=== PATIENT | male | born 1980 | race African-American/Black ===

== ENCOUNTER 2020-04-03 17:18 | Emergency (ER) | payer SELFPAY ==
[2020-04-03] MEDS ORDERED: NA CHLORIDE 0.9% 1,000 ML ONE (19:51)
[2020-04-03 19:58] LABS: Urine Blood NEGATIVE (NEG); Urine Glucose NEGATIVE (NEG); Urine Protein NEGATIVE (NEG); Urine pH 5.5 (5.0-7.0)
[2020-04-03 19:59] LABS: Barbiturates NEGATIVE (NEGATIVE); Benzodiazepines NEGATIVE (NEGATIVE); Cocaine NEGATIVE (NEGATIVE); METHAMPHETAM NEGATIVE (NEGATIVE); Methadone NEGATIVE (NEGATIVE); Opiates NEGATIVE (NEGATIVE); Phencyclidine NEGATIVE (NEGATIVE); THC Cannibis NEGATIVE (NEGATIVE)
[2020-04-03 20:01] LABS: Absolute Lymphocytes (CBC) 1.8 K/uL (0.7-4.9); Basophils % 0.6 % (0-1.3); Hematocrit 43.2 % (39.6-49.0); Lymphocytes % 14.7 % (15.3-44.8); RBC Red Blood Cell Count 4.79 M/uL (4.33-5.43)
[2020-04-03 20:07] LABS: Protime INR 1.06
--- NOTE | 2020-04-03 20:26 | RAD REPORT ---
EXAM DESCRIPTION: Katelyn Single View04/03/2020 8:11 pm CLINICAL HISTORY: Palpitations COMPARISON: none FINDINGS: The lungs appear clear of acute infiltrate. The heart is normal size IMPRESSION: No acute abnormalities displayed
[2020-04-03 20:28] LABS: ALT/SGPT 30 U/L (12-78); AST/SGOT 19 U/L (15-37); Albumin 4.5 g/dL (3.4-5.0); Alkaline Phosphatase 80 U/L (45-117); BUN Blood Urea Nitrogen 17 mg/dL (7-18); Bicarbonate 25 mmol/L (21-32); Bilirubin Direct 0.1 mg/dL (0-0.2); Bilirubin Total 0.4 mg/dL (0.2-1.0); Glucose Level 93 mg/dL (74-106); Magnesium 2.1 mg/dL (1.8-2.4); NT PRO-BNP 11 pg/mL (<125); Potassium 3.6 mmol/L (3.5-5.1); Protein, Total 9.1 g/dL (6.4-8.2); Sodium Level 139 mmol/L (136-145); Troponin (Emerg Dept Use Only) < 0.02 ng/mL (0.0-0.045)
--- NOTE | 2020-04-03 21:35 | ER ---
Nurse's Notes [facility] Name: Akhil Hidalgo Age: 39 yrs Sex: Male : 1980 Arrival Date: 04/03/2020 Time: 17:20 Bed 4 Private MD: Diagnosis: Palpitations Presentation: 04/03 17:26 Chief complaint: Patient states: "On Saturday he had a heart rate went up to 150s and he jd3 was feeling dizzy. today his heart rate shot up to 150 and his blood pressure also goes up. he is having chest pain and shortness of breath with the heart rate changes.". Coronavirus screen: At this time, the client does not indicate any symptoms associated with coronavirus-19. Ebola Screen: Patient negative for fever greater than or equal to 101.5 degrees Fahrenheit, and additional compatible Ebola Virus Disease symptoms. Initial Sepsis Screen: Does the patient meet any 2 criteria? No. Patient's initial sepsis screen is negative. Does the patient have a suspected source of infection? No. Patient's initial sepsis screen is negative. Risk Assessment: Do you want to hurt yourself or someone else? Patient reports no desire to harm self or others. Onset of symptoms was April 03, 2020. 17:26 Method Of Arrival: Wheelchair jd3 17:26 Acuity: MARIANGEL 3 jd3 Historical: - Allergies: 17:29 No Known Allergies; jd3 - Home Meds: 17:29 amlodipine oral [Active]; jd3 - PMHx: 17:29 None; jd3 - PSHx: 17:29 None; jd3 - Immunization history:: Adult Immunizations up to date. - Social history:: Smoking status: Patient reports the use of cigarette tobacco products, smokes one-half pack cigarettes per day. Screenin:45 Abuse screen: Denies threats or abuse. Denies injuries from another. Nutritional rr5 screening: No deficits noted. Tuberculosis screening: No symptoms or risk factors identified. Fall Risk IV access (20 points). Total Huynh Fall Scale indicates No Risk (0-24 pts). Assessment: 19:46 General: Appears in no apparent distress. comfortable, Behavior is calm, cooperative, rr5 appropriate for age. Pain: Complains of pain in chest Pain currently is 0 out of 10 on a pain scale. Quality of pain is described as aching, Pain began gradually, Is intermittent. Neuro: Level of Consciousness is awake, alert, obeys commands, Oriented to person, place, time, situation, Reports dizziness. Cardiovascular: Reports chest pain, shortness of breath, Capillary refill < 3 seconds Patient's skin is warm and dry. Respiratory: Airway is patent Respiratory effort is even, unlabored, Respiratory pattern is regular, symmetrical. GI: No signs and/or symptoms were reported involving the gastrointestinal system. : No signs and/or symptoms were reported regarding the genitourinary system. EENT: No signs and/or symptoms were reported regarding the EENT system. Derm: Skin is intact, is healthy with good turgor, Skin temperature is warm. Musculoskeletal: Circulation, motion, and sensation intact. Capillary refill < 3 seconds. 20:30 Reassessment: Patient appears in no apparent distress at this time. Patient is alert, rr5 oriented x 3, equal unlabored respirations, skin warm/dry/pink. Patient states feeling better. Patient states symptoms have improved. 21:55 Reassessment: Patient appears in no apparent distress at this time. Patient is alert, rr5 oriented x 3, equal unlabored respirations, skin warm/dry/pink. discharge instruction given and explained without complaints made Patient states symptoms have improved. Vital Signs: 17:29 BP 140 / 100; Pulse 109; Resp 19 S; Temp 98.7(TE); Pulse Ox 100% on R/A; Weight 88.45 jd3 kg (R); Height 6 ft. 0 in. (182.88 cm) (R); Pain 0/10; 20:23 BP 134 / 94; Pulse 65; Resp 16; Pulse Ox 99% ; rr5 21:50 BP 136 / 95; Pulse 62; Resp 16; Pulse Ox 99% ; rr5 17:29 Body Mass Index 26.45 (88.45 kg, 182.88 cm) jd3 ED Course: 17:20 Patient arrived in ED. ag5 17:28 Triage completed. jd3 17:31 Arm band placed on. jd3 17:47 EKG completed in triage. Results shown to MD. jd3 19:25 Arron Kamara NP is PHCP. pm1 19:25 Vinh Bermudez MD is Attending Physician. pm1 19:30 Stephens, Adal, RN is Primary Nurse. rr5 19:45 Patient has correct armband on for positive identification. Placed in gown. Bed in low rr5 position. Call light in reach. property assessment monitor on. Pulse ox on. NIBP on. 19:45 No provider procedures requiring assistance completed. Urine collected: clean catch rr5 specimen, clear. Patient maintains SpO2 saturation greater than 95% on room air. 19:54 Inserted saline lock: 20 gauge in right antecubital area, using aseptic technique. oe Blood collected. 20:14 XRAY Chest (1 view) In Process Unspecified. EDMS 21:56 IV discontinued, intact, bleeding controlled, No redness/swelling at site. Pressure rr5 dressing applied. Administered Medications: 19:52 Drug: NS 0.9% 1000 ml Route: IV; Rate: 1000 ml; Site: right forearm; rr5 21:50 Follow up: Response: No adverse reaction; IV Status: Completed infusion; IV Intake: rr5 1000ml Intake: 21:50 IV: 1000ml; Total: 1000ml. rr5 Outcome: 21:35 Discharge ordered by MD. pm1 21:50 Discharged to home ambulatory, with family. rr5 21:50 Condition: stable 21:50 Discharge instructions given to patient, Instructed on discharge instructions, follow up and referral plans. medication usage, Demonstrated understanding of instructions, follow-up care, medications, Prescriptions given X 1. 21:54 Patient left the ED. sg Signatures: Dispatcher [employer] EDMS Miguel Ángel John RN RN sg Arron Kamara, INJECTION MOLDING MACHINE TENDER INJECTION MOLDING MACHINE TENDER pm1 Jan Lara oe Og Pryor RN RN jd3 Roque, Raymond, CLIFFORD RN rr5 Mari Pimentel 5
--- NOTE | 2020-04-03 21:35 | EDPHYS ---
Physician Documentation [facility] Name: Akhil Hidalgo Age: 39 yrs Sex: Male : 1980 Arrival Date: 04/03/2020 Time: 17:20 Bed 4 Private MD: ED Physician Vinh Bermudez HPI: 04/03 19:35 This 39 yrs old Black Male presents to ER via Wheelchair with complaints of Chest Pain, pm1 Shortness Of Breath, Dizziness. 19:35 Context: The symptoms occur at rest, while driving his rental car. Onset: The pm1 symptoms/episode began/occurred yesterday. Duration: The patient or guardian reports multiple episodes, that have now resolved, 2 episodes total. Modifying factors: The symptoms are aggravated by nothing. The symptoms are alleviated by nothing. Associated signs and symptoms: Pertinent positives: chest pain, SOB. Severity of symptoms: in the emergency department the symptoms have resolved Pain is currently a 0 / 10. The patient has not experienced similar symptoms in the past. 19:35 The patient presents with a history of heart racing. pm1 Historical: - Allergies: 17:29 No Known Allergies; jd3 - Home Meds: 17:29 amlodipine oral [Active]; jd3 - PMHx: 17:29 None; jd3 - PSHx: 17:29 None; jd3 - Immunization history:: Adult Immunizations up to date. - Social history:: Smoking status: Patient reports the use of cigarette tobacco products, smokes one-half pack cigarettes per day. ROS: 19:35 Constitutional: Negative for fever, chills, and weight loss, Eyes: Negative for injury, pm1 pain, redness, and discharge, ENT: Negative for injury, pain, and discharge, Neck: Negative for injury, pain, and swelling. 19:35 Abdomen/GI: Negative for abdominal pain, nausea, vomiting, diarrhea, and constipation, Back: Negative for injury and pain, MS/Extremity: Negative for injury and deformity, Skin: Negative for injury, rash, and discoloration. 19:35 Cardiovascular: Positive for chest pain, palpitations. 19:35 Respiratory: Positive for shortness of breath, Negative for cough. 19:35 Neuro: Positive for dizziness, Negative for numbness, tingling. Exam: 19:35 Constitutional: This is a well developed, well nourished patient who is awake, alert, pm1 and in no acute distress. Head/Face: Normocephalic, atraumatic. Chest/axilla: Normal chest wall appearance and motion. Nontender with no deformity. No lesions are appreciated. Cardiovascular: Regular rate and rhythm with a normal S1 and S2. No gallops, murmurs, or rubs. Normal PMI, no JVD. No pulse deficits. Respiratory: Lungs have equal breath sounds bilaterally, clear to auscultation and percussion. No rales, rhonchi or wheezes noted. No increased work of breathing, no retractions or nasal flaring. Abdomen/GI: Soft, non-tender, with normal bowel sounds. No distension or tympany. No guarding or rebound. No evidence of tenderness throughout. Back: No spinal tenderness. No costovertebral tenderness. Full range of motion. Skin: Warm, dry with normal turgor. Normal color with no rashes, no lesions, and no evidence of cellulitis. MS/ Extremity: Pulses equal, no cyanosis. Neurovascular intact. Full, normal range of motion. 19:35 Neuro: Exam negative for acute changes, Orientation: is normal, Mentation: is normal, Motor: is normal, moves all fours. Vital Signs: 17:29 BP 140 / 100; Pulse 109; Resp 19 S; Temp 98.7(TE); Pulse Ox 100% on R/A; Weight 88.45 jd3 kg (R); Height 6 ft. 0 in. (182.88 cm) (R); Pain 0/10; 20:23 BP 134 / 94; Pulse 65; Resp 16; Pulse Ox 99% ; rr5 21:50 BP 136 / 95; Pulse 62; Resp 16; Pulse Ox 99% ; rr5 17:29 Body Mass Index 26.45 (88.45 kg, 182.88 cm) jd3 MDM: 19:33 Patient medically screened. pm1 21:34 Data reviewed: vital signs. Data interpreted: Pulse oximetry: on room air is 99 %. pm1 Interpretation: normal. Counseling: I had a detailed discussion with the patient and/or guardian regarding: the historical points, exam findings, and any diagnostic results supporting the discharge/admit diagnosis, lab results, radiology results, the need for outpatient follow up, to return to the emergency department if symptoms worsen or persist or if there are any questions or concerns that arise at home. 04/03 19:35 Order name: Basic Metabolic Panel; Complete Time: 20:33 pm1 04/03 19:35 Order name: CBC with Diff; Complete Time: 20:12 pm1 04/03 19:35 Order name: LFT's; Complete Time: 20:33 pm1 04/03 19:35 Order name: Magnesium; Complete Time: 20:33 pm1 04/03 19:35 Order name: NT PRO-BNP; Complete Time: 20:33 pm1 04/03 19:35 Order name: PT-INR; Complete Time: 21:34 pm1 04/03 19:35 Order name: Troponin (emerg Dept Use Only); Complete Time: 20:33 pm1 04/03 19:35 Order name: XRAY Chest (1 view); Complete Time: 20:33 pm1 04/03 19:35 Order name: EKG; Complete Time: 19:36 pm1 04/03 19:35 Order name: Cardiac monitoring; Complete Time: 19:35 pm1 04/03 19:35 Order name: TSH; Complete Time: 20:33 pm1 04/03 19:35 Order name: UDS; Complete Time: 20:12 pm1 04/03 19:46 Order name: Urine Dipstick--Ancillary (enter results); Complete Time: 19:59 tt3 04/03 19:35 Order name: EKG - Nurse/Tech; Complete Time: 19:35 pm1 04/03 19:35 Order name: IV Saline Lock; Complete Time: 19:36 pm1 04/03 19:35 Order name: Labs collected and sent; Complete Time: 19:36 pm1 04/03 19:35 Order name: O2 Per Protocol; Complete Time: 19:36 pm1 04/03 19:35 Order name: O2 Sat Monitoring; Complete Time: 19:36 pm1 04/03 19:35 Order name: Urine Dipstick-Ancillary (obtain specimen); Complete Time: 19:45 pm1 Administered Medications: 19:52 Drug: NS 0.9% 1000 ml Route: IV; Rate: 1000 ml; Site: right forearm; rr5 21:50 Follow up: Response: No adverse reaction; IV Status: Completed infusion; IV Intake: rr5 1000ml Disposition: 10/05 05:34 Co-signature as Attending Physician, Vinh Bermudez MD. [email or web address] Disposition: 04/03/20 21:35 Discharged to Home. Impression: Palpitations. - Condition is Stable. - Discharge Instructions: Holter Monitoring, Palpitations. - Prescriptions for Norvasc 10 mg Oral Tablet - take 1 tablet by ORAL route once daily; 20 tablet. - Medication Reconciliation Form, Thank You Letter, Antibiotic Education, Prescription Opioid Use, Work release form form. - Follow up: Emergency Department; When: As needed; Reason: Worsening of condition. Follow up: Private Physician; When: 2 - 3 days; Reason: Recheck today's complaints, Continuance of care, Re-evaluation by your physician. - Problem is new. - Symptoms have improved. Signatures: Dispatcher [employer] EDMS Miguel Ángel John, RN RN sg Yrn Vernon, WIRE WINDING MACHINE OPERATOR-C WIRE WINDING MACHINE OPERATOR-Cla1 Arron Kamara, COIL WINDER HAND COIL WINDER HAND pm1 Og Pryor RN RN Adal Santiago RN RN rr5 Vinh Bermudez MD MD 7 Corrections: (The following items were deleted from the chart) 04/03 21:54 21:35 04/03/2020 21:35 Discharged to Home. Impression: Palpitations. Condition is sg Stable. Forms are Medication Reconciliation Form, Thank You Letter, Antibiotic Education, Prescription Opioid Use. Follow up: Emergency Department; When: As needed; Reason: Worsening of condition. Follow up: Private Physician; When: 2 - 3 days; Reason: Recheck today's complaints, Continuance of care, Re-evaluation by your physician. Problem is new. Symptoms have improved. pm1 04/04 02:05 02:03 The patient presents with a history of heart racing, pm1 pm1
[2020-04-03 22:12] VITALS: TEMP 98.7
[2020-04-03 22:14] VITALS: BP 134/94; O2SAT 99
== END 2020-04-03 21:54 | disposition home or self-care (01) ==
LOC: ER 17:18
DX: R00.2 Palpitations (principal); F17.210 Nicotine dependence, cigarettes, uncomplicated
CPT/HCPCS: 36415; 71045; 80048; 80076; 80307; 81003; 83735; 83880; 84443; 84484; 85025; 85610; 93005; 96360; 96361; 99285; J7030

== ENCOUNTER 2020-05-25 08:42 | Emergency (ER) | payer SELFPAY ==
[2020-05-25 09:24] LABS: Absolute Lymphocytes (CBC) 2.3 K/uL (0.7-4.9); Basophils % 1.5 % (0-1.3); Lymphocytes % 30.8 % (15.3-44.8); Protime INR 1.05; RBC Red Blood Cell Count 4.49 M/uL (4.33-5.43)
[2020-05-25 09:41] LABS: ALT/SGPT 60 U/L (12-78); AST/SGOT 28 U/L (15-37); Albumin 3.8 g/dL (3.4-5.0); Alkaline Phosphatase 68 U/L (45-117); BUN Blood Urea Nitrogen 11 mg/dL (7-18); Bicarbonate 25 mmol/L (21-32); Bilirubin Direct < 0.1 mg/dL (0-0.2); Bilirubin Total 0.4 mg/dL (0.2-1.0); Glucose Level 111 mg/dL (74-106); Magnesium 2.1 mg/dL (1.8-2.4); Potassium 3.9 mmol/L (3.5-5.1); Sodium Level 139 mmol/L (136-145); Troponin (Emerg Dept Use Only) < 0.02 ng/mL (0.0-0.045)
[2020-05-25 09:46] LABS: NT PRO-BNP < 5 pg/mL (<125)
--- NOTE | 2020-05-25 10:47 | RAD REPORT ---
EXAM DESCRIPTION: Katelyn Single View05/25/2020 9:59 am CLINICAL HISTORY: Chest pain COMPARISON: March 2020 FINDINGS: The lungs appear clear of acute infiltrate. The heart is normal size IMPRESSION: No acute abnormalities displayed
--- NOTE | 2020-05-25 12:35 | ER ---
Nurse's Notes [facility] Name: Akhil Hidalgo Age: 40 yrs Sex: Male : 1980 Arrival Date: 05/25/2020 Time: 08:45 Bed 5 Private MD: Diagnosis: Chest pain on breathing Presentation: 05/25 08:45 Chief complaint: Patient states: "I accidently took two of my Amlodipine tablets two ss days ago and I started getting bad chest pain. My blood pressure was reading as low as 70/40 on my machine and since then when I take a deep breath, my chest hurts.". Coronavirus screen: Client denies travel out of the [place] in the last 14 days. Ebola Screen: Patient denies exposure to infectious person. Patient denies travel to an Ebola-affected area in the 21 days before illness onset. Initial Sepsis Screen: Does the patient meet any 2 criteria? No. Patient's initial sepsis screen is negative. Does the patient have a suspected source of infection? No. Patient's initial sepsis screen is negative. Risk Assessment: Do you want to hurt yourself or someone else? Patient reports no desire to harm self or others. Onset of symptoms was May 23, 2020. 08:45 Method Of Arrival: Ambulatory ss 08:45 Acuity: MARIANGEL 3 ss Triage Assessment: 08:45 General: Appears in no apparent distress. comfortable, Behavior is cooperative, bp appropriate for age, anxious. Pain: Complains of pain in chest. EENT: No deficits noted. Neuro: No deficits noted. Cardiovascular: Rhythm is sinus rhythm. Respiratory: No deficits noted. GI: No signs and/or symptoms were reported involving the gastrointestinal system. : No signs and/or symptoms were reported regarding the genitourinary system. Derm: No deficits noted. Musculoskeletal: No deficits noted. Historical: - Allergies: 09:12 No Known Allergies; ss - Home Meds: 09:12 amlodipine 10 mg oral tab 1 tab once daily [Active]; ss - PMHx: 09:12 Hypertension; ss - PSHx: 09:12 None; ss - Immunization history:: Adult Immunizations up to date. - Social history:: Patient/guardian denies using alcohol, street drugs, The patient lives alone, with family, Smoking status: Patient/guardian denies using tobacco, Stopped _ months ago 1. - Family history:: not pertinent. Screenin:45 Abuse screen: Denies threats or abuse. Denies injuries from another. Nutritional bp screening: No deficits noted. Tuberculosis screening: No symptoms or risk factors identified. Fall Risk None identified. Assessment: 08:45 General: SEE TRIAGE NOTE. bp 10:30 Reassessment: Patient appears in no apparent distress at this time. Patient and/or bp family updated on plan of care and expected duration. Pain level reassessed. Patient is alert, oriented x 3, equal unlabored respirations, skin warm/dry/pink. ALL CURRENT ORDERS COMPLETED, RESULTS UNREMARKABLE. 11:30 Reassessment: Patient appears in no apparent distress at this time. Patient and/or bp family updated on plan of care and expected duration. Pain level reassessed. REPEAT CARDIAC ENZYMES IN PROCESS. Patient states symptoms have improved. Vital Signs: 08:45 BP 126 / 82; Pulse 85; Resp 16; Temp 98.2(TE); Pulse Ox 100% on R/A; Weight 88 kg; ss Height 6 ft. 0 in. (182.88 cm); Pain 0/10; 09:30 BP 122 / 87; Pulse 72; Resp 15; Pulse Ox 100% ; bp 10:30 BP 108 / 76; Pulse 74; Resp 14; Pulse Ox 100% ; bp 11:30 BP 123 / 91; Pulse 63; Resp 19; Pulse Ox 100% ; bp 08:45 Body Mass Index 26.31 (88.00 kg, 182.88 cm) ED Course: 08:45 Patient arrived in ED. as 08:45 Patient has correct armband on for positive identification. Bed in low position. Call bp light in reach. Side rails up X2. monitor worker on. Pulse ox on. NIBP on. 08:50 Domo Houston MD is Attending Physician. ma2 08:58 EKG done, by ED staff, reviewed by Domo Houston MD. 3 09:02 Tee Mckeon, CLIFFORD is Primary Nurse. bp 09:09 Triage completed. ss 09:10 Inserted saline lock: 20 gauge in right antecubital area, using aseptic technique. bp Patient maintains SpO2 saturation greater than 95% on room air. 09:12 Arm band placed on right wrist. ss 09:59 XRAY Chest (1 view) In Process Unspecified. EDMS 12:47 No provider procedures requiring assistance completed. IV discontinued, intact, ss bleeding controlled, No redness/swelling at site. Pressure dressing applied. Administered Medications: No medications were administered Outcome: 12:35 Discharge ordered by . an 12:47 Discharged to home ambulatory, with family. ss 12:47 Condition: good 12:47 Discharge instructions given to patient, family, Instructed on discharge instructions, follow up and referral plans. medication usage, Demonstrated understanding of instructions, follow-up care, medications, Prescriptions given X 1. 12:48 Patient left the ED. ss Signatures: Dispatcher [employer] EDDE Negar Vasquez Shelby, CLIFFORD HORTON Shweta Garces [facility] Tee Mckeon RN RN Domo Winter MD MD ma2
--- NOTE | 2020-05-25 12:35 | EDPHYS ---
Physician Documentation [facility] Name: Akhil Hidalgo Age: 40 yrs Sex: Male : 1980 Arrival Date: 05/25/2020 Time: 08:45 Bed 5 Private MD: ED Physician Domo Houston HPI: 05/25 09:08 This 40 yrs old Black Male presents to ER via Unassigned with complaints of Chest Pain, ma2 Back Pain, Blood Pressure Problem. 09:08 The patient or guardian reports chest pain that is located primarily in the substernal ma2 area. The pain does not radiate. Duration: The patient or guardian reports a single episode, that is now resolved. Severity of pain: At its worst the pain was very mild in the emergency department the pain has resolved. The patient has not experienced similar symptoms in the past. hx of htn, he took 2 tablet of his metoprolol by mistake 2 days ago, and checked his bp was 74/40 and he had "painful heart beats" that lasted for 10 min, then resolved, since then he has no symptoms or concerns, he is here to have his heart checked.. no symptoms for the last 2 day s . Historical: - Allergies: 09:12 No Known Allergies; ss - Home Meds: 09:12 amlodipine 10 mg oral tab 1 tab once daily [Active]; ss - PMHx: 09:12 Hypertension; ss - PSHx: 09:12 None; ss - Immunization history:: Adult Immunizations up to date. - Social history:: Patient/guardian denies using alcohol, street drugs, The patient lives alone, with family, Smoking status: Patient/guardian denies using tobacco, Stopped _ months ago 1. - Family history:: not pertinent. ROS: 09:08 Constitutional: Negative for fever, chills, and weight loss. ma2 09:08 All other systems are negative. Exam: 09:08 Constitutional: This is a well developed, well nourished patient who is awake, alert, ma2 and in no acute distress. Head/Face: Normocephalic, atraumatic. Eyes: Pupils equal round and reactive to light, extra-ocular motions intact. Lids and lashes normal. Conjunctiva and sclera are non-icteric and not injected. Cornea within normal limits. Periorbital areas with no swelling, redness, or edema. ENT: Nares patent. No nasal discharge, no septal abnormalities noted. Tympanic membranes are normal and external auditory canals are clear. Oropharynx with no redness, swelling, or masses, exudates, or evidence of obstruction, uvula midline. Mucous membranes moist. Neck: Trachea midline, no thyromegaly or masses palpated, and no cervical lymphadenopathy. Supple, full range of motion without nuchal rigidity, or vertebral point tenderness. No Meningismus. Chest/axilla: Normal chest wall appearance and motion. Nontender with no deformity. No lesions are appreciated. Cardiovascular: Regular rate and rhythm with a normal S1 and S2. No gallops, murmurs, or rubs. Normal PMI, no JVD. No pulse deficits. Respiratory: Lungs have equal breath sounds bilaterally, clear to auscultation and percussion. No rales, rhonchi or wheezes noted. No increased work of breathing, no retractions or nasal flaring. Abdomen/GI: Soft, non-tender, with normal bowel sounds. No distension or tympany. No guarding or rebound. No evidence of tenderness throughout. MS/ Extremity: Pulses equal, no cyanosis. Neurovascular intact. Full, normal range of motion. Neuro: Awake and alert, GCS 15, oriented to person, place, time, and situation. Cranial nerves II-XII grossly intact. Motor strength 5/5 in all extremities. Sensory grossly intact. Cerebellar exam normal. Normal gait. Vital Signs: 08:45 BP 126 / 82; Pulse 85; Resp 16; Temp 98.2(TE); Pulse Ox 100% on R/A; Weight 88 kg; ss Height 6 ft. 0 in. (182.88 cm); Pain 0/10; 09:30 BP 122 / 87; Pulse 72; Resp 15; Pulse Ox 100% ; bp 10:30 BP 108 / 76; Pulse 74; Resp 14; Pulse Ox 100% ; bp 11:30 BP 123 / 91; Pulse 63; Resp 19; Pulse Ox 100% ; bp 08:45 Body Mass Index 26.31 (88.00 kg, 182.88 cm) MDM: 08:50 Patient medically screened. ma2 09:08 Differential diagnosis: anxiety, chest wall pain, esophagitis, gastritis, ma2 gastroesophageal reflux disease (GERD), hiatal hernia. HEART Score: History: Slightly Suspicious (0), ECG: Normal (0), Age: < or = 45 years (0), Risk Factors: 1 or 2 risk factors (1), Troponin: < or = 1 x Normal Limit (0), Total Score = 1. Data reviewed: vital signs, nurses notes, EMS record. Counseling: I had a detailed discussion with the patient and/or guardian regarding: the historical points, exam findings, and any diagnostic results supporting the discharge/admit diagnosis, the presence of at least one elevated blood pressure reading (>120/80) during this emergency department visit. 12:34 ED course: he will see a maintenance of way clerk and pcp in 2 days . 05/25 08:50 Order name: Basic Metabolic Panel; Complete Time: 09:49 05/25 08:50 Order name: CBC with Diff; Complete Time: 09:49 05/25 08:50 Order name: LFT's; Complete Time: 09:49 05/25 08:50 Order name: Magnesium; Complete Time: 09:49 05/25 08:50 Order name: NT PRO-BNP; Complete Time: 09:49 05/25 08:50 Order name: PT-INR; Complete Time: 09:49 05/25 08:50 Order name: Troponin (emerg Dept Use Only); Complete Time: 09:49 05/25 08:50 Order name: XRAY Chest (1 view); Complete Time: 11:59 05/25 08:50 Order name: EKG; Complete Time: 08:51 05/25 08:50 Order name: Cardiac monitoring; Complete Time: 09:04 05/25 08:50 Order name: EKG - Nurse/Tech; Complete Time: 09:04 05/25 08:50 Order name: IV Saline Lock; Complete Time: 09:24 05/25 08:50 Order name: Labs collected and sent; Complete Time: 09:24 05/25 11:21 Order name: Troponin (emerg Dept Use Only): 2nd repeat; Complete Time: 12:28 05/25 08:50 Order name: O2 Per Protocol; Complete Time: 09:05 05/25 08:50 Order name: O2 Sat Monitoring; Complete Time: 09:05 ma2 Administered Medications: No medications were administered Disposition: 05/25/20 12:35 Discharged to Home. Impression: Chest pain on breathing. - Condition is Stable. - Discharge Instructions: Nonspecific Chest Pain, [id number]. - Prescriptions for Diclofenac Sodium 75 mg Oral Tablet Sustained Release - take 1 tablet by ORAL route 2 times per day; 30 tablet. - Medication Reconciliation Form, Thank You Letter, Antibiotic Education, Prescription Opioid Use form. - Follow up: Private Physician; When: Tomorrow; Reason: Continuance of care. Signatures: Dispatcher [employer] EDGeorgie Fernández RN RN ss Alzahri, Mohammad, MD MD ma2 Corrections: (The following items were deleted from the chart) 12:48 12:35 05/25/2020 12:35 Discharged to Home. Impression: Chest pain on breathing. ss Condition is Stable. Prescriptions for Diclofenac Sodium 75 mg Oral Tablet Sustained Release - take 1 tablet by ORAL route 2 times per day; 30 tablet. and Forms are Medication Reconciliation Form, Thank You Letter, Antibiotic Education, Prescription Opioid Use. Follow up: Private Physician; When: Tomorrow; Reason: Continuance of care. ma2
[2020-05-25 13:08] VITALS: TEMP 98.2; O2SAT 100
[2020-05-25 13:14] VITALS: BP 123/91
== END 2020-05-25 12:48 | disposition home or self-care (01) ==
LOC: ER 08:42
DX: R07.1 Chest pain on breathing (principal); I10 Essential (primary) hypertension
CPT/HCPCS: 36415; 71045; 80048; 80076; 83735; 83880; 84484; 85025; 85610; 93005; 99285

== ENCOUNTER 2021-04-06 17:01 | Emergency (ER) | payer SELFPAY ==
[2021-04-06 17:26] LABS: Urine Blood Negative (Negative); Urine Glucose Negative (Negative); Urine Protein Negative (Negative)
[2021-04-06] MEDS ORDERED: MORPHINE 4 MG/ML SYR ONE (18:03)
[2021-04-06] MEDS ORDERED: NA CHLORIDE 0.9% 1,000 ML ONE (18:03)
[2021-04-06] MEDS ORDERED: ONDANSETRON 4 MG/2 ML VIAL ONE (18:03)
[2021-04-06 18:10] LABS: Absolute Lymphocytes (CBC) 2.3 K/uL (0.7-4.9); Hematocrit 39.2 % (39.6-49.0); Lymphocytes % 26.2 % (15.3-44.8); MPV 7.9 fL (7.6-11.3); RBC Red Blood Cell Count 4.56 M/uL (4.33-5.43)
[2021-04-06 18:18] LABS: ALT/SGPT 36 U/L (12-78); AST/SGOT 22 U/L (15-37); Albumin 4.2 g/dL (3.4-5.0); Alkaline Phosphatase 74 U/L (45-117); BUN Blood Urea Nitrogen 17 mg/dL (7-18); Bicarbonate 26 mmol/L (21-32); Bilirubin Direct < 0.1 mg/dL (0-0.2); Bilirubin Total 0.2 mg/dL (0.2-1.0); Glucose Level 102 mg/dL (74-106); Lipase 156 U/L (73-393); Potassium 3.9 mmol/L (3.5-5.1); Protein, Total 8.3 g/dL (6.4-8.2); Sodium Level 139 mmol/L (136-145)
--- NOTE | 2021-04-06 18:58 | RAD REPORT ---
EXAM DESCRIPTION: CT - Abdomen Pelvis W Contrast - 04/06/2021 6:43 pm CLINICAL HISTORY: Abd pain;Flank pain COMPARISON: No comparisons TECHNIQUE: Biphasic, helical CT imaging of the abdomen and pelvis was performed following 100 ml non -ionic IV contrast. No oral contrast administered. All CT scans are performed using dose optimization technique as appropriate and may include automated exposure control or mA/KV adjustment according to patient size. FINDINGS: No suspicious findings in the lung bases. The liver, spleen, and pancreas show no suspicious findings. Gallbladder is contracted. No acute gall bladder finding. No biliary tree abnormality. Symmetric renal function is seen with no hydronephrosis or suspicious renal mass. No pyelonephritis o r acute parenchymal process. No bladder abnormalities. No adrenal abnormalities. Prostate gland and s eminal vesicles show suspicious findings. No dilated bowel loops or bowel wall thickening. Appendix normal. No acute GI process identifiable. No free air, free fluid or inflammatory stranding. Very small fat only umbilical hernia is seen. No mass or bulky lymphadenopathy. No suspicious bony findings. IMPRESSION: Contrast enhanced CT abdomen and pelvis showing no acute or emergent finding.
--- NOTE | 2021-04-06 19:06 | EDPHYS ---
Physician Documentation [facility] Name: Akhil Hidalgo Age: 40 yrs Sex: Male : 1980 Arrival Date: 04/06/2021 Time: 17:02 Bed 17 Private MD: ED Physician Yovany Manning HPI: 04/06 18:36 This 40 yrs old Black Male presents to ER via Ambulatory with complaints of Flank Pain boom - both sides. 18:36 This 40 yrs old Black Male presents to ER via Ambulatory with complaints of Flank Pain boom - both sides. 18:36 The patient complains of pain in the left low back, left mid back, right mid back and boom right low back. The pain radiates to the left low back, left mid back, right mid back and right low back. Onset: The symptoms/episode began/occurred 10 day(s) ago. Modifying factors: The symptoms are alleviated by nothing. the symptoms are aggravated by nothing. Associated signs and symptoms: The patient has no apparent associated signs or symptoms. Severity of pain: At its worst the pain was mild moderate in the emergency department the pain is unchanged. The patient has experienced a previous episode. Historical: - Allergies: 17:12 No Known Allergies; jl7 - Home Meds: 17:12 amlodipine 10 mg tab 1 tab once daily [Active]; Zoloft Oral [Active]; trazodone Oral jl7 [Active]; - PMHx: 17:12 Hypertension; Anxiety; jl7 - PSHx: 17:12 None; jl7 - Immunization history:: Client reports receiving the 2nd dose of the Covid vaccine, Pf[employer]. - Social history:: Smoking status: Reported history of juuling and/or vaping. - Family history:: not pertinent. ROS: 18:36 Constitutional: Negative for fever, chills, and weight loss, Eyes: Negative for injury, obom pain, redness, and discharge, ENT: Negative for injury, pain, and discharge, Neck: Negative for injury, pain, and swelling, Cardiovascular: Negative for chest pain, palpitations, and edema, Respiratory: Negative for shortness of breath, cough, wheezing, and pleuritic chest pain, Back: Negative for injury and pain, : Negative for injury, bleeding, discharge, and swelling, MS/Extremity: Negative for injury and deformity, Skin: Negative for injury, rash, and discoloration, Neuro: Negative for headache, weakness, numbness, tingling, and seizure, Psych: Negative for depression, anxiety, suicide ideation, homicidal ideation, and hallucinations, Allergy/Immunology: Negative for hives, rash, and allergies, Endocrine: Negative for neck swelling, polydipsia, polyuria, polyphagia, and marked weight changes, Hematologic/Lymphatic: Negative for swollen nodes, abnormal bleeding, and unusual bruising. 18:36 Abdomen/GI: Positive for abdominal pain, of the epigastric area, posterior aspect of left lateral abdomen, posterior aspect of right lateral abdomen, right upper quadrant, left upper quadrant, right lower quadrant and left lower quadrant. Exam: 18:36 Constitutional: This is a well developed, well nourished patient who is awake, alert, boom and in no acute distress. Head/Face: Normocephalic, atraumatic. Eyes: Pupils equal round and reactive to light, extra-ocular motions intact. Lids and lashes normal. Conjunctiva and sclera are non-icteric and not injected. Cornea within normal limits. Periorbital areas with no swelling, redness, or edema. ENT: Nares patent. No nasal discharge, no septal abnormalities noted. Tympanic membranes are normal and external auditory canals are clear. Oropharynx with no redness, swelling, or masses, exudates, or evidence of obstruction, uvula midline. Mucous membranes moist. Neck: Trachea midline, no thyromegaly or masses palpated, and no cervical lymphadenopathy. Supple, full range of motion without nuchal rigidity, or vertebral point tenderness. No Meningismus. Chest/axilla: Normal chest wall appearance and motion. Nontender with no deformity. No lesions are appreciated. Cardiovascular: Regular rate and rhythm with a normal S1 and S2. No gallops, murmurs, or rubs. Normal PMI, no JVD. No pulse deficits. Respiratory: Lungs have equal breath sounds bilaterally, clear to auscultation and percussion. No rales, rhonchi or wheezes noted. No increased work of breathing, no retractions or nasal flaring. Abdomen/GI: Soft, non-tender, with normal bowel sounds. No distension or tympany. No guarding or rebound. No evidence of tenderness throughout. Back: No spinal tenderness. No costovertebral tenderness. Full range of motion. Male : Normal genitalia with no discharge or lesions. Skin: Warm, dry with normal turgor. Normal color with no rashes, no lesions, and no evidence of cellulitis. MS/ Extremity: Pulses equal, no cyanosis. Neurovascular intact. Full, normal range of motion. Neuro: Awake and alert, GCS 15, oriented to person, place, time, and situation. Cranial nerves II-XII grossly intact. Motor strength 5/5 in all extremities. Sensory grossly intact. Cerebellar exam normal. Normal gait. Psych: Awake, alert, with orientation to person, place and time. Behavior, mood, and affect are within normal limits. 18:36 Musculoskeletal/extremity: DVT Exam: No signs of deep vein thrombosis. no pain, no swelling, no tenderness, negative Homans' sign noted on exam, no appreciated bluish discoloration, no erythema, no increased warmth. 19:04 ECG was reviewed by the Attending Physician. [facility] Vital Signs: 17:10 BP 144 / 100; Pulse 81; Resp 17; Temp 98.3; Pulse Ox 100% on R/A; Weight 96.16 kg; jl7 Height 6 ft. 0 in. (182.88 cm); Pain 6/10; 19:00 BP 135 / 89; Pulse 66; Resp 18; Temp 98.6; Pulse Ox 98% ; Pain 2/10; bs2 17:10 Body Mass Index 28.75 (96.16 kg, 182.88 cm) jl7 MDM: 17:30 Patient medically screened. [facility] 19:06 Differential diagnosis: nephrolithiasis, UTI, diverticulitis. Data reviewed: vital [facility] signs, nurses notes, lab test result(s), EKG, radiologic studies, CT scan. Data interpreted: library monitor: rate is 81 beats/min, rhythm is regular, Pulse oximetry: on room air is 100 %. Test interpretation: by ED physician or midlevel provider: ECG. Counseling: I had a detailed discussion with the patient and/or guardian regarding: the historical points, exam findings, and any diagnostic results supporting the discharge/admit diagnosis, lab results, radiology results, the need for outpatient follow up, for definitive care, a family practitioner, a gaming investigator. 04/06 17:26 Order name: Urine Dipstick-Ancillary; Complete Time: 17:30 EDMS 04/06 17:31 Order name: Basic Metabolic Panel [facility] 04/06 17:31 Order name: CBC with Diff [facility] 04/06 17:31 Order name: Hepatic Function [facility] 04/06 17:31 Order name: Lipase [facility] 04/06 17:33 Order name: Basic Metabolic Panel; Complete Time: 18:32 EDMS 04/06 17:31 Order name: CT Abd/Pelvis - IV Contrast Only; Complete Time: 19:04 [facility] 04/06 17:33 Order name: CBC with Automated Diff; Complete Time: 18:32 EDMS 04/06 17:33 Order name: Liver (Hepatic) Function; Complete Time: 18:32 EDMS 04/06 17:33 Order name: Lipase; Complete Time: 18:32 EDMS 04/06 18:33 Order name: Troponin (Emerg Dept Use Only); Complete Time: 19:04 EDME 04/06 17:31 Order name: IV Saline Lock; Complete Time: 17:53 [facility] 04/06 17:31 Order name: Labs collected and sent; Complete Time: 17:54 [facility] 04/06 18:33 Order name: EKG; Complete Time: 18:33 [facility] 04/06 18:33 Order name: EKG - Nurse/Tech; Complete Time: 19:08 [facility] EC:04 Rate is 80 beats/min. Rhythm is regular. QRS Jenera is Normal. IA interval is normal. QRS boom interval is normal. QT interval is normal. No Q waves. T waves are Normal. No ST changes noted. Clinical impression: Normal ECG and No evidence of ischemia. Interpreted by me. Reviewed by me. Administered Medications: 17:55 Drug: NS 0.9% 1000 ml Route: IV; Rate: 1 bolus; Site: right antecubital; tr6 19:20 Follow up: IV Status: Completed infusion bs2 17:55 Drug: morphine 2 mg Route: IVP; Site: right antecubital; tr6 19:20 Follow up: Response: No adverse reaction bs2 17:55 Drug: Zofran (Ondansetron) 4 mg Route: IVP; Site: right antecubital; tr6 19:20 Follow up: Response: No adverse reaction bs2 19:10 Drug: Pepcid (famotidine) 20 mg Route: IVP; Site: right antecubital; bs2 19:20 Follow up: Response: No adverse reaction bs2 Disposition Summary: 04/06/21 19:05 Discharge Ordered Location: Home boom Problem: new boom Symptoms: have improved boom Condition: Stable boom Diagnosis - Abdominal pain, Generalized boom - Essential (primary) hypertension boom Followup: boom - With: Private Physician - When: 2 - 3 days - Reason: Recheck today's complaints, Continuance of care, Re-evaluation by your physician Followup: boom - With: - When: 2 - 3 days - Reason: Recheck today's complaints, Re-evaluation by your physician Discharge Instructions: - Discharge Summary Sheet boom - Abdominal Pain, Adult boom - Flank Pain, Adult boom - Hypertension, Adult boom - Abdominal Pain, Adult, [id number] boom - Hypertension, Adult, [id number] boom - How to Take Your Blood Pressure, [id number] boom - Managing Your Hypertension boom Forms: - Medication Reconciliation Form boom - Thank You Letter boom - Antibiotic Education boom - Prescription Opioid Use boom Prescriptions: - Pepcid 20 mg Oral Tablet - take 1 tablet by ORAL route every 12 hours for 15 days; 30 tablet; Refills: 0, boom Product Selection Permitted - Zofran 4 mg Oral Tablet - take 1 tablet by ORAL route every 12 hours As needed; 20 tablet; Refills: 0, boom Product Selection Permitted - dicyclomine 20 mg Oral Tablet - take 1 tablet by ORAL route 4 times per day; 28 tablet; Refills: 0, Product boom Selection Permitted Signatures: Dispatcher [employer] Yovany Britt MD MD cha Leal, Jahala RN RN jl7 Janell Pagan RN RN tr6 Tierney Montana RN RN bs2 Corrections: (The following items were deleted from the chart) 17:15 17:12 Home Meds: Tramadol Oral; jl7 jl7
--- NOTE | 2021-04-06 19:06 | ER ---
Nurse's Notes [facility] Name: Akhil Hidalgo Age: 40 yrs Sex: Male : 1980 Arrival Date: 04/06/2021 Time: 17:02 Bed 17 Private MD: Diagnosis: Abdominal pain, Generalized;Essential (primary) hypertension Presentation: 04/06 17:10 Chief complaint: Patient states: Bilateral flank pain x 2 months, relentless for the jl7 past 3 weeks, denies trauma, denies N/V/D, denies urinary symptoms, states "It feels sore but I haven't been working out or anything.". Coronavirus screen: At this time, the client does not indicate any symptoms associated with coronavirus-19. Ebola Screen: No symptoms or risks identified at this time. Initial Sepsis Screen: Does the patient meet any 2 criteria? No. Patient's initial sepsis screen is negative. Does the patient have a suspected source of infection? No. Patient's initial sepsis screen is negative. Risk Assessment: Do you want to hurt yourself or someone else? Patient reports no desire to harm self or others. Onset of symptoms was January 2021. 17:10 Method Of Arrival: Ambulatory jl7 17:10 Acuity: MARIANGEL 3 jl7 Triage Assessment: 17:12 General: Appears in no apparent distress. uncomfortable, Behavior is calm, cooperative, jl7 appropriate for age. Pain: Complains of pain in anterior aspect of left lateral abdomen, posterior aspect of left lateral abdomen, anterior aspect of right lateral abdomen and posterior aspect of right lateral abdomen Pain currently is 6 out of 10 on a pain scale. Historical: - Allergies: 17:12 No Known Allergies; jl7 - Home Meds: 17:12 amlodipine 10 mg tab 1 tab once daily [Active]; Zoloft Oral [Active]; trazodone Oral jl7 [Active]; - PMHx: 17:12 Hypertension; Anxiety; jl7 - PSHx: 17:12 None; jl7 - Immunization history:: Client reports receiving the 2nd dose of the Covid vaccine, [employer]. - Social history:: Smoking status: Reported history of juuling and/or vaping. - Family history:: not pertinent. Screenin:21 Abuse screen: Denies threats or abuse. Denies injuries from another. Nutritional bs2 screening: No deficits noted. Tuberculosis screening: No symptoms or risk factors identified. Fall Risk None identified. Assessment: 19:22 Reassessment: Patient is alert, oriented x 3, equal unlabored respirations, skin bs2 warm/dry/pink. Patient states feeling better. Patient states symptoms have improved. General: Appears in no apparent distress. comfortable, well groomed, well developed, well nourished, Behavior is calm, cooperative, appropriate for age. Vital Signs: 17:10 BP 144 / 100; Pulse 81; Resp 17; Temp 98.3; Pulse Ox 100% on R/A; Weight 96.16 kg; jl7 Height 6 ft. 0 in. (182.88 cm); Pain 6/10; 19:00 BP 135 / 89; Pulse 66; Resp 18; Temp 98.6; Pulse Ox 98% ; Pain 2/10; bs2 17:10 Body Mass Index 28.75 (96.16 kg, 182.88 cm) jl7 ED Course: 17:02 Patient arrived in ED. am2 17:12 Triage completed. jl7 17:12 Arm band placed on right wrist. jl7 17:16 Janell Pagan, CLIFFORD is Primary Nurse. tr6 17:29 Yovany Manning MD is Attending Physician. boom 17:50 Lab(s) recollected, by me, sent to lab. Urine collected: clean catch specimen, clear. kj1 Inserted saline lock: 20 gauge in right antecubital area, using aseptic technique. Blood collected. 17:54 Basic Metabolic Panel Sent. kj1 17:54 CBC with Diff Sent. kj1 17:54 Hepatic Function Sent. kj1 17:54 Lipase Sent. kj1 18:43 CT Abd/Pelvis - IV Contrast Only In Process Unspecified. EDMS 19:05 Jayant Hu MD is Referral Physician. boom 19:21 Patient has correct armband on for positive identification. bs2 19:21 No provider procedures requiring assistance completed. IV discontinued, intact, bs2 bleeding controlled, No redness/swelling at site. Administered Medications: 17:55 Drug: NS 0.9% 1000 ml Route: IV; Rate: 1 bolus; Site: right antecubital; tr6 19:20 Follow up: IV Status: Completed infusion bs2 17:55 Drug: morphine 2 mg Route: IVP; Site: right antecubital; tr6 19:20 Follow up: Response: No adverse reaction bs2 17:55 Drug: Zofran (Ondansetron) 4 mg Route: IVP; Site: right antecubital; tr6 19:20 Follow up: Response: No adverse reaction bs2 19:10 Drug: Pepcid (famotidine) 20 mg Route: IVP; Site: right antecubital; bs2 19:20 Follow up: Response: No adverse reaction bs2 Outcome: 19:05 Discharge ordered by MD. nur 19:21 Discharged to home ambulatory. bs2 19:21 Condition: improved 19:21 Discharge instructions given to patient, Instructed on discharge instructions, follow up and referral plans. medication usage, Demonstrated understanding of instructions, follow-up care, medications, Prescriptions given X 3. 19:23 Patient left the ED. bs2 Signatures: Dispatcher [employer] EDMS Yovany aMnning MD MD cha Leal, Jahala, RN RN [id number] Genevieve Gasca Gretel Brooks [facility] Janell Pagan RN RN tr6 Tierney Montana RN RN bs2 Corrections: (The following items were deleted from the chart) 17:15 17:12 Home Meds: Tramadol Oral; jlCara jl7
[2021-04-06 19:29] VITALS: BP 135/89; TEMP 98.6; O2SAT 98
[2021-04-06] MEDS ORDERED: FAMOTIDINE 20 MG/2 ML VIAL IV ONE (19:38)
== END 2021-04-06 19:23 | disposition home or self-care (01) ==
LOC: ER 17:01
DX: R10.84 Generalized abdominal pain (principal); I10 Essential (primary) hypertension; F41.9 Anxiety disorder, unspecified
CPT/HCPCS: 36415; 74177; 80048; 80076; 81003; 83690; 84484; 85025; 93005; 96361; 96374; 96375; 99284; J2405; J7030; Q9967

== ENCOUNTER 2022-08-21 14:05 | Emergency (ER) | payer BC, SELFPAY ==
--- OUTSIDE RECORDS SUMMARY | 2022-08-21 14:11 | XMS REPORT | Continuity of Care Document ---
:1980 Author Organization [facility] t Address [address] [place] [place] [address] Care Team Providers Name Role Phone Kendrick Carpio Primary Care Physician [phone] Doctor Unassigned, [place] Attending Clinician Unavailable Andrea HENNING, Sendmiri K.H. Attending Clinician JESSENIA MUSE.H. Attending Clinician Unavailable Problems This patient has no known problems. Allergies, Adverse Reactions, Alerts Allergy Allergy Status Severity Reaction(s) Onset Inactive Treating Comm ents Source Name Type Date Date Clinician NO KNOWN Drug Active Univers ALLERGIE Class ity of S [facility] Social History Social Habit Start Date Stop Date Quantity Comments Source Sex Assigned At Universit y of [facility] Exposure to Not sure [facility] SARS-CoV-2 [facility] (event) Branch History of Cigarette Smoker Universi ty of tobacco use [facility] Tobacco use and 2020-05-30 2020-05-30 Never used Universit y of exposure 00:00:00 00:00:00 [facility] Smoking Status Start Date Stop Date Source Unknown if ever smoked [facility] Current every day smoker 2020-05-30 00:00:00 Uni versity [facility] Medications Ordered Filled Start Stop Current Ordering Indication Dosage Frequency Signature Comments Components Source Medication Medication Date Date Medication? Clinician (SIG) Name Name TAKE 1 2021-07 No TABLET 2-16 EVERY 00:00: MORNING. 00 ONDANSETRON 2021-07 No HCL 4 MG 2-16 TABLET 00:00: 00 Dose 2021-07 No Unknown 2-16 00:00: 00 TRAZODONE 2021-07 No 50 MG 2-16 TABLET 00:00: 00 Dose 2022-1 No Unknown 2-16 00:00: 00 Dose 2021-1 No Unknown 2-16 00:00: 00 SHAKE 2021-1 No LIQUID AND 2-16 USE 1 SPRAY 00:00: IN EACH 00 NOSTRIL TWICE DAILY FAMOTIDINE 2021- No 20 MG 2-16 TABLET 00:00: 00 DISSOLVE 1 2021- No TABLET 2-16 UNDER THE 00:00: TONGUE 00 EVERY 6 HOURS NEEDED FOR PAIN Dose 2021- No Unknown 2-16 00:00: 00 TAKE 1 2021- No TABLET BY 2-16 MOUTH EVERY 00:00: 6 HOURS 00 NEEDED TAKE 1 2021-1 No TABLET BY 2-16 MOUTH EVERY 00:00: 6 HOURS 00 NEEDED FOR PAIN DICYCLOMINE 2021- No 20 MG 2-16 TABLET 00:00: 00 TAKE 1 2021-07 No TABLET BY 2-16 MOUTH DAILY 00:00: 00 Dose 2021-1 No Unknown 2-16 00:00: 00 Dose 2021-1 No Unknown 2-16 00:00: 00 Dose 2021- No Unknown 2-16 00:00: 00 FLUTICASONE 2021-1 No PROP 50 MCG 2-16 SPRAY 00:00: 00 ACETAMINOPH 2021-0 No EN-COD #3 9-08 TABLET 00:00: 00 ACETAMINOPH 2021-0 No EN-COD #3 9-08 TABLET 00:00: 00 TAKE 1 2021-0 No 875 TABLET BY 7-11 MOUTH TWICE 00:00: DAILY FOR 00 10 DAYS TAKE 1 2021-0 No TABLET BY 7-11 MOUTH TWICE 00:00: DAILY FOR 10 DAYS TAKE 1 2021-0 No TABLET BY 6-21 MOUTH FOUR 00:00: TIMES DAILY 00 TAKE 1 2021-0 No TABLET BY 6-21 MOUTH TWICE 00:00: DAILY 00 &lt 2-0 No 6-21 00:00: 00 &lt 2-0 No 6-21 00:00: 00 TAKE 1 2021-0 No TABLET BY 6-21 MOUTH DAILY 00:00: 00 TAKE 1 2021-0 No TABLET BY 6-21 MOUTH FOUR 00:00: TIMES DAILY 00 TAKE 1 2021-0 No TABLET BY 6-21 MOUTH TWICE 00:00: DAILY 00 Dose 2021-0 No Unknown 6-21 00:00: 00 AMLODIPINE 2022-0 No BESYLATE 10 6-21 MG TAB 00:00: 00 TAKE 1 2-0 No TABLET BY 6-21 MOUTH DAILY 00:00: 00 &lt 2022-0 No 6-20 00:00: 00 Dose 2022-0 No Unknown 6-20 00:00: 00 &lt 2022-0 No 6-18 00:00: 00 &lt 2022-0 No 6-18 00:00: 00 &lt 2022-0 No 6-18 00:00: 00 SHAKE 2022-0 No LIQUID AND 6-18 USE 1 SPRAY 00:00: IN NOSTRIL TWICE DAILY TAKE 1 2021-0 No TABLET BY 6-18 MOUTH EVERY 00:00: NIGHT 00 &lt 2022-0 No 6-18 00:00: 00 &lt 2022-0 No 6-18 00:00: 00 &lt 2022-0 No 6-18 00:00: 00 SHAKE 2022-0 No LIQUID AND 6-18 USE 1 SPRAY 00:00: IN NOSTRIL TWICE DAILY TAKE 1 2-0 No TABLET BY 6-18 MOUTH EVERY 00:00: NIGHT 00 &lt 2022-0 No 6-14 00:00: 00 &lt 2022-0 No 6-14 00:00: 00 metformin 2022-0 No 1mg 500 mg 3-17 tablet 00:00: 00 metformin 2022-0 No 1mg 500 mg 3-17 tablet 00:00: 00 metformin 2022-0 No 1mg 500 mg 3-17 tablet 00:00: 00 metformin 2022-0 No 1mg 500 mg 3-17 tablet 00:00: 00 Dose 2022-0 No Unknown 3-16 00:00: 00 Dose 2022-0 No Unknown 3-16 00:00: 00 Dose 2022-0 No Unknown 3-16 00:00: 00 Dose 2022-0 No Unknown 3-16 00:00: 00 amlodipine 2022-0 No 1mg 10 mg 3-16 tablet 00:00: 00 Dose 2022-0 No Unknown 3-16 00:00: 00 Dose 2022-0 No Unknown 3-16 00:00: 00 Dose 2022-0 No Unknown 3-16 00:00: 00 Dose 2022-0 No Unknown 3-16 00:00: 00 Dose 2022-0 No Unknown 3-16 00:00: 00 Dose 2022-0 No Unknown 3-16 00:00: 00 Dose 2022-0 No Unknown 3-16 00:00: 00 Dose 2022-0 No Unknown 3-16 00:00: 00 Dose 2022-0 No Unknown 3-16 00:00: 00 Dose 2022-0 No Unknown 3-16 00:00: 00 Dose 2022-0 No Unknown 3-16 00:00: 00 Dose 2022-0 No Unknown 3-16 00:00: 00 Dose 2022-0 No Unknown 3-16 00:00: 00 Dose 2022-0 No Unknown 3-16 00:00: 00 Dose 2022-0 No Unknown 3-16 00:00: 00 Dose 2022-0 No Unknown 3-16 00:00: 00 Dose 2022-0 No Unknown 3-16 00:00: 00 Dose 2022-0 No Unknown 3-16 00:00: 00 Dose 2022-0 No Unknown 3-16 00:00: 00 Dose 2022-0 No Unknown 3-16 00:00: 00 Dose 2022-0 No Unknown 3-16 00:00: 00 Dose 2022-0 No Unknown 3-16 00:00: 00 Dose 2022-0 No Unknown 3-16 00:00: 00 Dose 2022-0 No Unknown 3-16 00:00: 00 Dose 2022-0 No Unknown 3-16 00:00: 00 Dose 2022-0 No Unknown 3-16 00:00: 00 Dose 2022-0 No Unknown 3-16 00:00: 00 Dose 2022-0 No Unknown 3-16 00:00: 00 Dose 2022-0 No Unknown 3-16 00:00: 00 Dose 2022-0 No Unknown 3-16 00:00: 00 Dose 2022-0 No Unknown 3-16 00:00: 00 Dose 2022-0 No Unknown 3-16 00:00: 00 Dose 2022-0 No Unknown 3-16 00:00: 00 Dose 2022-0 No Unknown 3-16 00:00: 00 Dose 2022-0 No Unknown 3-16 00:00: 00 Dose 2022-0 No Unknown 3-16 00:00: 00 Dose 2022-0 No Unknown 3-16 00:00: 00 Dose 2022-0 No Unknown 3-16 00:00: 00 Dose 2022-0 No Unknown 3-16 00:00: 00 Dose 2022-0 No Unknown 3-16 00:00: 00 Dose 2022-0 No Unknown 3-16 00:00: 00 Dose 2022-0 No Unknown 3-16 00:00: 00 Dose 2022-0 No Unknown 3-16 00:00: 00 Dose 2022-0 No Unknown 3-16 00:00: 00 Zoloft 100 2-0 No 1mg mg tablet 3-16 00:00: 00 amlodipine 2022-0 No 1mg 10 mg 3-16 tablet 00:00: 00 trazodone 2022-0 No 1mg 50 mg 3-16 tablet 00:00: 00 Dose 2022-0 No Unknown 3-16 00:00: 00 Dose 2022-0 No Unknown 3-16 00:00: 00 Dose 2022-0 No Unknown 3-16 00:00: 00 Dose 2022-0 No Unknown 3-16 00:00: 00 Dose 2022-0 No Unknown 3-16 00:00: 00 Dose 2022-0 No Unknown 3-16 00:00: 00 Dose 2022-0 No Unknown 3-16 00:00: 00 Dose 2022-0 No Unknown 3-16 00:00: 00 Dose 2022-0 No Unknown 3-16 00:00: 00 Dose 2022-0 No Unknown 3-16 00:00: 00 Dose 2022-0 No Unknown 3-16 00:00: 00 Dose 2022-0 No Unknown 3-16 00:00: 00 Dose 2022-0 No Unknown 3-16 00:00: 00 Dose 2022-0 No Unknown 3-16 00:00: 00 Dose 2022-0 No Unknown 3-16 00:00: 00 Dose 2022-0 No Unknown 3-16 00:00: 00 Dose 2022-0 No Unknown 3-16 00:00: 00 Dose 2022-0 No Unknown 3-16 00:00: 00 Dose 2022-0 No Unknown 3-16 00:00: 00 Dose 2022-0 No Unknown 3-16 00:00: 00 Dose 2022-0 No Unknown 3-16 00:00: 00 Dose 2022-0 No Unknown 3-16 00:00: 00 Dose 2022-0 No Unknown 3-16 00:00: 00 Dose 2022-0 No Unknown 3-16 00:00: 00 Dose 2022-0 No Unknown 3-16 00:00: 00 Dose 2022-0 No Unknown 3-16 00:00: 00 Dose 2022-0 No Unknown 3-16 00:00: 00 Dose 2022-0 No Unknown 3-16 00:00: 00 Dose 2022-0 No Unknown 3-16 00:00: 00 Dose 2022-0 No Unknown 3-16 00:00: 00 Dose 2022-0 No Unknown 3-16 00:00: 00 Dose 2022-0 No Unknown 3-16 00:00: 00 Dose 2-0 No Unknown 3-16 00:00: 00 Dose 2-0 No Unknown 3-16 00:00: 00 Dose 2-0 No Unknown 3-16 00:00: 00 Dose 2-0 No Unknown 3-16 00:00: 00 Dose 2022-0 No Unknown 3-16 00:00: 00 Dose 2-0 No Unknown 3-16 00:00: 00 Dose 2-0 No Unknown 3-09 00:00: 00 Dose 2022-0 No Unknown 3-09 00:00: 00 Dose 2022-0 No Unknown 3-09 00:00: 00 Dose 2-0 No Unknown 3-09 00:00: 00 Dose 2-0 No Unknown 3-09 00:00: 00 Dose 2022-0 No Unknown 3-09 00:00: 00 Dose 2022-0 No Unknown 3-01 00:00: 00 Dose 2-0 No Unknown 3-01 00:00: 00 Zoloft 100 2-0 No 1mg mg tablet 3-01 00:00: 00 trazodone 2-0 No 1mg 50 mg 3-01 tablet 00:00: 00 ibuprofen 2022-0 No 1mg 600 mg 2-28 tablet 00:00: 00 Dose 2022-0 No Unknown 2-28 00:00: 00 Dose 2022-0 No Unknown 2-28 00:00: 00 Flonase 2-0 No 1mcg/ac Allergy 2-28 tuation Relief 50 00:00: mcg/actuati 00 on nasal spray,suspe nsion Dose 2021-0 No Unknown 2-28 00:00: 00 acetaminoph 2-0 No 2mg en 500 mg 2-28 tablet 00:00: 00 ibuprofen 2-0 No 1mg 600 mg 2-28 tablet 00:00: 00 Flonase 2-0 No 1mcg/ac Allergy 2-28 tuation Relief 50 00:00: mcg/actuati 00 on nasal spray,suspe nsion amlodipine 1-1 No 1mg 10 mg 2-10 tablet 00:00: 00 Dose 1-1 No Unknown 2-10 00:00: 00 Dose 1-1 No Unknown 2-10 00:00: 00 amlodipine 1-1 No 1mg 10 mg 2-10 tablet 00:00: 00 Dose 1-1 No Unknown 2-10 00:00: 00 Dose 1-1 No Unknown 2-10 00:00: 00 ondansetron 2020-1 No 1mg 4 mg 0-14 disintegrat 00:00: ing tablet 00 famotidine 1-1 No 1mg 20 mg 0-14 tablet 00:00: 00 famotidine 1-1 No 1mg 20 mg 0-14 tablet 00:00: 00 ondansetron 2020-1 No 1mg 4 mg 0-14 disintegrat 00:00: ing tablet 00 dicyclomine 1-1 No 1mg 20 mg 0-14 tablet 00:00: 00 dicyclomine 1-1 No 1mg 20 mg 0-14 tablet 00:00: 00 ondansetron 1-1 No 1mg 4 mg 0-14 disintegrat 00:00: ing tablet 00 famotidine 1-1 No 1mg 20 mg 0-14 tablet 00:00: 00 famotidine 1-1 No 1mg 20 mg 0-14 tablet 00:00: 00 ondansetron 1-1 No 1mg 4 mg 0-14 disintegrat 00:00: ing tablet 00 dicyclomine 1-1 No 1mg 20 mg 0-14 tablet 00:00: 00 dicyclomine 1-1 No 1mg 20 mg 0-14 tablet 00:00: 00 amlodipine 1-0 No 1mg 10 mg 9-11 tablet 00:00: 00 amlodipine 1-0 No 1mg 10 mg 9-11 tablet 00:00: 00 amlodipine 1-0 No 1mg 10 mg 8-01 tablet 00:00: 00 amlodipine 2021-0 No 1mg 10 mg 8-01 tablet 00:00: 00 Zoloft 100 1-0 No 1mg mg tablet 7-20 00:00: 00 buspirone 2021-0 No 1mg 7.5 mg 7-20 tablet 00:00: 00 trazodone 2021-0 No 1mg 50 mg 7-20 tablet 00:00: 00 Zoloft 100 2021-0 No 1mg mg tablet 7-20 00:00: 00 buspirone 2021-0 No 1mg 7.5 mg 7-20 tablet 00:00: 00 trazodone 2021-0 No 1mg 50 mg 7-20 tablet 00:00: 00 Zoloft 100 1-0 No 1mg mg tablet 5-25 00:00: 00 trazodone 2021-0 No 1mg 50 mg 5-25 tablet 00:00: 00 Zoloft 100 1-0 No 1mg mg tablet 5-25 00:00: 00 trazodone 2021-0 No 1mg 50 mg 5-25 tablet 00:00: 00 Zoloft 100 1-0 No 1mg mg tablet 4-29 00:00: 00 Zoloft 100 1-0 No 1mg mg tablet 4-29 00:00: 00 amlodipine 2021-0 No 1mg 10 mg 4-27 tablet 00:00: 00 amlodipine 2021-0 No 1mg 10 mg 4-27 tablet 00:00: 00 trazodone 2021-0 No 1mg 50 mg 4-16 tablet 00:00: 00 trazodone 2021-0 No 1mg 50 mg 4-16 tablet 00:00: 00 Zoloft 100 1-0 No 1mg mg tablet 4-15 00:00: 00 Zoloft 100 2021-0 No 1mg mg tablet 4-15 00:00: 00 trazodone 2021-0 No 1mg 50 mg 3-26 tablet 00:00: 00 trazodone 2021-0 No 1mg 50 mg 3-26 tablet 00:00: 00 Zoloft 50 2021-0 No 1mg mg tablet 3-25 00:00: 00 hydroxyzine 2021-0 No 12mg HCl 25 mg 3-25 tablet 00:00: 00 Zoloft 50 1-0 No 1mg mg tablet 3-25 00:00: 00 hydroxyzine 1-0 No 12mg HCl 25 mg 3-25 tablet 00:00: 00 escitalopra 2021-0 No 1mg m 20 mg 3-04 tablet 00:00: 00 hydroxyzine 2021-0 No 12mg HCl 25 mg 3-04 tablet 00:00: 00 escitalopra 2021-0 No 1mg m 20 mg 3-04 tablet 00:00: 00 hydroxyzine 2021-0 No 12mg HCl 25 mg 3-04 tablet 00:00: 00 hydroxyzine 1-0 No 12mg HCl 25 mg 2-19 tablet 00:00: 00 escitalopra 2021-0 No 1mg m 10 mg 2-19 tablet 00:00: 00 hydroxyzine 1-0 No 12mg HCl 25 mg 2-19 tablet 00:00: 00 escitalopra 1-0 No 1mg m 10 mg 2-19 tablet 00:00: 00 Paxil 10 mg 1-0 No 1mg tablet 2-03 00:00: 00 Paxil 10 mg 1-0 No 1mg tablet 2-03 00:00: 00 hydroxyzine 1-0 No 12mg HCl 25 mg 1-25 tablet 00:00: 00 hydroxyzine 1-0 No 12mg HCl 25 mg 1-25 tablet 00:00: 00 amlodipine 1-0 No 1mg 10 mg 1-20 tablet 00:00: 00 amlodipine 1-0 No 1mg 10 mg 1-20 tablet 00:00: 00 amLODIPine 2019-1 Yes 10mg Take 10 mg U nivers 10 mg 1-30 by mouth ity of tablet 15:30: daily. [address] diclofenac 2020-1 Yes 75mg Take 75 mg U nivers 75 mg EC 1-30 by mouth 2 ity o f tablet 15:30: (two) [address] Medical daily with Branch meals. amLODIPine 2020-1 Yes 10mg Take 10 mg U nivers 10 mg 1-30 by mouth ity of tablet 15:30: daily. [address] diclofenac 2020- Yes 75mg Take 75 mg U nivers 75 mg EC 1-30 by mouth 2 ity o f tablet 15:30: (two) [place] 03 times Medical daily with Branch meals. amLODIPine 2020-1 Yes 10mg Take 10 mg U nivers 10 mg 1-30 by mouth ity of tablet 15:30: daily. [place] 03 [facility] diclofenac 2020-1 Yes 75mg Take 75 mg U nivers 75 mg EC 1-30 by mouth 2 ity o f tablet 15:30: (two) [place] times Medical daily with Branch meals. amlodipine 2020-1 No 1mg 10 mg 0-27 tablet 00:00: 00 amlodipine 2020-1 No 1mg 10 mg 0-27 tablet 00:00: 00 mupirocin 2 2019-1 No 1% % topical 0-05 ointment 00:00: 00 Norvasc 10 2019-1 No 1mg mg tablet 0-05 00:00: 00 cephalexin 2020-1 No 1mg 500 mg 0-05 capsule 00:00: 00 mupirocin 2 2019-1 No 1% % topical 0-05 ointment 00:00: 00 Norvasc 10 2019-1 No 1mg mg tablet 0-05 00:00: 00 cephalexin 2020-1 No 1mg 500 mg 0-05 capsule 00:00: 00 amlodipine 2020-0 No 1mg 10 mg 8-05 tablet 00:00: 00 amlodipine 2020-0 No 1mg 10 mg 8-05 tablet 00:00: 00 Lomotil 2.5 2020-0 No 2mg mg-0.025 mg 6-03 tablet 00:00: 00 Lomotil 2.5 2020-0 No 2mg mg-0.025 mg 6-03 tablet 00:00: 00 amlodipine 2020-0 No 1mg 10 mg 5-12 tablet 00:00: 00 amlodipine 2020-0 No 1mg 10 mg 5-12 tablet 00:00: 00 prednisone 2020-0 No mg 10 mg 5-05 tablet 00:00: 00 hydroxyzine 2020-0 No 12mg HCl 25 mg 5-05 tablet 00:00: 00 hydroxyzine 2020-0 No 12mg HCl 25 mg 5-05 tablet 00:00: 00 triamcinolo 2020-0 No 1% ne 5-05 acetonide 00:00: 0.5 % 00 topical ointment prednisone 2020-0 No mg 10 mg 5-05 tablet 00:00: 00 hydroxyzine 2020-0 No 12mg HCl 25 mg 5-05 tablet 00:00: 00 hydroxyzine 2020-0 No 12mg HCl 25 mg 5-05 tablet 00:00: 00 triamcinolo 2020-0 No 1% ne 5-05 acetonide 00:00: 0.5 % 00 topical ointment Nicoderm CQ 2020-0 No 1mg/24 14 mg/24 hr 3-19 hr daily 00:00: transdermal 00 patch Nicoderm CQ 2020-0 No 1mg/24 14 mg/24 hr 3-19 hr daily 00:00: transdermal 00 patch amlodipine 2020-0 No 1mg 10 mg 3-16 tablet 00:00: 00 amlodipine 2020-0 No 1mg 10 mg 3-16 tablet 00:00: 00 Nicoderm CQ 2020-0 No 1mg/24 21 mg/24 hr 3-09 hr daily 00:00: transdermal 00 patch Nicoderm CQ 2020-0 No 1mg/24 14 mg/24 hr 3-09 hr daily 00:00: transdermal 00 patch amlodipine 2020-0 No 1mg 10 mg 3-09 tablet 00:00: 00 Flonase 2020-0 No 2mcg/ac Allergy 3-09 tuation Relief 50 00:00: mcg/actuati 00 on nasal spray,suspe nsion Nicoderm CQ 2020-0 No 1mg/24 21 mg/24 hr 3-09 hr daily 00:00: transdermal 00 patch Nicoderm CQ 2020-0 No 1mg/24 14 mg/24 hr 3-09 hr daily 00:00: transdermal 00 patch amlodipine 2020-0 No 1mg 10 mg 3-09 tablet 00:00: 00 Flonase 2020-0 No 2mcg/ac Allergy 3-09 tuation Relief 50 00:00: mcg/actuati 00 on nasal spray,suspe nsion Immunizations Ordered Immunization Filled Immunization Date Status Commen ts Source Name Name Pfizer COVID-19 Vaccine 2020-12-03 Completed 00:00:00 Pfizer COVID-19 Vaccine 2020-12-03 Completed 00:00:00 Vital Signs Vital Name Observation Time Observation Value Comments Source Systolic blood 2020-05-30 15:31:00 131 mm[Hg] Univer sity of pressure [facility] Diastolic blood 2020-05-30 15:31:00 92 mm[Hg] Unive rsity of pressure [facility] Heart rate 2020-05-30 15:31:00 79 /min [facility] Respiratory rate 2020-05-30 15:29:00 19 /min [facility] Body height 2020-05-30 15:29:00 182.9 cm [facility] Body weight 2020-05-30 15:29:00 89.495 kg [facility] BMI 2020-05-30 15:29:00 26.76 kg/m2 [facility] Oxygen saturation in 2020-05-30 15:29:00 97 /min [facility] blood by [facility] Pulse oximetry Branch BP Systolic 2022-07-18 08:15:00 116 mm[Hg] BP Diastolic 2022-07-18 08:15:00 73 mm[Hg] Weight Measured 2022-07-18 08:15:00 211.60 pounds Height Measured 2022-07-18 08:15:00 71.65 inches Body Temperature 2022-07-18 08:15:00 98.00 degrees Heart Rate 2022-07-18 08:15:00 76.00 /min Respiratory Rate 2022-07-18 08:15:00 18.00 /min BP Systolic 2022-03-24 09:55:00 128 mm[Hg] BP Diastolic 2022-03-24 09:55:00 89 mm[Hg] Weight Measured 2022-03-24 09:55:00 204.40 pounds Height Measured 2022-03-24 09:55:00 71.65 inches Body Temperature 2022-03-24 09:55:00 98.70 degrees Heart Rate 2022-03-24 09:55:00 73.00 /min Respiratory Rate 2022-03-24 09:55:00 BP Systolic 2021-12-16 07:55:00 117 mm[Hg] BP Diastolic 2021-12-16 07:55:00 79 mm[Hg] Weight Measured 2021-12-16 07:55:00 201.00 pounds Height Measured 2021-12-16 07:55:00 71.65 inches Body Temperature 2021-12-16 07:55:00 98.10 degrees Heart Rate 2021-12-16 07:55:00 74.00 /min Respiratory Rate 2021-12-16 07:55:00 18.00 /min BP Systolic 2021-09-13 09:55:00 143 mm[Hg] BP Diastolic 2021-09-13 09:55:00 93 mm[Hg] Weight Measured 2021-09-13 09:55:00 211.00 pounds Height Measured 2021-09-13 09:55:00 71.65 inches Body Temperature 2021-09-13 09:55:00 98.60 degrees Heart Rate 2021-09-13 09:55:00 98.00 /min Respiratory Rate 2021-09-13 09:55:00 21.00 /min BP Systolic 2021-06-09 17:40:00 149 mm[Hg] BP Diastolic 2021-06-09 17:40:00 91 mm[Hg] Weight Measured 2021-06-09 17:40:00 209.20 pounds Height Measured 2021-06-09 17:40:00 71.65 inches Body Temperature 2021-06-09 17:40:00 98.30 degrees Heart Rate 2021-06-09 17:40:00 58.00 /min Respiratory Rate 2021-06-09 17:40:00 BP Systolic 2021-04-13 14:25:00 162 mm[Hg] BP Diastolic 2021-04-13 14:25:00 90 mm[Hg] Weight Measured 2021-04-13 14:25:00 208.00 pounds Height Measured 2021-04-13 14:25:00 71.65 inches Body Temperature 2021-04-13 14:25:00 97.70 degrees Heart Rate 2021-04-13 14:25:00 108.00 /min Respiratory Rate 2021-04-13 14:25:00 21.00 /min BP Systolic 2020-10-25 17:17:00 146 mm[Hg] BP Diastolic 2020-10-25 17:17:00 81 mm[Hg] Weight Measured 2020-10-25 17:17:00 197.00 pounds Height Measured 2020-10-25 17:17:00 71.65 inches Body Temperature 2020-10-25 17:17:00 98.70 degrees Heart Rate 2020-10-25 17:17:00 83.00 /min Respiratory Rate 2020-10-25 17:17:00 16.00 /min BP Systolic 2020-08-01 15:15:00 BP Diastolic 2020-08-01 15:15:00 Weight Measured 2020-08-01 15:15:00 197.00 pounds Height Measured 2020-08-01 15:15:00 71.65 inches Body Temperature 2020-08-01 15:15:00 Heart Rate 2020-08-01 15:15:00 Respiratory Rate 2020-08-01 15:15:00 BP Systolic 2020-07-25 14:25:00 158 mm[Hg] BP Diastolic 2020-07-25 14:25:00 95 mm[Hg] Weight Measured 2020-07-25 14:25:00 197.00 pounds Height Measured 2020-07-25 14:25:00 71.65 inches Body Temperature 2020-07-25 14:25:00 Heart Rate 2020-07-25 14:25:00 91.00 /min Respiratory Rate 2020-07-25 14:25:00 BP Systolic 2020-07-25 14:06:00 BP Diastolic 2020-07-25 14:06:00 Weight Measured 2020-07-25 14:06:00 Height Measured 2020-07-25 14:06:00 Body Temperature 2020-07-25 14:06:00 Heart Rate 2020-07-25 14:06:00 Respiratory Rate 2020-07-25 14:06:00 BP Systolic 2020-04-04 14:40:00 130 mm[Hg] BP Diastolic 2020-04-04 14:40:00 81 mm[Hg] Weight Measured 2020-04-04 14:40:00 193.40 pounds Height Measured 2020-04-04 14:40:00 71.65 inches Body Temperature 2020-04-04 14:40:00 98.50 degrees Heart Rate 2020-04-04 14:40:00 73.00 /min Respiratory Rate 2020-04-04 14:40:00 16.00 /min Procedures Procedure Date / Time Performed Performing Clinician [facility] e EXTERNAL PROVIDER - 2020-06-14 06:01:00 Doctor Unassigned, No [facility] [place] [facility] CARDIOLOGY Name Medical Branch CONSENT/REFUSAL FOR 2020-05-30 15:04:59 Doctor Unassigned, No [facility] [place] DIAGNOSIS AND Name Medical Branch TREATMENT Plan of Care Planned Activity Planned Date Details Comments Source Goal Plan of Care Note [code = 80236-9] Goal Plan of Care Note [code = 21980-0] Goal Plan of Care Note [code = 96658-7] Goal Plan of Care Note [code = 72105-3] Goal Plan of Care Note [code = 69270-1] Goal Plan of Care Note [code = 52204-1] Goal Plan of Care Note [code = 91521-3] Goal Plan of Care Note [code = 96467-9] Goal Plan of Care Note [code = 01543-7] Goal Plan of Care Note [code = 45346-4] Goal Plan of Care Note [code = 04388-9] Goal Plan of Care Note [code = 85957-4] Goal Plan of Care Note [code = 52859-1] Goal Plan of Care Note [code = 19776-2] Goal Plan of Care Note [code = 44314-2] Goal Plan of Care Note [code = 78074-9] Goal Plan of Care Note [code = 19707-8] Goal Plan of Care Note [code = 10250-4] Goal Plan of Care Note [code = 10581-8] Goal Plan of Care Note [code = 42349-9] Goal Plan of Care Note [code = 25244-0] Goal Plan of Care Note [code = 30880-4] Goal Plan of Care Note [code = 53704-7] Goal Plan of Care Note [code = 30876-3] Goal Plan of Care Note [code = 80540-1] Goal Plan of Care Note [code = 05408-4] Goal Plan of Care Note [code = 05611-4] Goal Plan of Care Note [code = 65719-9] Goal Plan of Care Note [code = 78824-7] Goal Plan of Care Note [code = 71118-6] Goal Plan of Care Note [code = 64983-8] Goal Plan of Care Note [code = 03695-1] Goal Plan of Care Note [code = 10772-3] Goal Plan of Care Note [code = 53594-1] Goal Plan of Care Note [code = 40136-3] Goal Plan of Care Note [code = 13942-0] Goal Plan of Care Note [code = 95179-2] Goal Plan of Care Note [code = 31502-7] Goal Plan of Care Note [code = 29493-0] Goal Plan of Care Note [code = 22081-7] Goal Plan of Care Note [code = 79235-3] Goal Plan of Care Note [code = 10509-5] Goal Plan of Care Note [code = 53519-3] Goal Plan of Care Note [code = 97492-2] Goal Plan of Care Note [code = 99670-5] Goal Plan of Care Note [code = 55385-6] Goal Plan of Care Note [code = 33447-4] Encounters Start End Encounter Admission Attending Care Care Encounter Source Date/Time Date/Time Type Type Clinicians Facility Department ID 2022-08-08 2022-08-08 Outpatient [facility] [id number] [place] 13:39:31 13:39:31 0208 F Jonathan 2022-07-24 2022-07-24 Outpatient [facility] [id number] [place] 09:59:08 09:59:08 0124 F [place] 2022-07-18 2022-07-18 Outpatient [facility] [id number] [place] 08:11:22 08:11:22 0118 [facility] 2022-07-18 2022-07-18 Outpatient [id number] 00:00:00 00:00:00 Visit 5x1l-368h x2e-119j-2 -860e-adf 60e-adff6e i9f7djbm1 9bfcf3 2022-03-24 2022-03-24 Outpatient [id number] 00:00:00 00:00:00 Visit m8kz-5dty 3ff-4afc-8 -77h3-4r3 0n0-3t1s9p x2u0kvi57 6aed47 2020-07-04 2020-07-04 Outpatient R [facility] [id number] [facility] 09:00:00 09:00:00 ity of [facility] 2020-06-14 2020-06-14 Orders Doctor VALLADARES [id number] [id number] [facility] 00:00:00 00:00:00 Only Unassigned, ADOLFO [id number] ity of [facility] 4.2.7.2.686 Erik as [phone] [address] 2020-05-30 2020-05-30 Office Andrea RUST 1.2.840.114 [id number] [facility] 09:05:42 10:23:35 Visit Sendil Petey Johnson 350.1.13.10 [place] [phone] Sc dical nal 059 [facility] 2020-05-30 2020-05-30 Outpatient R MUSE [facility] [id number] [facility] 09:00:00 09:00:00 SENDIL ity of [facility] 2020-05-30 2020-05-30 Orders Doctor BLAINE 1.2.840.114 [id number] [facility] 00:00:00 00:00:00 Only Unassigned, ADOLFO 350.1.13.10 ity of [place] [facility] 4.2.7.2.686 Erik as [phone] [address] Results Test Description Test Time Test Comments Results Result Comments Source HEPATIC FUNCTION PANEL 2022-03-25 23:55:36 Test Item Value Reference Range Interpretation Comme nts PROTEIN, TOTAL (test code = 7.9 G/DL 6.1-8.3 2228) ALBUMIN (test code = 2201) 4.9 G/DL 3.5-5.2 BILIRUBIN, TOTAL (test code = <0.2 MG/DL See_Comment [Automated message] The system 2206) which generated this result transmitted ref erence range: <=1.2. The refe rence range was not used to int erpret this result as aishwarya l/abnormal. BILIRUBIN, DIRECT (test code <0.2 MG/DL 0.0-0.3 = 2021) ALKALINE PHOSPHATASE (test 86 U/L 40-117 code = 2204) AST (test code = 2218) 27 U/L 9-50 ALT (test code = 2219) 28 U/L 5-50 UNLE SS OTHERWISE INDICATED, ALL TESTING PER FORMED [facility], [place] [address] [place] [address], [place] [address] [employer]: Singh DAY [id number] CAP ACCREDITATION N O. [id number] LIVER (HEPATIC) FUNCTION [id number] 00:00:00 Test Item Value Reference Range Interpretation Comments PROTEIN, TOTAL (test code = 2229) 7.9 G/DL ALBUMIN (test code = 2201) 4.9 G/DL BILIRUBIN, TOTAL (test code = <0.2 MG/DL 2206) BILIRUBIN, DIRECT (test code = <0.2 MG/DL 2021) ALKALINE PHOSPHATASE (test code = 86 U/L 2203) AST (test code = 2218) 27 U/L ALT (test code = 2219) 28 U/L LIVER (HEPATIC) FUNCTION [id number] 00:00:00 Test Item Value Reference Range Interpretation Comments PROTEIN, TOTAL (test code = 2229) 7.9 G/DL ALBUMIN (test code = 2201) 4.9 G/DL BILIRUBIN, TOTAL (test code = <0.2 MG/DL 2206) BILIRUBIN, DIRECT (test code = <0.2 MG/DL 2021) ALKALINE PHOSPHATASE (test code = 86 U/L 2203) AST (test code = 2218) 27 U/L ALT (test code = 2219) 28 U/L COMPREHENSIVE METABOLIC [id number] 23:58:14 Test Item Value Reference Range Interpretation Comments GLUCOSE (test code = 99 MG/DL 70-99 2216) BUN (test code = 13 MG/DL 6-20 2207) CREATININE (test 1.18 MG/DL 0.80-1.40 code = 221) eGFR (2020 CKD-EPI) 80 ML/MIN/1.73 >60 (test code = 56072) CALC BUN/CREAT (test 11 RATIO 6-28 code = 2235) SODIUM (test code = 141 MEQ/L 205-260 3227) POTASSIUM (test code 4.9 MEQ/L 3.5-5.4 = 2227) CHLORIDE (test code 104 MEQ/L 95-107 = 221) CARBON DIOXIDE (test 25 MEQ/L 19-31 code = 2206) CALCIUM (test code = 9.6 MG/DL 8.5-10.5 2208) PROTEIN, TOTAL (test 7.4 G/DL 6.1-8.3 code = 2229) ALBUMIN (test code = 4.4 G/DL 3.5-5.2 2200) CALC GLOBULIN (test 3.0 G/DL 1.9-3.7 code = 2240) CALC A/G RATIO (test 1.5 RATIO 1.0-2.6 code = 2234) BILIRUBIN, TOTAL <0.2 MG/DL See_Comment [Automated message] (test code = 2207) The syste m which generated this result transmit daina reference range : <=1.2. The refe rence range was not u sed to interpret th is result as normal/abnormal . ALKALINE PHOSPHATASE 69 U/L 40-117 (test code = 2204) AST (test code = 215 U/L 9-50 H 2217) ALT (test code = 98 U/L 5-50 H 2218) LIPID [id number] 23:58:14 Test Item Value Reference Range Interpretation Comments CHOLESTEROL (test 208 MG/DL <200 H code = 2210) TRIGLYCERIDES (test 88 MG/DL <150 code = 2232) HDL CHOLESTEROL (test 42 MG/DL >39 code = 2220) CALC LDL CHOL (test 147 MG/DL <100 H NOTE: C ALCULATED LDL code = 2237) IS BASED ON KELLY-NUÑEZ METHOD WHICHINCLUDES ADJUSTABLE TRIGLYCERIDE:VL DL CHOLESTEROL RAT IO.THIS FACTOR VARIES B Y MEASURED TRIGLY CERIDE AND NON-HDLCHOL ESTEROL CONCENTRATIONS WITH INCREASED CALCU LATED LDL SEENIN HIGH ER TRIGLYCERIDE OR LOWER NON-HDL SPECIME NS. FOR MOREINFORMATION , SEE CLIENT ANNOUNCE MENT AT [email or web address] RISK RATIO LDL/HDL 3.50 RATIO <3.55 UNLESS O THERWISE (test code = 2238) INDICATED , ALL TESTING PERFORMED [facility] [place]. [address] [place] [id number] [facility] DIRECTOR: FELISHA HONG M.D. CLIA NUMBER [id number] CAP ACCREDITATION N O. [id number] HEMOGLOBIN [id number] 04:14:02 Test Item Value Reference Range Interpretation Comments HEMOGLOBIN A1c (test code = 47757) 5.9 % 4.2-5.6 H COMPREHENSIVE METABOLIC [id number] 00:00:00 Test Item Value Reference Range Interpretation Comments GLUCOSE (test code = 2217) 99 MG/DL BUN (test code = 2208) 13 MG/DL CREATININE (test code = 2214) 1.18 MG/DL eGFR (2020 CKD-EPI) (test code 80 ML/MIN/1.73 = 27879) CALC BUN/CREAT (test code = 11 RATIO 2235) SODIUM (test code = 2231) 141 MEQ/L POTASSIUM (test code = 2228) 4.9 MEQ/L CHLORIDE (test code = 2215) 104 MEQ/L CARBON DIOXIDE (test code = 25 MEQ/L 2205) CALCIUM (test code = 2209) 9.6 MG/DL PROTEIN, TOTAL (test code = 7.4 G/DL 2228) ALBUMIN (test code = 2201) 4.4 G/DL CALC GLOBULIN (test code = 3.0 G/DL 2239) CALC A/G RATIO (test code = 1.5 RATIO 2234) BILIRUBIN, TOTAL (test code = <0.2 MG/DL 2206) ALKALINE PHOSPHATASE (test 69 U/L code = 2203) AST (test code = 2218) 215 U/L ALT (test code = 2219) 98 U/L COMPREHENSIVE METABOLIC [id number] 00:00:00 Test Item Value Reference Range Interpretation Comments GLUCOSE (test code = 2217) 99 MG/DL BUN (test code = 2208) 13 MG/DL CREATININE (test code = 2214) 1.18 MG/DL eGFR (2020 CKD-EPI) (test code 80 ML/MIN/1.73 = 27788) CALC BUN/CREAT (test code = 11 RATIO 2235) SODIUM (test code = 2231) 141 MEQ/L POTASSIUM (test code = 2228) 4.9 MEQ/L CHLORIDE (test code = 2215) 104 MEQ/L CARBON DIOXIDE (test code = 25 MEQ/L 2205) CALCIUM (test code = 2209) 9.6 MG/DL PROTEIN, TOTAL (test code = 7.4 G/DL 2228) ALBUMIN (test code = 2201) 4.4 G/DL CALC GLOBULIN (test code = 3.0 G/DL 2239) CALC A/G RATIO (test code = 1.5 RATIO 2234) BILIRUBIN, TOTAL (test code = <0.2 MG/DL 2206) ALKALINE PHOSPHATASE (test 69 U/L code = 2204) AST (test code = 2218) 215 U/L ALT (test code = 2219) 98 U/L HEMOGLOBIN [id number] 00:00:00 Test Item Value Reference Range Interpretation Comments HEMOGLOBIN A1c (test code = 51814) 5.9 % HEMOGLOBIN [id number] 00:00:00 Test Item Value Reference Range Interpretation Comments HEMOGLOBIN A1c (test code = 68443) 5.9 % HEMOGLOBIN [id number] 00:00:00 Test Item Value Reference Range Interpretation Comments HEMOGLOBIN A1c (test code = 18624) 5.9 % LIPID [id number] 00:00:00 Test Item Value Reference Range Interpretation Comments CHOLESTEROL (test code = 2210) 208 MG/DL TRIGLYCERIDES (test code = 2232) 88 MG/DL HDL CHOLESTEROL (test code = 2220) 42 MG/DL CALC LDL CHOL (test code = 2237) 147 MG/DL RISK RATIO LDL/HDL (test code = 3.50 RATIO 2238) LIPID [id number] 00:00:00 Test Item Value Reference Range Interpretation Comments CHOLESTEROL (test code = 2210) 208 MG/DL TRIGLYCERIDES (test code = 2232) 88 MG/DL HDL CHOLESTEROL (test code = 2220) 42 MG/DL CALC LDL CHOL (test code = 2237) 147 MG/DL RISK RATIO LDL/HDL (test code = 3.50 RATIO 2238) COMPREHENSIVE METABOLIC [id number] 00:00:00 Test Item Value Reference Range Interpretation Comments GLUCOSE (test code = 2217) 99 MG/DL BUN (test code = 2208) 13 MG/DL CREATININE (test code = 2214) 1.18 MG/DL eGFR (2020 CKD-EPI) (test code 80 ML/MIN/1.73 = 11171) CALC BUN/CREAT (test code = 11 RATIO 2235) SODIUM (test code = 2231) 141 MEQ/L POTASSIUM (test code = 2228) 4.9 MEQ/L CHLORIDE (test code = 2215) 104 MEQ/L CARBON DIOXIDE (test code = 25 MEQ/L 2205) CALCIUM (test code = 2209) 9.6 MG/DL PROTEIN, TOTAL (test code = 7.4 G/DL 2228) ALBUMIN (test code = 220) 4.4 G/DL CALC GLOBULIN (test code = 3.0 G/DL 2239) CALC A/G RATIO (test code = 1.5 RATIO 2234) BILIRUBIN, TOTAL (test code = <0.2 MG/DL 2206) ALKALINE PHOSPHATASE (test 69 U/L code = 2204) AST (test code = 2218) 215 U/L ALT (test code = 2219) 98 U/L COMPREHENSIVE METABOLIC [id number] 00:00:00 Test Item Value Reference Range Interpretation Comments GLUCOSE (test code = 2217) 99 MG/DL BUN (test code = 2208) 13 MG/DL CREATININE (test code = 2214) 1.18 MG/DL eGFR (2020 CKD-EPI) (test code 80 ML/MIN/1.73 = 28047) CALC BUN/CREAT (test code = 11 RATIO 2235) SODIUM (test code = 2231) 141 MEQ/L POTASSIUM (test code = 2228) 4.9 MEQ/L CHLORIDE (test code = 2215) 104 MEQ/L CARBON DIOXIDE (test code = 25 MEQ/L 2205) CALCIUM (test code = 2209) 9.6 MG/DL PROTEIN, TOTAL (test code = 7.4 G/DL 2228) ALBUMIN (test code = 2201) 4.4 G/DL CALC GLOBULIN (test code = 3.0 G/DL 0) CALC A/G RATIO (test code = 1.5 RATIO 2234) BILIRUBIN, TOTAL (test code = <0.2 MG/DL 2206) ALKALINE PHOSPHATASE (test 69 U/L code = 2204) AST (test code = 2218) 215 U/L ALT (test code = 2219) 98 U/L HEMOGLOBIN [id number] 00:00:00 Test Item Value Reference Range Interpretation Comments HEMOGLOBIN A1c (test code = 77358) 5.9 % HEMOGLOBIN [id number] 00:00:00 Test Item Value Reference Range Interpretation Comments HEMOGLOBIN A1c (test code = 12202) 5.9 % HEMOGLOBIN [id number] 00:00:00 Test Item Value Reference Range Interpretation Comments HEMOGLOBIN A1c (test code = 39971) 5.9 % LIPID [id number] 00:00:00 Test Item Value Reference Range Interpretation Comments CHOLESTEROL (test code = 2210) 208 MG/DL TRIGLYCERIDES (test code = 2232) 88 MG/DL HDL CHOLESTEROL (test code = 2220) 42 MG/DL CALC LDL CHOL (test code = 2237) 147 MG/DL RISK RATIO LDL/HDL (test code = 3.50 RATIO 2238) LIPID [id number] 00:00:00 Test Item Value Reference Range Interpretation Comments CHOLESTEROL (test code = 2210) 208 MG/DL TRIGLYCERIDES (test code = 2232) 88 MG/DL HDL CHOLESTEROL (test code = 2220) 42 MG/DL CALC LDL CHOL (test code = 2237) 147 MG/DL RISK RATIO LDL/HDL (test code = 3.50 RATIO 2238) LIPID [id number] 03:53:55 Test Item Value Reference Range Interpretation Comments CHOLESTEROL (test 274 MG/DL <200 H code = 2210) TRIGLYCERIDES (test 57 MG/DL <150 code = 2232) HDL CHOLESTEROL (test 83 MG/DL >39 code = 2220) CALC LDL CHOL (test 176 MG/DL <100 H NOTE: C ALCULATED LDL code = 2237) IS BASED ON KELLY-NUÑEZ METHOD WHICHINCLUDES ADJUSTABLE TRIGLYCERIDE:VL DL CHOLESTEROL RAT IO.THIS FACTOR VARIES B Y MEASURED TRIGLY CERIDE AND NON-HDLCHOL ESTEROL CONCENTRATIONS WITH INCREASED CALCU LATED LDL SEENIN HIGH ER TRIGLYCERIDE OR LOWER NON-HDL SPECIME NS. FOR MOREINFORMATION , SEE CLIENT ANNOUNCE MENT AT [email or web address] RISK RATIO LDL/HDL 2.12 RATIO <3.55 (test code = 2238) COMPREHENSIVE METABOLIC [id number] 03:53:55 Test Item Value Reference Range Interpretation Comments GLUCOSE (test code = 107 MG/DL 70-99 H 2216) BUN (test code = 14 MG/DL 12-18) CREATININE (test 1.17 MG/DL 0.80-1.40 code = 2214) eGFR (2020 CKD-EPI) 81 >60 (test code = 97136) ML/MIN/1.73 CALC BUN/CREAT (test 12 RATIO 6-28 code = 2235) SODIUM (test code = 142 MEQ/L 116-024 1781) POTASSIUM (test code 5.2 MEQ/L 3.5-5.4 = 2227) CHLORIDE (test code 100 MEQ/L 95-107 = 2214) CARBON DIOXIDE (test 23 MEQ/L 19-31 code = 2206) CALCIUM (test code = 10.4 MG/DL 8.5-10.5 2208) PROTEIN, TOTAL (test 8.4 G/DL 6.1-8.3 H code = 2228) ALBUMIN (test code = 4.6 G/DL 3.5-5.2 2200) CALC GLOBULIN (test 3.8 G/DL 1.9-3.7 H code = 2240) CALC A/G RATIO (test 1.2 RATIO 1.0-2.6 code = 2234) BILIRUBIN, TOTAL 0.2 MG/DL See_Comment [Automated message] (test code = 220) The syste m which generated this result transmitted ref erence range: <=1.2. T he reference range was not used to int erpret this result as normal/abnormal . ALKALINE PHOSPHATASE 98 U/L 40-117 (test code = 2203) AST (test code = 27 U/L 9-50 2217) ALT (test code = 25 U/L 5-50 UNLESS OTH ERWISE 2218) INDICATED, ALL TESTING PERFORM ED [facility], [id number] [place] [address] DIRECTOR: FELISHA HONG M.D. CLIA NUMBER [id number] CAP ACCREDITATION N O. [id number] HEMOGLOBIN [id number] 03:14:26 Test Item Value Reference Range Interpretation Comments HEMOGLOBIN A1c (test code = 81901) 6.1 % 4.2-5.6 H HEMOGLOBIN [id number] 00:00:00 Test Item Value Reference Range Interpretation Comments HEMOGLOBIN A1c (test code = 03670) 6.1 % HEMOGLOBIN [id number] 00:00:00 Test Item Value Reference Range Interpretation Comments HEMOGLOBIN A1c (test code = 64020) 6.1 % HEMOGLOBIN [id number] 00:00:00 Test Item Value Reference Range Interpretation Comments HEMOGLOBIN A1c (test code = 00129) 6.1 % LIPID [id number] 00:00:00 Test Item Value Reference Range Interpretation Comments CHOLESTEROL (test code = 2210) 274 MG/DL TRIGLYCERIDES (test code = 2232) 57 MG/DL HDL CHOLESTEROL (test code = 2220) 83 MG/DL CALC LDL CHOL (test code = 2237) 176 MG/DL RISK RATIO LDL/HDL (test code = 2.12 RATIO 2238) LIPID [id number] 00:00:00 Test Item Value Reference Range Interpretation Comments CHOLESTEROL (test code = 2210) 274 MG/DL TRIGLYCERIDES (test code = 2232) 57 MG/DL HDL CHOLESTEROL (test code = 2220) 83 MG/DL CALC LDL CHOL (test code = 2237) 176 MG/DL RISK RATIO LDL/HDL (test code = 2.12 RATIO 2238) COMPREHENSIVE METABOLIC [id number] 00:00:00 Test Item Value Reference Range Interpretation Comments GLUCOSE (test code = 2217) 107 MG/DL BUN (test code = 2208) 14 MG/DL CREATININE (test code = 2214) 1.17 MG/DL eGFR (2020 CKD-EPI) (test code 81 ML/MIN/1.73 = 88085) CALC BUN/CREAT (test code = 12 RATIO 2235) SODIUM (test code = 2231) 142 MEQ/L POTASSIUM (test code = 2228) 5.2 MEQ/L CHLORIDE (test code = 2215) 100 MEQ/L CARBON DIOXIDE (test code = 23 MEQ/L 2205) CALCIUM (test code = 2209) 10.4 MG/DL PROTEIN, TOTAL (test code = 8.4 G/DL 2228) ALBUMIN (test code = 2201) 4.6 G/DL CALC GLOBULIN (test code = 3.8 G/DL 2240) CALC A/G RATIO (test code = 1.2 RATIO 2234) BILIRUBIN, TOTAL (test code = 0.2 MG/DL 2206) ALKALINE PHOSPHATASE (test 98 U/L code = 2204) AST (test code = 2218) 27 U/L ALT (test code = 2219) 25 U/L COMPREHENSIVE METABOLIC [id number] 00:00:00 Test Item Value Reference Range Interpretation Comments GLUCOSE (test code = 2217) 107 MG/DL BUN (test code = 2208) 14 MG/DL CREATININE (test code = 2214) 1.17 MG/DL eGFR (2020 CKD-EPI) (test code 81 ML/MIN/1.73 = 18766) CALC BUN/CREAT (test code = 12 RATIO 2235) SODIUM (test code = 2231) 142 MEQ/L POTASSIUM (test code = 2228) 5.2 MEQ/L CHLORIDE (test code = 2215) 100 MEQ/L CARBON DIOXIDE (test code = 23 MEQ/L 2205) CALCIUM (test code = 2209) 10.4 MG/DL PROTEIN, TOTAL (test code = 8.4 G/DL 2228) ALBUMIN (test code = 2201) 4.6 G/DL CALC GLOBULIN (test code = 3.8 G/DL 0) CALC A/G RATIO (test code = 1.2 RATIO 2233) BILIRUBIN, TOTAL (test code = 0.2 MG/DL 2206) ALKALINE PHOSPHATASE (test 98 U/L code = 2204) AST (test code = 2218) 27 U/L ALT (test code = 2219) 25 U/L HEMOGLOBIN [id number] 00:00:00 Test Item Value Reference Range Interpretation Comments HEMOGLOBIN A1c (test code = 24329) 6.1 % HEMOGLOBIN [id number] 00:00:00 Test Item Value Reference Range Interpretation Comments HEMOGLOBIN A1c (test code = 60216) 6.1 % HEMOGLOBIN [id number] 00:00:00 Test Item Value Reference Range Interpretation Comments HEMOGLOBIN A1c (test code = 33209) 6.1 % LIPID [id number] 00:00:00 Test Item Value Reference Range Interpretation Comments CHOLESTEROL (test code = 2210) 274 MG/DL TRIGLYCERIDES (test code = 2232) 57 MG/DL HDL CHOLESTEROL (test code = 2220) 83 MG/DL CALC LDL CHOL (test code = 2237) 176 MG/DL RISK RATIO LDL/HDL (test code = 2.12 RATIO 2238) LIPID [id number] 00:00:00 Test Item Value Reference Range Interpretation Comments CHOLESTEROL (test code = 2210) 274 MG/DL TRIGLYCERIDES (test code = 2232) 57 MG/DL HDL CHOLESTEROL (test code = 2220) 83 MG/DL CALC LDL CHOL (test code = 2237) 176 MG/DL RISK RATIO LDL/HDL (test code = 2.12 RATIO 2238) COMPREHENSIVE METABOLIC [id number] 00:00:00 Test Item Value Reference Range Interpretation Comments GLUCOSE (test code = 2217) 107 MG/DL BUN (test code = 2208) 14 MG/DL CREATININE (test code = 2214) 1.17 MG/DL eGFR (2020 CKD-EPI) (test code 81 ML/MIN/1.73 = 96457) CALC BUN/CREAT (test code = 12 RATIO 2235) SODIUM (test code = 2231) 142 MEQ/L POTASSIUM (test code = 2228) 5.2 MEQ/L CHLORIDE (test code = 2215) 100 MEQ/L CARBON DIOXIDE (test code = 23 MEQ/L 2206) CALCIUM (test code = 2209) 10.4 MG/DL PROTEIN, TOTAL (test code = 8.4 G/DL 2229) ALBUMIN (test code = 2201) 4.6 G/DL CALC GLOBULIN (test code = 3.8 G/DL 2240) CALC A/G RATIO (test code = 1.2 RATIO 2234) BILIRUBIN, TOTAL (test code = 0.2 MG/DL 2206) ALKALINE PHOSPHATASE (test 98 U/L code = 2204) AST (test code = 2218) 27 U/L ALT (test code = 2219) 25 U/L COMPREHENSIVE METABOLIC [id number] 00:00:00 Test Item Value Reference Range Interpretation Comments GLUCOSE (test code = 2216) 107 MG/DL BUN (test code = 2208) 14 MG/DL CREATININE (test code = 2214) 1.17 MG/DL eGFR (2020 CKD-EPI) (test code 81 ML/MIN/1.73 = 45700) CALC BUN/CREAT (test code = 12 RATIO 2235) SODIUM (test code = 2231) 142 MEQ/L POTASSIUM (test code = 2228) 5.2 MEQ/L CHLORIDE (test code = 2215) 100 MEQ/L CARBON DIOXIDE (test code = 23 MEQ/L 2206) CALCIUM (test code = 2209) 10.4 MG/DL PROTEIN, TOTAL (test code = 8.4 G/DL 2229) ALBUMIN (test code = 2201) 4.6 G/DL CALC GLOBULIN (test code = 3.8 G/DL 2240) CALC A/G RATIO (test code = 1.2 RATIO 2234) BILIRUBIN, TOTAL (test code = 0.2 MG/DL 7) ALKALINE PHOSPHATASE (test 98 U/L code = 2204) AST (test code = 2218) 27 U/L ALT (test code = 2219) 25 U/L COMPREHENSIVE METABOLIC [id number] 00:00:00 Test Item Value Reference Range Interpretation Comments GLUCOSE (test code = 2217) 102 MG/DL BUN (test code = 2208) 13 MG/DL CREATININE (test code = 2214) 1.12 MG/DL eGFR AMER. (test code 95 ML/MIN/1.73 = 76447) eGFR NON- AMER. (test 82 ML/MIN/1.73 code = 33807) CALC BUN/CREAT (test code = 12 RATIO 2235) SODIUM (test code = 2231) 139 MEQ/L POTASSIUM (test code = 2228) 4.6 MEQ/L CHLORIDE (test code = 2215) 101 MEQ/L CARBON DIOXIDE (test code = 24 MEQ/L 2205) CALCIUM (test code = 2209) 10.3 MG/DL PROTEIN, TOTAL (test code = 8.2 G/DL 2228) ALBUMIN (test code = 2201) 4.8 G/DL CALC GLOBULIN (test code = 3.4 G/DL 2240) CALC A/G RATIO (test code = 1.4 RATIO 2234) BILIRUBIN, TOTAL (test code = 0.3 MG/DL 2206) ALKALINE PHOSPHATASE (test 85 U/L code = 2204) AST (test code = 2218) 57 U/L ALT (test code = 2219) 105 U/L COMPREHENSIVE METABOLIC [id number] 00:00:00 Test Item Value Reference Range Interpretation Comments GLUCOSE (test code = 2217) 102 MG/DL BUN (test code = 2208) 13 MG/DL CREATININE (test code = 2214) 1.12 MG/DL eGFR AMER. (test code 95 ML/MIN/1.73 = 20187) eGFR NON- AMER. (test 82 ML/MIN/1.73 code = 40978) CALC BUN/CREAT (test code = 12 RATIO 2235) SODIUM (test code = 2231) 139 MEQ/L POTASSIUM (test code = 2228) 4.6 MEQ/L CHLORIDE (test code = 2215) 101 MEQ/L CARBON DIOXIDE (test code = 24 MEQ/L 2205) CALCIUM (test code = 2209) 10.3 MG/DL PROTEIN, TOTAL (test code = 8.2 G/DL 2228) ALBUMIN (test code = 2201) 4.8 G/DL CALC GLOBULIN (test code = 3.4 G/DL 2240) CALC A/G RATIO (test code = 1.4 RATIO 2234) BILIRUBIN, TOTAL (test code = 0.3 MG/DL 2206) ALKALINE PHOSPHATASE (test 85 U/L code = 2204) AST (test code = 2218) 57 U/L ALT (test code = 2219) 105 U/L LIPID [id number] 00:00:00 Test Item Value Reference Range Interpretation Comments CHOLESTEROL (test code = 2210) 218 MG/DL TRIGLYCERIDES (test code = 2232) 76 MG/DL HDL CHOLESTEROL (test code = 2220) 66 MG/DL CALC LDL CHOL (test code = 2237) 135 MG/DL RISK RATIO LDL/HDL (test code = 2.05 RATIO 2238) LIPID [id number] 00:00:00 Test Item Value Reference Range Interpretation Comments CHOLESTEROL (test code = 2210) 218 MG/DL TRIGLYCERIDES (test code = 2232) 76 MG/DL HDL CHOLESTEROL (test code = 2220) 66 MG/DL CALC LDL CHOL (test code = 2237) 135 MG/DL RISK RATIO LDL/HDL (test code = 2.05 RATIO 2238) COMPREHENSIVE METABOLIC [id number] 00:00:00 Test Item Value Reference Range Interpretation Comments GLUCOSE (test code = 2217) 102 MG/DL BUN (test code = 2208) 13 MG/DL CREATININE (test code = 2214) 1.12 MG/DL eGFR AMER. (test code 95 ML/MIN/1.73 = 17491) eGFR NON- AMER. (test 82 ML/MIN/1.73 code = 12287) CALC BUN/CREAT (test code = 12 RATIO 2235) SODIUM (test code = 2231) 139 MEQ/L POTASSIUM (test code = 2228) 4.6 MEQ/L CHLORIDE (test code = 2215) 101 MEQ/L CARBON DIOXIDE (test code = 24 MEQ/L 2205) CALCIUM (test code = 2209) 10.3 MG/DL PROTEIN, TOTAL (test code = 8.2 G/DL 2228) ALBUMIN (test code = 2201) 4.8 G/DL CALC GLOBULIN (test code = 3.4 G/DL 0) CALC A/G RATIO (test code = 1.4 RATIO 2234) BILIRUBIN, TOTAL (test code = 0.3 MG/DL 2206) ALKALINE PHOSPHATASE (test 85 U/L code = 2204) AST (test code = 2218) 57 U/L ALT (test code = 2219) 105 U/L COMPREHENSIVE METABOLIC [id number] 00:00:00 Test Item Value Reference Range Interpretation Comments GLUCOSE (test code = 2217) 102 MG/DL BUN (test code = 2208) 13 MG/DL CREATININE (test code = 2214) 1.12 MG/DL eGFR AMER. (test code 95 ML/MIN/1.73 = 82258) eGFR NON- AMER. (test 82 ML/MIN/1.73 code = 87798) CALC BUN/CREAT (test code = 12 RATIO 2235) SODIUM (test code = 2231) 139 MEQ/L POTASSIUM (test code = 2228) 4.6 MEQ/L CHLORIDE (test code = 2215) 101 MEQ/L CARBON DIOXIDE (test code = 24 MEQ/L 2205) CALCIUM (test code = 2209) 10.3 MG/DL PROTEIN, TOTAL (test code = 8.2 G/DL 2228) ALBUMIN (test code = 2201) 4.8 G/DL CALC GLOBULIN (test code = 3.4 G/DL 2239) CALC A/G RATIO (test code = 1.4 RATIO 2234) BILIRUBIN, TOTAL (test code = 0.3 MG/DL 2206) ALKALINE PHOSPHATASE (test 85 U/L code = 2204) AST (test code = 2218) 57 U/L ALT (test code = 2219) 105 U/L LIPID [id number] 00:00:00 Test Item Value Reference Range Interpretation Comments CHOLESTEROL (test code = 2210) 218 MG/DL TRIGLYCERIDES (test code = 2232) 76 MG/DL HDL CHOLESTEROL (test code = 2220) 66 MG/DL CALC LDL CHOL (test code = 2237) 135 MG/DL RISK RATIO LDL/HDL (test code = 2.05 RATIO 2238) LIPID [id number] 00:00:00 Test Item Value Reference Range Interpretation Comments CHOLESTEROL (test code = 2210) 218 MG/DL TRIGLYCERIDES (test code = 2232) 76 MG/DL HDL CHOLESTEROL (test code = 2220) 66 MG/DL CALC LDL CHOL (test code = 2237) 135 MG/DL RISK RATIO LDL/HDL (test code = 2.05 RATIO 2238) HEMOGLOBIN [id number] 00:00:00 Test Item Value Reference Range Interpretation Comments HEMOGLOBIN A1c (test code = 02745) 6.1 % HEMOGLOBIN [id number] 00:00:00 Test Item Value Reference Range Interpretation Comments HEMOGLOBIN A1c (test code = 38394) 6.1 % HEMOGLOBIN [id number] 00:00:00 Test Item Value Reference Range Interpretation Comments HEMOGLOBIN A1c (test code = 73790) 6.1 % HEMOGLOBIN [id number] 00:00:00 Test Item Value Reference Range Interpretation Comments HEMOGLOBIN A1c (test code = 00476) 6.1 % HEMOGLOBIN [id number] 00:00:00 Test Item Value Reference Range Interpretation Comments HEMOGLOBIN A1c (test code = 53142) 6.1 % HEMOGLOBIN [id number] 00:00:00 Test Item Value Reference Range Interpretation Comments HEMOGLOBIN A1c (test code = 07626) 6.1 % COMPREHENSIVE METABOLIC [id number] 00:00:00 Test Item Value Reference Range Interpretation Comments GLUCOSE (test code = 2217) 103 MG/DL BUN (test code = 2208) 13 MG/DL CREATININE (test code = 2214) 1.09 MG/DL eGFR AMER. (test code 99 ML/MIN/1.73 = 83000) eGFR NON- AMER. (test 85 ML/MIN/1.73 code = 96090) CALC BUN/CREAT (test code = 12 RATIO 2235) SODIUM (test code = 2231) 141 MEQ/L POTASSIUM (test code = 2228) 4.8 MEQ/L CHLORIDE (test code = 2215) 104 MEQ/L CARBON DIOXIDE (test code = 28 MEQ/L 2205) CALCIUM (test code = 2209) 10.2 MG/DL PROTEIN, TOTAL (test code = 7.6 G/DL 2228) ALBUMIN (test code = 2201) 4.5 G/DL CALC GLOBULIN (test code = 3.1 G/DL 0) CALC A/G RATIO (test code = 1.5 RATIO 2234) BILIRUBIN, TOTAL (test code = <0.2 MG/DL 2206) ALKALINE PHOSPHATASE (test 66 U/L code = 2204) AST (test code = 2218) 26 U/L ALT (test code = 2219) 44 U/L COMPREHENSIVE METABOLIC [id number] 00:00:00 Test Item Value Reference Range Interpretation Comments GLUCOSE (test code = 2217) 103 MG/DL BUN (test code = 2208) 13 MG/DL CREATININE (test code = 2214) 1.09 MG/DL eGFR AMER. (test code 99 ML/MIN/1.73 = 02981) eGFR NON- AMER. (test 85 ML/MIN/1.73 code = 76470) CALC BUN/CREAT (test code = 12 RATIO 2235) SODIUM (test code = 2231) 141 MEQ/L POTASSIUM (test code = 2228) 4.8 MEQ/L CHLORIDE (test code = 2215) 104 MEQ/L CARBON DIOXIDE (test code = 28 MEQ/L 2205) CALCIUM (test code = 2209) 10.2 MG/DL PROTEIN, TOTAL (test code = 7.6 G/DL 2228) ALBUMIN (test code = 2201) 4.5 G/DL CALC GLOBULIN (test code = 3.1 G/DL 2239) CALC A/G RATIO (test code = 1.5 RATIO 2233) BILIRUBIN, TOTAL (test code = <0.2 MG/DL 2206) ALKALINE PHOSPHATASE (test 66 U/L code = 2204) AST (test code = 2218) 26 U/L ALT (test code = 2219) 44 U/L LIPID [id number] 00:00:00 Test Item Value Reference Range Interpretation Comments CHOLESTEROL (test code = 2210) 223 MG/DL TRIGLYCERIDES (test code = 2232) 75 MG/DL HDL CHOLESTEROL (test code = 2220) 74 MG/DL CALC LDL CHOL (test code = 2237) 132 MG/DL RISK RATIO LDL/HDL (test code = 1.78 RATIO 2238) LIPID [id number] 00:00:00 Test Item Value Reference Range Interpretation Comments CHOLESTEROL (test code = 2210) 223 MG/DL TRIGLYCERIDES (test code = 2232) 75 MG/DL HDL CHOLESTEROL (test code = 2220) 74 MG/DL CALC LDL CHOL (test code = 2237) 132 MG/DL RISK RATIO LDL/HDL (test code = 1.78 RATIO 2238) COMPREHENSIVE METABOLIC [id number] 00:00:00 Test Item Value Reference Range Interpretation Comments GLUCOSE (test code = 2217) 103 MG/DL BUN (test code = 2208) 13 MG/DL CREATININE (test code = 2214) 1.09 MG/DL eGFR AMER. (test code 99 ML/MIN/1.73 = 20256) eGFR NON- AMER. (test 85 ML/MIN/1.73 code = 48260) CALC BUN/CREAT (test code = 12 RATIO 2235) SODIUM (test code = 2231) 141 MEQ/L POTASSIUM (test code = 2228) 4.8 MEQ/L CHLORIDE (test code = 2215) 104 MEQ/L CARBON DIOXIDE (test code = 28 MEQ/L 2206) CALCIUM (test code = 2209) 10.2 MG/DL PROTEIN, TOTAL (test code = 7.6 G/DL 2228) ALBUMIN (test code = 2201) 4.5 G/DL CALC GLOBULIN (test code = 3.1 G/DL 2240) CALC A/G RATIO (test code = 1.5 RATIO 2234) BILIRUBIN, TOTAL (test code = <0.2 MG/DL 2206) ALKALINE PHOSPHATASE (test 66 U/L code = 2204) AST (test code = 2218) 26 U/L ALT (test code = 2219) 44 U/L COMPREHENSIVE METABOLIC [id number] 00:00:00 Test Item Value Reference Range Interpretation Comments GLUCOSE (test code = 2217) 103 MG/DL BUN (test code = 2208) 13 MG/DL CREATININE (test code = 2214) 1.09 MG/DL eGFR AMER. (test code 99 ML/MIN/1.73 = 29798) eGFR NON- AMER. (test 85 ML/MIN/1.73 code = 09603) CALC BUN/CREAT (test code = 12 RATIO 2235) SODIUM (test code = 2231) 141 MEQ/L POTASSIUM (test code = 2228) 4.8 MEQ/L CHLORIDE (test code = 2215) 104 MEQ/L CARBON DIOXIDE (test code = 28 MEQ/L 2206) CALCIUM (test code = 2209) 10.2 MG/DL PROTEIN, TOTAL (test code = 7.6 G/DL 2228) ALBUMIN (test code = 2201) 4.5 G/DL CALC GLOBULIN (test code = 3.1 G/DL 2240) CALC A/G RATIO (test code = 1.5 RATIO 2234) BILIRUBIN, TOTAL (test code = <0.2 MG/DL 2206) ALKALINE PHOSPHATASE (test 66 U/L code = 2204) AST (test code = 2218) 26 U/L ALT (test code = 2219) 44 U/L LIPID [id number] 00:00:00 Test Item Value Reference Range Interpretation Comments CHOLESTEROL (test code = 2210) 223 MG/DL TRIGLYCERIDES (test code = 2232) 75 MG/DL HDL CHOLESTEROL (test code = 2220) 74 MG/DL CALC LDL CHOL (test code = 2237) 132 MG/DL RISK RATIO LDL/HDL (test code = 1.78 RATIO 2238) LIPID [id number] 00:00:00 Test Item Value Reference Range Interpretation Comments CHOLESTEROL (test code = 2210) 223 MG/DL TRIGLYCERIDES (test code = 2232) 75 MG/DL HDL CHOLESTEROL (test code = 2220) 74 MG/DL CALC LDL CHOL (test code = 2237) 132 MG/DL RISK RATIO LDL/HDL (test code = 1.78 RATIO 2238)
--- NOTE | 2022-08-21 15:03 | ER ---
Nurse's Notes [facility] Name: Akhil Hidalgo Age: 42 yrs Sex: Male : 1980 Arrival Date: 08/21/2022 Time: 14:10 Bed IW4 Private MD: Diagnosis: Low back pain;Strain of muscle, fascia and tendon of lower back Presentation: 08/21 14:34 Chief complaint: Patient states: he started having back pain this morning as he was ap3 getting ready for work. patient reports the pain to be in his lower back. patient denies any recent trauma to his back. Coronavirus screen: At this time, the client does not indicate any symptoms associated with coronavirus-19. Ebola Screen: No symptoms or risks identified at this time. Initial Sepsis Screen: Does the patient meet any 2 criteria? No. Patient's initial sepsis screen is negative. Does the patient have a suspected source of infection? No. Patient's initial sepsis screen is negative. Risk Assessment: Do you want to hurt yourself or someone else? Patient reports no desire to harm self or others. Onset of symptoms was August 21, 2022. 14:34 Method Of Arrival: Ambulatory ap3 14:34 Acuity: MARIANGEL 4 ap3 Triage Assessment: 14:37 General: Appears in no apparent distress. Behavior is calm, cooperative. Pain: ap3 Complains of pain in low back area. Neuro: Level of Consciousness is awake, alert, obeys commands, Oriented to person, place, time, situation, Gait is steady. Cardiovascular: Patient's skin is warm and dry. Respiratory: Airway is patent Respiratory effort is even, unlabored, Respiratory pattern is regular, symmetrical. Musculoskeletal: Range of motion: intact in all extremities. Historical: - Allergies: 14:36 No Known Allergies; ap3 - Home Meds: 14:36 amlodipine 10 mg tab 1 tab once daily [Active]; Zoloft Oral [Active]; ap3 - PMHx: 14:36 Anxiety; Hypertension; Hypercholesterolemia; ap3 - Immunization history:: Client reports receiving the 2nd dose of the Covid vaccine, Flu vaccine is not up to date. - Social history:: Smoking status: Reported history of juuling and/or vaping. - Family history:: not pertinent. - Hospitalizations: : No recent hospitalization is reported. Screenin:37 [facility] ED Fall Risk Assessment (Adult) History of falling in the last 3 months, ap3 including since admission No falls in past 3 months (0 pts). Abuse screen: Denies threats or abuse. Nutritional screening: No deficits noted. Tuberculosis screening: No symptoms or risk factors identified. Assessment: 15:21 Reassessment: See triage assessment. General: Appears in no apparent distress. ld1 comfortable, Behavior is calm, cooperative, appropriate for age. Neuro: Level of Consciousness is awake, alert, obeys commands, Oriented to person, place, time, situation. Cardiovascular: Capillary refill < 3 seconds Patient's skin is warm and dry. Respiratory: Airway is patent Respiratory effort is even, unlabored. Vital Signs: 14:34 BP 169 / 98; Pulse 83; Resp 18; Temp 98.6; Pulse Ox 100% ; Weight 92.99 kg; Height 6 ap3 ft. (182.88 cm); Pain 8/10; 15:21 BP 154 / 89; Pulse 81; Resp 18; Pulse Ox 100% on R/A; Pain 2/10; ld1 14:34 Body Mass Index 27.80 (92.99 kg, 182.88 cm) ap3 ED Course: 14:10 Patient arrived in ED. am2 14:35 Chester Hannah MD is Attending Physician. rn 14:36 Triage completed. ap3 14:38 Arm band placed on right wrist. ap3 14:38 Patient has correct armband on for positive identification. ap3 14:42 No provider procedures requiring assistance completed. Patient did not have IV access ap3 during this emergency room visit. Administered Medications: No medications were administered Medication: 14:42 VIS not applicable for this client. ap3 Outcome: 15:03 Discharge ordered by . rn 15:21 Discharged to home ambulatory. ld1 15:21 Condition: stable 15:21 Discharge instructions given to patient, Instructed on discharge instructions, follow up and referral plans. medication usage, Demonstrated understanding of instructions, follow-up care, medications, Prescriptions given X 2. 15:22 Patient left the ED. ld1 Signatures: Chester Hannah MD MD rn Moreno, Amanda am2 Genevieve Patterson RN RN ap3 Charis Rosario RN RN ld1
--- NOTE | 2022-08-21 15:04 | EDPHYS ---
Physician Documentation [facility] Name: Akhil Hidalgo Age: 42 yrs Sex: Male : 1980 Arrival Date: 08/21/2022 Time: 14:10 Bed IW4 Private MD: ED Physician Chester Hannah HPI: 08/21 15:00 This 42 yrs old Black Male presents to ER via Ambulatory with complaints of Back Pain - rn tightness. 15:00 The patient presents with pain that is acute. The symptoms are located in the low back. rn 15:00 Onset: The symptoms/episode began/occurred yesterday. The pain does not radiate. rn Associated signs and symptoms: Pertinent negatives: abdominal pain, chest pain, constipation, dysuria, fever, hematuria, incontinence, nausea, numbness, tingling, urinary retention, vomiting, weakness. Modifying factors: The patient symptoms are alleviated by remaining still, the patient symptoms are aggravated by bending, lifting. Severity of symptoms: At their worst the symptoms were moderate, in the emergency department the symptoms have improved. The patient has not experienced similar symptoms in the past. The patient has not recently seen a physician. Pt reports was moving a refrigerator up stairs and thinks hurt back, did not hear a pop or crack, no radiation, no weakness or bowel/bladder issues. No abd pain. . Historical: - Allergies: 14:36 No Known Allergies; ap3 - Home Meds: 14:36 amlodipine 10 mg tab 1 tab once daily [Active]; Zoloft Oral [Active]; ap3 - PMHx: 14:36 Anxiety; Hypertension; Hypercholesterolemia; ap3 - Immunization history:: Client reports receiving the 2nd dose of the Covid vaccine, Flu vaccine is not up to date. - Social history:: Smoking status: Reported history of juuling and/or vaping. - Family history:: not pertinent. - Hospitalizations: : No recent hospitalization is reported. ROS: 15:00 Constitutional: Negative for fever, chills, and weight loss, Cardiovascular: Negative rn for chest pain, palpitations, and edema, Respiratory: Negative for shortness of breath, cough, wheezing, and pleuritic chest pain, Abdomen/GI: Negative for abdominal pain, nausea, vomiting, diarrhea, and constipation, Back: + low back pain MS/Extremity: Negative for injury and deformity, Skin: Negative for injury, rash, and discoloration, Neuro: Negative for headache, weakness, numbness, tingling, and seizure. Exam: 15:00 Constitutional: This is a well developed, well nourished patient who is awake, alert, rn and in no acute distress. Back: No spinal tenderness. N Skin: Warm, dry MS/ Extremity: Pulses equal, no cyanosis. Neurovascular intact. Full, normal range of motion. Equal circumference. Neuro: Awake and alert, GCS 15, oriented to person, place, time, and situation. Cranial nerves II-XII grossly intact. Motor strength 5/5 in all extremities. Sensory grossly intact. Cerebellar exam normal. Normal gait. Vital Signs: 14:34 BP 169 / 98; Pulse 83; Resp 18; Temp 98.6; Pulse Ox 100% ; Weight 92.99 kg; Height 6 ap3 ft. (182.88 cm); Pain 8/10; 15:21 BP 154 / 89; Pulse 81; Resp 18; Pulse Ox 100% on R/A; Pain 2/10; ld1 14:34 Body Mass Index 27.80 (92.99 kg, 182.88 cm) ap3 MDM: 14:35 Patient medically screened. rn 15:00 Differential diagnosis: arthritis, Fatigue sprain, strain, muscle spasm, muscle strain. rn Differential diagnosis: disc herniation, pinched nerve. Data reviewed: vital signs, nurses notes. I considered the following discharge prescriptions or medication management in the emergency department I discussed and recommended Over The Counter medications, Pain Medications: At this time, prescription pain medications are not recommended. Test considered but Not performed: MRI: MRI, will f/u as outpt for MRI if symptoms persist or worsen. Counseling: I had a detailed discussion with the patient and/or guardian regarding: the historical points, exam findings, and any diagnostic results supporting the discharge/admit diagnosis, the need for outpatient follow up, to return to the emergency department if symptoms worsen or persist or if there are any questions or concerns that arise at home. Special discussion: I discussed with the patient/guardian in detail that at this point there is no indication for admission to the hospital. It is understood, however, that if the symptoms persist or worsen the patient needs to return immediately for re-evaluation. Based on the history and exam findings, there is no indication for further emergent testing or inpatient evaluation. I discussed with the patient/guardian the need to see the primary care provider for further evaluation of the symptoms. Administered Medications: No medications were administered Disposition Summary: 08/21/22 15:03 Discharge Ordered Location: Home rn Problem: new rn Symptoms: have improved rn Condition: Stable rn Diagnosis - Low back pain rn - Strain of muscle, fascia and tendon of lower back rn Followup: rn - With: Private Physician - When: As needed - Reason: Recheck today's complaints, Re-evaluation by your physician Discharge Instructions: - Discharge Summary Sheet rn - Acute Back Pain, Adult rn - Musculoskeletal Pain rn - Back Exercises rn Forms: - Medication Reconciliation Form rn - Thank You Letter rn - Antibiotic internal specialist - Prescription Opioid Use rn - Work release form em1 Prescriptions: - Cyclobenzaprine 10 mg Oral Tablet - take 1 tablet by ORAL route every 8 hours As needed; 15 tablet; Refills: 0, rn Product Selection Permitted - Medrol (Isaias) 4 mg Oral Tablets, Dose Pack - take 1 tablet by ORAL route as directed - follow package instructions; 1 rn packet; Refills: 0, Product Selection Permitted Signatures: Chester Hannah MD MD rn Prokisch, Amanda, RN RN ap3
[2022-08-21 15:57] VITALS: TEMP 98.6; O2SAT 100
[2022-08-21 15:58] VITALS: BP 154/89
== END 2022-08-21 15:22 | disposition home or self-care (01) ==
LOC: ER 14:05
DX: S39.012A Strain of muscle, fascia and tendon of lower back, initial encounter (principal); I10 Essential (primary) hypertension; F41.9 Anxiety disorder, unspecified
CPT/HCPCS: 99282

== ENCOUNTER 2023-06-09 12:17 | Emergency (ER) | payer SELFPAY ==
--- OUTSIDE RECORDS SUMMARY | 2023-06-09 12:22 | XMS REPORT | Continuity of Care Document ---
Author Name Unknown Address [address] [facility] 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 Attending Clinician HIRO MUSE K.[facility]. Attending Clinician Unavaila ble Allergies, Adverse Reactions, Alerts Allergy Name Allergy Type Status Severity Reaction(s) Onset Date Inactive Date Treating Clinician Comments Source NO KNOWN ALLERGIE S Drug Class Active [facility] Social History Social Habit Start Date Stop Date Quantity Comments Source Sex Assigned At [facility] Exposure to SARS-CoV-2 (event) Not sure [facility] History of tobacco use Cigarette Smoker [facility] Tobacco use and exposure 2020-05-30 00:00:00 2020-05-30 00:00:00 Never used [facility] Smoking Status Start Date Stop Date Source Unknown if ever smoked [facility] Current every day smoker 2020-05-30 00:00:00 [facility] Medications Ordered Medication Name Filled Medication Name Start Date Stop Date Current Medication? Ordering Clinician Indication Dosage Frequency Signature (SIG) Comments Components Source TAKE 1 TABLET EVERY MORNING. 2021-07- 00:00: 00 No ONDANSETRON HCL 4 MG TABLET 2021-07 00:00: 00 No Dose Unknown 2021-07- 00:00: 00 No TRAZODONE 50 MG TABLET 2021-07- 00:00: 00 No Dose Unknown 2022-1 2-16 00:00: 00 No Dose Unknown 2021-0716 00:00: 00 No SHAKE LIQUID AND USE 1 SPRAY IN EACH NOSTRIL TWICE DAILY 2021-07 216 00:00: 00 No FAMOTIDINE 20 MG TABLET 2021-07 216 00:00: 00 No DISSOLVE 1 TABLET UNDER THE TONGUE EVERY 6 HOURS NEEDED FOR PAIN 2021-07 00:00: 00 No Dose Unknown 2021-07 00:00: 00 No TAKE 1 TABLET BY MOUTH EVERY 6 HOURS NEEDED 2021-07 00:00: 00 No TAKE 1 TABLET BY MOUTH EVERY 6 HOURS NEEDED FOR PAIN 2021-07 00:00: 00 No DICYCLOMINE 20 MG TABLET 2021-07 00:00: 00 No TAKE 1 TABLET BY MOUTH DAILY 2021-07 00:00: 00 No Dose Unknown 2021-07 00:00: 00 No Dose Unknown 2021-07 00:00: 00 No Dose Unknown 2021-07 00:00: 00 No FLUTICASONE PROP 50 MCG SPRAY 2021-07 00:00: 00 No ACETAMINOPH EN-COD #3 TABLET 0 03-08 00:00: 00 No ACETAMINOPH EN-COD #3 TABLET 03-08 00:00: 00 No TAKE 1 TABLET BY MOUTH TWICE DAILY FOR 10 DAYS 0 - 00:00: 00 No 875 TAKE 1 TABLET BY MOUTH TWICE DAILY FOR 10 DAYS 0 - 00:00: 00 No TAKE 1 TABLET BY MOUTH FOUR TIMES DAILY 0 - 00:00: 00 No TAKE 1 TABLET BY MOUTH TWICE DAILY 0 - 00:00: 00 No &lt 2021-0 6- 00:00: 00 No &lt 0 - 00:00: 00 No TAKE 1 TABLET BY MOUTH DAILY 0 - 00:00: 00 No TAKE 1 TABLET BY MOUTH FOUR TIMES DAILY 0 - 00:00: 00 No TAKE 1 TABLET BY MOUTH TWICE DAILY 0 - 00:00: 00 No Dose Unknown 0 6-21 00:00: 00 No AMLODIPINE BESYLATE 10 MG TAB 2022-0 6-21 00:00: 00 No TAKE 1 TABLET BY MOUTH DAILY 2022-0 6-21 00:00: 00 No &lt 2022-0 6-20 00:00: 00 No Dose Unknown 2022-0 6-20 00:00: 00 No &lt 2022-0 6-18 00:00: 00 No &lt 2022-0 6-18 00:00: 00 No &lt 2022-0 6-18 00:00: 00 No SHAKE LIQUID AND USE 1 SPRAY IN EACH NOSTRIL TWICE DAILY 2022-0 6-18 00:00: 00 No TAKE 1 TABLET BY MOUTH EVERY NIGHT 2022-0 6-18 00:00: 00 No &lt 2022-0 6-18 00:00: 00 No &lt 2022-0 6-18 00:00: 00 No &lt 2022-0 6-18 00:00: 00 No SHAKE LIQUID AND USE 1 SPRAY IN EACH NOSTRIL TWICE DAILY 2-0 6-18 00:00: 00 No TAKE 1 TABLET BY MOUTH EVERY NIGHT 2-0 6-18 00:00: 00 No &lt 2022-0 6-14 00:00: 00 No &lt 2022-0 6-14 00:00: 00 No metformin 500 mg tablet 2-0 3-17 00:00: 00 No 1mg metformin 500 mg tablet 2021-0 3-17 00:00: 00 No 1mg metformin 500 mg tablet 2021-0 3-17 00:00: 00 No 1mg metformin 500 mg tablet 2021-0 3-17 00:00: 00 No 1mg Dose Unknown 2021-0 3-16 00:00: 00 No Dose Unknown 2021-0 3-16 00:00: 00 No Dose Unknown 2-0 3-16 00:00: 00 No Dose Unknown 2-0 3-16 00:00: 00 No amlodipine 10 mg tablet 2-0 3-16 00:00: 00 No 1mg Dose Unknown 2-0 3-16 00:00: 00 No Dose Unknown 2021-0 3-16 00:00: 00 No Dose Unknown 2021-0 3-16 00:00: 00 No Dose Unknown 2021-0 3-16 00:00: 00 No Dose Unknown 2022-0 3-16 00:00: 00 No Dose Unknown 2022-0 3-16 00:00: 00 No Dose Unknown 2022-0 3-16 00:00: 00 No Dose Unknown 2022-0 3-16 00:00: 00 No Dose Unknown 2022-0 3-16 00:00: 00 No Dose Unknown 2022-0 3-16 00:00: 00 No Dose Unknown 2022-0 3-16 00:00: 00 No Dose Unknown 2022-0 3-16 00:00: 00 No Dose Unknown 2022-0 3-16 00:00: 00 No Dose Unknown 2022-0 3-16 00:00: 00 No Dose Unknown 2022-0 3-16 00:00: 00 No Dose Unknown 2022-0 3-16 00:00: 00 No Dose Unknown 2022-0 3-16 00:00: 00 No Dose Unknown 2022-0 3-16 00:00: 00 No Dose Unknown 2022-0 3-16 00:00: 00 No Dose Unknown 2022-0 3-16 00:00: 00 No Dose Unknown 2022-0 3-16 00:00: 00 No Dose Unknown 2022-0 3-16 00:00: 00 No Dose Unknown 2022-0 3-16 00:00: 00 No Dose Unknown 2022-0 3-16 00:00: 00 No Dose Unknown 2022-0 3-16 00:00: 00 No Dose Unknown 2022-0 3-16 00:00: 00 No Dose Unknown 2022-0 3-16 00:00: 00 No Dose Unknown 2022-0 3-16 00:00: 00 No Dose Unknown 2022-0 3-16 00:00: 00 No Dose Unknown 2022-0 3-16 00:00: 00 No Dose Unknown 2022-0 3-16 00:00: 00 No Dose Unknown 2022-0 3-16 00:00: 00 No Dose Unknown 2022-0 3-16 00:00: 00 No Dose Unknown 2022-0 3-16 00:00: 00 No Dose Unknown 2022-0 3-16 00:00: 00 No Dose Unknown 2022-0 3-16 00:00: 00 No Dose Unknown 2022-0 3-16 00:00: 00 No Dose Unknown 2022-0 3-16 00:00: 00 No Dose Unknown 2022-0 3-16 00:00: 00 No Dose Unknown 2022-0 3-16 00:00: 00 No Dose Unknown 2022-0 3-16 00:00: 00 No Dose Unknown 2022-0 3-16 00:00: 00 No Dose Unknown 2022-0 3-16 00:00: 00 No Dose Unknown 2022-0 3-16 00:00: 00 No Zoloft 100 mg tablet 2022-0 3-16 00:00: 00 No 1mg amlodipine 10 mg tablet 2022-0 3-16 00:00: 00 No 1mg trazodone 50 mg tablet 2022-0 3-16 00:00: 00 No 1mg Dose Unknown 2022-0 3-16 00:00: 00 No Dose Unknown 2022-0 3-16 00:00: 00 No Dose Unknown 2022-0 3-16 00:00: 00 No Dose Unknown 2022-0 3-16 00:00: 00 No Dose Unknown 2022-0 3-16 00:00: 00 No Dose Unknown 2022-0 3-16 00:00: 00 No Dose Unknown 2022-0 3-16 00:00: 00 No Dose Unknown 2022-0 3-16 00:00: 00 No Dose Unknown 2022-0 3-16 00:00: 00 No Dose Unknown 2022-0 3-16 00:00: 00 No Dose Unknown 2022-0 3-16 00:00: 00 No Dose Unknown 2022-0 3-16 00:00: 00 No Dose Unknown 2022-0 3-16 00:00: 00 No Dose Unknown 2022-0 3-16 00:00: 00 No Dose Unknown 2022-0 3-16 00:00: 00 No Dose Unknown 2022-0 3-16 00:00: 00 No Dose Unknown 2022-0 3-16 00:00: 00 No Dose Unknown 2022-0 3-16 00:00: 00 No Dose Unknown 2022-0 3-16 00:00: 00 No Dose Unknown 2022-0 3-16 00:00: 00 No Dose Unknown 2022-0 3-16 00:00: 00 No Dose Unknown 2022-0 3-16 00:00: 00 No Dose Unknown 2022-0 3-16 00:00: 00 No Dose Unknown 2022-0 3-16 00:00: 00 No Dose Unknown 2022-0 3-16 00:00: 00 No Dose Unknown 2022-0 3-16 00:00: 00 No Dose Unknown 2022-0 3-16 00:00: 00 No Dose Unknown 2022-0 3-16 00:00: 00 No Dose Unknown 2022-0 3-16 00:00: 00 No Dose Unknown 2022-0 3-16 00:00: 00 No Dose Unknown 2022-0 3-16 00:00: 00 No Dose Unknown 2022-0 3-16 00:00: 00 No Dose Unknown 2022-0 3-16 00:00: 00 No Dose Unknown 2022-0 3-16 00:00: 00 No Dose Unknown 2022-0 3-16 00:00: 00 No Dose Unknown 2022-0 3-16 00:00: 00 No Dose Unknown 2022-0 3-16 00:00: 00 No Dose Unknown 2022-0 3-16 00:00: 00 No Dose Unknown 2022-0 3-09 00:00: 00 No Dose Unknown 2022-0 3-09 00:00: 00 No Dose Unknown 2022-0 3-09 00:00: 00 No Dose Unknown 2022-0 3-09 00:00: 00 No Dose Unknown 2022-0 3-09 00:00: 00 No Dose Unknown 2022-0 3-09 00:00: 00 No Dose Unknown 2022-0 3- 00:00: 00 No Dose Unknown 2022-0 3- 00:00: 00 No Zoloft 100 mg tablet 2-0 3- 00:00: 00 No 1mg trazodone 50 mg tablet 2-0 3- 00:00: 00 No 1mg ibuprofen 600 mg tablet 2-0 2-28 00:00: 00 No 1mg Dose Unknown 2022-0 2- 00:00: 00 No Dose Unknown 2022-0 2-28 00:00: 00 No Flonase Allergy Relief 50 mcg/actuati on nasal spray,suspe nsion 2021-0 2- 00:00: 00 No 1mcg/ac tuation Dose Unknown 2021-0 2- 00:00: 00 No acetaminoph en 500 mg tablet 2- 00:00: 00 No 2mg ibuprofen 600 mg tablet 2 00:00: 00 No 1mg Flonase Allergy Relief 50 mcg/actuati on nasal spray,suspe nsion 2 00:00: 00 No 1mcg/ac tuation amlodipine 10 mg tablet 2020-07 2- 00:00: 00 No 1mg Dose Unknown 2020-07 2 00:00: 00 No Dose Unknown 2020-07 2 00:00: 00 No amlodipine 10 mg tablet 2020-07 2 00:00: 00 No 1mg Dose Unknown 2020-07 2 00:00: 00 No Dose Unknown 2020-07 2 00:00: 00 No ondansetron 4 mg disintegrat ing tablet 2020-07 0-14 00:00: 00 No 1mg famotidine 20 mg tablet 2020-07 0-14 00:00: 00 No 1mg famotidine 20 mg tablet 2020-07 0-14 00:00: 00 No 1mg ondansetron 4 mg disintegrat ing tablet 2020-07 0-14 00:00: 00 No 1mg dicyclomine 20 mg tablet 2020-07 0-14 00:00: 00 No 1mg dicyclomine 20 mg tablet 2020-07 0-14 00:00: 00 No 1mg ondansetron 4 mg disintegrat ing tablet 2020-07 0-14 00:00: 00 No 1mg famotidine 20 mg tablet 2020-07 0-14 00:00: 00 No 1mg famotidine 20 mg tablet 2020-07 0-14 00:00: 00 No 1mg ondansetron 4 mg disintegrat ing tablet 2020-07 0-14 00:00: 00 No 1mg dicyclomine 20 mg tablet 2020-07 0-14 00:00: 00 No 1mg dicyclomine 20 mg tablet 2020-07 0-14 00:00: 00 No 1mg amlodipine 10 mg tablet 9- 00:00: 00 No 1mg amlodipine 10 mg tablet 9- 00:00: 00 No 1mg amlodipine 10 mg tablet 8- 00:00: 00 No 1mg amlodipine 10 mg tablet 0 8- 00:00: 00 No 1mg Zoloft 100 mg tablet 0 7-20 00:00: 00 No 1mg buspirone 7.5 mg tablet 0 7-20 00:00: 00 No 1mg trazodone 50 mg tablet 0 7-20 00:00: 00 No 1mg Zoloft 100 mg tablet 0 7- 00:00: 00 No 1mg buspirone 7.5 mg tablet 0 7-20 00:00: 00 No 1mg trazodone 50 mg tablet 0 7-20 00:00: 00 No 1mg Zoloft 100 mg tablet 0 5-25 00:00: 00 No 1mg trazodone 50 mg tablet 0 5-25 00:00: 00 No 1mg Zoloft 100 mg tablet 0 5-25 00:00: 00 No 1mg trazodone 50 mg tablet 0 5-25 00:00: 00 No 1mg Zoloft 100 mg tablet 0 4-29 00:00: 00 No 1mg Zoloft 100 mg tablet 0 4-29 00:00: 00 No 1mg amlodipine 10 mg tablet 0 4-27 00:00: 00 No 1mg amlodipine 10 mg tablet 0 4-27 00:00: 00 No 1mg trazodone 50 mg tablet 2020-0 4-16 00:00: 00 No 1mg trazodone 50 mg tablet 0 4-16 00:00: 00 No 1mg Zoloft 100 mg tablet 2020-0 4-15 00:00: 00 No 1mg Zoloft 100 mg tablet 2020-0 4-15 00:00: 00 No 1mg trazodone 50 mg tablet 0 3-26 00:00: 00 No 1mg trazodone 50 mg tablet 0 3-26 00:00: 00 No 1mg Zoloft 50 mg tablet 2020-0 3-25 00:00: 00 No 1mg hydroxyzine HCl 25 mg tablet 0 3-25 00:00: 00 No 12mg Zoloft 50 mg tablet 0 3-25 00:00: 00 No 1mg hydroxyzine HCl 25 mg tablet 0 3-25 00:00: 00 No 12mg escitalopra m 20 mg tablet 0 3-04 00:00: 00 No 1mg hydroxyzine HCl 25 mg tablet 0 3-04 00:00: 00 No 12mg escitalopra m 20 mg tablet 0 3-04 00:00: 00 No 1mg hydroxyzine HCl 25 mg tablet 0 3-04 00:00: 00 No 12mg hydroxyzine HCl 25 mg tablet 0 2-19 00:00: 00 No 12mg escitalopra m 10 mg tablet 0 2-19 00:00: 00 No 1mg hydroxyzine HCl 25 mg tablet 0 2-19 00:00: 00 No 12mg escitalopra m 10 mg tablet 0 2-19 00:00: 00 No 1mg Paxil 10 mg tablet 0 2-03 00:00: 00 No 1mg Paxil 10 mg tablet 0 2-03 00:00: 00 No 1mg hydroxyzine HCl 25 mg tablet 0 1-25 00:00: 00 No 12mg hydroxyzine HCl 25 mg tablet 0 1-25 00:00: 00 No 12mg amlodipine 10 mg tablet 0 1-20 00:00: 00 No 1mg amlodipine 10 mg tablet 0 1-20 00:00: 00 No 1mg amLODIPine 10 mg tablet 2019-07 15:30: 03 Yes 10mg Take 10 mg by mouth daily. [facility] diclofenac 75 mg EC tablet 2019-07 15:30: 03 Yes 75mg Take 75 mg by mouth 2 (two) times daily with meals. [facility] amLODIPine 10 mg tablet 2019-07 15:30: 03 Yes 10mg Take 10 mg by mouth daily. [facility] diclofenac 75 mg EC tablet 2019-07 15:30: 03 Yes 75mg Take 75 mg by mouth 2 (two) times daily with meals. [facility] amLODIPine 10 mg tablet 2019-07 15:30: 03 Yes 10mg Take 10 mg by mouth daily. [facility] diclofenac 75 mg EC tablet 2019-07 15:30: 03 Yes 75mg Take 75 mg by mouth 2 (two) times daily with meals. [facility] amlodipine 10 mg tablet 2019-07 00:00: 00 No 1mg amlodipine 10 mg tablet 2019-07 00:00: 00 No 1mg mupirocin 2 % topical ointment 2019-07 00:00: 00 No 1% Norvasc 10 mg tablet 2019-07 00:00: 00 No 1mg cephalexin 500 mg capsule 2019-07 00:00: 00 No 1mg mupirocin 2 % topical ointment 2019-07 00:00: 00 No 1% Norvasc 10 mg tablet 2019-07 00:00: 00 No 1mg cephalexin 500 mg capsule 2019-07 00:00: 00 No 1mg amlodipine 10 mg tablet 02-02 00:00: 00 No 1mg amlodipine 10 mg tablet 02-02 00:00: 00 No 1mg Lomotil 2.5 mg-0.025 mg tablet 12-01 00:00: 00 No 2mg Lomotil 2.5 mg-0.025 mg tablet 12-01 00:00: 00 No 2mg amlodipine 10 mg tablet 11-09 00:00: 00 No 1mg amlodipine 10 mg tablet 11-09 00:00: 00 No 1mg prednisone 10 mg tablet 11-02 00:00: 00 No mg hydroxyzine HCl 25 mg tablet 11-02 00:00: 00 No 12mg hydroxyzine HCl 25 mg tablet 11-02 00:00: 00 No 12mg triamcinolo ne acetonide 0.5 % topical ointment 11-02 00:00: 00 No 1% prednisone 10 mg tablet 11-02 00:00: 00 No mg hydroxyzine HCl 25 mg tablet 11-02 00:00: 00 No 12mg hydroxyzine HCl 25 mg tablet 11-02 00:00: 00 No 12mg triamcinolo ne acetonide 0.5 % topical ointment 11-02 00:00: 00 No 1% Nicoderm CQ 14 mg/24 hr daily transdermal patch 09-16 00:00: 00 No 1mg/24 hr Nicoderm CQ 14 mg/24 hr daily transdermal patch 09-16 00:00: 00 No 1mg/24 hr amlodipine 10 mg tablet 09-13 00:00: 00 No 1mg amlodipine 10 mg tablet 09-13 00:00: 00 No 1mg Nicoderm CQ 21 mg/24 hr daily transdermal patch 09-06 00:00: 00 No 1mg/24 hr Nicoderm CQ 14 mg/24 hr daily transdermal patch 09-06 00:00: 00 No 1mg/24 hr amlodipine 10 mg tablet 09-06 00:00: 00 No 1mg Flonase Allergy Relief 50 mcg/actuati on nasal spray,suspe nsion 09-06 00:00: 00 No 2mcg/ac tuation Nicoderm CQ 21 mg/24 hr daily transdermal patch 09-06 00:00: 00 No 1mg/24 hr Nicoderm CQ 14 mg/24 hr daily transdermal patch 09-06 00:00: 00 No 1mg/24 hr amlodipine 10 mg tablet 09-06 00:00: 00 No 1mg Flonase Allergy Relief 50 mcg/actuati on nasal spray,suspe nsion 09-06 00:00: 00 No 2mcg/ac tuation Vital Signs Vital Name Observation Time Observation Value Comments S ource Systolic blood pressure 2020-05-30 15:31:00 131 mm[Hg] [facility] Diastolic blood pressure 2020-05-30 15:31:00 92 mm[Hg] [facility] Heart rate 2020-05-30 15:31:00 79 /min [facility] Respiratory rate 2020-05-30 15:29:00 19 /min [facility] Body height 2020-05-30 15:29:00 182.9 cm [facility] Body weight 2020-05-30 15:29:00 89.495 kg [facility] BMI 2020-05-30 15:29:00 26.76 kg/m2 [facility] Oxygen saturation in Arterial blood by Pulse oximetry 2020-05-30 15:29:00 97 /min [place] [facility] BP Systolic 2022-07-18 08:15:00 116 mm[Hg] BP [...] Procedures Procedure Date / Time Performed Performing Clinicia n Source EXTERNAL PROVIDER - [facility] CARDIOLOGY 2020-06-14 06:01:00 Doctor Unassigned, Cope [facility] CONSENT/REFUSAL FOR DIAGNOSIS AND TREATMENT 2020-05-30 15:04:59 Doctor Unassigned, Cope [facility] Plan of Care Planned Activity Planned Date Details Comments Source Goal Plan of Care Note [code = 28888-3] Goal Plan of Care Note [code = 45181-2] Goal Plan of Care Note [code = 48988-0] Goal Plan of Care Note [code = 26081-6] Goal Plan of Care Note [code = 43259-4] Goal Plan of Care Note [code = 57571-1] Goal Plan of Care Note [code = 03922-1] Goal Plan of Care Note [code = 06657-7] Goal Plan of Care Note [code = 89041-2] Goal Plan of Care Note [code = 17251-2] Goal Plan of Care Note [code = 12631-5] Goal Plan of Care Note [code = 11026-1] Goal Plan of Care Note [code = 21580-3] Goal Plan of Care Note [code = 03987-3] Goal Plan of Care Note [code = 16597-5] Goal Plan of Care Note [code = 18210-0] Goal Plan of Care Note [code = 78302-2] Goal Plan of Care Note [code = 58717-8] Goal Plan of Care Note [code = 22132-2] Goal Plan of Care Note [code = 26075-7] Goal Plan of Care Note [code = 95884-2] Goal Plan of Care Note [code = 91596-8] Goal Plan of Care Note [code = 23281-4] Goal Plan of Care Note [code = 53827-8] Goal Plan of Care Note [code = 09690-3] Goal Plan of Care Note [code = 29377-5] Goal Plan of Care Note [code = 77585-0] Goal Plan of Care Note [code = 97416-6] Goal Plan of Care Note [code = 78462-3] Goal Plan of Care Note [code = 46705-5] Goal Plan of Care Note [code = 98060-6] Goal Plan of Care Note [code = 72232-2] Goal Plan of Care Note [code = 47057-5] Goal Plan of Care Note [code = 01373-4] Goal Plan of Care Note [code = 36613-1] Goal Plan of Care Note [code = 37870-1] Goal Plan of Care Note [code = 07690-6] Goal Plan of Care Note [code = 50476-8] Goal Plan of Care Note [code = 60976-9] Goal Plan of Care Note [code = 51076-7] Goal Plan of Care Note [code = 46587-0] Goal Plan of Care Note [code = 20595-9] Goal Plan of Care Note [code = 65466-8] Goal Plan of Care Note [code = 28717-0] Goal Plan of Care Note [code = 56537-4] Goal Plan of Care Note [code = 56080-6] Goal Plan of Care Note [code = 12413-2] Encounters Start Date/Time End Date/Time Encounter Type Admission Type Attending [facility] Care Department Encounter ID Source 2023-05-08 15:46:54 2023-05-08 15:46:54 Outpatient [facility] [id number] Quincy Castlilo 2022-08-08 13:39:31 2022-08-08 13:39:31 Outpatient [facility] [id number] Quincy Campbell Jonathan 2022-07-24 09:59:08 2022-07-24 09:59:08 Outpatient [facility] [id number] Quincy Castillo 2022-07-18 08:11:22 2022-07-18 08:11:22 Outpatient [facility] [id number] Quincy Castillo 2022-07-18 00:00:00 2022-07-18 00:00:00 Outpatient Visit [id number] 2022-03-24 00:00:00 2022-03-24 00:00:00 Outpatient Visit [id number] 2020-07-04 09:00:00 2020-07-04 09:00:00 Outpatient R [facility] [id number] [facility] 2020-06-14 00:00:00 2020-06-14 00:00:00 Orders Only Doctor Unassigned, Cope [facility] [id number] [facility] 2020-05-30 09:05:42 2020-05-30 10:23:35 Office Visit Hiro Muse [facility] [place] [facility] [id number] [facility] 2020-05-30 09:00:00 2020-05-30 09:00:00 Outpatient R HIRO MUSE [facility] [id number] [facility] 2020-05-30 00:00:00 2020-05-30 00:00:00 Orders Only Doctor Unassigned, Cope [facility] [id number] [facility] Results Test Description Test Time Test Comments Results Result Co mments Source LIVER (HEPATIC) FUNCTION [id number] 00:00:00* Test Item Value Reference Range Interpretation Comme nts PROTEIN, TOTAL (test code = 2229) 7.9 G/DL ALBUMIN (test code = 2201) 4.9 G/DL BILIRUBIN, TOTAL (test code = 2207) <0.2 MG/DL BILIRUBIN, DIRECT (test code = 2022) <0.2 MG/DL ALKALINE PHOSPHATASE (test c ode = 2204) 86 U/L AST (test code = 2218) 27 U/L ALT (test code = 2219) 28 U/L LIVER (HEPATIC) FUNCTION [id number] 00:00:00* Test Item Value Reference Range Interpretation Comme nts PROTEIN, TOTAL (test code = 2229) 7.9 G/DL ALBUMIN (test code = 2201) 4.9 G/DL BILIRUBIN, TOTAL (test code = 2207) <0.2 MG/DL BILIRUBIN, DIRECT (test code = 2022) <0.2 MG/DL ALKALINE PHOSPHATASE (test c ode = 2204) 86 U/L AST (test code = 2218) 27 U/L ALT (test code = 2219) 28 U/L COMPREHENSIVE METABOLIC [id number] 23:58:14* Test Item Value Reference Range Interpretation Comme nts GLUCOSE (test code = 2217) 99 MG/DL 70-99 BUN (test code = 2207) 13 MG/DL 6-20 CREATININE (test code = 2213) 1.18 MG/DL 0.80-1.40 eGFR (2020 CKD-EPI) (test code = ) 80 ML/MIN/1.73 >60 CALC BUN/CREAT (test code = 2234) 11 RATIO 6-28 SODIUM (test code = 2230) 141 MEQ/L 133-146 POTASSIUM (test code = 2227) 4.9 MEQ/L 3.5-5.4 CHLORIDE (test code = 2214) 104 MEQ/L 95-107 CARBON DIOXIDE (test code = 2205) 25 MEQ/L 19-31 CALCIUM (test code = 2208) 9.6 MG/DL 8.5-10.5 PROTEIN, TOTAL (test code = 2228) 7.4 G/DL 6.1-8.3 ALBUMIN (test code = 2200) 4.4 G/DL 3.5-5.2 CALC GLOBULIN (test code = 2239) 3.0 G/DL 1.9-3.7 CALC A/G RATIO (test code = 2233) 1.5 RATIO 1.0-2.6 BILIRUBIN, TOTAL (test code = 2206) <0.2 MG/DL See_Comment [Automated me ssage] The system which generated this result transmitted reference range: <=1.2. The reference range was not used to interpret this result as normal/abnormal. ALKALINE PHOSPHATASE (test code = 2203) 69 U/L 40-117 AST (test code = 2217) 215 U/L 9-50 H ALT (test code = 2218) 98 U/L 5-50 H LIPID [id number] 23:58:14* Test Item Value Reference Range Interpretation Comme nts CHOLESTEROL (test code = 2209) 208 MG/DL <200 H TRIGLYCERIDES (test code = 223) 88 MG/DL <150 HDL CHOLESTEROL (test code = 2219) 42 MG/DL >39 CALC LDL CHOL (test code = 2236) 147 MG/DL <100 H NOTE: CALCULATED LDL IS BASED ON KELLY-NUÑEZ METHOD WHICHINCLUDES ADJUSTABLE TRIGLYCERIDE:VLDL CHOLESTEROL RATIO.THIS FACTOR VARIES BY MEASURED TRIGLYCERIDE AND NON-HDLCHOLESTEROL CONCENTRATIONS WITH INCREASED CALCULATED LDL SEENIN HIGHER TRIGLYCERIDE OR LOWER NON-HDL SPECIMENS. FOR MOREINFORMATION, SEE CLIENT ANNOUNCEMENT AT [email or web address] [email or web address] RATIO LDL/HDL (test code = 2238) 3.50 RATIO <3.55 UNLESS OTHERW ISE INDICATED, ALL TESTING PERFORMED [facility] [employer] [address] [place] [id number] BLOW MOLD OPERATOR: FELISHA HONG M.D. IA NUMBER [id number] [facility] [place]. [id number] HEMOGLOBIN [id number] 04:14:02* Test Item Value Reference Range Interpretation Comme nts HEMOGLOBIN A1c (test code = 47278) 5.9 % 4.2-5.6 H COMPREHENSIVE METABOLIC [id number] 00:00:00* Test Item Value Reference Range Interpretation Comme nts GLUCOSE (test code = 2217) 99 MG/DL BUN (test code = 2208) 13 MG/DL CREATININE (test code = 2214) 1.18 MG/DL eGFR (2020 CKD-EPI) (test co de = 45470) 80 ML/MIN/1.73 CALC BUN/CREAT (test code = 2235) 11 RATIO SODIUM (test code = 2231) 141 MEQ/L POTASSIUM (test code = 2228) 4.9 MEQ/L CHLORIDE (test code = 2215) 104 MEQ/L CARBON DIOXIDE (test code = 2206) 25 MEQ/L CALCIUM (test code = 2209) 9.6 MG/DL PROTEIN, TOTAL (test code = 2229) 7.4 G/DL ALBUMIN (test code = 2201) 4.4 G/DL CALC GLOBULIN (test code = 2240) 3.0 G/DL CALC A/G RATIO (test code = 2234) 1.5 RATIO BILIRUBIN, TOTAL (test code = 2207) <0.2 MG/DL ALKALINE PHOSPHATASE (test code = 2204) 69 U/L AST (test code = 2218) 215 U/L ALT (test code = 2219) 98 U/L COMPREHENSIVE METABOLIC [id number] 00:00:00* Test Item Value Reference Range Interpretation Comme nts GLUCOSE (test code = 2217) 99 MG/DL BUN (test code = 2208) 13 MG/DL CREATININE (test code = 2214) 1.18 MG/DL eGFR (2021 CKD-EPI) (test co de = 06087) 80 ML/MIN/1.73 CALC BUN/CREAT (test code = 2235) 11 RATIO SODIUM (test code = 2231) 141 MEQ/L POTASSIUM (test code = 2228) 4.9 MEQ/L CHLORIDE (test code = 2215) 104 MEQ/L CARBON DIOXIDE (test code = 2206) 25 MEQ/L CALCIUM (test code = 2209) 9.6 MG/DL PROTEIN, TOTAL (test code = 2229) 7.4 G/DL ALBUMIN (test code = 2201) 4.4 G/DL CALC GLOBULIN (test code = 2240) 3.0 G/DL CALC A/G RATIO (test code = 2234) 1.5 RATIO BILIRUBIN, TOTAL (test code = 2207) <0.2 MG/DL ALKALINE PHOSPHATASE (test code = 2204) 69 U/L AST (test code = 2218) 215 U/L ALT (test code = 2219) 98 U/L HEMOGLOBIN [id number] 00:00:00* Test Item Value Reference Range Interpretation Comme nts HEMOGLOBIN A1c (test code = 56895) 5.9 % HEMOGLOBIN [id number] 00:00:00* Test Item Value Reference Range Interpretation Comme nts HEMOGLOBIN A1c (test code = 77096) 5.9 % HEMOGLOBIN [id number] 00:00:00* Test Item Value Reference Range Interpretation Comme nts HEMOGLOBIN A1c (test code = 41715) 5.9 % LIPID [id number] 00:00:00* Test Item Value Reference Range Interpretation Comme nts CHOLESTEROL (test code = 2210) 208 MG/DL TRIGLYCERIDES (test code = 2232) 88 MG/DL HDL CHOLESTEROL (test code = 2220) 42 MG/DL CALC LDL CHOL (test code = 2237) 147 MG/DL RISK RATIO LDL/HDL (test cod e = 2238) 3.50 RATIO LIPID [id number] 00:00:00* Test Item Value Reference Range Interpretation Comme nts CHOLESTEROL (test code = 2210) 208 MG/DL TRIGLYCERIDES (test code = 2232) 88 MG/DL HDL CHOLESTEROL (test code = 2220) 42 MG/DL CALC LDL CHOL (test code = 2237) 147 MG/DL RISK RATIO LDL/HDL (test cod e = 2238) 3.50 RATIO COMPREHENSIVE METABOLIC [id number] 00:00:00* Test Item Value Reference Range Interpretation Comme nts GLUCOSE (test code = 2217) 99 MG/DL BUN (test code = 2208) 13 MG/DL CREATININE (test code = 2214) 1.18 MG/DL eGFR (2020 CKD-EPI) (test co de = 21599) 80 ML/MIN/1.73 CALC BUN/CREAT (test code = 2235) 11 RATIO SODIUM (test code = 2231) 141 MEQ/L POTASSIUM (test code = 2228) 4.9 MEQ/L CHLORIDE (test code = 2215) 104 MEQ/L CARBON DIOXIDE (test code = 2206) 25 MEQ/L CALCIUM (test code = 2209) 9.6 MG/DL PROTEIN, TOTAL (test code = 2229) 7.4 G/DL ALBUMIN (test code = 2201) 4.4 G/DL CALC GLOBULIN (test code = 2240) 3.0 G/DL CALC A/G RATIO (test code = 2234) 1.5 RATIO BILIRUBIN, TOTAL (test code = 2207) <0.2 MG/DL ALKALINE PHOSPHATASE (test code = 2204) 69 U/L AST (test code = 2218) 215 U/L ALT (test code = 2219) 98 U/L COMPREHENSIVE METABOLIC [id number] 00:00:00* Test Item Value Reference Range Interpretation Comme nts GLUCOSE (test code = 2217) 99 MG/DL BUN (test code = 2208) 13 MG/DL CREATININE (test code = 2214) 1.18 MG/DL eGFR (2020 CKD-EPI) (test co de = 55055) 80 ML/MIN/1.73 CALC BUN/CREAT (test code = 2235) 11 RATIO SODIUM (test code = 2231) 141 MEQ/L POTASSIUM (test code = 2228) 4.9 MEQ/L CHLORIDE (test code = 2215) 104 MEQ/L CARBON DIOXIDE (test code = 2206) 25 MEQ/L CALCIUM (test code = 2209) 9.6 MG/DL PROTEIN, TOTAL (test code = 2229) 7.4 G/DL ALBUMIN (test code = 2201) 4.4 G/DL CALC GLOBULIN (test code = 2240) 3.0 G/DL CALC A/G RATIO (test code = 2234) 1.5 RATIO BILIRUBIN, TOTAL (test code = 2207) <0.2 MG/DL ALKALINE PHOSPHATASE (test code = 2204) 69 U/L AST (test code = 2218) 215 U/L ALT (test code = 2219) 98 U/L HEMOGLOBIN [id number] 00:00:00* Test Item Value Reference Range Interpretation Comme nts HEMOGLOBIN A1c (test code = 07998) 5.9 % HEMOGLOBIN [id number] 00:00:00* Test Item Value Reference Range Interpretation Comme nts HEMOGLOBIN A1c (test code = 22791) 5.9 % HEMOGLOBIN [id number] 00:00:00* Test Item Value Reference Range Interpretation Comme nts HEMOGLOBIN A1c (test code = 52582) 5.9 % LIPID [id number] 00:00:00* Test Item Value Reference Range Interpretation Comme nts CHOLESTEROL (test code = 2210) 208 MG/DL TRIGLYCERIDES (test code = 2232) 88 MG/DL HDL CHOLESTEROL (test code = 2220) 42 MG/DL CALC LDL CHOL (test code = 2237) 147 MG/DL RISK RATIO LDL/HDL (test cod e = 2238) 3.50 RATIO LIPID [id number] 00:00:00* Test Item Value Reference Range Interpretation Comme nts CHOLESTEROL (test code = 2210) 208 MG/DL TRIGLYCERIDES (test code = 2232) 88 MG/DL HDL CHOLESTEROL (test code = 2220) 42 MG/DL CALC LDL CHOL (test code = 2237) 147 MG/DL RISK RATIO LDL/HDL (test cod e = 2238) 3.50 RATIO LIPID [id number] 03:53:55* Test Item Value Reference Range Interpretation Comme nts CHOLESTEROL (test code = 2210) 274 MG/DL <200 H TRIGLYCERIDES (test code = 2232) 57 MG/DL <150 HDL CHOLESTEROL (test code = 2220) 83 MG/DL >39 CALC LDL CHOL (test code = 2237) 176 MG/DL <100 H NOTE: CALCULATED LDL IS BASED ON KELLY-NUÑEZ METHOD WHICHINCLUDES ADJUSTABLE TRIGLYCERIDE:VLDL CHOLESTEROL RATIO.THIS FACTOR VARIES BY MEASURED TRIGLYCERIDE AND NON-HDLCHOLESTEROL CONCENTRATIONS WITH INCREASED CALCULATED LDL SEENIN HIGHER TRIGLYCERIDE OR LOWER NON-HDL SPECIMENS. FOR MOREINFORMATION, SEE CLIENT ANNOUNCEMENT AT [email or web address] RISK RATIO LDL/HDL (test code = 223) 2.12 RATIO <3.55 COMPREHENSIVE METABOLIC [id number] 03:53:55* Test Item Value Reference Range Interpretation Comme nts GLUCOSE (test code = 2217) 107 MG/DL 70-99 H BUN (test code = 2207) 14 MG/DL 6-20 CREATININE (test code = 2213) 1.17 MG/DL 0.80-1.40 eGFR (2020 CKD-EPI) (test code = 66504) 81 ML/MIN/1.73 >60 CALC BUN/CREAT (test code = 2235) 12 RATIO 6-28 SODIUM (test code = 2230) 142 MEQ/L 133-146 POTASSIUM (test code = 222) 5.2 MEQ/L 3.5-5.4 CHLORIDE (test code = 5) 100 MEQ/L 95-107 CARBON DIOXIDE (test code = 6) 23 MEQ/L 19-31 CALCIUM (test code = 2208) 10.4 MG/DL 8.5-10.5 PROTEIN, TOTAL (test code = 222) 8.4 G/DL 6.1-8.3 H ALBUMIN (test code = 2201) 4.6 G/DL 3.5-5.2 CALC GLOBULIN (test code = 2240) 3.8 G/DL 1.9-3.7 H CALC A/G RATIO (test code = 2234) 1.2 RATIO 1.0-2.6 BILIRUBIN, TOTAL (test code = 2206) 0.2 MG/DL See_Comment [Automated me ssage] The system which generated this result transmitted reference range: <=1.2. The reference range was not used to interpret this result as normal/abnormal. ALKALINE PHOSPHATASE (test code = 2204) 98 U/L 40-117 AST (test code = 2218) 27 U/L 9-50 ALT (test code = 2219) 25 U/L 5-50 UNLESS OTHERWISE INDICATED, ALL TESTING PERFORMED [facility] [address] [place] [id number] BLOW MOLD OPERATOR: FELISHA HONG M.D. CLIA NUMBER [id number] [facility] [place]. [id number] HEMOGLOBIN [id number] 03:14:26* Test Item Value Reference Range Interpretation Comme nts HEMOGLOBIN A1c (test code = 77361) 6.1 % 4.2-5.6 H HEMOGLOBIN [id number] 00:00:00* Test Item Value Reference Range Interpretation Comme nts HEMOGLOBIN A1c (test code = 84132) 6.1 % HEMOGLOBIN [id number] 00:00:00* Test Item Value Reference Range Interpretation Comme nts HEMOGLOBIN A1c (test code = 99931) 6.1 % HEMOGLOBIN [id number] 00:00:00* Test Item Value Reference Range Interpretation Comme nts HEMOGLOBIN A1c (test code = 57888) 6.1 % LIPID [id number] 00:00:00* Test Item Value Reference Range Interpretation Comme nts CHOLESTEROL (test code = 2210) 274 MG/DL TRIGLYCERIDES (test code = 2232) 57 MG/DL HDL CHOLESTEROL (test code = 2220) 83 MG/DL CALC LDL CHOL (test code = 2237) 176 MG/DL RISK RATIO LDL/HDL (test cod e = 2238) 2.12 RATIO LIPID [id number] 00:00:00* Test Item Value Reference Range Interpretation Comme nts CHOLESTEROL (test code = 2210) 274 MG/DL TRIGLYCERIDES (test code = 2232) 57 MG/DL HDL CHOLESTEROL (test code = 2220) 83 MG/DL CALC LDL CHOL (test code = 2237) 176 MG/DL RISK RATIO LDL/HDL (test cod e = 2238) 2.12 RATIO COMPREHENSIVE METABOLIC [id number] 00:00:00* Test Item Value Reference Range Interpretation Comme nts GLUCOSE (test code = 2217) 107 MG/DL BUN (test code = 2208) 14 MG/DL CREATININE (test code = 2214) 1.17 MG/DL eGFR (2020 CKD-EPI) (test co de = 18423) 81 ML/MIN/1.73 CALC BUN/CREAT (test code = 2235) 12 RATIO SODIUM (test code = 2231) 142 MEQ/L POTASSIUM (test code = 2228) 5.2 MEQ/L CHLORIDE (test code = 2215) 100 MEQ/L CARBON DIOXIDE (test code = 2206) 23 MEQ/L CALCIUM (test code = 2209) 10.4 MG/DL PROTEIN, TOTAL (test code = 2229) 8.4 G/DL ALBUMIN (test code = 2201) 4.6 G/DL CALC GLOBULIN (test code = 2240) 3.8 G/DL CALC A/G RATIO (test code = 2234) 1.2 RATIO BILIRUBIN, TOTAL (test code = 2207) 0.2 MG/DL ALKALINE PHOSPHATASE (test code = 2204) 98 U/L AST (test code = 2218) 27 U/L ALT (test code = 2219) 25 U/L COMPREHENSIVE METABOLIC [id number] 00:00:00* Test Item Value Reference Range Interpretation Comme nts GLUCOSE (test code = 2217) 107 MG/DL BUN (test code = 2208) 14 MG/DL CREATININE (test code = 2214) 1.17 MG/DL eGFR (2020 CKD-EPI) (test co de = 44100) 81 ML/MIN/1.73 CALC BUN/CREAT (test code = 2235) 12 RATIO SODIUM (test code = 2231) 142 MEQ/L POTASSIUM (test code = 2228) 5.2 MEQ/L CHLORIDE (test code = 2215) 100 MEQ/L CARBON DIOXIDE (test code = 2206) 23 MEQ/L CALCIUM (test code = 2209) 10.4 MG/DL PROTEIN, TOTAL (test code = 2229) 8.4 G/DL ALBUMIN (test code = 2201) 4.6 G/DL CALC GLOBULIN (test code = 2240) 3.8 G/DL CALC A/G RATIO (test code = 2234) 1.2 RATIO BILIRUBIN, TOTAL (test code = 2207) 0.2 MG/DL ALKALINE PHOSPHATASE (test code = 2204) 98 U/L AST (test code = 2218) 27 U/L ALT (test code = 2219) 25 U/L HEMOGLOBIN [id number] 00:00:00* Test Item Value Reference Range Interpretation Comme nts HEMOGLOBIN A1c (test code = 63647) 6.1 % HEMOGLOBIN [id number] 00:00:00* Test Item Value Reference Range Interpretation Comme nts HEMOGLOBIN A1c (test code = 67305) 6.1 % HEMOGLOBIN [id number] 00:00:00* Test Item Value Reference Range Interpretation Comme nts HEMOGLOBIN A1c (test code = 46562) 6.1 % LIPID [id number] 00:00:00* Test Item Value Reference Range Interpretation Comme nts CHOLESTEROL (test code = 2210) 274 MG/DL TRIGLYCERIDES (test code = 2232) 57 MG/DL HDL CHOLESTEROL (test code = 2220) 83 MG/DL CALC LDL CHOL (test code = 2237) 176 MG/DL RISK RATIO LDL/HDL (test cod e = 2238) 2.12 RATIO LIPID [id number] 00:00:00* Test Item Value Reference Range Interpretation Comme nts CHOLESTEROL (test code = 2210) 274 MG/DL TRIGLYCERIDES (test code = 2232) 57 MG/DL HDL CHOLESTEROL (test code = 2220) 83 MG/DL CALC LDL CHOL (test code = 2237) 176 MG/DL RISK RATIO LDL/HDL (test cod e = 2238) 2.12 RATIO COMPREHENSIVE METABOLIC [id number] 00:00:00* Test Item Value Reference Range Interpretation Comme nts GLUCOSE (test code = 2217) 107 MG/DL BUN (test code = 2208) 14 MG/DL CREATININE (test code = 2214) 1.17 MG/DL eGFR (2020 CKD-EPI) (test co de = 54393) 81 ML/MIN/1.73 CALC BUN/CREAT (test code = 2235) 12 RATIO SODIUM (test code = 2231) 142 MEQ/L POTASSIUM (test code = 2228) 5.2 MEQ/L CHLORIDE (test code = 2215) 100 MEQ/L CARBON DIOXIDE (test code = 2206) 23 MEQ/L CALCIUM (test code = 2209) 10.4 MG/DL PROTEIN, TOTAL (test code = 2229) 8.4 G/DL ALBUMIN (test code = 2201) 4.6 G/DL CALC GLOBULIN (test code = 2240) 3.8 G/DL CALC A/G RATIO (test code = 2234) 1.2 RATIO BILIRUBIN, TOTAL (test code = 2207) 0.2 MG/DL ALKALINE PHOSPHATASE (test code = 2204) 98 U/L AST (test code = 2218) 27 U/L ALT (test code = 2219) 25 U/L COMPREHENSIVE METABOLIC [id number] 00:00:00* Test Item Value Reference Range Interpretation Comme nts GLUCOSE (test code = 2217) 107 MG/DL BUN (test code = 2208) 14 MG/DL CREATININE (test code = 2214) 1.17 MG/DL eGFR (2020 CKD-EPI) (test co de = 15301) 81 ML/MIN/1.73 CALC BUN/CREAT (test code = 2235) 12 RATIO SODIUM (test code = 2231) 142 MEQ/L POTASSIUM (test code = 2228) 5.2 MEQ/L CHLORIDE (test code = 2215) 100 MEQ/L CARBON DIOXIDE (test code = 2206) 23 MEQ/L CALCIUM (test code = 2209) 10.4 MG/DL PROTEIN, TOTAL (test code = 2229) 8.4 G/DL ALBUMIN (test code = 2201) 4.6 G/DL CALC GLOBULIN (test code = 2240) 3.8 G/DL CALC A/G RATIO (test code = 2234) 1.2 RATIO BILIRUBIN, TOTAL (test code = 2207) 0.2 MG/DL ALKALINE PHOSPHATASE (test code = 2204) 98 U/L AST (test code = 2218) 27 U/L ALT (test code = 2219) 25 U/L COMPREHENSIVE METABOLIC [id number] 00:00:00* Test Item Value Reference Range Interpretation Comme nts GLUCOSE (test code = 2217) 102 MG/DL BUN (test code = 2208) 13 MG/DL CREATININE (test code = 2214) 1.12 MG/DL eGFR AMER. (test cod e = 76995) 95 ML/MIN/1.73 eGFR NON- AMER. (test code = 59598) 82 ML/MIN/1.73 CALC BUN/CREAT (test code = 2235) 12 RATIO SODIUM (test code = 2231) 139 MEQ/L POTASSIUM (test code = 2228) 4.6 MEQ/L CHLORIDE (test code = 2215) 101 MEQ/L CARBON DIOXIDE (test code = 2206) 24 MEQ/L CALCIUM (test code = 2209) 10.3 MG/DL PROTEIN, TOTAL (test code = 2229) 8.2 G/DL ALBUMIN (test code = 2201) 4.8 G/DL CALC GLOBULIN (test code = 2240) 3.4 G/DL CALC A/G RATIO (test code = 2234) 1.4 RATIO BILIRUBIN, TOTAL (test code = 2207) 0.3 MG/DL ALKALINE PHOSPHATASE (test code = 2204) 85 U/L AST (test code = 2218) 57 U/L ALT (test code = 2219) 105 U/L COMPREHENSIVE METABOLIC [id number] 00:00:00* Test Item Value Reference Range Interpretation Comme nts GLUCOSE (test code = 2217) 102 MG/DL BUN (test code = 2208) 13 MG/DL CREATININE (test code = 2214) 1.12 MG/DL eGFR AMER. (test cod e = 09029) 95 ML/MIN/1.73 eGFR NON- AMER. (test code = 91519) 82 ML/MIN/1.73 CALC BUN/CREAT (test code = 2235) 12 RATIO SODIUM (test code = 2231) 139 MEQ/L POTASSIUM (test code = 2228) 4.6 MEQ/L CHLORIDE (test code = 2215) 101 MEQ/L CARBON DIOXIDE (test code = 2206) 24 MEQ/L CALCIUM (test code = 2209) 10.3 MG/DL PROTEIN, TOTAL (test code = 2229) 8.2 G/DL ALBUMIN (test code = 2201) 4.8 G/DL CALC GLOBULIN (test code = 2240) 3.4 G/DL CALC A/G RATIO (test code = 2234) 1.4 RATIO BILIRUBIN, TOTAL (test code = 2207) 0.3 MG/DL ALKALINE PHOSPHATASE (test code = 2204) 85 U/L AST (test code = 2218) 57 U/L ALT (test code = 2219) 105 U/L LIPID [id number] 00:00:00* Test Item Value Reference Range Interpretation Comme nts CHOLESTEROL (test code = 2210) 218 MG/DL TRIGLYCERIDES (test code = 2232) 76 MG/DL HDL CHOLESTEROL (test code = 2220) 66 MG/DL CALC LDL CHOL (test code = 2237) 135 MG/DL RISK RATIO LDL/HDL (test cod e = 2238) 2.05 RATIO LIPID [id number] 00:00:00* Test Item Value Reference Range Interpretation Comme nts CHOLESTEROL (test code = 2210) 218 MG/DL TRIGLYCERIDES (test code = 2232) 76 MG/DL HDL CHOLESTEROL (test code = 2220) 66 MG/DL CALC LDL CHOL (test code = 2237) 135 MG/DL RISK RATIO LDL/HDL (test cod e = 2238) 2.05 RATIO COMPREHENSIVE METABOLIC [id number] 00:00:00* Test Item Value Reference Range Interpretation Comme nts GLUCOSE (test code = 2217) 102 MG/DL BUN (test code = 2208) 13 MG/DL CREATININE (test code = 2214) 1.12 MG/DL eGFR AMER. (test cod e = 98265) 95 ML/MIN/1.73 eGFR NON- AMER. (test code = 44859) 82 ML/MIN/1.73 CALC BUN/CREAT (test code = 2235) 12 RATIO SODIUM (test code = 2231) 139 MEQ/L POTASSIUM (test code = 2228) 4.6 MEQ/L CHLORIDE (test code = 2215) 101 MEQ/L CARBON DIOXIDE (test code = 2206) 24 MEQ/L CALCIUM (test code = 2209) 10.3 MG/DL PROTEIN, TOTAL (test code = 2229) 8.2 G/DL ALBUMIN (test code = 2201) 4.8 G/DL CALC GLOBULIN (test code = 2240) 3.4 G/DL CALC A/G RATIO (test code = 2234) 1.4 RATIO BILIRUBIN, TOTAL (test code = 2207) 0.3 MG/DL ALKALINE PHOSPHATASE (test code = 2204) 85 U/L AST (test code = 2218) 57 U/L ALT (test code = 2219) 105 U/L COMPREHENSIVE METABOLIC [id number] 00:00:00* Test Item Value Reference Range Interpretation Comme nts GLUCOSE (test code = 2217) 102 MG/DL BUN (test code = 2208) 13 MG/DL CREATININE (test code = 2214) 1.12 MG/DL eGFR AMER. (test cod e = 75571) 95 ML/MIN/1.73 eGFR NON- AMER. (test code = 43839) 82 ML/MIN/1.73 CALC BUN/CREAT (test code = 2235) 12 RATIO SODIUM (test code = 2231) 139 MEQ/L POTASSIUM (test code = 2228) 4.6 MEQ/L CHLORIDE (test code = 2215) 101 MEQ/L CARBON DIOXIDE (test code = 2206) 24 MEQ/L CALCIUM (test code = 2209) 10.3 MG/DL PROTEIN, TOTAL (test code = 2229) 8.2 G/DL ALBUMIN (test code = 2201) 4.8 G/DL CALC GLOBULIN (test code = 2240) 3.4 G/DL CALC A/G RATIO (test code = 2234) 1.4 RATIO BILIRUBIN, TOTAL (test code = 2207) 0.3 MG/DL ALKALINE PHOSPHATASE (test code = 2204) 85 U/L AST (test code = 2218) 57 U/L ALT (test code = 2219) 105 U/L LIPID [id number] 00:00:00* Test Item Value Reference Range Interpretation Comme nts CHOLESTEROL (test code = 2210) 218 MG/DL TRIGLYCERIDES (test code = 2232) 76 MG/DL HDL CHOLESTEROL (test code = 2220) 66 MG/DL CALC LDL CHOL (test code = 2237) 135 MG/DL RISK RATIO LDL/HDL (test cod e = 2238) 2.05 RATIO LIPID [id number] 00:00:00* Test Item Value Reference Range Interpretation Comme nts CHOLESTEROL (test code = 2210) 218 MG/DL TRIGLYCERIDES (test code = 2232) 76 MG/DL HDL CHOLESTEROL (test code = 2220) 66 MG/DL CALC LDL CHOL (test code = 2237) 135 MG/DL RISK RATIO LDL/HDL (test cod e = 2238) 2.05 RATIO HEMOGLOBIN [id number] 00:00:00* Test Item Value Reference Range Interpretation Comme nts HEMOGLOBIN A1c (test code = 46447) 6.1 % HEMOGLOBIN [id number] 00:00:00* Test Item Value Reference Range Interpretation Comme nts HEMOGLOBIN A1c (test code = 74266) 6.1 % HEMOGLOBIN [id number] 00:00:00* Test Item Value Reference Range Interpretation Comme nts HEMOGLOBIN A1c (test code = 82123) 6.1 % HEMOGLOBIN [id number] 00:00:00* Test Item Value Reference Range Interpretation Comme nts HEMOGLOBIN A1c (test code = 34049) 6.1 % HEMOGLOBIN [id number] 00:00:00* Test Item Value Reference Range Interpretation Comme nts HEMOGLOBIN A1c (test code = 30929) 6.1 % HEMOGLOBIN [id number] 00:00:00* Test Item Value Reference Range Interpretation Comme nts HEMOGLOBIN A1c (test code = 26331) 6.1 % COMPREHENSIVE METABOLIC [id number] 00:00:00* Test Item Value Reference Range Interpretation Comme nts GLUCOSE (test code = 2217) 103 MG/DL BUN (test code = 2208) 13 MG/DL CREATININE (test code = 2214) 1.09 MG/DL eGFR AMER. (test cod e = 54478) 99 ML/MIN/1.73 eGFR NON- AMER. (test code = 64533) 85 ML/MIN/1.73 CALC BUN/CREAT (test code = 2235) 12 RATIO SODIUM (test code = 2231) 141 MEQ/L POTASSIUM (test code = 2228) 4.8 MEQ/L CHLORIDE (test code = 2215) 104 MEQ/L CARBON DIOXIDE (test code = 2206) 28 MEQ/L CALCIUM (test code = 2209) 10.2 MG/DL PROTEIN, TOTAL (test code = 2229) 7.6 G/DL ALBUMIN (test code = 2201) 4.5 G/DL CALC GLOBULIN (test code = 2240) 3.1 G/DL CALC A/G RATIO (test code = 2234) 1.5 RATIO BILIRUBIN, TOTAL (test code = 2207) <0.2 MG/DL ALKALINE PHOSPHATASE (test code = 2204) 66 U/L AST (test code = 2218) 26 U/L ALT (test code = 2219) 44 U/L COMPREHENSIVE METABOLIC [id number] 00:00:00* Test Item Value Reference Range Interpretation Comme nts GLUCOSE (test code = 2217) 103 MG/DL BUN (test code = 2208) 13 MG/DL CREATININE (test code = 2214) 1.09 MG/DL eGFR AMER. (test cod e = 90384) 99 ML/MIN/1.73 eGFR NON- AMER. (test code = 67986) 85 ML/MIN/1.73 CALC BUN/CREAT (test code = 2235) 12 RATIO SODIUM (test code = 2231) 141 MEQ/L POTASSIUM (test code = 2228) 4.8 MEQ/L CHLORIDE (test code = 2215) 104 MEQ/L CARBON DIOXIDE (test code = 2206) 28 MEQ/L CALCIUM (test code = 2209) 10.2 MG/DL PROTEIN, TOTAL (test code = 2229) 7.6 G/DL ALBUMIN (test code = 2201) 4.5 G/DL CALC GLOBULIN (test code = 2240) 3.1 G/DL CALC A/G RATIO (test code = 2234) 1.5 RATIO BILIRUBIN, TOTAL (test code = 2207) <0.2 MG/DL ALKALINE PHOSPHATASE (test code = 2204) 66 U/L AST (test code = 2218) 26 U/L ALT (test code = 2219) 44 U/L LIPID [id number] 00:00:00* Test Item Value Reference Range Interpretation Comme nts CHOLESTEROL (test code = 2210) 223 MG/DL TRIGLYCERIDES (test code = 2232) 75 MG/DL HDL CHOLESTEROL (test code = 2220) 74 MG/DL CALC LDL CHOL (test code = 2237) 132 MG/DL RISK RATIO LDL/HDL (test cod e = 2238) 1.78 RATIO LIPID [id number] 00:00:00* Test Item Value Reference Range Interpretation Comme nts CHOLESTEROL (test code = 2210) 223 MG/DL TRIGLYCERIDES (test code = 2232) 75 MG/DL HDL CHOLESTEROL (test code = 2220) 74 MG/DL CALC LDL CHOL (test code = 2237) 132 MG/DL RISK RATIO LDL/HDL (test cod e = 2238) 1.78 RATIO COMPREHENSIVE METABOLIC [id number] 00:00:00* Test Item Value Reference Range Interpretation Comme nts GLUCOSE (test code = 2217) 103 MG/DL BUN (test code = 2208) 13 MG/DL CREATININE (test code = 2214) 1.09 MG/DL eGFR AMER. (test cod e = 35700) 99 ML/MIN/1.73 eGFR NON- AMER. (test code = 05365) 85 ML/MIN/1.73 CALC BUN/CREAT (test code = 2235) 12 RATIO SODIUM (test code = 2231) 141 MEQ/L POTASSIUM (test code = 2228) 4.8 MEQ/L CHLORIDE (test code = 2215) 104 MEQ/L CARBON DIOXIDE (test code = 2206) 28 MEQ/L CALCIUM (test code = 2209) 10.2 MG/DL PROTEIN, TOTAL (test code = 2229) 7.6 G/DL ALBUMIN (test code = 2201) 4.5 G/DL CALC GLOBULIN (test code = 2240) 3.1 G/DL CALC A/G RATIO (test code = 2234) 1.5 RATIO BILIRUBIN, TOTAL (test code = 2207) <0.2 MG/DL ALKALINE PHOSPHATASE (test code = 2204) 66 U/L AST (test code = 2218) 26 U/L ALT (test code = 2219) 44 U/L COMPREHENSIVE METABOLIC [id number] 00:00:00* Test Item Value Reference Range Interpretation Comme nts GLUCOSE (test code = 2217) 103 MG/DL BUN (test code = 2208) 13 MG/DL CREATININE (test code = 2214) 1.09 MG/DL eGFR AMER. (test cod e = 79999) 99 ML/MIN/1.73 eGFR NON- AMER. (test code = 83141) 85 ML/MIN/1.73 CALC BUN/CREAT (test code = 2235) 12 RATIO SODIUM (test code = 2231) 141 MEQ/L POTASSIUM (test code = 2228) 4.8 MEQ/L CHLORIDE (test code = 2215) 104 MEQ/L CARBON DIOXIDE (test code = 2206) 28 MEQ/L CALCIUM (test code = 2209) 10.2 MG/DL PROTEIN, TOTAL (test code = 2229) 7.6 G/DL ALBUMIN (test code = 2201) 4.5 G/DL CALC GLOBULIN (test code = 2240) 3.1 G/DL CALC A/G RATIO (test code = 2234) 1.5 RATIO BILIRUBIN, TOTAL (test code = 2207) <0.2 MG/DL ALKALINE PHOSPHATASE (test code = 2204) 66 U/L AST (test code = 2218) 26 U/L ALT (test code = 2219) 44 U/L LIPID [id number] 00:00:00* Test Item Value Reference Range Interpretation Comme nts CHOLESTEROL (test code = 2210) 223 MG/DL TRIGLYCERIDES (test code = 2232) 75 MG/DL HDL CHOLESTEROL (test code = 2220) 74 MG/DL CALC LDL CHOL (test code = 2237) 132 MG/DL RISK RATIO LDL/HDL (test cod e = 2238) 1.78 RATIO LIPID [id number] 00:00:00* Test Item Value Reference Range Interpretation Comme nts CHOLESTEROL (test code = 2210) 223 MG/DL TRIGLYCERIDES (test code = 2232) 75 MG/DL HDL CHOLESTEROL (test code = 2220) 74 MG/DL CALC LDL CHOL (test code = 2237) 132 MG/DL RISK RATIO LDL/HDL (test cod e = 2238) 1.78 RATIO
[2023-06-09 12:42] LABS: Absolute Lymphocytes (CBC) 1.6 K/uL (0.7-4.9); Hematocrit 37.9 % (39.6-49.0); Lymphocytes % 28.4 % (15.3-44.8); MCV 91.2 fL (80-100); MPV 8.2 fL (7.6-11.3); Platelets 219 thou/uL (152-406); RBC Red Blood Cell Count 4.16 M/uL (4.33-5.43)
--- NOTE | 2023-06-09 12:44 | RAD REPORT ---
EXAM DESCRIPTION: RAD - Chest Single View - 06/09/2023 12:38 pm CLINICAL HISTORY: Dizziness Chest pain. COMPARISON: <Comparisons> FINDINGS: Portable technique limits examination quality. The lungs are grossly clear. The heart is normal in size. No displaced fractures. IMPRESSION: No acute intrathoracic process suspected.
[2023-06-09 12:58] LABS: Potassium 3.3 mEq/L (3.5-5.1); Troponin High Sensitivity 6.8 pg/mL (<58.9)
[2023-06-09] MEDS ORDERED: cloNIDine HCL 0.1 MG TAB ONE (13:01)
--- NOTE | 2023-06-09 13:39 | EDPHYS ---
Physician Documentation [facility] Name: Akhil Hidalgo Age: 43 yrs Sex: Male : 1980 Arrival Date: 06/09/2023 Time: 12:17 Bed 4 Private MD: ED Physician Rich Arnett HPI: 06/09 12:20 This 43 yrs old Black Male presents to ER via Unassigned with complaints of dizziness. pr3 12:20 43-year-old male with past medical history of hypertension diabetes presents to the [facility] emergency department for lightheadedness that began while moving furniture. Patient states he became short of breath, dizzy and feels like he had a panic attack. Patient states he took a 20 mg lisinopril of his 's. EMS notes patient's blood pressure was 200/100, rhythm was normal sinus on monitor, heart rate 80, oxygen saturation 100% on room air. Patient denies any pain at this time. Patient denies alleviating or inciting factors. Historical: - Allergies: 12:52 Lisinopril; ko1 - PMHx: 12:52 Anxiety; Hypercholesterolemia; Hypertension; Diabetes mellitus; ko1 - Immunization history:: Adult Immunizations unknown. - Social history:: Smoking status: Patient denies any tobacco usage or history of. ROS: 12:20 Constitutional: Negative for fever, and chills. Neck: Negative for injury, pain, and ms3 swelling, Respiratory: Negative for shortness of breath, cough, wheezing, and pleuritic chest pain, Abdomen/GI: Negative for abdominal pain, nausea, vomiting, diarrhea, and constipation, 12:20 Cardiovascular: Negative for chest pain, and palpitations. 12:20 Cardiovascular: 12:20 Neuro: Positive for Lightheaded, Exam: 12:20 Constitutional: This is a well developed, well nourished patient who is awake, alert, ms3 and in no acute distress. Head/Face: Normocephalic, atraumatic. Neck: Trachea midline, no cervical lymphadenopathy. Supple, full range of motion without nuchal rigidity, or vertebral point tenderness. No Meningismus. Chest/axilla: Normal chest wall appearance and motion. Nontender with no deformity. Cardiovascular: Regular rate and rhythm with a normal S1 and S2. No gallops, murmurs, or rubs. Normal PMI, no JVD. No pulse deficits. Respiratory: Lungs have equal breath sounds bilaterally, clear to auscultation and percussion. No rales, rhonchi or wheezes noted. No increased work of breathing, no retractions or nasal flaring. Abdomen/GI: Soft, non-tender, with normal bowel sounds. No distension or tympany. No guarding or rebound. No evidence of tenderness throughout. Skin: Warm, dry with normal turgor. Normal color with no rashes, no lesions, and no evidence of cellulitis. MS/ Extremity: Pulses equal, no cyanosis. Neurovascular intact. Full, normal range of motion. 13:39 ECG was reviewed by the Attending Physician. ms3 Vital Signs: 12:15 BP 164 / 105; Pulse 64; Resp 16; Pulse Ox 96% ; ko1 12:20 BP 184 / 111; Pulse 61; Resp 16; Temp 97; Pulse Ox 99% on R/A; ko1 12:30 BP 191 / 113; Pulse 80; Resp 14; Pulse Ox 99% ; ko1 12:45 BP 185 / 111; Pulse 60; Resp 15; Pulse Ox 95% ; ko1 13:31 BP 203 / 108; Pulse 61; Resp 15; Pulse Ox 99% ; ko1 14:08 BP 166 / 109; Pulse 53; Resp 16; Pulse Ox 98% ; ko1 MDM: 12:20 Patient medically screened. ms3 12:20 Differential diagnosis: cardiac arrhythmia, CVA, generalized weakness, idiopathic ms3 dizziness, near-syncope, vertigo. 13:40 Data reviewed: vital signs, nurses notes, lab test result(s), radiologic studies, and ms3 as a result, I will discharge patient. Independent interpretation of the following test(s) in the Emergency Department EKG: See my EKG interpretation above X-Ray: My interpretation is CXR image reviewed by me does not reveal pneumonia or pulmonary edema. Historians other than the Patient: EMS: . Counseling: I had a detailed discussion with the patient and/or guardian regarding the historical points, exam findings, and any diagnostic results supporting the discharge/admit diagnosis, lab results, radiology results, the need for outpatient follow up, to return to the emergency department if symptoms worsen or persist or if there are any questions or concerns that arise at home. Special discussion: I discussed with the patient/guardian in detail that at this point there is no indication for admission to the hospital. It is understood, however, that if the symptoms persist or worsen the patient needs to return immediately for re-evaluation. ED course: Discussed labs, EKG, chest x-ray with patient. Patient to follow-up with the [facility] in 2 to 3 days. Patient understands agrees with plan. Questions were answered. Return precautions discussed include worsening symptoms, or any other concerns. Patient given prescription for amlodipine 5 mg daily # 20 tablets. on reevaluation patient is alert and orient x 4, no apparent distress, nontoxic-appearing, ambulatory number department, speaking full sentences. 06/09 12:20 Order name: Basic Metabolic Panel; Complete Time: 13:20 ms3 06/09 12:20 Order name: CBC with Diff; Complete Time: 13:20 ms3 06/09 12:20 Order name: Troponin HS; Complete Time: 13:20 ms3 06/09 12:20 Order name: XRAY Chest (1 view); Complete Time: 13:20 ms3 06/09 12:20 Order name: EKG; Complete Time: 12:21 ms3 06/09 12:20 Order name: Cardiac monitoring; Complete Time: 12:26 ms3 06/09 12:20 Order name: EKG - Nurse/Tech; Complete Time: 12:44 ms3 06/09 12:20 Order name: IV Saline Lock; Complete Time: 12:26 ms3 06/09 12:20 Order name: Labs collected and sent; Complete Time: 12:31 ms3 06/09 12:20 Order name: O2 Per Protocol; Complete Time: 12:26 ms3 06/09 12:20 Order name: O2 Sat Monitoring; Complete Time: 12:26 ms3 EC:39 Rate is 61 beats/min. Rhythm is regular. QRS [place] is Normal. MO interval is normal. QRS ms3 interval is normal. Clinical impression: NSR w/ Non-specific ST/T Changes. Interpreted by me. Reviewed by me. Administered Medications: 12:45 Drug: cloNIDine PO 0.1 mg PO once Route: PO; ko1 14:09 Follow up: Response: No adverse reaction; Blood pressure is lowered ko1 Disposition Summary: 06/09/23 13:38 Discharge Ordered Notes: Location: Home ms3 Condition: Stable ms3 Diagnosis - Lightheadedness ms3 - Essential (primary) hypertension ms3 Followup: ms3 - With: Private Physician - When: 2 - 3 days - Reason: Recheck today's complaints Discharge Instructions: - Discharge Summary Sheet ms3 - Hypertension, Adult ms3 - DASH Eating Plan ms3 Forms: - Medication Reconciliation Form ms3 - Thank You Letter ms3 - Antibiotic Education ms3 - Prescription Opioid Use ms3 - Patient Portal Instructions ms3 - Leadership Thank You Letter ms3 Prescriptions: - amlodipine 5 mg Oral tablet - take 1 tablet ORAL route daily; 20 tablet; Refills: 0, Product Selection ms3 Permitted Signatures: Dispatcher [employer] EDRich Marshall DO DO ms3 Callie Barnes, RN RN ko1
--- NOTE | 2023-06-09 13:39 | ER ---
Nurse's Notes [facility] Name: Akhil Hidalgo Age: 43 yrs Sex: Male : 1980 Arrival Date: 06/09/2023 Time: 12:17 Bed 4 Private MD: Diagnosis: Lightheadedness;Essential (primary) hypertension Presentation: 06/09 12:20 Chief complaint: EMS states: patient called for dizziness and chest pain, had been on ko1 bp meds but stopped taking them after he ran out. BP was elevated 200's/100's per patient monitor. Coronavirus screen: At this time, the client does not indicate any symptoms associated with coronavirus-19. Ebola Screen: No symptoms or risks identified at this time. Initial Sepsis Screen: Does the patient meet any 2 criteria? No. Patient's initial sepsis screen is negative. Does the patient have a suspected source of infection? No. Patient's initial sepsis screen is negative. Risk Assessment: Do you want to hurt yourself or someone else? Patient reports no desire to harm self or others. Onset of symptoms was June 09, 2023. Care prior to arrival: IV initiated. 20 GA, in the left antecubital area. 12:20 Method Of Arrival: EMS: [facility] ko1 12:20 Acuity: MARIANGEL 3 ko1 Triage Assessment: 12:53 General: Appears in no apparent distress. comfortable, Behavior is calm, cooperative, ko1 appropriate for age. Pain: Denies pain. Historical: - Allergies: 12:52 Lisinopril; ko1 - PMHx: 12:52 Anxiety; Hypercholesterolemia; Hypertension; Diabetes mellitus; ko1 - Immunization history:: Adult Immunizations unknown. - Social history:: Smoking status: Patient denies any tobacco usage or history of. Screenin:30 [facility] ED Fall Risk Assessment (Adult) History of falling in the last 3 months, ko1 including since admission No falls in past 3 months (0 pts) Confusion or Disorientation No (0 pts) Intoxicated or Sedated No (0 pts) Impaired Gait No (0 pts) Mobility Assist Device Used No (0 pt) Altered Elimination No (0 pt) Score/Fall Risk Level 0 - 2 = Low Risk Oriented to surroundings, Maintained a safe environment, Educated pt \T\ family on fall prevention, incl call for assistance when getting out of bed, Assessed \T\ reinforced patient's understanding of fall precautions, Provided non-skid footwear, Hourly rounding (assess needs \T\ fall precautionary measures) done, Used ambulatory aids as needed (educated on \T\ assisted with), Used gait belt as appropriate. Abuse screen: Denies threats or abuse. Denies injuries from another. Nutritional screening: No deficits noted. Tuberculosis screening: No symptoms or risk factors identified. Assessment: 12:30 Neuro: No deficits noted. Cardiovascular: Reports chest pain. Respiratory: No deficits ko1 noted. GI: No deficits noted. : No deficits noted. EENT: No deficits noted. Derm: No deficits noted. Musculoskeletal: No deficits noted. Vital Signs: 12:15 BP 164 / 105; Pulse 64; Resp 16; Pulse Ox 96% ; ko1 12:20 BP 184 / 111; Pulse 61; Resp 16; Temp 97; Pulse Ox 99% on R/A; ko1 12:30 BP 191 / 113; Pulse 80; Resp 14; Pulse Ox 99% ; ko1 12:45 BP 185 / 111; Pulse 60; Resp 15; Pulse Ox 95% ; ko1 13:31 BP 203 / 108; Pulse 61; Resp 15; Pulse Ox 99% ; ko1 14:08 BP 166 / 109; Pulse 53; Resp 16; Pulse Ox 98% ; ko1 ED Course: 12:19 Patient arrived in ED. ko1 12:20 Rich Arnett DO is Attending Physician. ms3 12:26 Callie Barnes, RN is Primary Nurse. ko1 12:30 No provider procedures requiring assistance completed. Maintain EMS IV. Dressing ko1 intact. Good blood return noted. Site clean \T\ dry. Gauge \T\ site: 20g left AC. 12:30 Patient has correct armband on for positive identification. Bed in low position. Call ko1 light in reach. Side rails up X 1. Provided Education on: compliance with medications. Client placed on continuous cardiac and pulse oximetry monitoring. NIBP monitoring applied. monitoring manager on. Door closed. Noise minimized. Warm blanket given. 12:32 Basic Metabolic Panel Sent. ko1 12:32 CBC with Diff Sent. ko1 12:32 Troponin HS Sent. ko1 12:40 XRAY Chest (1 view) In Process Unspecified. EDMS 12:52 Triage completed. ko1 12:53 Arm band placed on right wrist. Patient placed in an exam room, on a stretcher, on ko1 residential monitor, on pulse oximetry, Patient notified of wait time. 14:13 IV discontinued, intact, bleeding controlled, No redness/swelling at site. Pressure iw dressing applied. Administered Medications: 12:45 Drug: cloNIDine PO 0.1 mg PO once Route: PO; ko1 14:09 Follow up: Response: No adverse reaction; Blood pressure is lowered ko1 Medication: 12:30 VIS not applicable for this client. ko1 Outcome: 13:38 Discharge ordered by . ms3 14:13 Discharged to home ambulatory, with family, iw 14:13 Condition: good 14:13 Discharge instructions given to patient, family, Instructed on discharge instructions, follow up and referral plans. medication usage, Demonstrated understanding of instructions, follow-up care, medications, Prescriptions given X 1, 14:14 Patient left the ED. iw Signatures: Dispatcher [employer] Alicia Recinos, RN CLIFFORD iw Rich Arnett DO DO ms3 Callie Barnes, RN RN ko1
[2023-06-09 14:41] VITALS: TEMP 97
[2023-06-09 14:47] VITALS: BP 166/109; O2SAT 98
--- NOTE | 2023-06-11 13:49 | EKG ---
Test Date: 2023-06-09 Test Time: 12:41:05 Tobacco Weigher: MISSY MEASUREMENT RESULTS: Intervals: Rate: 61 [place]: 168 QRSD: 78 QT: 438 QTc: 440 [place]: P: 36 [place]: 168 QRS: 41 T: 72 INTERPRETIVE STATEMENTS: Normal sinus rhythm Nonspecific ST abnormality Abnormal ECG Compared to ECG 06/09/2023 12:40:00 First degree AV block no longer present Possible ischemia no longer present ST (T wave) deviation still present Electronically Signed On 06-11-23 13:41:39 HURRICANE TRACKER by Josh Bergman
--- NOTE | 2023-06-11 13:49 | EKG ---
Test Date: 2023-06-09 Test Time: 12:40:00 Dip Painter: MISSY MEASUREMENT RESULTS: Intervals: Rate: 60 [place]: 212 QRSD: 76 QT: 442 QTc: 442 [place]: P: 5 UT: 212 QRS: 46 T: 120 INTERPRETIVE STATEMENTS: Sinus rhythm with 1st degree AV block ST & T wave abnormality, consider lateral ischemia Abnormal ECG Compared to ECG 04/06/2021 19:10:55 First degree AV block now present ST (T wave) deviation now present Possible ischemia now present Sinus arrhythmia no longer present Electronically Signed On 06-11-23 13:41:40 ADOPTION SPECIALIST by Josh Bergman
== END 2023-06-09 14:14 | disposition home or self-care (01) ==
LOC: ER 12:17
DX: R42 Dizziness and giddiness (principal); I10 Essential (primary) hypertension
CPT/HCPCS: 36415; 71045; 80048; 84484; 85025; 93005; 99284

== ENCOUNTER → 2023-07-07 | Emergency (ER) | payer SELFPAY ==
--- OUTSIDE RECORDS SUMMARY | 2023-07-07 11:33 | XMS REPORT | Continuity of Care Document ---
Author Name Unknown Address [address] [facility] 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 Attending Clinician HIRO MUSE [facility]. Attending Clinician Unavaila ble Allergies, Adverse Reactions, Alerts Allergy Name Allergy Type Status Severity Reaction(s) Onset Date Inactive Date Treating Clinician Comments Source NO KNOWN ALLERGIE S Drug Class Active [facility] Social History Social Habit Start Date Stop Date Quantity Comments Source Sex Assigned At [facility] Exposure to SARS-CoV-2 (event) Not sure [facility] History of tobacco use Cigarette Smoker [facility] Tobacco use and exposure 2020-05-30 00:00:00 2020-05-30 00:00:00 Never used [facility] Smoking Status Start Date Stop Date Source Unknown if ever smoked [facility] Current every day smoker 2020-05-30 00:00:00 [facility] Medications Ordered Medication Name Filled Medication Name Start Date Stop Date Current Medication? Ordering Clinician Indication Dosage Frequency Signature (SIG) Comments Components Source TAKE 1 TABLET EVERY MORNING. 2021-07 00:00: 00 No ONDANSETRON HCL 4 MG [...] 10mg Take 10 mg by mouth daily. [facility] diclofenac 75 mg EC tablet 2019-07 15:30: 03 Yes 75mg Take 75 mg by mouth 2 (two) times daily with meals. [facility] amLODIPine 10 mg tablet 2019-07 15:30: 03 Yes 10mg Take 10 mg by mouth daily. [facility] diclofenac 75 mg EC tablet 2019-07 15:30: 03 Yes 75mg Take 75 mg by mouth 2 (two) times daily with meals. [facility] amLODIPine 10 mg tablet 2019-07 15:30: 03 Yes 10mg Take 10 mg by mouth daily. [facility] diclofenac 75 mg EC tablet 2019-07 15:30: 03 Yes 75mg Take 75 mg by mouth 2 (two) times daily with meals. [facility] amlodipine 10 mg tablet 2019-07 00:00: 00 [...] Systolic blood pressure 2020-05-30 15:31:00 131 mm[Hg] [facility] Diastolic blood pressure 2020-05-30 15:31:00 92 mm[Hg] [facility] Heart rate 2020-05-30 15:31:00 79 /min [facility] Respiratory rate 2020-05-30 15:29:00 19 /min [facility] Body height 2020-05-30 15:29:00 182.9 cm [facility] Body weight 2020-05-30 15:29:00 89.495 kg [facility] BMI 2020-05-30 15:29:00 26.76 kg/m2 [facility] Oxygen saturation in Arterial blood by Pulse oximetry 2020-05-30 15:29:00 97 /min [place] [facility] BP Systolic 2022-07-18 08:15:00 116 mm[Hg] BP [...] - [facility] CARDIOLOGY 2020-06-14 06:01:00 Doctor Unassigned, Carrizales [facility] CONSENT/REFUSAL FOR DIAGNOSIS AND TREATMENT 2020-05-30 15:04:59 Doctor Unassigned, Carrizales [facility] Plan of Care Planned Activity Planned Date Details Comments Source Goal Plan of Care Note [code = 00892-0] Goal Plan of Care Note [code = 46538-5] Goal Plan of Care Note [code = 91126-1] Goal Plan of Care Note [code = 75835-9] Goal Plan of Care Note [code = 85044-4] Goal Plan of Care Note [code = 18589-0] Goal Plan of Care Note [code = 16504-6] Goal Plan of Care Note [code = 65666-1] Goal Plan of Care Note [code = 24422-2] Goal Plan of Care Note [code = 51102-6] Goal Plan of Care Note [code = 75854-0] Goal Plan of Care Note [code = 54220-8] Goal Plan of Care Note [code = 59792-2] Goal Plan of Care Note [code = 00695-8] Goal Plan of Care Note [code = 74821-8] Goal Plan of Care Note [code = 64585-6] Goal Plan of Care Note [code = 63631-8] Goal Plan of Care Note [code = 96081-6] Goal Plan of Care Note [code = 56141-6] Goal Plan of Care Note [code = 26438-2] Goal Plan of Care Note [code = 87908-4] Goal Plan of Care Note [code = 62724-8] Goal Plan of Care Note [code = 62748-8] Goal Plan of Care Note [code = 41238-2] Goal Plan of Care Note [code = 40363-6] Goal Plan of Care Note [code = 40846-8] Goal Plan of Care Note [code = 07177-6] Goal Plan of Care Note [code = 81911-2] Goal Plan of Care Note [code = 49379-3] Goal Plan of Care Note [code = 22634-3] Goal Plan of Care Note [code = 69530-9] Goal Plan of Care Note [code = 58869-3] Goal Plan of Care Note [code = 53341-4] Goal Plan of Care Note [code = 11505-3] Goal Plan of Care Note [code = 42711-6] Goal Plan of Care Note [code = 82406-5] Goal Plan of Care Note [code = 69540-6] Goal Plan of Care Note [code = 71755-8] Goal Plan of Care Note [code = 64178-8] Goal Plan of Care Note [code = 65458-7] Goal Plan of Care Note [code = 44023-7] Goal Plan of Care Note [code = 42642-6] Goal Plan of Care Note [code = 95389-2] Goal Plan of Care Note [code = 45207-4] Goal Plan of Care Note [code = 58375-6] Goal Plan of Care Note [code = 04639-6] Goal Plan of Care Note [code = 83296-3] Encounters Start Date/Time End Date/Time Encounter Type Admission Type Attending [facility] Care Department Encounter ID Source 2023-05-08 15:46:54 2023-05-08 15:46:54 Outpatient [facility] [id number] Quincy Castillo 2022-08-08 13:39:31 2022-08-08 13:39:31 Outpatient [facility] [id number] Quincy Campbell Jonathan 2022-07-24 09:59:08 2022-07-24 09:59:08 Outpatient [facility] [id number] Quincy Castillo 2022-07-18 08:11:22 2022-07-18 08:11:22 Outpatient [facility] [id number] Quincy Castillo 2022-07-18 00:00:00 2022-07-18 00:00:00 Outpatient Visit [id number] 2022-03-24 00:00:00 2022-03-24 00:00:00 Outpatient Visit [id number] 2020-07-04 09:00:00 2020-07-04 09:00:00 Outpatient R [facility] [id number] [facility] 2020-06-14 00:00:00 2020-06-14 00:00:00 Orders Only Doctor Unassigned, Carrizales [facility] [id number] [facility] 2020-05-30 09:05:42 2020-05-30 10:23:35 Office Visit Hiro Muse [facility] [place] [facility] [id number] [facility] 2020-05-30 09:00:00 2020-05-30 09:00:00 Outpatient R HIRO MUSE [facility] [id number] [facility] 2020-05-30 00:00:00 2020-05-30 00:00:00 Orders Only Doctor Unassigned, Carrizales [facility] [id number] [facility] Results Test Description Test Time Test Comments Results Result Co mments Source LIVER (HEPATIC) FUNCTION [id number] 00:00:00* Test Item Value Reference Range Interpretation [...] = 2219) 28 U/L LIVER (HEPATIC) FUNCTION [id number] 00:00:00* Test Item Value Reference Range Interpretation [...] code = 2219) 28 U/L COMPREHENSIVE METABOLIC [id number] 23:58:14* Test Item Value Reference Range Interpretation [...] = 2218) 98 U/L 5-50 H LIPID [id number] 23:58:14* Test Item Value Reference Range Interpretation [...] SPECIMENS. FOR MOREINFORMATION, SEE CLIENT ANNOUNCEMENT AT [email or web address] RISK RATIO LDL/HDL (test code = 2238) 3.50 RATIO <3.55 UNLESS OTHERW ISE INDICATED, ALL TESTING PERFORMED [facility] [employer] [address] [place] [address] [employer] COACH: FELISHA HONG M.D. [place] NUMBER [id number] [facility] [place]. [id number] HEMOGLOBIN [id number] 04:14:02* Test Item Value Reference Range Interpretation Comme nts HEMOGLOBIN A1c (test code = 65155) 5.9 % 4.2-5.6 H HEMOGLOBIN [id number] 00:00:00* Test Item Value Reference Range Interpretation Comme nts HEMOGLOBIN A1c (test code = 87134) 5.9 % HEMOGLOBIN [id number] 00:00:00* Test Item Value Reference Range Interpretation Comme nts HEMOGLOBIN A1c (test code = 71136) 5.9 % HEMOGLOBIN [id number] 00:00:00* Test Item Value Reference Range Interpretation Comme nts HEMOGLOBIN A1c (test code = 11955) 5.9 % LIPID [id number] 00:00:00* Test Item Value Reference Range Interpretation Comme nts CHOLESTEROL (test code = 2210) 208 MG/DL TRIGLYCERIDES (test code = 2232) 88 MG/DL HDL CHOLESTEROL (test code = 2220) 42 MG/DL CALC LDL CHOL (test code = 2237) 147 MG/DL RISK RATIO LDL/HDL (test cod e = 2238) 3.50 RATIO LIPID [id number] 00:00:00* Test Item Value Reference Range Interpretation Comme nts CHOLESTEROL (test code = 2210) 208 MG/DL TRIGLYCERIDES (test code = 2232) 88 MG/DL HDL CHOLESTEROL (test code = 2220) 42 MG/DL CALC LDL CHOL (test code = 2237) 147 MG/DL RISK RATIO LDL/HDL (test cod e = 2238) 3.50 RATIO COMPREHENSIVE METABOLIC [id number] 00:00:00* Test Item Value Reference Range Interpretation Comme nts GLUCOSE (test code = 2217) 99 MG/DL BUN (test code = 2208) 13 MG/DL CREATININE (test code = 2214) 1.18 MG/DL eGFR (2020 CKD-EPI) (test co de = 00364) 80 ML/MIN/1.73 CALC BUN/CREAT (test code = [...] code = 2219) 98 U/L COMPREHENSIVE METABOLIC [id number] 00:00:00* Test Item Value Reference Range Interpretation Comme nts GLUCOSE (test code = 2217) 99 MG/DL BUN (test code = 2208) 13 MG/DL CREATININE (test code = 2214) 1.18 MG/DL eGFR (2020 CKD-EPI) (test co de = 79462) 80 ML/MIN/1.73 CALC BUN/CREAT (test code = [...] (test code = 2219) 98 U/L HEMOGLOBIN [id number] 00:00:00* Test Item Value Reference Range Interpretation Comme nts HEMOGLOBIN A1c (test code = 44481) 5.9 % HEMOGLOBIN [id number] 00:00:00* Test Item Value Reference Range Interpretation Comme nts HEMOGLOBIN A1c (test code = 61388) 5.9 % HEMOGLOBIN [id number] 00:00:00* Test Item Value Reference Range Interpretation Comme nts HEMOGLOBIN A1c (test code = 78761) 5.9 % LIPID [id number] 00:00:00* Test Item Value Reference Range Interpretation Comme nts CHOLESTEROL (test code = 2210) 208 MG/DL TRIGLYCERIDES (test code = 2232) 88 MG/DL HDL CHOLESTEROL (test code = 2220) 42 MG/DL CALC LDL CHOL (test code = 2237) 147 MG/DL RISK RATIO LDL/HDL (test cod e = 2238) 3.50 RATIO LIPID [id number] 00:00:00* Test Item Value Reference Range Interpretation Comme nts CHOLESTEROL (test code = 2210) 208 MG/DL TRIGLYCERIDES (test code = 2232) 88 MG/DL HDL CHOLESTEROL (test code = 2220) 42 MG/DL CALC LDL CHOL (test code = 2237) 147 MG/DL RISK RATIO LDL/HDL (test cod e = 2238) 3.50 RATIO COMPREHENSIVE METABOLIC [id number] 00:00:00* Test Item Value Reference Range Interpretation Comme nts GLUCOSE (test code = 2217) 99 MG/DL BUN (test code = 2208) 13 MG/DL CREATININE (test code = 2214) 1.18 MG/DL eGFR (2020 CKD-EPI) (test co de = 05557) 80 ML/MIN/1.73 CALC BUN/CREAT (test code = [...] code = 2219) 98 U/L COMPREHENSIVE METABOLIC [id number] 00:00:00* Test Item Value Reference Range Interpretation Comme nts GLUCOSE (test code = 2217) 99 MG/DL BUN (test code = 2208) 13 MG/DL CREATININE (test code = 2214) 1.18 MG/DL eGFR (2020 CKD-EPI) (test co de = 21159) 80 ML/MIN/1.73 CALC BUN/CREAT (test code = [...] ALT (test code = 2219) 98 U/L LIPID [id number] 03:53:55* Test Item Value Reference Range Interpretation [...] SPECIMENS. FOR MOREINFORMATION, SEE CLIENT ANNOUNCEMENT AT [email or web address] RISK RATIO LDL/HDL (test code = 223) 2.12 RATIO <3.55 COMPREHENSIVE METABOLIC [id number] 03:53:55* Test Item Value Reference Range Interpretation Comme nts GLUCOSE (test code = 2217) 107 MG/DL 70-99 H BUN (test code = 2207) 14 MG/DL 6-20 CREATININE (test code = 2213) 1.17 MG/DL 0.80-1.40 eGFR (2020 CKD-EPI) (test code = 77179) 81 ML/MIN/1.73 >60 CALC BUN/CREAT (test code [...] 5-50 UNLESS OTHERWISE INDICATED, ALL TESTING PERFORMED [facility] [address] [place] [address] [employer] COACH: FELISHA HONG M.D. CLIA NUMBER [id number] [facility] [place]. [id number] HEMOGLOBIN [id number] 03:14:26* Test Item Value Reference Range Interpretation Comme nts HEMOGLOBIN A1c (test code = 85601) 6.1 % 4.2-5.6 H HEMOGLOBIN [id number] 00:00:00* Test Item Value Reference Range Interpretation Comme nts HEMOGLOBIN A1c (test code = 37188) 6.1 % LIPID [id number] 00:00:00* Test Item Value Reference Range Interpretation Comme nts CHOLESTEROL (test code = 2210) 274 MG/DL TRIGLYCERIDES (test code = 2232) 57 MG/DL HDL CHOLESTEROL (test code = 2220) 83 MG/DL CALC LDL CHOL (test code = 2237) 176 MG/DL RISK RATIO LDL/HDL (test cod e = 2238) 2.12 RATIO LIPID [id number] 00:00:00* Test Item Value Reference Range Interpretation Comme nts CHOLESTEROL (test code = 2210) 274 MG/DL TRIGLYCERIDES (test code = 2232) 57 MG/DL HDL CHOLESTEROL (test code = 2220) 83 MG/DL CALC LDL CHOL (test code = 2237) 176 MG/DL RISK RATIO LDL/HDL (test cod e = 2238) 2.12 RATIO COMPREHENSIVE METABOLIC [id number] 00:00:00* Test Item Value Reference Range Interpretation Comme nts GLUCOSE (test code = 2217) 107 MG/DL BUN (test code = 2208) 14 MG/DL CREATININE (test code = 2214) 1.17 MG/DL eGFR (2020 CKD-EPI) (test co de = 46163) 81 ML/MIN/1.73 CALC BUN/CREAT (test code = [...] code = 2219) 25 U/L COMPREHENSIVE METABOLIC [id number] 00:00:00* Test Item Value Reference Range Interpretation Comme nts GLUCOSE (test code = 2217) 107 MG/DL BUN (test code = 2208) 14 MG/DL CREATININE (test code = 2214) 1.17 MG/DL eGFR (2020 CKD-EPI) (test co de = 07208) 81 ML/MIN/1.73 CALC BUN/CREAT (test code = [...] (test code = 2219) 25 U/L HEMOGLOBIN [id number] 00:00:00* Test Item Value Reference Range Interpretation Comme nts HEMOGLOBIN A1c (test code = 06768) 6.1 % HEMOGLOBIN [id number] 00:00:00* Test Item Value Reference Range Interpretation Comme nts HEMOGLOBIN A1c (test code = 00287) 6.1 % HEMOGLOBIN [id number] 00:00:00* Test Item Value Reference Range Interpretation Comme nts HEMOGLOBIN A1c (test code = 65377) 6.1 % LIPID [id number] 00:00:00* Test Item Value Reference Range Interpretation Comme nts CHOLESTEROL (test code = 2210) 274 MG/DL TRIGLYCERIDES (test code = 2232) 57 MG/DL HDL CHOLESTEROL (test code = 2220) 83 MG/DL CALC LDL CHOL (test code = 2237) 176 MG/DL RISK RATIO LDL/HDL (test cod e = 2238) 2.12 RATIO LIPID [id number] 00:00:00* Test Item Value Reference Range Interpretation Comme nts CHOLESTEROL (test code = 2210) 274 MG/DL TRIGLYCERIDES (test code = 2232) 57 MG/DL HDL CHOLESTEROL (test code = 2220) 83 MG/DL CALC LDL CHOL (test code = 2237) 176 MG/DL RISK RATIO LDL/HDL (test cod e = 2238) 2.12 RATIO COMPREHENSIVE METABOLIC [id number] 00:00:00* Test Item Value Reference Range Interpretation Comme nts GLUCOSE (test code = 2217) 107 MG/DL BUN (test code = 2208) 14 MG/DL CREATININE (test code = 2214) 1.17 MG/DL eGFR (2020 CKD-EPI) (test co de = 95909) 81 ML/MIN/1.73 CALC BUN/CREAT (test code = [...] code = 2219) 25 U/L COMPREHENSIVE METABOLIC [id number] 00:00:00* Test Item Value Reference Range Interpretation Comme nts GLUCOSE (test code = 2217) 107 MG/DL BUN (test code = 2208) 14 MG/DL CREATININE (test code = 2214) 1.17 MG/DL eGFR (2020 CKD-EPI) (test co de = 21718) 81 ML/MIN/1.73 CALC BUN/CREAT (test code = [...] (test code = 2219) 25 U/L HEMOGLOBIN [id number] 00:00:00* Test Item Value Reference Range Interpretation Comme [facility] HEMOGLOBIN A1c (test code = 04760) 6.1 % HEMOGLOBIN [id number] 00:00:00* Test Item Value Reference Range Interpretation Comme nts HEMOGLOBIN A1c (test code = 91455) 6.1 % COMPREHENSIVE METABOLIC [id number] 00:00:00* Test Item Value Reference Range Interpretation Comme nts GLUCOSE (test code = 2217) 102 MG/DL BUN (test code = 2208) 13 MG/DL CREATININE (test code = 2214) 1.12 MG/DL eGFR AMER. (test cod e = 88175) 95 ML/MIN/1.73 eGFR NON- AMER. (test code = 56778) 82 ML/MIN/1.73 CALC BUN/CREAT (test code = [...] (test code = 2219) 105 U/L LIPID [id number] 00:00:00* Test Item Value Reference Range Interpretation Comme nts CHOLESTEROL (test code = 2210) 218 MG/DL TRIGLYCERIDES (test code = 2232) 76 MG/DL HDL CHOLESTEROL (test code = 2220) 66 MG/DL CALC LDL CHOL (test code = 2237) 135 MG/DL RISK RATIO LDL/HDL (test cod e = 2238) 2.05 RATIO LIPID [id number] 00:00:00* Test Item Value Reference Range Interpretation Comme nts CHOLESTEROL (test code = 2210) 218 MG/DL TRIGLYCERIDES (test code = 2232) 76 MG/DL HDL CHOLESTEROL (test code = 2220) 66 MG/DL CALC LDL CHOL (test code = 2237) 135 MG/DL RISK RATIO LDL/HDL (test cod e = 2238) 2.05 RATIO COMPREHENSIVE METABOLIC [id number] 00:00:00* Test Item Value Reference Range Interpretation Comme nts GLUCOSE (test code = 2217) 102 MG/DL BUN (test code = 2208) 13 MG/DL CREATININE (test code = 2214) 1.12 MG/DL eGFR AMER. (test cod e = 78755) 95 ML/MIN/1.73 eGFR NON- AMER. (test code = 17538) 82 ML/MIN/1.73 CALC BUN/CREAT (test code = [...] code = 2219) 105 U/L COMPREHENSIVE METABOLIC [id number] 00:00:00* Test Item Value Reference Range Interpretation Comme nts GLUCOSE (test code = 2217) 102 MG/DL BUN (test code = 2208) 13 MG/DL CREATININE (test code = 2214) 1.12 MG/DL eGFR AMER. (test cod e = 08617) 95 ML/MIN/1.73 eGFR NON- AMER. (test code = 31705) 82 ML/MIN/1.73 CALC BUN/CREAT (test code = [...] (test code = 2219) 105 U/L LIPID [id number] 00:00:00* Test Item Value Reference Range Interpretation Comme nts CHOLESTEROL (test code = 2210) 218 MG/DL TRIGLYCERIDES (test code = 2232) 76 MG/DL HDL CHOLESTEROL (test code = 2220) 66 MG/DL CALC LDL CHOL (test code = 2237) 135 MG/DL RISK RATIO LDL/HDL (test cod e = 2238) 2.05 RATIO LIPID [id number] 00:00:00* Test Item Value Reference Range Interpretation Comme nts CHOLESTEROL (test code = 2210) 218 MG/DL TRIGLYCERIDES (test code = 2232) 76 MG/DL HDL CHOLESTEROL (test code = 2220) 66 MG/DL CALC LDL CHOL (test code = 2237) 135 MG/DL RISK RATIO LDL/HDL (test cod e = 2238) 2.05 RATIO COMPREHENSIVE METABOLIC [id number] 00:00:00* Test Item Value Reference Range Interpretation Comme nts GLUCOSE (test code = 2217) 102 MG/DL BUN (test code = 2208) 13 MG/DL CREATININE (test code = 2214) 1.12 MG/DL eGFR AMER. (test cod e = 32797) 95 ML/MIN/1.73 eGFR NON- AMER. (test code = 83774) 82 ML/MIN/1.73 CALC BUN/CREAT (test code = [...] ALT (test code = 2219) 105 U/L HEMOGLOBIN [id number] 00:00:00* Test Item Value Reference Range Interpretation Comme nts HEMOGLOBIN A1c (test code = 69432) 6.1 % HEMOGLOBIN [id number] 00:00:00* Test Item Value Reference Range Interpretation Comme nts HEMOGLOBIN A1c (test code = 10975) 6.1 % HEMOGLOBIN [id number] 00:00:00* Test Item Value Reference Range Interpretation Comme nts HEMOGLOBIN A1c (test code = 54873) 6.1 % HEMOGLOBIN [id number] 00:00:00* Test Item Value Reference Range Interpretation Comme nts HEMOGLOBIN A1c (test code = 06664) 6.1 % HEMOGLOBIN [id number] 00:00:00* Test Item Value Reference Range Interpretation Comme nts HEMOGLOBIN A1c (test code = 08720) 6.1 % HEMOGLOBIN [id number] 00:00:00* Test Item Value Reference Range Interpretation Comme nts HEMOGLOBIN A1c (test code = 18135) 6.1 % COMPREHENSIVE METABOLIC [id number] 00:00:00* Test Item Value Reference Range Interpretation Comme nts GLUCOSE (test code = 2217) 103 MG/DL BUN (test code = 2208) 13 MG/DL CREATININE (test code = 2214) 1.09 MG/DL eGFR AMER. (test cod e = 04442) 99 ML/MIN/1.73 eGFR NON- AMER. (test code = 06012) 85 ML/MIN/1.73 CALC BUN/CREAT (test code = [...] (test code = 2219) 44 U/L LIPID [id number] 00:00:00* Test Item Value Reference Range Interpretation Comme nts CHOLESTEROL (test code = 2210) 223 MG/DL TRIGLYCERIDES (test code = 2232) 75 MG/DL HDL CHOLESTEROL (test code = 2220) 74 MG/DL CALC LDL CHOL (test code = 2237) 132 MG/DL RISK RATIO LDL/HDL (test cod e = 2238) 1.78 RATIO LIPID [id number] 00:00:00* Test Item Value Reference Range Interpretation Comme nts CHOLESTEROL (test code = 2210) 223 MG/DL TRIGLYCERIDES (test code = 2232) 75 MG/DL HDL CHOLESTEROL (test code = 2220) 74 MG/DL CALC LDL CHOL (test code = 2237) 132 MG/DL RISK RATIO LDL/HDL (test cod e = 2238) 1.78 RATIO COMPREHENSIVE METABOLIC [id number] 00:00:00* Test Item Value Reference Range Interpretation Comme nts GLUCOSE (test code = 2217) 103 MG/DL BUN (test code = 2208) 13 MG/DL CREATININE (test code = 2214) 1.09 MG/DL eGFR AMER. (test cod e = 48751) 99 ML/MIN/1.73 eGFR NON- AMER. (test code = 76885) 85 ML/MIN/1.73 CALC BUN/CREAT (test code = [...] code = 2219) 44 U/L COMPREHENSIVE METABOLIC [id number] 00:00:00* Test Item Value Reference Range Interpretation Comme nts GLUCOSE (test code = 2217) 103 MG/DL BUN (test code = 2208) 13 MG/DL CREATININE (test code = 2214) 1.09 MG/DL eGFR AMER. (test cod e = 84372) 99 ML/MIN/1.73 eGFR NON- AMER. (test code = 39927) 85 ML/MIN/1.73 CALC BUN/CREAT (test code = [...] (test code = 2219) 44 U/L LIPID [id number] 00:00:00* Test Item Value Reference Range Interpretation Comme nts CHOLESTEROL (test code = 2210) 223 MG/DL TRIGLYCERIDES (test code = 2232) 75 MG/DL HDL CHOLESTEROL (test code = 2220) 74 MG/DL CALC LDL CHOL (test code = 2237) 132 MG/DL RISK RATIO LDL/HDL (test cod e = 2238) 1.78 RATIO LIPID [id number] 00:00:00* Test Item Value Reference Range Interpretation Comme nts CHOLESTEROL (test code = 2210) 223 MG/DL TRIGLYCERIDES (test code = 2232) 75 MG/DL HDL CHOLESTEROL (test code = 2220) 74 MG/DL CALC LDL CHOL (test code = 2237) 132 MG/DL RISK RATIO LDL/HDL (test cod e = 2238) 1.78 RATIO COMPREHENSIVE METABOLIC [id number] 00:00:00* Test Item Value Reference Range Interpretation Comme nts GLUCOSE (test code = 2217) 103 MG/DL BUN (test code = 2208) 13 MG/DL CREATININE (test code = 2214) 1.09 MG/DL eGFR AMER. (test cod e = 40129) 99 ML/MIN/1.73 eGFR NON- AMER. (test code = 72082) 85 ML/MIN/1.73 CALC BUN/CREAT (test code = [...]
[2023-07-07 13:08] LABS: SARS-CoV-2 Antigen Rapid Res Negative (Negative)
--- NOTE | 2023-07-07 13:17 | ER ---
Nurse's Notes [facility] Name: Akhil Hidalgo Age: 43 yrs Sex: Male : 1980 Arrival Date: 07/07/2023 Time: 11:29 Bed 19 Private MD: Diagnosis: Encounter for general adult medical examination Presentation: 07/07 11:44 Chief complaint: Tested positive for COVID 07/01, took home tests today, had one positive hb and one negative, needs work clearance. Coronavirus screen: At this time, the client does not indicate any symptoms associated with coronavirus-19. Ebola Screen: No symptoms or risks identified at this time. Initial Sepsis Screen: Does the patient meet any 2 criteria? No. Patient's initial sepsis screen is negative. Does the patient have a suspected source of infection? No. Patient's initial sepsis screen is negative. Risk Assessment: Do you want to hurt yourself or someone else? Patient reports no desire to harm self or others. Onset of symptoms was July 07, 2023. 11:44 Method Of Arrival: Ambulatory hb 11:44 Acuity: MARIANGEL 4 hb Historical: - Allergies: 11:47 Lisinopril; hb - PMHx: 11:47 diabetes mellitus; Anxiety; Hypercholesterolemia; Hypertension; hb - PSHx: 11:47 None; hb - Immunization history:: Adult Immunizations up to date. - Social history:: Smoking status: Patient denies any tobacco usage or history of. Screenin:53 [facility] ED Fall Risk Assessment (Adult) History of falling in the last 3 months, cp4 including since admission No falls in past 3 months (0 pts) Confusion or Disorientation No (0 pts) Intoxicated or Sedated No (0 pts) Impaired Gait No (0 pts) Mobility Assist Device Used No (0 pt) Altered Elimination No (0 pt) Score/Fall Risk Level 0 - 2 = Low Risk Oriented to surroundings, Maintained a safe environment, Educated pt \T\ family on fall prevention, incl call for assistance when getting out of bed, Assessed \T\ reinforced patient's understanding of fall precautions, Provided non-skid footwear, Hourly rounding (assess needs \T\ fall precautionary measures) done. Abuse screen: Denies threats or abuse. Nutritional screening: No deficits noted. Tuberculosis screening: No symptoms or risk factors identified. Assessment: 13:53 General: Appears in no apparent distress. Behavior is calm, cooperative, appropriate cp4 for age. Pain: Denies pain. Vital Signs: 11:44 BP 148 / 98; Pulse 88; Resp 16; Temp 98.2; Pulse Ox 100% on R/A; Weight 95.25 kg; hb Height 6 ft. 0 in. ; Pain 0/10; 11:44 Body Mass Index 28.48 (95.25 kg, 182.88 cm) hb 11:44 Pain Scale: Adult hb ED Course: 11:32 Patient arrived in ED. mg5 11:34 Mark Lundberg MD is Attending Physician. ec2 11:47 Triage completed. hb 11:47 Arm band placed on. 13:06 Lily Celis is Primary Nurse. cp4 13:53 Bed in low position. Call light in reach. Side rails up X 1. Provided Education on: cp4 covid test. 13:53 No provider procedures requiring assistance completed. Patient did not have IV access cp4 during this emergency room visit. Administered Medications: No medications were administered Medication: 13:53 VIS not applicable for this client. cp4 Outcome: 13:17 Discharge ordered by . ec2 13:53 Discharged to home ambulatory, cp4 13:53 Condition: stable 13:53 Discharge instructions given to patient, Instructed on discharge instructions, follow up and referral plans. Demonstrated understanding of instructions, follow-up care, 13:57 Patient left the ED. cp4 Signatures: Giulia Salcedo RN RN [facility] mg5 Mark Lundberg MD MD ec2 Lily Celis cp4
--- NOTE | 2023-07-07 13:17 | EDPHYS ---
Physician Documentation [facility] Name: Akhil Hidalgo Age: 43 yrs Sex: Male : 1980 Arrival Date: 07/07/2023 Time: :29 Bed 19 Private MD: ED Physician Mark Lundberg HPI: 07/07 12:12 This 43 yrs old Black Male presents to ER via Ambulatory with complaints of Covid ec2 Positive. 12:12 Patient arrives today due to concern for COVID testing. Patient with recent positive ec2 COVID status, recently had cough and cold symptoms, is here for evaluation for COVID test to return back to work. Patient reports no fevers or chills, states that his symptoms had since resolved. Denies any vomiting or diarrhea. Denies any abdominal pain. Reports no shortness of breath.. Historical: - Allergies: 11:47 Lisinopril; hb - PMHx: 11:47 diabetes mellitus; Anxiety; Hypercholesterolemia; Hypertension; hb - PSHx: 11:47 None; hb - Immunization history:: Adult Immunizations up to date. - Social history:: Smoking status: Patient denies any tobacco usage or history of. ROS: 12:12 Constitutional: as per hpi ec2 Exam: 12:12 Constitutional: GEN: NAD Head: atraumatic Eyes: EOMI Ears: External ears are ec2 normal. CV: regular rate LUNGS: no respiratory distress, no wheezes, no rales, rhonchi ABD: non-distended SKIN: no evidence of rashes MSK: no evidence of trauma NEURO: moves all extremities equally Vital Signs: 11:44 BP 148 / 98; Pulse 88; Resp 16; Temp 98.2; Pulse Ox 100% on R/A; Weight 95.25 kg; hb Height 6 ft. 0 in. ; Pain 0/10; 11:44 Body Mass Index 28.48 (95.25 kg, 182.88 cm) hb 11:44 Pain Scale: Adult hb MDM: 12:00 Patient medically screened. ec2 12:12 Data reviewed: vital signs. ED course: Patient arrives today for evaluation of COVID. ec2 Examination remarkable for well-appearing nontoxic individual is otherwise in no acute distress with reassuring vital signs. Will send this COVID swab and ultimately discharge the patient. I informed him that the COVID testing would not be decision changing however this seems to be a large barrier for him at work.. 13:17 ED course: Patient is negative for COVID. Will discharge home. Return precautions ec2 given.. 07/07 12:11 Order name: TRINA KUMARI; Complete Time: 13:17 ec2 Administered Medications: No medications were administered Disposition Summary: 07/07/23 13:17 Discharge Ordered Notes: Location: Home ec2 Condition: Stable ec2 Diagnosis - Encounter for general adult medical examination ec2 Followup: ec2 - With: Private Physician - When: - Reason: Recheck today's complaints Forms: - Medication Reconciliation Form ec2 - Thank You Letter ec2 - Antibiotic Education ec2 - Prescription Opioid Use ec2 - Patient Portal Instructions ec2 - Leadership Thank You Letter ec2 Signatures: Dispatcher [employer] Giulia Rodriguez, CLIFFORD RN Mark Lundberg MD MD ec2
[2023-07-07 14:19] VITALS: BP 148/98; TEMP 98.2; O2SAT 100
== END ==
LOC: ER 11:29
DX: Z11.52 Encounter for screening for COVID-19 (principal)
CPT/HCPCS: 36415; 87811; 99282

== ENCOUNTER → 2023-07-13 | Emergency (ER) | payer SELFPAY ==
[~2023-07-13] MED LIST: ACETAMINOPHEN 500 MG TAB ONE; AMLODIPINE 10 MG TAB ONE; cloNIDine HCL 0.1 MG TAB ONE
--- OUTSIDE RECORDS SUMMARY | 2023-07-13 20:55 | XMS REPORT | Continuity of Care Document ---
Author Name Unknown Address [address] [facility] [address] [place] [address] [facility] thconnect Address [address] [facility] [address] [place] [address] Care Team Providers Care Leaf Stamper Name Role Phone Kendrick Carpio Primary Care Physician Doctor Unassigned, [place] Attending Clinician U hamilton Muse MD, [facility] Attending Clinician HIRO MUSE [facility]. Attending Clinician Unavaila ble Allergies, Adverse Reactions, Alerts Allergy Name Allergy Type Status Severity Reaction(s) Onset Date Inactive Date Treating Clinician Comments Source NO KNOWN ALLERGIE S Drug Class Active [facility] Social History Social Habit Start Date Stop Date Quantity Comments Source Sex Assigned At [facility] Exposure to SARS-CoV-2 (event) Not sure [facility] History of tobacco use Cigarette Smoker [facility] Tobacco use and exposure 2020-05-30 00:00:00 2020-05-30 00:00:00 Never used [facility] Smoking Status Start Date Stop Date Source Unknown if ever smoked [facility] Current every day smoker 2020-05-30 00:00:00 [facility] Medications Ordered Medication Name Filled Medication Name [...] Take 10 mg by mouth daily. [facility] diclofenac 75 mg EC tablet 2019-07 15:30: 03 Yes 75mg Take 75 mg by mouth 2 (two) times daily with meals. [facility] amLODIPine 10 mg tablet 2019-07 15:30: 03 Yes 10mg Take 10 mg by mouth daily. [facility] diclofenac 75 mg EC tablet 2019-07 15:30: 03 Yes 75mg Take 75 mg by mouth 2 (two) times daily with meals. [facility] amLODIPine 10 mg tablet 2019-07 15:30: 03 Yes 10mg Take 10 mg by mouth daily. [facility] diclofenac 75 mg EC tablet 2019-07 15:30: 03 Yes 75mg Take 75 mg by mouth 2 (two) times daily with meals. [facility] amlodipine 10 mg tablet 2019-07 00:00: 00 [...] Systolic blood pressure 2020-05-30 15:31:00 131 mm[Hg] [facility] Diastolic blood pressure 2020-05-30 15:31:00 92 mm[Hg] [facility] Heart rate 2020-05-30 15:31:00 79 /min [facility] Respiratory rate 2020-05-30 15:29:00 19 /min [facility] Body height 2020-05-30 15:29:00 182.9 cm [facility] hospital Body weight 2020-05-30 15:29:00 89.495 kg [facility] acute hospital BMI 2020-05-30 15:29:00 26.76 kg/m2 [facility] acute hospital Oxygen saturation in Arterial blood by Pulse oximetry 2020-05-30 15:29:00 97 /min [place] [facility] BP Systolic 2022-07-18 08:15:00 116 mm[Hg] BP [...] - ADC CARDIOLOGY 2020-06-14 06:01:00 Doctor Unassigned, [place] [facility] CONSENT/REFUSAL FOR DIAGNOSIS AND TREATMENT 2020-05-30 15:04:59 Doctor Unassigned, [place] [facility] Plan of Care Planned Activity Planned Date Details Comments Source Goal Plan of Care Note [code = 02783-6] Goal Plan of Care Note [code = 73476-7] Goal Plan of Care Note [code = 84531-6] Goal Plan of Care Note [code = 65571-7] Goal Plan of Care Note [code = 08966-0] Goal Plan of Care Note [code = 99089-5] Goal Plan of Care Note [code = 47684-5] Goal Plan of Care Note [code = 23391-6] Goal Plan of Care Note [code = 31755-5] Goal Plan of Care Note [code = 78810-5] Goal Plan of Care Note [code = 26527-6] Goal Plan of Care Note [code = 49224-2] Goal Plan of Care Note [code = 13871-0] Goal Plan of Care Note [code = 59699-6] Goal Plan of Care Note [code = 41765-4] Goal Plan of Care Note [code = 09664-6] Goal Plan of Care Note [code = 40336-6] Goal Plan of Care Note [code = 53700-3] Goal Plan of Care Note [code = 51653-9] Goal Plan of Care Note [code = 23584-6] Goal Plan of Care Note [code = 07989-5] Goal Plan of Care Note [code = 43004-1] Goal Plan of Care Note [code = 64437-7] Goal Plan of Care Note [code = 64976-6] Goal Plan of Care Note [code = 87883-5] Goal Plan of Care Note [code = 13333-4] Goal Plan of Care Note [code = 62064-4] Goal Plan of Care Note [code = 44863-8] Goal Plan of Care Note [code = 43026-0] Goal Plan of Care Note [code = 80369-4] Goal Plan of Care Note [code = 30288-5] Goal Plan of Care Note [code = 49919-1] Goal Plan of Care Note [code = 71010-7] Goal Plan of Care Note [code = 17847-7] Goal Plan of Care Note [code = 42305-6] Goal Plan of Care Note [code = 16149-7] Goal Plan of Care Note [code = 65501-5] Goal Plan of Care Note [code = 38654-0] Goal Plan of Care Note [code = 41335-3] Goal Plan of Care Note [code = 78443-1] Goal Plan of Care Note [code = 50965-0] Goal Plan of Care Note [code = 26986-7] Goal Plan of Care Note [code = 62100-0] Goal Plan of Care Note [code = 65957-7] Goal Plan of Care Note [code = 58359-0] Goal Plan of Care Note [code = 41220-7] Goal Plan of Care Note [code = 88598-5] Encounters Start Date/Time End Date/Time Encounter Type Admission Type Attending [facility] Care Department Encounter ID Source 2023-05-08 15:46:54 2023-05-08 15:46:54 Outpatient [facility] [id number] Quin[address] Castillo 2022-08-08 13:39:31 2022-08-08 13:39:31 Outpatient [facility] [id number] Quincy Campbell Jonathan 2022-07-24 09:59:08 2022-07-24 09:59:08 Outpatient [facility] [id number] Quincy Castillo 2022-07-18 08:11:22 2022-07-18 08:11:22 Outpatient [facility] [id number] Quincy Castillo 2022-07-18 00:00:00 2022-07-18 00:00:00 Outpatient Visit [id number] 2022-03-24 00:00:00 2022-03-24 00:00:00 Outpatient Visit [id number] 2020-07-04 09:00:00 2020-07-04 09:00:00 Outpatient [facility] [id number] [facility] 2020-06-14 00:00:00 2020-06-14 00:00:00 Orders Only Doctor Unassigned, [place] [facility] [id number] [facility] 2020-05-30 09:05:42 2020-05-30 10:23:35 Office Visit Hiro Muse [facility] [place] [facility] [id number] [facility] 2020-05-30 09:00:00 2020-05-30 09:00:00 Outpatient R HIRO MUSE [facility] [id number] [facility] 2020-05-30 00:00:00 2020-05-30 00:00:00 Orders Only Doctor Unassigned, [place] [facility] [id number] [facility] Results Test Description Test Time Test Comments Results Result Co mments Source LIVER (HEPATIC) FUNCTION [id number] 00:00:00* Test Item Value Reference Range Interpretation [...] = 2219) 28 U/L LIVER (HEPATIC) FUNCTION [id number] 00:00:00* Test Item Value Reference Range Interpretation [...] code = 2219) 28 U/L COMPREHENSIVE METABOLIC [id number] 23:58:14* Test Item Value Reference Range Interpretation [...] = 2218) 98 U/L 5-50 H LIPID [id number] 23:58:14* Test Item Value Reference Range Interpretation [...] SPECIMENS. FOR MOREINFORMATION, SEE CLIENT ANNOUNCEMENT AT [email or web address] RISK RATIO LDL/HDL (test code = 2238) 3.50 RATIO <3.55 UNLESS OTHERW ISE INDICATED, ALL TESTING PERFORMED [facility] [address] [place] [address] STERILIZATION TECHNICIAN: FELISHA HONG M.D. [place] NUMBER [id number] [facility] [place]. [id number] HEMOGLOBIN [id number] 04:14:02* Test Item Value Reference Range Interpretation Comme nts HEMOGLOBIN A1c (test code = 85110) 5.9 % 4.2-5.6 H COMPREHENSIVE METABOLIC [id number] 00:00:00* Test Item Value Reference Range Interpretation Comme nts GLUCOSE (test code = 2217) 99 MG/DL BUN (test code = 2208) 13 MG/DL CREATININE (test code = 2214) 1.18 MG/DL eGFR (2020 CKD-EPI) (test co de = 27518) 80 ML/MIN/1.73 CALC BUN/CREAT (test code = [...] code = 2219) 98 U/L COMPREHENSIVE METABOLIC [id number] 00:00:00* Test Item Value Reference Range Interpretation Comme nts GLUCOSE (test code = 2217) 99 MG/DL BUN (test code = 2208) 13 MG/DL CREATININE (test code = 2214) 1.18 MG/DL eGFR (2021 CKD-EPI) (test co de = 18235) 80 ML/MIN/1.73 CALC BUN/CREAT (test code = [...] (test code = 2219) 98 U/L HEMOGLOBIN [id number] 00:00:00* Test Item Value Reference Range Interpretation Comme nts HEMOGLOBIN A1c (test code = 17361) 5.9 % HEMOGLOBIN [id number] 00:00:00* Test Item Value Reference Range Interpretation Comme nts HEMOGLOBIN A1c (test code = 78650) 5.9 % HEMOGLOBIN [id number] 00:00:00* Test Item Value Reference Range Interpretation Comme nts HEMOGLOBIN A1c (test code = 08407) 5.9 % LIPID [id number] 00:00:00* Test Item Value Reference Range Interpretation Comme nts CHOLESTEROL (test code = 2210) 208 MG/DL TRIGLYCERIDES (test code = 2232) 88 MG/DL HDL CHOLESTEROL (test code = 2220) 42 MG/DL CALC LDL CHOL (test code = 2237) 147 MG/DL RISK RATIO LDL/HDL (test cod e = 2238) 3.50 RATIO LIPID [id number] 00:00:00* Test Item Value Reference Range Interpretation Comme nts CHOLESTEROL (test code = 2210) 208 MG/DL TRIGLYCERIDES (test code = 2232) 88 MG/DL HDL CHOLESTEROL (test code = 2220) 42 MG/DL CALC LDL CHOL (test code = 2237) 147 MG/DL RISK RATIO LDL/HDL (test cod e = 2238) 3.50 RATIO COMPREHENSIVE METABOLIC [id number] 00:00:00* Test Item Value Reference Range Interpretation Comme nts GLUCOSE (test code = 2217) 99 MG/DL BUN (test code = 2208) 13 MG/DL CREATININE (test code = 2214) 1.18 MG/DL eGFR (2020 CKD-EPI) (test co de = 15986) 80 ML/MIN/1.73 CALC BUN/CREAT (test code = [...] code = 2219) 98 U/L COMPREHENSIVE METABOLIC [id number] 00:00:00* Test Item Value Reference Range Interpretation Comme nts GLUCOSE (test code = 2217) 99 MG/DL BUN (test code = 2208) 13 MG/DL CREATININE (test code = 2214) 1.18 MG/DL eGFR (2020 CKD-EPI) (test co de = 13610) 80 ML/MIN/1.73 CALC BUN/CREAT (test code = [...] (test code = 2219) 98 U/L HEMOGLOBIN [id number] 00:00:00* Test Item Value Reference Range Interpretation Comme nts HEMOGLOBIN A1c (test code = 99409) 5.9 % HEMOGLOBIN [id number] 00:00:00* Test Item Value Reference Range Interpretation Comme nts HEMOGLOBIN A1c (test code = 76614) 5.9 % HEMOGLOBIN [id number] 00:00:00* Test Item Value Reference Range Interpretation Comme nts HEMOGLOBIN A1c (test code = 91323) 5.9 % LIPID [id number] 00:00:00* Test Item Value Reference Range Interpretation Comme nts CHOLESTEROL (test code = 2210) 208 MG/DL TRIGLYCERIDES (test code = 2232) 88 MG/DL HDL CHOLESTEROL (test code = 2220) 42 MG/DL CALC LDL CHOL (test code = 2237) 147 MG/DL RISK RATIO LDL/HDL (test cod e = 2238) 3.50 RATIO LIPID [id number] 00:00:00* Test Item Value Reference Range Interpretation Comme nts CHOLESTEROL (test code = 2210) 208 MG/DL TRIGLYCERIDES (test code = 2232) 88 MG/DL HDL CHOLESTEROL (test code = 2220) 42 MG/DL CALC LDL CHOL (test code = 2237) 147 MG/DL RISK RATIO LDL/HDL (test cod e = 2238) 3.50 RATIO LIPID [id number] 03:53:55* Test Item Value Reference Range Interpretation [...] SPECIMENS. FOR MOREINFORMATION, SEE CLIENT ANNOUNCEMENT AT [email or web address] RISK RATIO LDL/HDL (test code = 223) 2.12 RATIO <3.55 COMPREHENSIVE METABOLIC [id number] 03:53:55* Test Item Value Reference Range Interpretation Comme nts GLUCOSE (test code = 2217) 107 MG/DL 70-99 H BUN (test code = 2207) 14 MG/DL 6-20 CREATININE (test code = 2213) 1.17 MG/DL 0.80-1.40 eGFR (2020 CKD-EPI) (test code = 13868) 81 ML/MIN/1.73 >60 CALC BUN/CREAT (test code [...] 5-50 UNLESS OTHERWISE INDICATED, ALL TESTING PERFORMED [facility] [address] [place] [address] STERILIZATION TECHNICIAN: FELISHA HONG M.D. CLIA NUMBER [id number] [facility] [place]. [id number] HEMOGLOBIN [id number] 03:14:26* Test Item Value Reference Range Interpretation Comme nts HEMOGLOBIN A1c (test code = 17447) 6.1 % 4.2-5.6 H HEMOGLOBIN [id number] 00:00:00* Test Item Value Reference Range Interpretation Comme nts HEMOGLOBIN A1c (test code = 55467) 6.1 % HEMOGLOBIN [id number] 00:00:00* Test Item Value Reference Range Interpretation Comme nts HEMOGLOBIN A1c (test code = 63868) 6.1 % HEMOGLOBIN [id number] 00:00:00* Test Item Value Reference Range Interpretation Comme nts HEMOGLOBIN A1c (test code = 69933) 6.1 % LIPID [id number] 00:00:00* Test Item Value Reference Range Interpretation Comme nts CHOLESTEROL (test code = 2210) 274 MG/DL TRIGLYCERIDES (test code = 2232) 57 MG/DL HDL CHOLESTEROL (test code = 2220) 83 MG/DL CALC LDL CHOL (test code = 2237) 176 MG/DL RISK RATIO LDL/HDL (test cod e = 2238) 2.12 RATIO LIPID [id number] 00:00:00* Test Item Value Reference Range Interpretation Comme nts CHOLESTEROL (test code = 2210) 274 MG/DL TRIGLYCERIDES (test code = 2232) 57 MG/DL HDL CHOLESTEROL (test code = 2220) 83 MG/DL CALC LDL CHOL (test code = 2237) 176 MG/DL RISK RATIO LDL/HDL (test cod e = 2238) 2.12 RATIO COMPREHENSIVE METABOLIC [id number] 00:00:00* Test Item Value Reference Range Interpretation Comme nts GLUCOSE (test code = 2217) 107 MG/DL BUN (test code = 2208) 14 MG/DL CREATININE (test code = 2214) 1.17 MG/DL eGFR (2020 CKD-EPI) (test co de = 77468) 81 ML/MIN/1.73 CALC BUN/CREAT (test code = [...] code = 2219) 25 U/L COMPREHENSIVE METABOLIC [id number] 00:00:00* Test Item Value Reference Range Interpretation Comme nts GLUCOSE (test code = 2217) 107 MG/DL BUN (test code = 2208) 14 MG/DL CREATININE (test code = 2214) 1.17 MG/DL eGFR (2020 CKD-EPI) (test co de = 90350) 81 ML/MIN/1.73 CALC BUN/CREAT (test code = [...] (test code = 2219) 25 U/L HEMOGLOBIN [id number] 00:00:00* Test Item Value Reference Range Interpretation Comme nts HEMOGLOBIN A1c (test code = 15165) 6.1 % HEMOGLOBIN [id number] 00:00:00* Test Item Value Reference Range Interpretation Comme nts HEMOGLOBIN A1c (test code = 47103) 6.1 % HEMOGLOBIN [id number] 00:00:00* Test Item Value Reference Range Interpretation Comme nts HEMOGLOBIN A1c (test code = 18936) 6.1 % LIPID [id number] 00:00:00* Test Item Value Reference Range Interpretation Comme nts CHOLESTEROL (test code = 2210) 274 MG/DL TRIGLYCERIDES (test code = 2232) 57 MG/DL HDL CHOLESTEROL (test code = 2220) 83 MG/DL CALC LDL CHOL (test code = 2237) 176 MG/DL RISK RATIO LDL/HDL (test cod e = 2238) 2.12 RATIO LIPID [id number] 00:00:00* Test Item Value Reference Range Interpretation Comme nts CHOLESTEROL (test code = 2210) 274 MG/DL TRIGLYCERIDES (test code = 2232) 57 MG/DL HDL CHOLESTEROL (test code = 2220) 83 MG/DL CALC LDL CHOL (test code = 2237) 176 MG/DL RISK RATIO LDL/HDL (test cod e = 2238) 2.12 RATIO COMPREHENSIVE METABOLIC [id number] 00:00:00* Test Item Value Reference Range Interpretation Comme nts GLUCOSE (test code = 2217) 107 MG/DL BUN (test code = 2208) 14 MG/DL CREATININE (test code = 2214) 1.17 MG/DL eGFR (2020 CKD-EPI) (test co de = 08444) 81 ML/MIN/1.73 CALC BUN/CREAT (test code = [...] code = 2219) 25 U/L COMPREHENSIVE METABOLIC [id number] 00:00:00* Test Item Value Reference Range Interpretation Comme nts GLUCOSE (test code = 2217) 107 MG/DL BUN (test code = 2208) 14 MG/DL CREATININE (test code = 2214) 1.17 MG/DL eGFR (2020 CKD-EPI) (test co de = 96066) 81 ML/MIN/1.73 CALC BUN/CREAT (test code = [...] code = 2219) 25 U/L COMPREHENSIVE METABOLIC [id number] 00:00:00* Test Item Value Reference Range Interpretation Comme nts GLUCOSE (test code = 2217) 102 MG/DL BUN (test code = 2208) 13 MG/DL CREATININE (test code = 2214) 1.12 MG/DL eGFR AMER. (test cod e = 85892) 95 ML/MIN/1.73 eGFR NON- AMER. (test code = 53813) 82 ML/MIN/1.73 CALC BUN/CREAT (test code = [...] code = 2219) 105 U/L COMPREHENSIVE METABOLIC [id number] 00:00:00* Test Item Value Reference Range Interpretation Comme nts GLUCOSE (test code = 2217) 102 MG/DL BUN (test code = 2208) 13 MG/DL CREATININE (test code = 2214) 1.12 MG/DL eGFR AMER. (test cod e = 68634) 95 ML/MIN/1.73 eGFR NON- AMER. (test code = 62337) 82 ML/MIN/1.73 CALC BUN/CREAT (test code = [...] (test code = 2219) 105 U/L LIPID [id number] 00:00:00* Test Item Value Reference Range Interpretation Comme nts CHOLESTEROL (test code = 2210) 218 MG/DL TRIGLYCERIDES (test code = 2232) 76 MG/DL HDL CHOLESTEROL (test code = 2220) 66 MG/DL CALC LDL CHOL (test code = 2237) 135 MG/DL RISK RATIO LDL/HDL (test cod e = 2238) 2.05 RATIO LIPID [id number] 00:00:00* Test Item Value Reference Range Interpretation Comme nts CHOLESTEROL (test code = 2210) 218 MG/DL TRIGLYCERIDES (test code = 2232) 76 MG/DL HDL CHOLESTEROL (test code = 2220) 66 MG/DL CALC LDL CHOL (test code = 2237) 135 MG/DL RISK RATIO LDL/HDL (test cod e = 2238) 2.05 RATIO COMPREHENSIVE METABOLIC [id number] 00:00:00* Test Item Value Reference Range Interpretation Comme nts GLUCOSE (test code = 2217) 102 MG/DL BUN (test code = 2208) 13 MG/DL CREATININE (test code = 2214) 1.12 MG/DL eGFR AMER. (test cod e = 70114) 95 ML/MIN/1.73 eGFR NON- AMER. (test code = 82082) 82 ML/MIN/1.73 CALC BUN/CREAT (test code = [...] code = 2219) 105 U/L COMPREHENSIVE METABOLIC [id number] 00:00:00* Test Item Value Reference Range Interpretation Comme nts GLUCOSE (test code = 2217) 102 MG/DL BUN (test code = 2208) 13 MG/DL CREATININE (test code = 2214) 1.12 MG/DL eGFR AMER. (test cod e = 35963) 95 ML/MIN/1.73 eGFR NON- AMER. (test code = 57093) 82 ML/MIN/1.73 CALC BUN/CREAT (test code = [...] (test code = 2219) 105 U/L LIPID [id number] 00:00:00* Test Item Value Reference Range Interpretation Comme nts CHOLESTEROL (test code = 2210) 218 MG/DL TRIGLYCERIDES (test code = 2232) 76 MG/DL HDL CHOLESTEROL (test code = 2220) 66 MG/DL CALC LDL CHOL (test code = 2237) 135 MG/DL RISK RATIO LDL/HDL (test cod e = 2238) 2.05 RATIO LIPID [id number] 00:00:00* Test Item Value Reference Range Interpretation Comme nts CHOLESTEROL (test code = 2210) 218 MG/DL TRIGLYCERIDES (test code = 2232) 76 MG/DL HDL CHOLESTEROL (test code = 2220) 66 MG/DL CALC LDL CHOL (test code = 2237) 135 MG/DL RISK RATIO LDL/HDL (test cod e = 2238) 2.05 RATIO HEMOGLOBIN [id number] 00:00:00* Test Item Value Reference Range Interpretation Comme nts HEMOGLOBIN A1c (test code = 28381) 6.1 % HEMOGLOBIN [id number] 00:00:00* Test Item Value Reference Range Interpretation Comme nts HEMOGLOBIN A1c (test code = 03674) 6.1 % HEMOGLOBIN [id number] 00:00:00* Test Item Value Reference Range Interpretation Comme nts HEMOGLOBIN A1c (test code = 47128) 6.1 % HEMOGLOBIN [id number] 00:00:00* Test Item Value Reference Range Interpretation Comme nts HEMOGLOBIN A1c (test code = 82123) 6.1 % HEMOGLOBIN [id number] 00:00:00* Test Item Value Reference Range Interpretation Comme nts HEMOGLOBIN A1c (test code = 46718) 6.1 % HEMOGLOBIN [id number] 00:00:00* Test Item Value Reference Range Interpretation Comme nts HEMOGLOBIN A1c (test code = 24573) 6.1 % COMPREHENSIVE METABOLIC [id number] 00:00:00* Test Item Value Reference Range Interpretation Comme nts GLUCOSE (test code = 2217) 103 MG/DL BUN (test code = 2208) 13 MG/DL CREATININE (test code = 2214) 1.09 MG/DL eGFR AMER. (test cod e = 37331) 99 ML/MIN/1.73 eGFR NON- AMER. (test code = 93372) 85 ML/MIN/1.73 CALC BUN/CREAT (test code = [...] code = 2219) 44 U/L COMPREHENSIVE METABOLIC [id number] 00:00:00* Test Item Value Reference Range Interpretation Comme nts GLUCOSE (test code = 2217) 103 MG/DL BUN (test code = 2208) 13 MG/DL CREATININE (test code = 2214) 1.09 MG/DL eGFR AMER. (test cod e = 65942) 99 ML/MIN/1.73 eGFR NON- AMER. (test code = 71436) 85 ML/MIN/1.73 CALC BUN/CREAT (test code = [...] (test code = 2219) 44 U/L LIPID [id number] 00:00:00* Test Item Value Reference Range Interpretation Comme nts CHOLESTEROL (test code = 2210) 223 MG/DL TRIGLYCERIDES (test code = 2232) 75 MG/DL HDL CHOLESTEROL (test code = 2220) 74 MG/DL CALC LDL CHOL (test code = 2237) 132 MG/DL RISK RATIO LDL/HDL (test cod e = 2238) 1.78 RATIO LIPID [id number] 00:00:00* Test Item Value Reference Range Interpretation Comme nts CHOLESTEROL (test code = 2210) 223 MG/DL TRIGLYCERIDES (test code = 2232) 75 MG/DL HDL CHOLESTEROL (test code = 2220) 74 MG/DL CALC LDL CHOL (test code = 2237) 132 MG/DL RISK RATIO LDL/HDL (test cod e = 2238) 1.78 RATIO COMPREHENSIVE METABOLIC [id number] 00:00:00* Test Item Value Reference Range Interpretation Comme nts GLUCOSE (test code = 2217) 103 MG/DL BUN (test code = 2208) 13 MG/DL CREATININE (test code = 2214) 1.09 MG/DL eGFR AMER. (test cod e = 37346) 99 ML/MIN/1.73 eGFR NON- AMER. (test code = 80456) 85 ML/MIN/1.73 CALC BUN/CREAT (test code = [...] code = 2219) 44 U/L COMPREHENSIVE METABOLIC [id number] 00:00:00* Test Item Value Reference Range Interpretation Comme nts GLUCOSE (test code = 2217) 103 MG/DL BUN (test code = 2208) 13 MG/DL CREATININE (test code = 2214) 1.09 MG/DL eGFR AMER. (test cod e = 14217) 99 ML/MIN/1.73 eGFR NON- AMER. (test code = 28094) 85 ML/MIN/1.73 CALC BUN/CREAT (test code = [...] (test code = 2219) 44 U/L LIPID [id number] 00:00:00* Test Item Value Reference Range Interpretation Comme nts CHOLESTEROL (test code = 2210) 223 MG/DL TRIGLYCERIDES (test code = 2232) 75 MG/DL HDL CHOLESTEROL (test code = 2220) 74 MG/DL CALC LDL CHOL (test code = 2237) 132 MG/DL RISK RATIO LDL/HDL (test cod e = 2238) 1.78 RATIO LIPID [id number] 00:00:00* Test Item Value Reference Range Interpretation Comme nts CHOLESTEROL (test code = 2210) 223 MG/DL TRIGLYCERIDES (test code = 2232) 75 MG/DL HDL CHOLESTEROL (test code = 2220) 74 MG/DL CALC LDL CHOL (test code = 2237) 132 MG/DL RISK RATIO LDL/HDL (test cod e = 2238) 1.78 RATIO
[2023-07-13 22:09] LABS: Absolute Lymphocytes (CBC) 2.2 K/uL (0.7-4.9); Hematocrit 39.3 % (39.6-49.0); Lymphocytes % 36.4 % (15.3-44.8); MCV 90.9 fL (80-100); MPV 8.1 fL (7.6-11.3); Platelets 269 thou/uL (152-406); RBC Red Blood Cell Count 4.32 M/uL (4.33-5.43)
[2023-07-13 22:16] LABS: Protime INR 1.16
[2023-07-13 22:26] LABS: ALT/SGPT 38 U/L (16-61); AST/SGOT 23 U/L (15-37); Albumin 3.9 g/dL (3.4-5.0); Alkaline Phosphatase 55 U/L (45-117); BUN Blood Urea Nitrogen 14 mg/dL (7-18); Bicarbonate 24 mEq/L (21-32); Bilirubin Total 0.2 mg/dL (0.2-1.0); Glomerular Filtration Rate 72 ml/min (=/>90); Glucose Level 96 mg/dL (74-106); Magnesium 2.1 mg/dL (1.6-2.4); Potassium 3.7 mEq/L (3.5-5.1); Sodium Level 141 mEq/L (136-145); Troponin High Sensitivity 5.4 pg/mL (<58.9)
[2023-07-13 22:27] LABS: Bilirubin Direct < 0.1 mg/dL (0-0.2); Bilirubin Indirect, Calculated ND mg/dL (0.2-0.8)
--- NOTE | 2023-07-13 22:28 | RAD REPORT ---
EXAM DESCRIPTION: Katelyn Single View07/13/2023 9:58 pm CLINICAL HISTORY: Hypertension COMPARISON: May 2023 FINDINGS: The lungs appear clear of acute infiltrate. The heart is normal size IMPRESSION: No acute abnormalities displayed
--- NOTE | 2023-07-14 00:27 | EDPHYS ---
Physician Documentation [facility] Name: Akhil Hidalgo Age: 43 yrs Sex: Male : 1980 Arrival Date: 07/13/2023 Time: 20:51 Bed 12 Private MD: ED Physician Biju Buckley HPI: 07/13 23:00 This 43 yrs old Black Male presents to ER via Ambulatory with complaints of High Blood cp Pressure, Low Blood Sugar. 23:00 The patient has elevated blood pressure and discovered this at home, with a home cp device. Onset: The symptoms/episode began/occurred today. Associated signs and symptoms: Pertinent positives: dizziness, headache, lightheadedness, visual changes, flashes of light in visual linares, Pertinent negatives: chest pain, vomiting, weakness. Severity of symptoms: At its worst the blood pressure was 200 mm Hg. Patient reports PMHX significant for HTN, diabetes and elevated cholesterol. Ran out of blood pressure medication about 2 months ago. Has been taking OTC supplement and today blood sugar was in 30's. Has not been taking medication for diabetes. Historical: - Allergies: 21:51 Lisinopril; la4 - PMHx: 21:51 Anxiety; Hypercholesterolemia; diabetes mellitus; Hypertension; la4 - Immunization history:: Adult Immunizations up to date. - Social history:: Smoking status: Patient denies any tobacco usage or history of. - Code Status:: Full code. ROS: 23:05 Constitutional: Negative for body aches, chills, fever, poor PO intake, cp 23:05 Eyes: Positive for visual disturbance, Negative for pain, redness, cp 23:05 ENT: Negative for drainage from ear(s), ear pain, sore throat, difficulty swallowing, difficulty handling secretions, 23:05 Neck: Negative for pain with movement, pain at rest, stiffness, 23:05 Cardiovascular: Negative for chest pain, edema, palpitations, 23:05 Respiratory: Negative for cough, shortness of breath, wheezing, 23:05 Abdomen/GI: Negative for abdominal pain, vomiting, diarrhea, constipation, 23:05 Neuro: Positive for dizziness, headache, Negative for altered mental status, speech changes, weakness, 23:05 All other systems are negative, Exam: 21:40 ECG was reviewed by the Attending Physician. cp 23:10 Constitutional: The patient appears in no acute distress, alert, awake, cp non-diaphoretic, non-toxic, well developed, well nourished, 23:10 Head/Face: Normocephalic, atraumatic. cp 23:10 Eyes: Periorbital structures: appear normal, Pupils: equal, round, and reactive to light and accomodation, Extraocular movements: intact throughout, Conjunctiva: normal, no exudate, no injection, Sclera: no appreciated abnormality, Lids and lashes: appear normal, bilaterally, 23:10 ENT: External ear(s): are unremarkable, Nose: is normal, Mouth: Lips: moist, Oral mucosa: pink and intact, moist, Posterior pharynx: is normal, airway is patent, no erythema, no exudate, Voice: is normal, 23:10 Neck: ROM/movement: is normal, is supple, without pain, no range of motions limitations, 23:10 Chest/axilla: Inspection: normal, 23:10 Cardiovascular: Rate: normal, Rhythm: regular, Edema: is not appreciated, JVD: is not appreciated, 23:10 Respiratory: the patient does not display signs of respiratory distress, Respirations: normal, no use of accessory muscles, no retractions, labored breathing, is not present, Breath sounds: are clear throughout, no decreased breath sounds, no stridor, no wheezing, 23:10 Abdomen/GI: Inspection: abdomen appears normal, Palpation: abdomen is soft and non-tender, in all quadrants, 23:10 Neuro: Orientation: to person, place \T\ time. Mentation: is normal, Cerebellar function: is grossly normal, Motor: moves all fours, strength is normal, Sensation: is normal, Vital Signs: 21:30 BP 199 / 118; Pulse 75; Resp 20; Temp 98.4; Pulse Ox 100% ; Weight 95.25 kg; Height 6 la4 ft. 0 in. ; Pain 7/10; 21:30 BP 199 / 118; Pulse 75; Resp 20; Temp 98.4; Pulse Ox 100% ; Weight 95.25 kg; Height 6 la4 ft. 0 in. ; 22:15 BP 151 / 108; Pulse 56; Resp 18; Pulse Ox 99% ; la4 22:45 BP 151 / 106; Pulse 58; Resp 18; Pulse Ox 100% ; la4 23:15 BP 171 / 111; Pulse 53; Resp 18; Pulse Ox 100% ; la4 23:45 BP 161 / 109; Pulse 55; Resp 18; Pulse Ox 100% ; la4 07/14 00:15 BP 147 / 104; Pulse 54; Resp 18; Pulse Ox 100% ; la4 01:31 BP 148 / 111; Pulse 56; Resp 18; Pulse Ox 100% ; Pain 6/10; la4 01:34 BP 148 / 111; Pulse 58; Resp 18; Pulse Ox 100% ; la4 01:34 BP 148 / 111; Pulse 58; Resp 18; Pulse Ox 100% ; la4 07/13 21:30 Body Mass Index 28.48 (95.25 kg, 182.88 cm) la4 07/13 21:30 Pain Scale: Adult la4 01:31 Pain Scale: Adult la4 07/13 21:30 Headache reported as throbbing and reports flashes of light seen la4 07/14 01:31 headache la4 [place] Coma Score: 01:31 Eye Response: spontaneous(4). Motor Response: obeys commands(6). Verbal Response: la4 oriented(5). Total: 15. MDM: 07/13 21:26 Patient medically screened. cp 07/14 00:25 Data reviewed: vital signs, nurses notes, lab test result(s), EKG, radiologic studies, cp CT scan, plain films. 00:25 Differential diagnosis: hypertensive crisis, Malignant HTN, CVA, intracerebral cp hemorrhage. Consideration of Admission/Observation Escalation of care including admission/observation considered. I considered the following discharge prescriptions or medication management in the emergency department Medications were administered in the Emergency Department. See MAR. Independent interpretation of the following test(s) in the Emergency Department EKG: See my EKG interpretation above. Care significantly affected by the following chronic conditions: Diabetes, Hypertension. Care significantly affected by the following Social Determinants of Health: Poor access to healthcare and/or lack of insurance. Counseling: I had a detailed discussion with the patient and/or guardian regarding the historical points, exam findings, and any diagnostic results supporting the discharge/admit diagnosis, the presence of at least one elevated blood pressure reading (>120/80) during this emergency department visit, lab results, radiology results, the need for outpatient follow up, for definitive care, a family practitioner, to return to the emergency department if symptoms worsen or persist or if there are any questions or concerns that arise at home. Response to treatment: the patient's symptoms have mildly improved after treatment, and as a result, I will discharge patient. 07/13 21:41 Order name: Glucose, Ancillary Testing; Complete Time: 21:50 EDMS 07/13 21:50 Order name: Basic Metabolic Panel; Complete Time: 22:54 cp 07/13 22:54 Interpretation: Normal except: CL 108; GFR 72. cp 07/13 21:50 Order name: CBC with Diff; Complete Time: 22:54 cp 07/13 22:54 Interpretation: Normal except: RBC 4.32; HGB 13.3; HCT 39.3. cp 07/13 21:50 Order name: LFT's; Complete Time: 22:54 cp 07/13 21:50 Order name: Magnesium; Complete Time: 22:54 cp 07/13 21:50 Order name: PT-INR; Complete Time: 22:54 cp 07/13 21:50 Order name: Troponin HS; Complete Time: 22:54 cp 07/13 21:50 Order name: XRAY Chest (1 view); Complete Time: 22:54 cp 07/13 22:59 Order name: CT Head Brain wo Cont cp 07/13 21:50 Order name: EKG; Complete Time: 21:50 cp 07/13 21:50 Order name: Cardiac monitoring; Complete Time: 21:59 cp 07/13 21:50 Order name: EKG - Nurse/Tech; Complete Time: 21:55 cp 07/13 21:50 Order name: IV Saline Lock; Complete Time: 21:59 cp 07/13 21:50 Order name: Labs collected and sent; Complete Time: 21:59 cp 07/13 21:50 Order name: O2 Per Protocol; Complete Time: 23:04 cp 07/13 21:50 Order name: O2 Sat Monitoring; Complete Time: 21:59 cp 07/14 00:08 Order name: Vital Signs; Complete Time: 00:30 cp EC/13 21:40 Rate is 65 beats/min. Rhythm is regular. KS interval is normal. QRS interval is normal. cp QT interval is normal. T waves are Inverted in lead aVR. Interpreted by me. Reviewed by me. Administered Medications: 23:04 Drug: amLODIPine PO 10 mg PO once Route: PO; cg 07/14 00:40 Drug: cloNIDine PO 0.1 mg PO once Route: PO; la4 01:34 Follow up: BP 148 / 111; Pulse 58 bpm; Resp 18 bpm; Pulse Ox 100% ; Response: No la4 adverse reaction; Blood pressure is unchanged 01:31 Drug: Acetaminophen PO 1000 mg PO once Route: PO; la4 01:34 Follow up: BP 148 / 111; Pulse 58 bpm; Resp 18 bpm; Pulse Ox 100% ; Response: No la4 adverse reaction; Pain is decreased Disposition: 03:27 Co-signature as Attending Physician, Biju Buckley MD I agree with the assessment sp4 and plan of care. I reviewed the patient's care provided by the Advanced Practice Provider and agree with the diagnosis and treatment plan. Disposition Summary: 07/14/23 00:26 Discharge Ordered Notes: Location: Home cp Problem: chronic cp Symptoms: have improved cp Condition: Stable cp Diagnosis - Hypertensive heart disease without heart failure cp Followup: cp - With: Private Physician - When: 2 - 3 days - Reason: Recheck today's complaints Discharge Instructions: - Discharge Summary Sheet cp - Hypertension, Adult cp - Hypoglycemia cp - Aspirin and Your Heart cp - Form - Blood Pressure Record Sheet cp - How to Take Your Blood Pressure cp Forms: - Medication Reconciliation Form cp - Thank You Letter cp - Antibiotic Education cp - Prescription Opioid Use cp - Patient Portal Instructions cp - Leadership Thank You Letter cp Prescriptions: - amlodipine 5 mg Oral tablet - take 1 tablet ORAL route daily; 60 tablet; Refills: 0, Product Selection cp Permitted Signatures: Dispatcher [employer] [facility] Yovany Berry PA PA cp Danelle Rivero RN RN cg Potepalov, Sergey, MD MD sp4 Nika Reddy RN RN la4 Corrections: (The following items were deleted from the chart) 07/15 00:07/14 03:26 . sp4 cp 07/15 03:26 This 43 yrs old Black Male presents to ER via Ambulatory with complaints of cp High Blood Pressure, Low Blood Sugar. sp4
--- NOTE | 2023-07-14 00:27 | ER ---
Nurse's Notes [facility] Name: Akhil Hidalgo Age: 43 yrs Sex: Male : 1980 Arrival Date: 07/13/2023 Time: 20:51 Bed 12 Private MD: Diagnosis: Hypertensive heart disease without heart failure Presentation: 07/13 21:30 Chief complaint: Patient states: c/o elevated BP and low Blood glucose of 39 prior to la4 coming to ER. States that he felt light headed and dizzy w/ headache and seeing flashes of light. Pt noted to shake and feel slightly moist to touch. Coronavirus screen:. Ebola Screen: Patient negative for fever greater than or equal to 101.5 degrees Fahrenheit, and additional compatible Ebola Virus Disease symptoms Patient denies exposure to infectious person. Patient denies travel to an Ebola-affected area in the 21 days before illness onset. No symptoms or risks identified at this time. Initial Sepsis Screen: Does the patient meet any 2 criteria? No. Patient's initial sepsis screen is negative. Does the patient have a suspected source of infection? No. Patient's initial sepsis screen is negative. Risk Assessment: Do you want to hurt yourself or someone else? Patient reports no desire to harm self or others. Onset of symptoms was 2023. 21:30 Method Of Arrival: Ambulatory la4 21:30 Acuity: MARIANGEL 2 la4 Triage Assessment: 21:30 Pain: Complains of pain in top of head, forehead, right latter-day and left latter-day Pain la4 does not radiate. Pain currently is 7 out of 10 on a pain scale. Quality of pain is described as sharp, throbbing, Pain began 3 hours ago. 21:30 Neuro: No deficits noted. [place] Agitation-Sedation Scale (RASS): 0 - Alert and Calm la4 Level of Consciousness is awake, alert, obeys commands, Oriented to person, place, time, situation, Appropriate for age [employer] are equal bilaterally Moves all extremities. Gait is steady, Speech is normal, Facial symmetry appears normal, Pupils are PERRLA, Pupil Size: pupils measure 4 bilaterally Intact. Cardiovascular: No deficits noted. Reports chest tightness Heart tones S1 S2 Capillary refill < 3 seconds is brisk Patient's skin is warm and dry. Pulses are all present. Edema is absent. Respiratory: No deficits noted. Airway is patent Respiratory effort is even, unlabored, Respiratory pattern is regular, symmetrical, Breath sounds are clear bilaterally. Respiratory: Reports. GI: No deficits noted. No signs and/or symptoms were reported involving the gastrointestinal system. : No deficits noted. : No signs and/or symptoms were reported regarding the genitourinary system. 07/14 01:35 General: Appears in no apparent distress. Behavior is calm, cooperative, appropriate la4 for age. Historical: - Allergies: 07/13 21:51 Lisinopril; la4 - PMHx: 21:51 Anxiety; Hypercholesterolemia; diabetes mellitus; Hypertension; la4 - Immunization history:: Adult Immunizations up to date. - Social history:: Smoking status: Patient denies any tobacco usage or history of. - Code Status:: Full code. Screenin/14 01:31 [facility] ED Fall Risk Assessment (Adult) History of falling in the last 3 months, la4 including since admission No falls in past 3 months (0 pts) Confusion or Disorientation No (0 pts) Intoxicated or Sedated No (0 pts) Impaired Gait No (0 pts) Mobility Assist Device Used No (0 pt) Altered Elimination No (0 pt) Score/Fall Risk Level 0 - 2 = Low Risk Oriented to surroundings, Provided non-skid footwear, Hourly rounding (assess needs \T\ fall precautionary measures) done. Abuse screen: Denies threats or abuse. Denies injuries from another. Nutritional screening: No deficits noted. Tuberculosis screening: No symptoms or risk factors identified. Assessment: 00:33 Reassessment: No changes from previously documented assessment. Neuro: No deficits la4 noted. [place] Agitation-Sedation Scale (RASS): 0 - Alert and Calm Level of Consciousness is awake, alert, obeys commands, Oriented to person, place, time, situation. Cardiovascular: No deficits noted. Reports palpitations, intermittently Heart tones S1 S2. Vital Signs: 07/13 21:30 BP 199 / 118; Pulse 75; Resp 20; Temp 98.4; Pulse Ox 100% ; Weight 95.25 kg; Height 6 la4 ft. 0 in. ; Pain 7/10; 21:30 BP 199 / 118; Pulse 75; Resp 20; Temp 98.4; Pulse Ox 100% ; Weight 95.25 kg; Height 6 la4 ft. 0 in. ; 22:15 BP 151 / 108; Pulse 56; Resp 18; Pulse Ox 99% ; la4 22:45 BP 151 / 106; Pulse 58; Resp 18; Pulse Ox 100% ; la4 23:15 BP 171 / 111; Pulse 53; Resp 18; Pulse Ox 100% ; la4 23:45 BP 161 / 109; Pulse 55; Resp 18; Pulse Ox 100% ; la4 07/14 00:15 BP 147 / 104; Pulse 54; Resp 18; Pulse Ox 100% ; la4 01:31 BP 148 / 111; Pulse 56; Resp 18; Pulse Ox 100% ; Pain 6/10; la4 01:34 BP 148 / 111; Pulse 58; Resp 18; Pulse Ox 100% ; la4 01:34 BP 148 / 111; Pulse 58; Resp 18; Pulse Ox 100% ; la4 07/13 21:30 Body Mass Index 28.48 (95.25 kg, 182.88 cm) la4 07/13 21:30 Pain Scale: Adult la4 01:31 Pain Scale: Adult la4 07/13 21:30 Headache reported as throbbing and reports flashes of light seen la4 07/14 01:31 headache la4 [place] Coma Score: 01:31 Eye Response: spontaneous(4). Motor Response: obeys commands(6). Verbal Response: la4 oriented(5). Total: 15. ED Course: 07/13 20:52 Patient arrived in ED. rg4 20:54 Yovany Berry PA is PHCP. cp 20:54 Biju Buckley MD is Attending Physician. cp 21:30 Arm band placed on right wrist. Patient placed in an exam room, on a stretcher, on la4 monitoring tech, on pulse oximetry. EKG done per protocol. Performed by ED Staff. Shown to ED physician. Labs ordered per protocol. Drawn by ED staff. 21:30 Patient has correct armband on for positive identification. Bed in low position. Call la4 light in reach. Side rails up X2. Provided Education on: plan of care. Client placed on continuous cardiac and pulse oximetry monitoring. NIBP monitoring applied. 21:30 No provider procedures requiring assistance completed. Inserted saline lock: 18 gauge la4 in right forearm, using aseptic technique. Blood collected. 21:30 IV discontinued, intact, bleeding controlled, No redness/swelling at site. Pressure la4 dressing applied. 21:41 Nika Reddy, RN is Primary Nurse. la4 21:44 Triage completed. la4 21:59 Basic Metabolic Panel Sent. la4 21:59 CBC with Diff Sent. la4 21:59 LFT's Sent. la4 21:59 Magnesium Sent. la4 21:59 PT-INR Sent. la4 21:59 Troponin HS Sent. la4 22:00 XRAY Chest (1 view) In Process Unspecified. EDMS 23:23 CT Head Brain wo Cont In Process Unspecified. EDMS Administered Medications: 23:04 Drug: amLODIPine PO 10 mg PO once Route: PO; 07/14 00:40 Drug: cloNIDine PO 0.1 mg PO once Route: PO; la4 01:34 Follow up: BP 148 / 111; Pulse 58 bpm; Resp 18 bpm; Pulse Ox 100% ; Response: No la4 adverse reaction; Blood pressure is unchanged 01:31 Drug: Acetaminophen PO 1000 mg PO once Route: PO; la4 :34 Follow up: BP 148 / 111; Pulse 58 bpm; Resp 18 bpm; Pulse Ox 100% ; Response: No la4 adverse reaction; Pain is decreased Medication: 01:31 VIS not applicable for this client. la4 Outcome: 07/13 21:30 Discharged to home with significant other, la4 Condition: stable Discharge instructions given to patient, significant other, Instructed on discharge instructions, follow up and referral plans. no drinking with medication, medication usage, Demonstrated understanding of instructions, follow-up care, medications, 07/14 00:26 Discharge ordered by . cp 01:35 Patient left the ED. la4 Signatures: Dispatcher [employer] EDMS Yovany Berry PA PA cp Garcia, Cindy, RN RN Melly Mcfadden rg4 Nika Reddy, RN RN johnnie
[2023-07-14 04:29] VITALS: TEMP 98.4; O2SAT 100
[2023-07-14 04:43] VITALS: BP 148/111
--- NOTE | 2023-07-15 10:13 | RAD REPORT ---
EXAM DESCRIPTION: CT - Head Brain Wo Cont - 07/14/2023 6:44 am CLINICAL HISTORY: Visual disturbances, Headache COMPARISON: None. TECHNIQUE: Head/brain axial images acquired without contrast. Coronal and sagittal reformats created . Exam performed according to departmental dose-optimization program which includes automated exposur e control, adjustment of mA and/or kV according to patient size, and/or use of iterative reconstructi on technique. FINDINGS: No midline shift, mass effect, intracranial hemorrhage, or hydrocephalus. Brain parenchyma unremarkable. Paranasal sinuses clear. Mastoid air cells clear. No skull fracture or significant skull lesion. IMPRESSION: Unremarkable CT head/brain without contrast. Electronically signed by: Denis Walters MD 07/13/2023 11:38 PM SHOWPLACE MANAGER Due to temporary technical issues with the PACS/Fluency reporting system, reports are being signed by the in house radiologists without review as a courtesy to insure prompt reporting. The interpreting radiologist is fully responsible for the content of the report.
--- NOTE | 2023-07-15 17:01 | EKG ---
Test Date: 2023-07-13 Test Time: 21:34:57 Visual Merchandising Specialist: KHADRA Matos MEASUREMENT RESULTS: Intervals: Rate: 65 WI: 166 QRSD: 80 QT: 412 QTc: 428 [employer]: P: 24 WI: 166 QRS: 26 T: 34 INTERPRETIVE STATEMENTS: Normal sinus rhythm Normal ECG Compared to ECG 07/13/2023 21:30:56 No significant changes Electronically Signed On 07-15-23 16:56:51 RECORD PRODUCER by Josh Bergman
== END ==
LOC: ER 20:51
DX: I11.9 Hypertensive heart disease without heart failure (principal); I10 Essential (primary) hypertension; Z88.8 Allergy status to other drugs, medicaments and biological substances
CPT/HCPCS: 36415; 70450; 71045; 80048; 80076; 82947; 83735; 84484; 85025; 85610; 93005; 99284

== ENCOUNTER 2024-02-05 18:58 | Emergency (ER) | payer SELFPAY ==
--- OUTSIDE RECORDS SUMMARY | 2024-02-05 19:03 | XMS REPORT | Continuity of Care Document ---
Author Name Unknown Address [address] [facility]. [address] [place] [address] [facility] thconnect Address [address] [facility] [address] [place] [address] Care Team Providers Care Yield Loss Inspector Name Role Phone Kendrick Carpio Primary Care Physician Doctor Unassigned, [place] Attending Clinician U hamilton Muse MD, [facility] Attending Clinician HIRO MUSE [facility]. Attending Clinician Unavaila ble Allergies, Adverse Reactions, Alerts Allergy Name Allergy Type Status Severity Reaction(s) Onset Date Inactive Date Treating Clinician Comments Source NO KNOWN ALLERGIE S [facility] Social Habit Start Date Stop Date Quantity Comments Source Sex Assigned At [facility] Exposure to SARS-CoV-2 (event) Not sure [facility] History of tobacco use Cigarette Smoker [facility] Tobacco use and exposure 2020-05-30 00:00:00 2020-05-30 00:00:00 Never used [facility] Smoking Status Start Date Stop Date Source Unknown if ever smoked [facility] Current every day smoker 2020-05-30 00:00:00 [facility] Medications Ordered Medication Name Filled Medication Name Start Date Stop Date Current Medication? Ordering Clinician Indication Dosage Frequency Signature (SIG) Comments Components Source TAKE 1 TABLET EVERY MORNING. 2021-07- 00:00: 00 No ONDANSETRON HCL 4 MG TABLET 2021-07- 00:00: 00 No Dose Unknown 2021-07- 00:00: 00 No TRAZODONE 50 MG TABLET 2021-07- 00:00: 00 No Dose Unknown 2021-07-16 00:00: 00 No Dose Unknown 2021-07 216 00:00: 00 No SHAKE LIQUID AND USE 1 SPRAY IN EACH NOSTRIL TWICE DAILY 1 216 00:00: 00 No FAMOTIDINE 20 MG TABLET 1 216 00:00: 00 No DISSOLVE 1 TABLET UNDER THE TONGUE EVERY 6 HOURS NEEDED FOR PAIN 1 08-16 00:00: 00 No Dose Unknown 2021-07 00:00: 00 No TAKE 1 TABLET BY MOUTH EVERY 6 HOURS NEEDED FOR PAIN 1 08-16 00:00: 00 No DICYCLOMINE 20 MG TABLET 2021-07 00:00: 00 No Dose Unknown 2021-07 00:00: 00 No Dose Unknown 2021-07 00:00: 00 No ACETAMINOPH EN-COD #3 TABLET 2021-0 08 00:00: 00 No ACETAMINOPH EN-COD #3 TABLET 0 03-08 00:00: 00 No TAKE 1 TABLET BY MOUTH TWICE DAILY FOR 10 DAYS 2021-0 7-11 00:00: 00 No 875 TAKE 1 TABLET BY MOUTH TWICE DAILY FOR 10 DAYS 2021-0 7-11 00:00: 00 No TAKE 1 TABLET BY MOUTH FOUR TIMES DAILY 2021-0 6-21 00:00: 00 No TAKE 1 TABLET BY MOUTH TWICE DAILY 2021-0 6-21 00:00: 00 No &lt 2-0 6-21 00:00: 00 No &lt 2022-0 621 00:00: 00 No TAKE 1 TABLET BY MOUTH FOUR TIMES DAILY 2021-0 6-21 00:00: 00 No TAKE 1 TABLET BY MOUTH TWICE DAILY 2021-0 6-21 00:00: 00 No Dose Unknown 2021-0 6-21 00:00: 00 No AMLODIPINE BESYLATE 10 MG TAB 2021-0 6-21 00:00: 00 No &lt 2022-0 6-20 00:00: 00 No Dose Unknown 2021-0 620 00:00: 00 No &lt 2022-0 6-18 00:00: [...] 2022-0 6-18 00:00: 00 No &lt 2022-0 6-14 00:00: 00 No &lt 2022-0 6-14 00:00: 00 No metformin 500 mg tablet 2-0 3-17 00:00: 00 No 1mg metformin 500 mg tablet 2-0 3-17 00:00: 00 No 1mg Dose Unknown 2021-0 3-16 00:00: 00 No Dose Unknown 2021-0 3-16 00:00: 00 No amlodipine 10 mg tablet 2-0 3-16 00:00: 00 No 1mg Dose Unknown 2-0 3-16 00:00: 00 No Dose Unknown 2-0 3-16 00:00: 00 No Dose Unknown 2-0 3-16 00:00: 00 No Dose Unknown 2-0 3-16 00:00: 00 No Dose Unknown 2-0 3-16 00:00: 00 No Zoloft 100 mg tablet 2-0 3-16 00:00: 00 No 1mg amlodipine 10 mg tablet 2-0 3-16 00:00: 00 No 1mg trazodone 50 mg tablet 2-0 3-16 00:00: 00 No 1mg Dose Unknown 2-0 3-16 00:00: 00 No Dose Unknown 2-0 3-09 00:00: 00 No Dose Unknown 2-0 3-09 00:00: 00 No Dose Unknown 2022-0 3-09 00:00: 00 No Dose Unknown 2-0 3-09 00:00: 00 No Dose Unknown 2-0 3-09 00:00: 00 No Dose Unknown 2022-0 3-09 00:00: 00 No Dose Unknown 0 3- 00:00: 00 No Dose Unknown 0 3- 00:00: 00 No Zoloft 100 mg tablet 0 3- 00:00: 00 No 1mg trazodone 50 mg tablet 0 3- 00:00: 00 No 1mg ibuprofen 600 mg tablet 0 2- 00:00: 00 No 1mg Dose Unknown 2- 00:00: 00 No Dose Unknown 2- 00:00: 00 No Flonase Allergy Relief 50 mcg/actuati on nasal spray,suspe nsion 2- 00:00: 00 No 1mcg/ac tuation Dose Unknown 2- 00:00: 00 No acetaminoph en 500 mg tablet 2- 00:00: 00 No 2mg ibuprofen 600 mg tablet 2- 00:00: 00 No 1mg Flonase Allergy Relief 50 mcg/actuati on nasal spray,suspe nsion 0 2- 00:00: 00 No 1mcg/ac tuation amlodipine 10 mg tablet 2020-07 2- 00:00: 00 No 1mg Dose Unknown 2020-07 2- 00:00: 00 No Dose Unknown 2020-07 2- 00:00: 00 No amlodipine 10 mg tablet 2020-07 2- 00:00: 00 No 1mg Dose Unknown 2020-07 2- 00:00: 00 No Dose Unknown 2020-07 2- 00:00: 00 No ondansetron 4 mg disintegrat [...] 00 No 1mg amlodipine 10 mg tablet 2021-0 9-11 00:00: 00 No 1mg amlodipine 10 mg tablet 2020-0 9-11 00:00: 00 No 1mg amlodipine 10 mg tablet 0 8- 00:00: 00 No 1mg amlodipine 10 [...] No 1mg Zoloft 100 mg tablet 2020-0 5-25 00:00: 00 No 1mg trazodone 50 mg tablet 0 5-25 00:00: 00 No 1mg Zoloft 100 mg tablet 0 5-25 00:00: 00 No 1mg trazodone 50 mg tablet 2020-0 5-25 00:00: 00 No 1mg Zoloft 100 mg tablet 2020-0 4-29 00:00: 00 No 1mg Zoloft 100 mg tablet 2020-0 4-29 00:00: 00 No 1mg amlodipine 10 mg tablet 2020-0 4-27 00:00: 00 No 1mg amlodipine 10 mg tablet 2020-0 4-27 00:00: 00 No 1mg trazodone 50 mg tablet 2020-0 4-16 00:00: 00 No 1mg trazodone 50 mg tablet 2020-0 4-16 00:00: 00 No 1mg Zoloft 100 mg tablet 2020-0 4-15 00:00: 00 No 1mg Zoloft 100 mg tablet 2020-0 4-15 00:00: 00 No 1mg trazodone 50 mg tablet 2020-0 3-26 00:00: 00 No 1mg trazodone 50 mg tablet 2020-0 3-26 00:00: 00 No 1mg Zoloft 50 mg tablet 0 3-25 00:00: 00 No 1mg hydroxyzine HCl 25 mg tablet 0 3-25 00:00: 00 No 12mg Zoloft 50 mg tablet 0 3-25 00:00: 00 No 1mg hydroxyzine HCl 25 mg tablet 0 3-25 00:00: 00 No 12mg escitalopra m 20 mg tablet 0 3- 00:00: 00 No 1mg hydroxyzine HCl 25 mg tablet 0 3- 00:00: 00 No 12mg escitalopra m 20 mg tablet 0 3- 00:00: 00 No 1mg hydroxyzine HCl 25 mg tablet 0 3- 00:00: 00 No 12mg hydroxyzine HCl 25 [...] Take 10 mg by mouth daily. [facility] diclofenac 75 mg EC tablet 2019-07 15:30: 03 Yes 75mg Take 75 mg by mouth 2 (two) times daily with meals. [facility] amlodipine 10 mg tablet 2019-07 00:00: 00 No 1mg amlodipine 10 mg tablet 2020-1 0-27 00:00: 00 No 1mg mupirocin 2 % topical ointment 2019-07 0-05 00:00: 00 No 1% Norvasc 10 mg tablet 2019-07 0-05 00:00: 00 No 1mg cephalexin 500 mg capsule 2019-07 0-05 00:00: 00 No 1mg mupirocin 2 % topical ointment 2019-07 0-05 00:00: 00 No 1% Norvasc 10 mg tablet 2019-07 0- 00:00: 00 No 1mg cephalexin 500 mg capsule 2019-07 0-05 00:00: 00 No 1mg amlodipine 10 mg tablet 8 00:00: 00 No 1mg amlodipine 10 mg tablet 8 00:00: 00 No 1mg Lomotil 2.5 mg-0.025 mg tablet 6 00:00: 00 No 2mg Lomotil 2.5 mg-0.025 mg tablet 6 00:00: 00 No 2mg amlodipine 10 mg tablet 512 00:00: 00 No 1mg amlodipine 10 mg tablet 512 00:00: 00 No 1mg prednisone 10 mg tablet 5-05 00:00: 00 No mg hydroxyzine HCl 25 mg tablet 5-05 00:00: 00 No 12mg triamcinolo ne acetonide 0.5 % topical ointment 505 00:00: 00 No 1% prednisone 10 mg tablet 5-05 00:00: 00 No mg hydroxyzine HCl 25 mg tablet 5-05 00:00: 00 No 12mg triamcinolo ne acetonide 0.5 % topical ointment 505 00:00: 00 No 1% Nicoderm CQ 14 mg/24 hr daily transdermal patch -19 00:00: 00 No 1mg/24 hr Nicoderm CQ 14 mg/24 hr daily transdermal patch 19 00:00: 00 No 1mg/24 hr amlodipine 10 mg tablet -16 00:00: 00 No 1mg amlodipine 10 mg tablet -16 00:00: 00 No 1mg Nicoderm CQ 21 [...] Center Heart rate 2020-05-30 15:31:00 79 /min [facility] Respiratory rate 2020-05-30 15:29:00 19 /min [facility] Body height 2020-05-30 15:29:00 182.9 cm [facility] Body weight 2020-05-30 15:29:00 89.495 kg [facility] BMI 2020-05-30 15:29:00 26.76 kg/m2 [facility] Oxygen saturation in Arterial blood by Pulse oximetry 2020-05-30 15:29:00 97 /min [facility] BP Systolic 2022-07-18 08:15:00 116 mm[Hg] [...] - [facility] CARDIOLOGY 2020-06-14 06:01:00 Doctor Unassigned, [place] [facility] CONSENT/REFUSAL FOR DIAGNOSIS AND TREATMENT 2020-05-30 15:04:59 Doctor Unassigned, [place] [facility] Plan of Care Planned Activity Planned Date Details Comments Source Goal Plan of Care Note [code = 14225-2] Goal Plan of Care Note [code = 53280-3] Goal Plan of Care Note [code = 68277-0] Goal Plan of Care Note [code = 59525-2] Goal Plan of Care Note [code = 42809-5] Goal Plan of Care Note [code = 22449-0] Goal Plan of Care Note [code = 65722-7] Goal Plan of Care Note [code = 07528-6] Goal Plan of Care Note [code = 07479-6] Goal Plan of Care Note [code = 70167-4] Goal Plan of Care Note [code = 61662-2] Goal Plan of Care Note [code = 43964-1] Goal Plan of Care Note [code = 31440-7] Goal Plan of Care Note [code = 49034-9] Goal Plan of Care Note [code = 13290-1] Goal Plan of Care Note [code = 90576-5] Goal Plan of Care Note [code = 39342-6] Goal Plan of Care Note [code = 19066-1] Goal Plan of Care Note [code = 52183-6] Goal Plan of Care Note [code = 44527-3] Goal Plan of Care Note [code = 86184-8] Goal Plan of Care Note [code = 17643-4] Goal Plan of Care Note [code = 11448-3] Goal Plan of Care Note [code = 66296-2] Goal Plan of Care Note [code = 69833-6] Goal Plan of Care Note [code = 17671-1] Goal Plan of Care Note [code = 29470-0] Goal Plan of Care Note [code = 90156-9] Goal Plan of Care Note [code = 13904-6] Goal Plan of Care Note [code = 35689-2] Goal Plan of Care Note [code = 49369-2] Goal Plan of Care Note [code = 84189-6] Goal Plan of Care Note [code = 55675-6] Goal Plan of Care Note [code = 67227-9] Goal Plan of Care Note [code = 53632-9] Goal Plan of Care Note [code = 05153-5] Goal Plan of Care Note [code = 25070-4] Goal Plan of Care Note [code = 77337-4] Goal Plan of Care Note [code = 95041-9] Goal Plan of Care Note [code = 90733-8] Goal Plan of Care Note [code = 50568-1] Goal Plan of Care Note [code = 26328-4] Goal Plan of Care Note [code = 06629-0] Goal Plan of Care Note [code = 75855-2] Goal Plan of Care Note [code = 54997-2] Goal Plan of Care Note [code = 28277-1] Goal Plan of Care Note [code = 24124-1] Encounters Start Date/Time End Date/Time Encounter Type Admission Type Attending Clinicians Care Facility Care Department Encounter ID Source 2023-05-08 15:46:54 2023-05-08 15:46:54 Outpatient [facility] [id number] Quin[address] Castillo 2022-08-08 13:39:31 2022-08-08 13:39:31 Outpatient [facility] [id number] Quin[address] Castillo 2022-07-24 09:59:08 2022-07-24 09:59:08 Outpatient [facility] [id number] Quin[address] Castillo 2022-07-18 08:11:22 2022-07-18 08:11:22 Outpatient [facility] [id number] Quin[address] Castillo 2022-07-18 00:00:00 2022-07-18 00:00:00 Outpatient Visit [id number] 2022-03-24 00:00:00 2022-03-24 00:00:00 Outpatient Visit [id number] 2020-07-04 09:00:00 2020-07-04 09:00:00 Outpatient R [facility] [id number] [facility] 2020-06-14 00:00:00 2020-06-14 00:00:00 Orders Only Doctor Unassigned, [place] [facility] [id number] [facility] 2020-05-30 09:05:42 2020-05-30 10:23:35 Office Visit Hiro Muse [facility] [id number] [facility] 2020-05-30 09:00:00 2020-05-30 09:00:00 Outpatient R HIRO MUSE [facility] [id number] [facility] 2020-05-30 00:00:00 2020-05-30 00:00:00 Orders Only Doctor Unassigned, [place] [address]114 [id number] [id number] [id number] [facility] Results Test Description Test Time Test Comments Results Result Co mments Source LIVER (HEPATIC) FUNCTION [id number] 00:00:00* Test Item Value Reference Range Interpretation Comme nts PROTEIN, TOTAL (test code = 2229) 7.9 G/DL ALBUMIN (test code = 2201) 4.9 G/DL BILIRUBIN, TOTAL (test code = 2207) <0.2 MG/DL BILIRUBIN, DIRECT (test code = 2) <0.2 MG/DL ALKALINE PHOSPHATASE (test c ode = 2204) 86 U/L AST (test code = 2218) 27 U/L ALT (test code = 2219) 28 U/L LIVER (HEPATIC) FUNCTION [id number] 00:00:00* Test Item Value Reference Range Interpretation [...] code = 2219) 28 U/L COMPREHENSIVE METABOLIC [id number] 23:58:14* Test Item Value Reference Range Interpretation Comme nts GLUCOSE (test code = 2217) 99 MG/DL 70-99 BUN (test code = 2208) 13 MG/DL 6-20 CREATININE (test code = 2214) 1.18 MG/DL 0.80-1.40 eGFR (2020 CKD-EPI) (test code = 43560) 80 ML/MIN/1.73 >60 CALC BUN/CREAT (test code = 2235) 11 RATIO 6-28 SODIUM (test code = 2231) 141 MEQ/L 133-146 POTASSIUM (test code = 2228) 4.9 MEQ/L 3.5-5.4 CHLORIDE (test code = 2215) 104 MEQ/L 95-107 CARBON DIOXIDE (test code = 2206) 25 MEQ/L 19-31 CALCIUM (test code = 2208) 9.6 MG/DL 8.5-10.5 PROTEIN, TOTAL (test code = 2228) 7.4 G/DL 6.1-8.3 ALBUMIN (test code = 1) 4.4 G/DL 3.5-5.2 CALC GLOBULIN (test code = 0) 3.0 G/DL 1.9-3.7 CALC A/G RATIO (test [...] = 2218) 98 U/L 5-50 H LIPID [id number] 23:58:14* Test Item Value Reference Range Interpretation Comme nts CHOLESTEROL (test code = 0) 208 MG/DL <200 H TRIGLYCERIDES (test code = 2231) 88 MG/DL <150 HDL CHOLESTEROL (test code = 2219) 42 MG/DL >39 CALC LDL CHOL (test code = 2236) 147 MG/DL <100 H NOTE: CALCULATED LDL IS BASED ON KELLY-NUÑEZ METHOD WHICHINCLUDES ADJUSTABLE TRIGLYCERIDE:VLDL CHOLESTEROL RATIO.THIS FACTOR VARIES BY MEASURED TRIGLYCERIDE AND NON-HDLCHOLESTEROL CONCENTRATIONS WITH INCREASED CALCULATED LDL SEENIN HIGHER TRIGLYCERIDE OR LOWER NON-HDL SPECIMENS. FOR MOREINFORMATION, SEE CLIENT ANNOUNCEMENT AT [email or web address] RISK RATIO LDL/HDL (test code = 2237) 3.50 RATIO <3.55 UNLESS OTHERW ISE INDICATED, ALL TESTING PERFORMED [facility] [address] [place] [address] SPOOL CLEANER: FELISHA HONG M.D. CLIA NUMBER [id number] [place]. [id number] HEMOGLOBIN [id number] 04:14:02* Test Item Value Reference Range Interpretation Comme nts HEMOGLOBIN A1c (test code = 38274) 5.9 % 4.2-5.6 H COMPREHENSIVE METABOLIC [id number] 00:00:00* Test Item Value Reference Range Interpretation Comme nts GLUCOSE (test code = 2217) 99 MG/DL BUN (test code = 2208) 13 MG/DL CREATININE (test code = 2214) 1.18 MG/DL eGFR (2020 CKD-EPI) (test co de = 10003) 80 ML/MIN/1.73 CALC BUN/CREAT (test code = [...] code = 2219) 98 U/L COMPREHENSIVE METABOLIC [id number] 00:00:00* Test Item Value Reference Range Interpretation Comme nts GLUCOSE (test code = 2217) 99 MG/DL BUN (test code = 2208) 13 MG/DL CREATININE (test code = 2214) 1.18 MG/DL eGFR (2020 CKD-EPI) (test co de = 42001) 80 ML/MIN/1.73 CALC BUN/CREAT (test code = [...] (test code = 2219) 98 U/L HEMOGLOBIN [id number] 00:00:00* Test Item Value Reference Range Interpretation Comme nts HEMOGLOBIN A1c (test code = 59482) 5.9 % HEMOGLOBIN [id number] 00:00:00* Test Item Value Reference Range Interpretation Comme nts HEMOGLOBIN A1c (test code = 08210) 5.9 % HEMOGLOBIN [id number] 00:00:00* Test Item Value Reference Range Interpretation Comme nts HEMOGLOBIN A1c (test code = 81426) 5.9 % LIPID [id number] 00:00:00* Test Item Value Reference Range Interpretation Comme nts CHOLESTEROL (test code = 2210) 208 MG/DL TRIGLYCERIDES (test code = 2232) 88 MG/DL HDL CHOLESTEROL (test code = 2220) 42 MG/DL CALC LDL CHOL (test code = 2237) 147 MG/DL RISK RATIO LDL/HDL (test cod e = 2238) 3.50 RATIO LIPID [id number] 00:00:00* Test Item Value Reference Range Interpretation Comme nts CHOLESTEROL (test code = 2210) 208 MG/DL TRIGLYCERIDES (test code = 2232) 88 MG/DL HDL CHOLESTEROL (test code = 2220) 42 MG/DL CALC LDL CHOL (test code = 2237) 147 MG/DL RISK RATIO LDL/HDL (test cod e = 2238) 3.50 RATIO COMPREHENSIVE METABOLIC [id number] 00:00:00* Test Item Value Reference Range Interpretation Comme nts GLUCOSE (test code = 2217) 99 MG/DL BUN (test code = 2208) 13 MG/DL CREATININE (test code = 2214) 1.18 MG/DL eGFR (2020 CKD-EPI) (test co de = 58381) 80 ML/MIN/1.73 CALC BUN/CREAT (test code = [...] code = 2219) 98 U/L COMPREHENSIVE METABOLIC [id number] 00:00:00* Test Item Value Reference Range Interpretation Comme nts GLUCOSE (test code = 2217) 99 MG/DL BUN (test code = 2208) 13 MG/DL CREATININE (test code = 2214) 1.18 MG/DL eGFR (2020 CKD-EPI) (test co de = 30600) 80 ML/MIN/1.73 CALC BUN/CREAT (test code = [...] (test code = 2219) 98 U/L HEMOGLOBIN [id number] 00:00:00* Test Item Value Reference Range Interpretation Comme nts HEMOGLOBIN A1c (test code = 06491) 5.9 % HEMOGLOBIN [id number] 00:00:00* Test Item Value Reference Range Interpretation Comme nts HEMOGLOBIN A1c (test code = 29985) 5.9 % HEMOGLOBIN [id number] 00:00:00* Test Item Value Reference Range Interpretation Comme nts HEMOGLOBIN A1c (test code = 61405) 5.9 % LIPID [id number] 00:00:00* Test Item Value Reference Range Interpretation Comme nts CHOLESTEROL (test code = 2210) 208 MG/DL TRIGLYCERIDES (test code = 2232) 88 MG/DL HDL CHOLESTEROL (test code = 2220) 42 MG/DL CALC LDL CHOL (test code = 2237) 147 MG/DL RISK RATIO LDL/HDL (test cod e = 2238) 3.50 RATIO LIPID [id number] 00:00:00* Test Item Value Reference Range Interpretation Comme nts CHOLESTEROL (test code = 2210) 208 MG/DL TRIGLYCERIDES (test code = 2232) 88 MG/DL HDL CHOLESTEROL (test code = 2220) 42 MG/DL CALC LDL CHOL (test code = 2237) 147 MG/DL RISK RATIO LDL/HDL (test cod e = 2238) 3.50 RATIO LIPID [id number] 03:53:55* Test Item Value Reference Range Interpretation [...] SPECIMENS. FOR MOREINFORMATION, SEE CLIENT ANNOUNCEMENT AT [email or web address] RISK RATIO LDL/HDL (test code = 2238) 2.12 RATIO <3.55 COMPREHENSIVE METABOLIC [id number] 03:53:55* Test Item Value Reference Range Interpretation Comme nts GLUCOSE (test code = 2217) 107 MG/DL 70-99 H BUN (test code = 2208) 14 MG/DL 6-20 CREATININE (test code = 2214) 1.17 MG/DL 0.80-1.40 eGFR (2020 CKD-EPI) (test code = 90845) 81 ML/MIN/1.73 >60 CALC BUN/CREAT (test code = 2235) 12 RATIO 6-28 SODIUM (test code = 2230) 142 MEQ/L 133-146 POTASSIUM (test code = 8) 5.2 MEQ/L 3.5-5.4 CHLORIDE (test code = 5) 100 MEQ/L 95-107 CARBON DIOXIDE (test code = 6) 23 MEQ/L 19-31 CALCIUM (test code = 2208) 10.4 MG/DL 8.5-10.5 PROTEIN, TOTAL (test code = 2228) 8.4 G/DL 6.1-8.3 H ALBUMIN (test code = 2200) 4.6 G/DL 3.5-5.2 CALC GLOBULIN (test code = 0) 3.8 G/DL 1.9-3.7 H CALC A/G RATIO (test code = 2233) 1.2 RATIO 1.0-2.6 BILIRUBIN, TOTAL (test code = 2206) 0.2 MG/DL See_Comment [Automated me ssage] The system which generated this result transmitted reference range: <=1.2. The reference range was not used to interpret this result as normal/abnormal. ALKALINE PHOSPHATASE (test code = 2203) 98 U/L 40-117 AST (test code = 8) 27 U/L 9-50 ALT (test code = 2219) 25 U/L 5-50 UNLESS OTHERWISE INDICATED, ALL TESTING PERFORMED [facility] [address] [place] [address] SPOOL CLEANER: FELISHA HONG M.D. CLIA NUMBER [id number] [facility] [place]. [id number] HEMOGLOBIN [id number] 03:14:26* Test Item Value Reference Range Interpretation Comme [facility] HEMOGLOBIN A1c (test code = 93167) 6.1 % 4.2-5.6 H HEMOGLOBIN [id number] 00:00:00* Test Item Value Reference Range Interpretation Comme [facility] HEMOGLOBIN A1c (test code = 54998) 6.1 % HEMOGLOBIN [id number] 00:00:00* Test Item Value Reference Range Interpretation Comme [facility] HEMOGLOBIN A1c (test code = 34678) 6.1 % HEMOGLOBIN [id number] 00:00:00* Test Item Value Reference Range Interpretation Comme [facility] HEMOGLOBIN A1c (test code = 76910) 6.1 % LIPID [id number] 00:00:00* Test Item Value Reference Range Interpretation Comme nts CHOLESTEROL (test code = 2210) 274 MG/DL TRIGLYCERIDES (test code = 2232) 57 MG/DL HDL CHOLESTEROL (test code = 2220) 83 MG/DL CALC LDL CHOL (test code = 2237) 176 MG/DL RISK RATIO LDL/HDL (test cod e = 2238) 2.12 RATIO LIPID [id number] 00:00:00* Test Item Value Reference Range Interpretation Comme nts CHOLESTEROL (test code = 2210) 274 MG/DL TRIGLYCERIDES (test code = 2232) 57 MG/DL HDL CHOLESTEROL (test code = 2220) 83 MG/DL CALC LDL CHOL (test code = 2237) 176 MG/DL RISK RATIO LDL/HDL (test cod e = 2238) 2.12 RATIO COMPREHENSIVE METABOLIC [id number] 00:00:00* Test Item Value Reference Range Interpretation Comme nts GLUCOSE (test code = 2217) 107 MG/DL BUN (test code = 2208) 14 MG/DL CREATININE (test code = 2214) 1.17 MG/DL eGFR (2020 CKD-EPI) (test co de = 25481) 81 ML/MIN/1.73 CALC BUN/CREAT (test code = [...] code = 2219) 25 U/L COMPREHENSIVE METABOLIC [id number] 00:00:00* Test Item Value Reference Range Interpretation Comme nts GLUCOSE (test code = 2217) 107 MG/DL BUN (test code = 2208) 14 MG/DL CREATININE (test code = 2214) 1.17 MG/DL eGFR (2020 CKD-EPI) (test co de = 76321) 81 ML/MIN/1.73 CALC BUN/CREAT (test code = [...] (test code = 2219) 25 U/L HEMOGLOBIN [id number] 00:00:00* Test Item Value Reference Range Interpretation Comme nts HEMOGLOBIN A1c (test code = 38471) 6.1 % HEMOGLOBIN [id number] 00:00:00* Test Item Value Reference Range Interpretation Comme nts HEMOGLOBIN A1c (test code = 80677) 6.1 % HEMOGLOBIN [id number] 00:00:00* Test Item Value Reference Range Interpretation Comme nts HEMOGLOBIN A1c (test code = 47138) 6.1 % LIPID [id number] 00:00:00* Test Item Value Reference Range Interpretation Comme nts CHOLESTEROL (test code = 2210) 274 MG/DL TRIGLYCERIDES (test code = 2232) 57 MG/DL HDL CHOLESTEROL (test code = 2220) 83 MG/DL CALC LDL CHOL (test code = 2237) 176 MG/DL RISK RATIO LDL/HDL (test cod e = 2238) 2.12 RATIO LIPID [id number] 00:00:00* Test Item Value Reference Range Interpretation Comme nts CHOLESTEROL (test code = 2210) 274 MG/DL TRIGLYCERIDES (test code = 2232) 57 MG/DL HDL CHOLESTEROL (test code = 2220) 83 MG/DL CALC LDL CHOL (test code = 2237) 176 MG/DL RISK RATIO LDL/HDL (test cod e = 2238) 2.12 RATIO COMPREHENSIVE METABOLIC [id number] 00:00:00* Test Item Value Reference Range Interpretation Comme nts GLUCOSE (test code = 2217) 107 MG/DL BUN (test code = 2208) 14 MG/DL CREATININE (test code = 2214) 1.17 MG/DL eGFR (2020 CKD-EPI) (test co de = 91925) 81 ML/MIN/1.73 CALC BUN/CREAT (test code = [...] code = 2219) 25 U/L COMPREHENSIVE METABOLIC [id number] 00:00:00* Test Item Value Reference Range Interpretation Comme nts GLUCOSE (test code = 2217) 107 MG/DL BUN (test code = 2208) 14 MG/DL CREATININE (test code = 2214) 1.17 MG/DL eGFR (2020 CKD-EPI) (test co de = 35201) 81 ML/MIN/1.73 CALC BUN/CREAT (test code = [...] code = 2219) 25 U/L COMPREHENSIVE METABOLIC [id number] 00:00:00* Test Item Value Reference Range Interpretation Comme nts GLUCOSE (test code = 2217) 102 MG/DL BUN (test code = 2208) 13 MG/DL CREATININE (test code = 2214) 1.12 MG/DL eGFR AMER. (test cod e = 94475) 95 ML/MIN/1.73 eGFR NON- AMER. (test code = 68528) 82 ML/MIN/1.73 CALC BUN/CREAT (test code = [...] code = 2219) 105 U/L COMPREHENSIVE METABOLIC [id number] 00:00:00* Test Item Value Reference Range Interpretation Comme nts GLUCOSE (test code = 2217) 102 MG/DL BUN (test code = 2208) 13 MG/DL CREATININE (test code = 2214) 1.12 MG/DL eGFR AMER. (test cod e = 54207) 95 ML/MIN/1.73 eGFR NON- AMER. (test code = 49752) 82 ML/MIN/1.73 CALC BUN/CREAT (test code = [...] (test code = 2219) 105 U/L LIPID [id number] 00:00:00* Test Item Value Reference Range Interpretation Comme nts CHOLESTEROL (test code = 2210) 218 MG/DL TRIGLYCERIDES (test code = 2232) 76 MG/DL HDL CHOLESTEROL (test code = 2220) 66 MG/DL CALC LDL CHOL (test code = 2237) 135 MG/DL RISK RATIO LDL/HDL (test cod e = 2238) 2.05 RATIO LIPID [id number] 00:00:00* Test Item Value Reference Range Interpretation Comme nts CHOLESTEROL (test code = 2210) 218 MG/DL TRIGLYCERIDES (test code = 2232) 76 MG/DL HDL CHOLESTEROL (test code = 2220) 66 MG/DL CALC LDL CHOL (test code = 2237) 135 MG/DL RISK RATIO LDL/HDL (test cod e = 2238) 2.05 RATIO COMPREHENSIVE METABOLIC [id number] 00:00:00* Test Item Value Reference Range Interpretation Comme nts GLUCOSE (test code = 2217) 102 MG/DL BUN (test code = 2208) 13 MG/DL CREATININE (test code = 2214) 1.12 MG/DL eGFR AMER. (test cod e = 30698) 95 ML/MIN/1.73 eGFR NON- AMER. (test code = 96423) 82 ML/MIN/1.73 CALC BUN/CREAT (test code = [...] code = 2219) 105 U/L COMPREHENSIVE METABOLIC [id number] 00:00:00* Test Item Value Reference Range Interpretation Comme nts GLUCOSE (test code = 2217) 102 MG/DL BUN (test code = 2208) 13 MG/DL CREATININE (test code = 2214) 1.12 MG/DL eGFR AMER. (test cod e = 94390) 95 ML/MIN/1.73 eGFR NON- AMER. (test code = 86737) 82 ML/MIN/1.73 CALC BUN/CREAT (test code = [...] (test code = 2219) 105 U/L LIPID [id number] 00:00:00* Test Item Value Reference Range Interpretation Comme nts CHOLESTEROL (test code = 2210) 218 MG/DL TRIGLYCERIDES (test code = 2232) 76 MG/DL HDL CHOLESTEROL (test code = 2220) 66 MG/DL CALC LDL CHOL (test code = 2237) 135 MG/DL RISK RATIO LDL/HDL (test cod e = 2238) 2.05 RATIO LIPID [id number] 00:00:00* Test Item Value Reference Range Interpretation Comme nts CHOLESTEROL (test code = 2210) 218 MG/DL TRIGLYCERIDES (test code = 2232) 76 MG/DL HDL CHOLESTEROL (test code = 2220) 66 MG/DL CALC LDL CHOL (test code = 2237) 135 MG/DL RISK RATIO LDL/HDL (test cod e = 2238) 2.05 RATIO HEMOGLOBIN [id number] 00:00:00* Test Item Value Reference Range Interpretation Comme nts HEMOGLOBIN A1c (test code = 78967) 6.1 % HEMOGLOBIN [id number] 00:00:00* Test Item Value Reference Range Interpretation Comme nts HEMOGLOBIN A1c (test code = 36475) 6.1 % HEMOGLOBIN [id number] 00:00:00* Test Item Value Reference Range Interpretation Comme nts HEMOGLOBIN A1c (test code = 21201) 6.1 % HEMOGLOBIN [id number] 00:00:00* Test Item Value Reference Range Interpretation Comme nts HEMOGLOBIN A1c (test code = 75696) 6.1 % HEMOGLOBIN [id number] 00:00:00* Test Item Value Reference Range Interpretation Comme nts HEMOGLOBIN A1c (test code = 46012) 6.1 % HEMOGLOBIN [id number] 00:00:00* Test Item Value Reference Range Interpretation Comme nts HEMOGLOBIN A1c (test code = 11199) 6.1 % COMPREHENSIVE METABOLIC [id number] 00:00:00* Test Item Value Reference Range Interpretation Comme nts GLUCOSE (test code = 2217) 103 MG/DL BUN (test code = 2208) 13 MG/DL CREATININE (test code = 2214) 1.09 MG/DL eGFR AMER. (test cod e = 61329) 99 ML/MIN/1.73 eGFR NON- AMER. (test code = 06514) 85 ML/MIN/1.73 CALC BUN/CREAT (test code = [...] code = 2219) 44 U/L COMPREHENSIVE METABOLIC [id number] 00:00:00* Test Item Value Reference Range Interpretation Comme nts GLUCOSE (test code = 2217) 103 MG/DL BUN (test code = 2208) 13 MG/DL CREATININE (test code = 2214) 1.09 MG/DL eGFR AMER. (test cod e = 37249) 99 ML/MIN/1.73 eGFR NON- AMER. (test code = 99563) 85 ML/MIN/1.73 CALC BUN/CREAT (test code = [...] (test code = 2219) 44 U/L LIPID [id number] 00:00:00* Test Item Value Reference Range Interpretation Comme nts CHOLESTEROL (test code = 2210) 223 MG/DL TRIGLYCERIDES (test code = 2232) 75 MG/DL HDL CHOLESTEROL (test code = 2220) 74 MG/DL CALC LDL CHOL (test code = 2237) 132 MG/DL RISK RATIO LDL/HDL (test cod e = 2238) 1.78 RATIO LIPID [id number] 00:00:00* Test Item Value Reference Range Interpretation Comme nts CHOLESTEROL (test code = 2210) 223 MG/DL TRIGLYCERIDES (test code = 2232) 75 MG/DL HDL CHOLESTEROL (test code = 2220) 74 MG/DL CALC LDL CHOL (test code = 2237) 132 MG/DL RISK RATIO LDL/HDL (test cod e = 2238) 1.78 RATIO COMPREHENSIVE METABOLIC [id number] 00:00:00* Test Item Value Reference Range Interpretation Comme nts GLUCOSE (test code = 2217) 103 MG/DL BUN (test code = 2208) 13 MG/DL CREATININE (test code = 2214) 1.09 MG/DL eGFR AMER. (test cod e = 29295) 99 ML/MIN/1.73 eGFR NON- AMER. (test code = 99848) 85 ML/MIN/1.73 CALC BUN/CREAT (test code = [...] code = 2219) 44 U/L COMPREHENSIVE METABOLIC [id number] 00:00:00* Test Item Value Reference Range Interpretation Comme nts GLUCOSE (test code = 2217) 103 MG/DL BUN (test code = 2208) 13 MG/DL CREATININE (test code = 2214) 1.09 MG/DL eGFR AMER. (test cod e = 82323) 99 ML/MIN/1.73 eGFR NON- AMER. (test code = 42470) 85 ML/MIN/1.73 CALC BUN/CREAT (test code = 2235) 12 RATIO SODIUM (test code = 2231) 141 MEQ/L POTASSIUM (test code = 2228) 4.8 MEQ/L CHLORIDE (test code = 2215) 104 MEQ/L CARBON DIOXIDE (test code = 2206) 28 MEQ/L CALCIUM (test code = 2209) 10.2 MG/DL PROTEIN, TOTAL (test code = 222) 7.6 G/DL ALBUMIN (test code = 220) 4.5 G/DL CALC GLOBULIN (test code = 2240) 3.1 G/DL CALC A/G RATIO (test code = 2234) 1.5 RATIO BILIRUBIN, TOTAL (test code = 220) <0.2 MG/DL ALKALINE PHOSPHATASE (test code = 2204) 66 U/L AST (test code = 2218) 26 U/L ALT (test code = 2219) 44 U/L LIPID [id number] 00:00:00* Test Item Value Reference Range Interpretation Comme nts CHOLESTEROL (test code = 2210) 223 MG/DL TRIGLYCERIDES (test code = 2232) 75 MG/DL HDL CHOLESTEROL (test code = 2220) 74 MG/DL CALC LDL CHOL (test code = 2237) 132 MG/DL RISK RATIO LDL/HDL (test cod e = 2238) 1.78 RATIO LIPID [id number] 00:00:00* Test Item Value Reference Range Interpretation Comme nts CHOLESTEROL (test code = 2210) 223 MG/DL TRIGLYCERIDES (test code = 2232) 75 MG/DL HDL CHOLESTEROL (test code = 2220) 74 MG/DL CALC LDL CHOL (test code = 2237) 132 MG/DL RISK RATIO LDL/HDL (test cod e = 2238) 1.78 RATIO
--- NOTE | 2024-02-05 20:55 | RAD REPORT ---
EXAM DESCRIPTION: CT - Head Brain Wo Cont - 02/05/2024 8:45 pm CLINICAL HISTORY: HEADACHE COMPARISON: Head Brain Wo Cont dated 07/13/2023 TECHNIQUE: All CT scans are performed using dose optimization technique as appropriate and may inclu de automated exposure control or mA/KV adjustment according to patient size. FINDINGS: No intracranial hemorrhage, hydrocephalus or extra-axial fluid collection.No areas of brai n edema or evidence of midline shift. The paranasal sinuses and mastoids are clear. The calvarium is intact. IMPRESSION: No acute intracranial abnormality.
--- NOTE | 2024-02-05 22:43 | ER ---
Nurse's Notes [facility] Name: Akhil Hidalgo Age: 43 yrs Sex: Male : 1980 Arrival Date: 02/05/2024 Time: 18:58 Bed IW1 Private MD: Diagnosis: Low back pain;Headache Presentation: 02/04 19:32 Chief complaint: Patient states: Left lower back pain onset 8 days ago. Pt reports that cm10 he has also been having headaches for the same amount of time. Pt states that with his headaches he has been having some confusion. Pt A\T\Ox4. Coronavirus screen: Client denies travel out of the [place] in the last 14 days. At this time, the client does not indicate any symptoms associated with coronavirus-19. Ebola Screen: Patient denies travel to an Ebola-affected area in the 21 days before illness onset. No symptoms or risks identified at this time. Initial Sepsis Screen: Does the patient meet any 2 criteria? No. Patient's initial sepsis screen is negative. Does the patient have a suspected source of infection? No. Patient's initial sepsis screen is negative. Risk Assessment: Do you want to hurt yourself or someone else? Patient reports no desire to harm self or others. Onset of symptoms was February 05, 2024. 19:32 Method Of Arrival: Ambulatory 10 19:32 Acuity: MARIANGEL 3 cm10 Triage Assessment: 19:34 General: Appears in no apparent distress. comfortable, Behavior is calm, cooperative. cm10 Neuro: No deficits noted. Level of Consciousness is awake, alert, obeys commands, Oriented to person, place, time, situation, Appropriate for age. Respiratory: No deficits noted. Airway is patent Respiratory effort is even, unlabored, Respiratory pattern is regular, symmetrical. Historical: - Allergies: 19:34 Lisinopril; cm10 - PMHx: 19:34 Anxiety; diabetes mellitus; Hypercholesterolemia; Hypertension; cm10 - Immunization history:: Adult Immunizations up to date. - Infectious Disease History:: Denies. - Social history:: Smoking status: unknown. Vital Signs: 19:32 BP 126 / 80; Pulse 80; Resp 16; Temp 97.2; Pulse Ox 99% on R/A; Weight 85.73 kg; Height cm10 6 ft. 0 in. ; Pain 8/10; 19:32 Body Mass Index 25.63 (85.73 kg, 182.88 cm) cm10 19:32 Pain Scale: Adult cm10 ED Course: 19:19 Patient arrived in ED. cm10 19:31 [facility] kb 19:31 Yovany Manning MD is Attending Physician. kb 19:34 Triage completed. cm10 19:34 Arm band placed on Patient placed in waiting room. cm10 20:47 CT Head Brain wo Cont In Process Unspecified. EDMS 22:34 Patient's name was called from ER lobby. No response. cm10 Administered Medications: No medications were administered Outcome: 22:42 Discharge ordered by MD. kb 23:02 Discharged to home ambulatory, jb4 23:02 Condition: stable 23:02 Discharge instructions given to Pt left prior to receiving discharge instructions. 23:03 Patient left the ED. jb4 Signatures: Dispatcher [employer] EDIL Marce Yan FNP-C FNP-Ckb Bryson, James, RN RN jb4 Kathy Vasquez, RN RN cm10
--- NOTE | 2024-02-05 22:43 | EDPHYS ---
Physician Documentation [facility] Name: Akhil Hidalgo Age: 43 yrs Sex: Male : 1980 Arrival Date: 02/05/2024 Time: 18:58 Bed IW1 Private MD: ED Physician Yovany Manning HPI: 02/04 23:03 This 43 yrs old Black Male presents to ER via Ambulatory with complaints of Back Pain. kb 23:03 Patient is a 43-year-old male who presents for left low back pain that started 8 to 9 kb days ago. States he also been having headaches intermittently that make him seem confused. Denies urinary symptoms, fever, nausea, vomiting, diarrhea, injury or trauma. States pain does not radiate. Denies numbness or tingling. Pain aggravated by certain positions or movements.. Historical: - Allergies: 19:34 Lisinopril; cm10 - PMHx: 19:34 Anxiety; diabetes mellitus; Hypercholesterolemia; Hypertension; cm10 - Immunization history:: Adult Immunizations up to date. - Infectious Disease History:: Denies. - Social history:: Smoking status: unknown. ROS: 23:04 Constitutional: As per HPI kb Exam: 23:04 Constitutional: This is a well developed, well nourished patient who is awake, alert, kb and in no acute distress. Head/Face: Normocephalic, atraumatic. ENT: Moist Mucous membranes Cardiovascular: Regular rate Respiratory: Respirations even and unlabored. No increased work of breathing. Talking in full sentences Abdomen/GI: Soft, non-tender. No distention Skin: Warm, dry with normal turgor. Normal color. MS/ Extremity: Pulses equal, no cyanosis. Neurovascular intact. Full, normal range of motion. Neuro: Awake and alert, GCS 15, oriented to person, place, time, and situation. Moves all extremities. Normal gait. 23:04 Back: pain, that is moderate, of the left low back, Vital Signs: 19:32 BP 126 / 80; Pulse 80; Resp 16; Temp 97.2; Pulse Ox 99% on R/A; Weight 85.73 kg; Height cm10 6 ft. 0 in. ; Pain 8/10; 19:32 Body Mass Index 25.63 (85.73 kg, 182.88 cm) cm10 19:32 Pain Scale: Adult cm10 MDM: 19:31 Patient medically screened. kb 23:05 Differential diagnosis: strain, sciatica, Herniated disc UTI. Data reviewed: vital kb signs, nurses notes. Counseling: I had a detailed discussion with the patient and/or guardian regarding the historical points, exam findings, and any diagnostic results supporting the discharge/admit diagnosis, radiology results, the need for outpatient follow up, a family practitioner, to return to the emergency department if symptoms worsen or persist or if there are any questions or concerns that arise at home. 02/04 19:33 Order name: CT Head Brain wo Cont; Complete Time: 20:57 kb Administered Medications: No medications were administered Disposition Summary: 02/05/24 22:42 Discharge Ordered Notes: Location: Home kb Condition: Stable kb Diagnosis - Low back pain kb - Headache kb Followup: kb - With: Emergency Department - When: As needed - Reason: Worsening of condition Followup: kb - With: Private Physician - When: 2 - 3 days - Reason: Recheck today's complaints, Continuance of care, Re-evaluation by your physician Discharge Instructions: - Discharge Summary Sheet kb - Acute Back Pain, Adult kb - General Headache Without Cause, [id number] kb Forms: - Medication Reconciliation Form kb - Antibiotic Education kb - Prescription Opioid Use kb - Patient Portal Instructions kb - Leadership Thank You Letter kb Signatures: Dispatcher [employer] Marce Nick, NUT ROASTER-C NUT ROASTER-Kathy Wakefield, RN RN cm10
[2024-02-06 00:48] VITALS: BP 126/80; TEMP 97.2; O2SAT 99
== END 2024-02-05 23:03 | disposition home or self-care (01) ==
LOC: ER 18:58
DX: M54.50 Low back pain, unspecified (principal); R51.9 Headache, unspecified
CPT/HCPCS: 70450

== ENCOUNTER 2024-06-08 09:56 | Emergency (ER) | payer SELFPAY ==
--- OUTSIDE RECORDS SUMMARY | 2024-06-08 10:08 | XMS REPORT | Continuity of Care Document ---
Author Name Unknown Address [address] [facility]. [address] [place] [address] [facility] thconnect Address [address] [facility] [address] [place] [address] Care Team Providers Care Ent Consultant Name Role Phone Ruby Augustine Primary Care Physician Doctor Unassigned, [place] Attending Clinician U hamilton Muse MD, Sendil K.[facility]. Attending Clinician [phone] HIRO MUSE K.[facility]. Attending Clinician Unavaila ble Allergies, Adverse Reactions, Alerts Allergy Name Allergy Type Status Severity Reaction(s) Onset Date Inactive Date Treating Clinician Comments Source NO KNOWN ALLERGIE S Drug Class Active [facility] Social History Social Habit Start Date Stop Date Quantity Comments Source Sex Assigned At [facility] Exposure to SARS-CoV-2 (event) Not sure [facility] History of tobacco use Cigarette Smoker [facility] Tobacco use and exposure 2020-05-30 00:00:00 2020-05-30 00:00:[address] [facility] Smoking Status Start Date Stop Date Source Unknown if ever smoked [facility] Current every day smoker 2020-05-30 00:00:00 [facility] Medications Ordered Medication Name Filled Medication Name Start Date Stop Date Current Medication? Ordering Clinician Indication Dosage Frequency Signature (SIG) Comments Components Source prednisone 50 mg tablet 02-05 00:00: 00 Yes 1mg Quincyradha Castillo cyclobenzap rine 10 mg tablet 02-05 00:00: 00 Yes 1mg Quincy Castillo TAKE 1 TABLET DAILY. 02-28 00:00: 00 10-03 00:00 :00 No 10 Quincy F Jonathan TAKE 1 TABLET DAILY. 8 00:00: 00 10-03 00:00 :00 No 10 Quincy Castillo TAKE 1 TABLET EVERY MORNING. 02-28 00:00: 00 10-03 00:00 :00 No 5 Quincy Castillo TAKE 1 TABLET DAILY IN THE EVENING. 02-28 00:00: 00 10-03 00:00 :00 No 5 Quincy Castillo AMLODIPINE 5MG 4-24 00:00: 00 10-03 00:00 :00 No 5 Quincy Castillo CYCLOBENZAP R 10MG 2- 00:00: 00 Yes 10 Quincy Castillo FOLLOW PACKAGE DIRECTIONS 2- 00:00: 00 Yes 4 Quincy Castillo TAKE 5 ML EVERY 4 TO 6 HOURS NEEDED. 2-08 00:00: 00 10-03 00:00 :00 No [id number] Quincy Castillo TAKE 2 TABLETS ON DAY 1 THEN TAKE 1 TABLET A DAY FOR 4 DAYS. 2-08 00:00: 00 10-03 00:00 :00 No 250 Quincy Castillo TAKE 1 TABLET DAILY. 2-08 00:00: 00 10-03 00:00 :00 No 20 Quincy Castillo 1 CAP EVERY 8 HOURS NEEDED FOR COUGH 2-08 00:00: 00 10-03 00:00 :00 No 200 Quincy Castillo TAKE 1 TABLET DAILY. 1-24 00:00: 00 10-03 00:00 :00 No 500 Quincy Castillo ROSUVASTATI N 5MG 1-23 00:00: 00 Yes Quincy Shannan Castillo TAKE 1 TABLET BY MOUTH EVERY DAY 1-22 00:00: 00 10-03 00:00 :00 No 5 Quincyradha Castillo TAKE 1 TABLET EVERY MORNING. 1-18 00:00: 00 10-03 00:00 :00 No 5 Quincyradha Castillo Dose Unknown 2021-07 2-16 00:00: 00 Yes Quincy Castillo TAKE 1 TABLET BY MOUTH EVERY 6 HOURS NEEDED FOR PAIN 2021-07 2-16 00:00: 00 Yes Quincyradha Castillo DICYCLOMINE 20 MG TABLET 2021-07 2-16 00:00: 00 Yes Quincy Castillo Dose Unknown 2021-07 2-16 00:00: 00 Yes Quincy Castillo Dose Unknown 2021-07 2-16 00:00: 00 Yes Quincy Shannan Castillo TAKE 1 TABLET EVERY MORNING. 2021-07 2-16 00:00: 00 No ONDANSETRON HCL 4 MG TABLET 2021-07 2-16 00:00: 00 No Dose Unknown 2021-07 2-16 00:00: 00 No TRAZODONE 50 MG TABLET 2021-07 2-16 00:00: 00 No Dose Unknown 2021-07 2- 00:00: 00 No Dose Unknown 2021-07 2-16 00:00: 00 No SHAKE LIQUID AND USE 1 SPRAY IN EACH NOSTRIL TWICE DAILY 2021-07 2-16 00:00: 00 No FAMOTIDINE 20 MG TABLET 2021-07 2- 00:00: 00 No DISSOLVE 1 TABLET UNDER THE TONGUE EVERY 6 HOURS NEEDED FOR PAIN 2021-07 2- 00:00: 00 No Dose Unknown 2021-07 2-16 00:00: 00 No TAKE 1 TABLET BY MOUTH EVERY 6 HOURS NEEDED FOR PAIN 2021-07 2- 00:00: 00 No DICYCLOMINE 20 MG TABLET 2021-07 2-16 00:00: 00 No Dose Unknown 2021-07 2-16 00:00: 00 No Dose Unknown 2021-07 2-16 00:00: 00 No ONDANSETRON HCL 4 MG TABLET 2021-07 2-16 00:00: 00 Yes Quincy Castillo Dose Unknown 2021-07 2-16 00:00: 00 Yes Quincy Shannan Jonathan TRAZODONE 50 MG TABLET 2021-07 2-16 00:00: 00 Yes Quincy Shannan Castillo Dose Unknown 2021-07 2-16 00:00: 00 Yes Quincy Shannan Jonathan SHAKE LIQUID AND USE 1 SPRAY IN EACH NOSTRIL TWICE DAILY 2021-07 2-16 00:00: 00 Yes Quincy Castillo FAMOTIDINE 20 MG TABLET 2021-07 2-16 00:00: 00 Yes Quincy Castillo DISSOLVE 1 TABLET UNDER THE TONGUE EVERY 6 HOURS NEEDED FOR PAIN 2021-07 2-16 00:00: 00 Yes Quincy Castillo TAKE 1 TABLET EVERY MORNING. 2021-07 216 00:00: 00 10-03 00:00 :00 No Quincy Castillo Dose Unknown 2021-07 216 00:00: 00 10-03 00:00 :00 No Quincy Castillo TAKE 1 TABLET BY MOUTH AT BEDTIME NEEDED FOR DIFFICULTY SLEEPING 2021-07-24 00:00: 00 Yes Quincy Castillo TAKE 1 TABLET BY MOUTH DAILY 2021-0724 00:00: 00 Yes Quincy Castillo TAKE 1 TABLET BY MOUTH DAILY 2021-07 0 00:00: 00 Yes Quincy Castillo TAKE 1 TABLET BY MOUTH AT BEDTIME NEEDED FOR DIFFICULTY SLEEPING 2021-07 0 00:00: 00 Yes Quincy Castillo ACETAMINOPH EN-COD #3 TABLET 908 00:00: 00 Yes Quincy Castillo ACETAMINOPH EN-COD #3 TABLET 08 00:00: 00 No ACETAMINOPH EN-COD #3 TABLET 908 00:00: 00 No TAKE 1 TABLET BY MOUTH TWICE DAILY FOR 10 DAYS 0 - 00:00: 00 Yes Quincy Castillo TAKE 1 TABLET BY MOUTH TWICE DAILY FOR 10 DAYS 0 - 00:00: 00 No 875 TAKE 1 TABLET BY MOUTH TWICE DAILY FOR 10 DAYS 0 01-08 00:00: 00 No TAKE 1 TABLET BY MOUTH FOUR TIMES DAILY 0 12-19 00:00: 00 Yes Quincy Castillo TAKE 1 TABLET BY MOUTH TWICE DAILY 0 12-19 00:00: 00 Yes Quincy Castillo Dose Unknown 12-19 00:00: 00 Yes Quincy Castillo AMLODIPINE BESYLATE 10 MG TAB 12-19 00:00: 00 Yes Quincy Castillo TAKE 1 TABLET BY MOUTH FOUR TIMES DAILY 0 12-19 00:00: 00 No TAKE 1 TABLET BY MOUTH TWICE DAILY 0 12-19 00:00: 00 No &lt 0 - 00:00: 00 No &lt 0 6-21 00:00: 00 No TAKE 1 TABLET BY MOUTH FOUR TIMES DAILY 2021-0 621 00:00: 00 No TAKE 1 TABLET BY MOUTH TWICE DAILY 2021-0 21 00:00: 00 No Dose Unknown 0 12-19 00:00: 00 No AMLODIPINE BESYLATE 10 MG TAB 0 12-19 00:00: 00 No Dose Unknown 0 20 00:00: 00 Yes Quincy Castillo &lt 2021-0 620 00:00: 00 No Dose Unknown 0 20 00:00: 00 No &lt 2021-0 18 00:00: 00 Yes Quincy Campbell Jonathan &lt 2021-0 618 00:00: 00 Yes Quincy Campbell Jonathan &lt 2021-0 18 00:00: 00 Yes Quincy Shannan Jonathan SHAKE LIQUID AND USE 1 SPRAY IN EACH NOSTRIL TWICE DAILY 2021-0 18 00:00: 00 Yes Quincy Shannan Jonathan TAKE 1 TABLET BY MOUTH EVERY NIGHT 2021-0 18 00:00: 00 Yes Quincy Shannan Jonathan &lt 2021-0 618 00:00: 00 No &lt 2-0 618 00:00: 00 No &lt 2-0 618 00:00: 00 No SHAKE LIQUID AND USE 1 SPRAY IN EACH NOSTRIL TWICE DAILY 2021-0 -18 00:00: 00 No TAKE 1 TABLET BY MOUTH EVERY NIGHT 2021-0 18 00:00: 00 No &lt 2-0 618 00:00: 00 No &lt 2-0 618 00:00: 00 No &lt 2-0 618 00:00: 00 No SHAKE LIQUID AND USE 1 SPRAY IN EACH NOSTRIL TWICE DAILY 2021-0 -18 00:00: 00 No TAKE 1 TABLET BY MOUTH EVERY NIGHT 2021-0 18 00:00: 00 No &lt 2-0 6-14 00:00: 00 Yes Quincy Campbell Jonathan &lt 2021-0 6-14 00:00: 00 No &lt 2-0 614 00:00: 00 No TAKE 1 TABLET BY MOUTH TWICE DAILY FOR 10 DAYS 2021-0 6-06 00:00: 00 Yes Quincy Castillo metformin 500 mg tablet 2-0 3-17 00:00: 00 Yes 1mg Quincy Castillo metformin 500 mg tablet 2-0 3-17 00:00: 00 No 1mg metformin 500 mg tablet 2022-0 3-17 00:00: 00 No 1mg amlodipine 10 mg tablet 2022-0 3-16 00:00: 00 Yes 1mg Quincy Castillo Dose Unknown 2022-0 3-16 00:00: 00 Yes Quincy Castillo Dose Unknown 2022-0 3-16 00:00: 00 Yes Quincy Castillo Dose Unknown 2022-0 3-16 00:00: 00 Yes Quincy Castillo Dose Unknown 2022-0 3-16 00:00: 00 Yes Quincy Castillo Dose Unknown 2022-0 3-16 00:00: 00 Yes Quincy Castillo Dose Unknown 2022-0 3-16 00:00: 00 No Dose Unknown 2022-0 3-16 00:00: 00 No amlodipine 10 mg [...] No Dose Unknown 2022-0 3-09 00:00: 00 Yes Quincy Castillo Dose Unknown 2022-0 3-09 00:00: 00 Yes Quincy Castillo Dose Unknown 2022-0 3-09 00:00: 00 Yes Quincy Castillo Dose Unknown 2022-0 3-09 00:00: 00 No Dose Unknown 2022-0 3-09 00:00: 00 No Dose Unknown 2022-0 3-09 00:00: 00 No Dose Unknown 2022-0 3-09 00:00: 00 No Dose Unknown 2022-0 3- 00:00: 00 No Dose Unknown 0 3- 00:00: 00 No Dose Unknown 0 3- 00:00: 00 Yes Quincy Castillo Dose Unknown 0 3- 00:00: 00 Yes Quincy Castillo Dose Unknown 0 3- 00:00: 00 No Dose Unknown 0 3- 00:00: 00 No Zoloft 100 mg tablet 0 3- 00:00: 00 No 1mg trazodone 50 mg tablet 0 3- 00:00: 00 No 1mg ibuprofen 600 mg tablet 0 2- 00:00: 00 Yes 1mg Quincy Castillo Dose Unknown 2- 00:00: 00 Yes Quincy Castillo Dose Unknown 2 00:00: 00 Yes Quincy Castillo Flonase Allergy Relief 50 mcg/actuati on nasal spray,suspe nsion 0 2- 00:00: 00 Yes 1mcg/ac tuation Quincy Castillo ibuprofen 600 mg tablet 2 00:00: 00 No 1mg Dose Unknown 0 2- 00:00: 00 No Dose Unknown 0 2 00:00: 00 No Flonase Allergy Relief 50 mcg/actuati on nasal spray,suspe nsion 0 2 00:00: 00 No 1mcg/ac tuation Dose Unknown 0 2- 00:00: 00 No acetaminoph en 500 mg tablet 0 2- 00:00: 00 No 2mg ibuprofen 600 mg tablet 0 2 00:00: 00 No 1mg Flonase Allergy Relief 50 mcg/actuati on nasal spray,suspe nsion 0 2 00:00: 00 No 1mcg/ac tuation amlodipine 10 mg tablet 2020-07 2- 00:00: 00 Yes 1mg Quincy Castillo Dose Unknown 2020-07 2- 00:00: 00 Yes Quincy Castillo Dose Unknown 2020-07 2- 00:00: 00 Yes Quincy Castillo amlodipine 10 mg tablet 2020-07 2-10 00:00: 00 No 1mg Dose Unknown 2020-07 2-10 00:00: 00 No Dose Unknown 2020-07 2-10 00:00: 00 No amlodipine 10 mg tablet 2020-07 2-10 00:00: 00 No 1mg Dose Unknown 2020-07 2-10 00:00: 00 No Dose Unknown 2020-07 2-10 00:00: 00 No ondansetron 4 mg disintegrat ing tablet 2020-07 0-14 00:00: 00 Yes 1mg Quincy Castillo famotidine 20 mg tablet 2020-07 0-14 00:00: 00 Yes 1mg Quincy Castillo dicyclomine 20 mg tablet 2020-07 0-14 00:00: 00 Yes 1mg Quincy Castillo ondansetron 4 mg disintegrat ing tablet 2020-07 [...] 00 No 1mg amlodipine 10 mg tablet 9-11 00:00: 00 Yes 1mg Quincy Castillo amlodipine 10 mg tablet 9-11 00:00: 00 No 1mg amlodipine 10 mg tablet 9-11 00:00: 00 No 1mg amlodipine 10 mg tablet 8- 00:00: 00 Yes 1mg Quincy Castillo amlodipine 10 mg tablet 8- 00:00: 00 No 1mg amlodipine 10 mg tablet 8- 00:00: 00 No 1mg Zoloft 100 mg tablet 7-20 00:00: 00 Yes 1mg Quincy Castillo buspirone 7.5 mg tablet 0 7-20 00:00: 00 Yes 1mg Quincy Castillo trazodone 50 mg tablet 2021-0 7-20 00:00: 00 Yes 1mg Quincy Castillo Zoloft 100 mg tablet 0 7-20 00:00: 00 No 1mg buspirone 7.5 mg tablet 0 7-20 00:00: 00 No 1mg trazodone 50 mg tablet 0 7 00:00: 00 No 1mg Zoloft 100 mg tablet 0 7 00:00: 00 No 1mg buspirone 7.5 mg tablet 0 7 00:00: 00 No 1mg trazodone 50 mg tablet 0 7 00:00: 00 No 1mg Zoloft 100 mg tablet 0 525 00:00: 00 Yes 1mg Qunicy Castillo trazodone 50 mg tablet 0 5- 00:00: 00 Yes 1mg Quincy Castillo Zoloft 100 mg tablet 0 5- 00:00: 00 No 1mg trazodone 50 mg tablet 0 5- 00:00: 00 No 1mg Zoloft 100 mg tablet 0 5 00:00: 00 No 1mg trazodone 50 mg tablet 0 5-25 00:00: 00 No 1mg Zoloft 100 mg tablet 0 4- 00:00: 00 Yes 1mg Quincy Castillo Zoloft 100 mg tablet 0 4-29 00:00: 00 No 1mg Zoloft 100 mg tablet 0 4-29 00:00: 00 No 1mg amlodipine 10 mg tablet 0 4-27 00:00: 00 Yes 1mg Quincy Castillo amlodipine 10 mg tablet 0 4-27 00:00: 00 No 1mg amlodipine 10 mg tablet 0 4-27 00:00: 00 No 1mg trazodone 50 mg tablet 0 4-16 00:00: 00 Yes 1mg Quincy Castillo trazodone 50 mg tablet 0 4-16 00:00: 00 No 1mg trazodone 50 mg tablet 2020-0 4-16 00:00: 00 No 1mg Zoloft 100 mg tablet 0 4-15 00:00: 00 Yes 1mg Quincy Castillo Zoloft 100 mg tablet 2020-0 4-15 00:00: 00 No 1mg Zoloft 100 mg tablet 2020-0 4-15 00:00: 00 No 1mg trazodone 50 mg tablet 2020-0 3-26 00:00: 00 Yes 1mg Quincy Castillo trazodone 50 mg tablet 2020-0 3-26 00:00: 00 No 1mg trazodone 50 mg tablet 2020-0 3-26 00:00: 00 No 1mg Zoloft 50 mg tablet 2020-0 3-25 00:00: 00 Yes 1mg Quincy Castillo hydroxyzine HCl 25 mg tablet 2020-0 3-25 00:00: 00 Yes 12mg Quincy Castillo Zoloft 50 mg tablet 0 3-25 00:00: 00 No 1mg hydroxyzine HCl 25 mg tablet 2020-0 3-25 00:00: 00 No 12mg Zoloft 50 mg tablet 2020-0 3-25 00:00: 00 No 1mg hydroxyzine HCl 25 mg tablet 2020-0 3-25 00:00: 00 No 12mg escitalopra m 20 mg tablet 2020-0 3-04 00:00: 00 Yes 1mg Quincy Castillo hydroxyzine HCl 25 mg tablet 2020-0 3-04 00:00: 00 Yes 12mg Quincy Castillo escitalopra m 20 mg tablet 2020-0 3-04 00:00: 00 No 1mg hydroxyzine HCl 25 mg tablet 2020-0 3-04 00:00: 00 No 12mg escitalopra m 20 mg tablet 2020-0 3-04 00:00: 00 No 1mg hydroxyzine HCl 25 mg tablet 2020-0 3-04 00:00: 00 No 12mg hydroxyzine HCl 25 mg tablet 2020-0 2-19 00:00: 00 Yes 12mg Quincy Castillo escitalopra m 10 mg tablet 2020-0 2-19 00:00: 00 Yes 1mg Quincy Castillo hydroxyzine HCl 25 mg tablet 2020-0 2-19 00:00: 00 No 12mg escitalopra m 10 mg tablet 2020-0 2-19 00:00: 00 No 1mg hydroxyzine HCl 25 mg tablet 2- 00:00: 00 No 12mg escitalopra m 10 mg tablet 08-19 00:00: 00 No 1mg Paxil 10 mg tablet 2- 00:00: 00 Yes 1mg Quincy Castillo Paxil 10 mg tablet 2- 00:00: 00 No 1mg Paxil 10 mg tablet 2- 00:00: 00 No 1mg hydroxyzine HCl 25 mg tablet - 00:00: 00 Yes 12mg Quincy Castillo hydroxyzine HCl 25 mg tablet 07-25 00:00: 00 No 12mg hydroxyzine HCl 25 mg tablet 07-25 00:00: 00 No 12mg amlodipine 10 mg tablet 07-20 00:00: 00 Yes 1mg Quincy Castillo amlodipine 10 mg tablet 07-20 00:00: 00 No 1mg amlodipine 10 mg tablet 07-20 00:00: 00 No 1mg amLODIPine 10 mg tablet 2019-07 15:30: 03 Yes 10mg Take 10 mg by mouth daily. [facility] diclofenac 75 mg EC tablet 2019-07 15:30: 03 Yes 75mg Take 75 mg by mouth 2 (two) times daily with meals. [facility] amlodipine 10 mg tablet 2019-07 00:00: 00 Yes 1mg Quincy Castillo amlodipine 10 mg tablet 2019-07 00:00: 00 No 1mg amlodipine 10 mg tablet 2019-07 00:00: 00 No 1mg mupirocin 2 % topical ointment 2019-07 0- 00:00: 00 Yes 1% Quincy Castillo Norvasc 10 mg tablet 2019-07 0-05 00:00: 00 Yes 1mg Quincy Castillo cephalexin 500 mg capsule 2019-07 0-05 00:00: 00 Yes 1mg Quincy Castillo mupirocin 2 % topical ointment 2019-07 0-05 [...] amlodipine 10 mg tablet 02-02 00:00: 00 Yes 1mg Quincy Castillo amlodipine 10 mg tablet 02-02 00:00: 00 No 1mg amlodipine 10 mg tablet 02-02 00:00: 00 No 1mg Lomotil 2.5 mg-0.025 mg tablet 12-01 00:00: 00 Yes 2mg Quincy Castillo Lomotil 2.5 mg-0.025 mg tablet 12-01 00:00: 00 No 2mg Lomotil 2.5 mg-0.025 mg tablet 12-01 00:00: 00 No 2mg amlodipine 10 mg tablet 11-09 00:00: 00 Yes 1mg Quincy Castillo amlodipine 10 mg tablet 11-09 00:00: 00 No 1mg amlodipine 10 mg tablet 11-09 00:00: 00 No 1mg hydroxyzine HCl 25 mg tablet 11-02 00:00: 00 Yes 12mg Quincy Castillo triamcinolo ne acetonide 0.5 % topical ointment 11-02 00:00: 00 Yes 1% Quincy Castillo prednisone 10 mg tablet 11-02 00:00: 00 Yes mg uQincy Castillo prednisone 10 mg tablet 11-02 00:00: 00 [...] CQ 14 mg/24 hr daily transdermal patch 0 09-16 00:00: 00 Yes 1mg/24 hr Quincy Castillo Nicoderm CQ 14 mg/24 hr daily transdermal patch 0 09-16 00:00: 00 No 1mg/24 hr Nicoderm CQ 14 mg/24 hr daily transdermal patch 09-16 00:00: 00 No 1mg/24 hr amlodipine 10 mg tablet 0 09-13 00:00: 00 Yes 1mg Quincy Castillo amlodipine 10 mg tablet 09-13 00:00: 00 No 1mg amlodipine 10 mg tablet 09-13 00:00: 00 No 1mg Nicoderm CQ 21 mg/24 hr daily transdermal patch 09-06 00:00: 00 Yes 1mg/24 hr Quincy Castillo Nicoderm CQ 14 mg/24 hr daily transdermal patch 09-06 00:00: 00 Yes 1mg/24 hr Quincy Castillo amlodipine 10 mg tablet 09-06 00:00: 00 Yes 1mg Quincy Castillo Flonase Allergy Relief 50 mcg/actuati on nasal spray,suspe nsion 09-06 00:00: 00 Yes 2mcg/ac tuation Quincy Castillo Nicoderm CQ 21 mg/24 hr daily transdermal [...] nsion 09-06 00:00: 00 No 2mcg/ac tuation Immunizations Ordered Immunization Name Filled Immunization Name Date Status Comments Source Pfizer COVID-19 Vaccine Pfizer COVID-19 Vaccine 2020-12-03 00:00:00 Completed Quincy Castillo Pfizer COVID-19 Vaccine 2020-12-03 00:00:00 Completed Pfizer COVID-19 Vaccine 2020-12-03 00:00:00 Completed Vital Signs Vital Name Observation Time Observation Value Comments S ourangy Systolic blood pressure 2020-05-30 15:31:00 131 mm[Hg] [facility] Diastolic blood pressure 2020-05-30 15:31:00 92 mm[Hg] [facility] Heart rate 2020-05-30 15:31:00 79 /min [facility] Respiratory rate 2020-05-30 15:29:00 19 /min [facility] Body height 2020-05-30 15:29:00 182.9 cm [facility] Body weight 2020-05-30 15:29:00 89.495 kg [facility] BMI 2020-05-30 15:29:00 26.76 kg/m2 [facility] Oxygen saturation in Arterial blood by Pulse oximetry 2020-05-30 15:29:00 97 /min [facility] Height Measured 2024-02-06 17:13:00 71.65 inches Quincy Castillo Body Temperature 2024-02-06 17:13:00 98.30 degrees Quincy Castillo Heart Rate 2024-02-06 17:13:00 80.00 /min Jyotsna en F Jonathan Respiratory Rate 2024-02-06 17:13:00 18.00 /min Quincy Castillo BP Systolic 2024-02-06 17:13:00 139 mm[Hg] Step hen F Jonathan BP Diastolic 2024-02-06 17:13:00 89 mm[Hg] Harish phen F Jonathan Weight Measured 2024-02-06 17:13:00 188.00 pounds Quincy Castillo BP Systolic 2023-05-08 15:55:00 143 mm[Hg] Step hen F Jonathan BP Diastolic 2023-05-08 15:55:00 98 mm[Hg] Harish phen F Jonathan Weight Measured 2023-05-08 15:55:00 212.60 pounds Quincy F Jonathan Height Measured 2023-05-08 15:55:00 71.65 inches Quincy F Jonathan Body Temperature 2023-05-08 15:55:00 98.30 degrees Quincy F Jonathan Heart Rate 2023-05-08 15:55:00 80.00 /min Jyotsna en F Jonathan Respiratory Rate 2023-05-08 15:55:00 17.00 /min Quincy F Jonathan BP Systolic 2023-02-28 08:53:00 166 mm[Hg] Step hen F Jonathan BP Diastolic 2023-02-28 08:53:00 105 mm[Hg] Harish phen F Jonathan Weight Measured 2023-02-28 08:53:00 211.00 pounds Quincy F Jonathan Height Measured 2023-02-28 08:53:00 71.65 inches Quincy F Jonathan Body Temperature 2023-02-28 08:53:00 97.60 degrees Quincy F Jonathan Heart Rate 2023-02-28 08:53:00 74.00 /min Jyotsna en F Jonathan Respiratory Rate 2023-02-28 08:53:00 Quincy F Jonathan BP Systolic 2022-08-08 13:49:00 145 mm[Hg] Step hen F Jonathan BP Diastolic 2022-08-08 13:49:00 93 mm[Hg] Harish phen F Jonathan Weight Measured 2022-08-08 13:49:00 211.00 pounds Quincy F Jonathan Height Measured 2022-08-08 13:49:00 71.65 inches Quincy F Jonathan Body Temperature 2022-08-08 13:49:00 98.20 degrees Quincy F Jonathan Heart Rate 2022-08-08 13:49:00 81.00 /min Jyotsna en F Jonathan Respiratory Rate 2022-08-08 13:49:00 18.00 /min Quincy F Jonathan BP Systolic 2022-07-24 09:59:00 133 mm[Hg] Step hen F Jonathan BP Diastolic 2022-07-24 09:59:00 87 mm[Hg] Harish phen F Jonathan Weight Measured 2022-07-24 09:59:00 211.00 pounds Quincy F Jonathan Height Measured 2022-07-24 09:59:00 71.65 inches Quincy F Jonathan Body Temperature 2022-07-24 09:59:00 97.40 degrees Quincy F Jonathan Heart Rate 2022-07-24 09:59:00 72.00 /min Jyotsna en F Jonathan Respiratory Rate 2022-07-24 09:59:00 Quincy F Jonathan BP Systolic 2022-07-18 08:15:00 116 mm[Hg] Step hen F Jonathan BP Diastolic 2022-07-18 08:15:00 73 mm[Hg] Harish phen F Jonathan Weight Measured 2022-07-18 08:15:00 211.60 pounds Quincy F Jonathan Height Measured 2022-07-18 08:15:00 71.65 inches Quincy F Jonathan Body Temperature 2022-07-18 08:15:00 98.00 degrees Quincy F Jonathan Heart Rate 2022-07-18 08:15:00 76.00 /min Jyotsna en F Jonathan Respiratory Rate 2022-07-18 08:15:00 18.00 /min Quincy F Jonathan BP Systolic 2022-03-24 09:55:00 128 mm[Hg] Step hen F Jonathan BP Diastolic 2022-03-24 09:55:00 89 mm[Hg] Harish phen F Jonathan Weight Measured 2022-03-24 09:55:00 204.40 pounds Quincy F Jonathan Height Measured 2022-03-24 09:55:00 71.65 inches Quincy F Jonathan Body Temperature 2022-03-24 09:55:00 98.70 degrees Quincy F Jonathan Heart Rate 2022-03-24 09:55:00 73.00 /min Jyotsna en F Jonathan Respiratory Rate 2022-03-24 09:55:00 Quincy F Jonathan BP Systolic 2021-12-16 07:55:00 117 mm[Hg] Step hen F Jonathan BP Diastolic 2021-12-16 07:55:00 79 mm[Hg] Harish phen F Jonathan Weight Measured 2021-12-16 07:55:00 201.00 pounds Quincy F Jonathan Height Measured 2021-12-16 07:55:00 71.65 inches Quincy F Jonathan Body Temperature 2021-12-16 07:55:00 98.10 degrees Quincy F Jonathan Heart Rate 2021-12-16 07:55:00 74.00 /min Jyotsna en F Jonathan Respiratory Rate 2021-12-16 07:55:00 18.00 /min Quincy F Jonathan BP Systolic 2021-09-13 09:55:00 143 mm[Hg] Step hen F Jonathan BP Diastolic 2021-09-13 09:55:00 93 mm[Hg] Harish phen F Jonathan Weight Measured 2021-09-13 09:55:00 211.00 pounds Quincy F Jonathan Height Measured 2021-09-13 09:55:00 71.65 inches Quincy F Jonathan Body Temperature 2021-09-13 09:55:00 98.60 degrees Quincy F Jonathan Heart Rate 2021-09-13 09:55:00 98.00 /min Jyotsna en F Jonathan Respiratory Rate 2021-09-13 09:55:00 21.00 /min Quincy F Jonathan BP Systolic 2021-06-09 17:40:00 149 mm[Hg] Step hen F Jonathan BP Diastolic 2021-06-09 17:40:00 91 mm[Hg] Harish phen F Jonathan Weight Measured 2021-06-09 17:40:00 209.20 pounds Quincy Castillo Height Measured 2021-06-09 17:40:00 71.65 inches Quincy Castillo Body Temperature 2021-06-09 17:40:00 98.30 degrees Quincy F Jonathan Heart Rate 2021-06-09 17:40:00 58.00 /min Jyotsna en F Jonathan Respiratory Rate 2021-06-09 17:40:00 Quincy Shannan Castillo BP Systolic 2021-04-13 14:25:00 162 mm[Hg] BP [...] Performing Clinicia n Source EXTERNAL PROVIDER - [facility] 2020-06-14 06:01:00 Doctor Unassigned, [place] [facility] CONSENT/REFUSAL FOR DIAGNOSIS AND TREATMENT 2020-05-30 15:04:59 Doctor Unassigned, [place] [facility] Plan of Care Planned Activity Planned Date Details Comments Source Goal Plan of Care Note [code = 43387-7] Goal Plan of Care Note [code = 61111-2] Goal Plan of Care Note [code = 51547-2] Goal Plan of Care Note [code = 14744-4] Goal Plan of Care Note [code = 92979-7] Goal Plan of Care Note [code = 67182-8] Goal Plan of Care Note [code = 13495-1] Goal Plan of Care Note [code = 90652-9] Goal Plan of Care Note [code = 30734-5] Goal Plan of Care Note [code = 37258-9] Goal Plan of Care Note [code = 27711-3] Goal Plan of Care Note [code = 79620-7] Goal Plan of Care Note [code = 50980-5] Goal Plan of Care Note [code = 53231-9] Goal Plan of Care Note [code = 11174-3] Goal Plan of Care Note [code = 04108-6] Goal Plan of Care Note [code = 40070-0] Goal Plan of Care Note [code = 21128-5] Goal Plan of Care Note [code = 42639-9] Goal Plan of Care Note [code = 52813-6] Goal Plan of Care Note [code = 16472-3] Goal Plan of Care Note [code = 96960-5] Goal Plan of Care Note [code = 92435-0] Goal Plan of Care Note [code = 69958-5] Goal Plan of Care Note [code = 62703-2] Goal Plan of Care Note [code = 31091-7] Goal Plan of Care Note [code = 83392-4] Goal Plan of Care Note [code = 64661-4] Goal Plan of Care Note [code = 04674-5] Goal Plan of Care Note [code = 57927-5] Goal Plan of Care Note [code = 32796-8] Goal Plan of Care Note [code = 59396-2] Goal Plan of Care Note [code = 22021-6] Goal Plan of Care Note [code = 92849-6] Goal Plan of Care Note [code = 74943-6] Goal Plan of Care Note [code = 28849-3] Goal Plan of Care Note [code = 01708-1] Goal Plan of Care Note [code = 92410-9] Goal Plan of Care Note [code = 56154-7] Goal Plan of Care Note [code = 94661-4] Goal Plan of Care Note [code = 08517-3] Goal Plan of Care Note [code = 29138-4] Goal Plan of Care Note [code = 92203-3] Goal Plan of Care Note [code = 56038-6] Goal Plan of Care Note [code = 02389-0] Goal Plan of Care Note [code = 86201-0] Goal Plan of Care Note [code = 07083-4] Encounters Start Date/Time End Date/Time Encounter Type Admission Type Attending [facility] Care Department Encounter ID Source 2024-02-06 17:04:51 2024-02-06 17:04:51 Outpatient [facility] [id number] Quincy Castillo 2024-02-06 00:00:00 2024-02-06 00:00:00 Outpatient Visit [facility] [id number] Quincy Castillo 2023-05-08 15:46:54 2023-05-08 15:46:54 Outpatient [facility] [id number] Quincy Castillo 2022-08-08 13:39:31 2022-08-08 13:39:31 Outpatient [facility] [id number] Quincy Castillo 2022-07-24 09:59:08 2022-07-24 09:59:08 Outpatient [facility] [id number] Quincy Castillo 2022-07-18 08:11:22 2022-07-18 08:11:22 Outpatient [facility] [id number] Qiuncy Castillo 2022-07-18 00:00:00 2022-07-18 00:00:00 Outpatient Visit [id number] 2022-03-24 00:00:00 2022-03-24 00:00:00 Outpatient Visit [id number] 2020-07-04 09:00:00 2020-07-04 09:00:00 Outpatient R [facility] [id number] [facility] 2020-06-14 00:00:00 2020-06-14 00:00:00 Orders Only Doctor Unassigned, [place] [id number] [facility] 2020-05-30 09:05:42 2020-05-30 10:23:35 Office Visit Hiro [facility] [id number] [id number] [id number] [facility] 2020-05-30 09:00:00 2020-05-30 09:00:00 Outpatient R HIRO MUSE [facility] [id number] [facility] 2020-05-30 00:00:00 2020-05-30 00:00:00 Orders Only Doctor Unassigned, [place] [id number] [id number] [id number] [facility] Results Test Description Test Time Test Comments Results Result Co mments Source Quincy Campbell AustinLIPID [id number] 00:00:00* Test Item Value Reference Range Interpretation Comme nts CHOLESTEROL (test code = 2210) 225 MG/DL TRIGLYCERIDES (test code = 2232) 71 MG/DL HDL CHOLESTEROL (test code = 2220) 45 MG/DL CALC LDL CHOL (test code = 2237) 163 MG/DL RISK RATIO LDL/HDL (test cod e = 2238) 3.62 RATIO Quincy CastilloHEMOGLOBIN [id number] 00:00:00* Test Item Value Reference Range Interpretation Comme elicia HEMOGLOBIN A1c (test code = 61424) 6.1 % Quincy CastilloHEPATIC FUNCTION [id number] 23:55:36* Test Item Value Reference Range Interpretation Comme nts PROTEIN, TOTAL (test code = 2229) 7.9 G/DL 6.1-8.3 ALBUMIN (test code = 2201) 4.9 G/DL 3.5-5.2 BILIRUBIN, TOTAL (test code = 2207) <0.2 MG/DL See_Comment [Automated me ssage] The system which generated this result transmitted reference range: <=1.2. The reference range was not used to interpret this result as normal/abnormal. BILIRUBIN, DIRECT (test code = 2021) <0.2 MG/DL 0.0-0.3 ALKALINE PHOSPHATASE (test code = 2204) 86 U/L 40-117 AST (test code = 2218) 27 U/L 9-50 ALT (test code = 2219) 28 U/L 5-50 UNLESS OTHERWISE INDICATED, ALL TESTING PERFORMED [facility] [address] [place] [address] IMPORTER EXPORTER: FELISHA HONG M.D. CLIA NUMBER [id number] [facility] [place]. [id number] LIVER (HEPATIC) FUNCTION [id number] 00:00:00* Test Item Value Reference Range Interpretation [...] = 2219) 28 U/L LIVER (HEPATIC) FUNCTION [id number] 00:00:00* Test Item Value Reference Range Interpretation Comme nts PROTEIN, TOTAL (test code = 2229) 7.9 G/DL ALBUMIN (test code = 2201) 4.9 G/DL BILIRUBIN, TOTAL (test code = 220) <0.2 MG/DL BILIRUBIN, DIRECT (test code = 2021) <0.2 MG/DL ALKALINE PHOSPHATASE (test c ode = 2203) 86 U/L AST (test code = 2218) 27 U/L ALT (test code = 2219) 28 U/L Quincy CastilloCOMPREHENSIVE METABOLIC [id number] 23:58:14* Test Item Value Reference Range Interpretation Comme nts GLUCOSE (test code = 2216) 99 MG/DL 70-99 BUN (test code = 2207) 13 MG/DL 6-20 CREATININE (test code = 221) 1.18 MG/DL 0.80-1.40 eGFR (2020 CKD-EPI) (test code = 01279) 80 ML/MIN/1.73 >60 CALC BUN/CREAT (test code = 2235) 11 RATIO 6-28 SODIUM (test code = 2230) 141 MEQ/L 133-146 POTASSIUM (test code = 2227) 4.9 MEQ/L 3.5-5.4 CHLORIDE (test code = 2215) 104 MEQ/L 95-107 CARBON DIOXIDE (test code = 6) 25 MEQ/L 19-31 CALCIUM (test code = 220) 9.6 MG/DL 8.5-10.5 PROTEIN, TOTAL (test code = 222) 7.4 G/DL 6.1-8.3 ALBUMIN (test code = 220) 4.4 G/DL 3.5-5.2 CALC GLOBULIN (test code = 2240) 3.0 G/DL 1.9-3.7 CALC A/G RATIO (test code = 2234) 1.5 RATIO 1.0-2.6 BILIRUBIN, TOTAL (test code = 2206) <0.2 MG/DL See_Comment [Automated me ssage] The system which generated this result transmitted reference range: <=1.2. The reference range was not used to interpret this result as normal/abnormal. ALKALINE PHOSPHATASE (test code = 2203) 69 U/L 40-117 AST (test code = 2218) 215 U/L 9-50 H ALT (test code = 2219) 98 U/L 5-50 H LIPID [id number] 23:58:14* Test Item Value Reference Range Interpretation Comme nts CHOLESTEROL (test code = 2210) 208 MG/DL <200 H TRIGLYCERIDES (test code = 2232) 88 MG/DL <150 HDL CHOLESTEROL (test code = 2220) 42 MG/DL >39 CALC LDL CHOL (test code = 2237) 147 MG/DL <100 H NOTE: CALCULATED LDL IS BASED ON KELLY-NUÑEZ METHOD WHICHINCLUDES ADJUSTABLE TRIGLYCERIDE:VLDL CHOLESTEROL RATIO.THIS FACTOR VARIES BY MEASURED TRIGLYCERIDE AND NON-HDLCHOLESTEROL CONCENTRATIONS WITH INCREASED CALCULATED LDL SEENIN HIGHER TRIGLYCERIDE OR LOWER NON-HDL SPECIMENS. FOR MOREINFORMATION, SEE CLIENT ANNOUNCEMENT AT [email or web address] RISK RATIO LDL/HDL (test code = 2238) 3.50 RATIO <3.55 UNLESS OTHERW ISE INDICATED, ALL TESTING PERFORMED ATCLINICAL PATHOLOGY [employer] [employer] [address] [place] [address] IMPORTER EXPORTER: FELISHA HONG M.D. CLIA NUMBER [id number] [facility] [place]. [id number] HEMOGLOBIN [id number] 04:14:02* Test Item Value Reference Range Interpretation Comme nts HEMOGLOBIN A1c (test code = 54536) 5.9 % 4.2-5.6 H COMPREHENSIVE METABOLIC [id number] 00:00:00* Test Item Value Reference Range Interpretation Comme nts GLUCOSE (test code = 2217) 99 MG/DL BUN (test code = 2208) 13 MG/DL CREATININE (test code = 2214) 1.18 MG/DL eGFR (2020 CKD-EPI) (test co de = 19012) 80 ML/MIN/1.73 CALC BUN/CREAT (test code = [...] (test code = 2219) 98 U/L HEMOGLOBIN [id number] 00:00:00* Test Item Value Reference Range Interpretation Comme nts HEMOGLOBIN A1c (test code = 75352) 5.9 % LIPID [id number] 00:00:00* Test Item Value Reference Range Interpretation Comme nts CHOLESTEROL (test code = 2210) 208 MG/DL TRIGLYCERIDES (test code = 2232) 88 MG/DL HDL CHOLESTEROL (test code = 2220) 42 MG/DL CALC LDL CHOL (test code = 2237) 147 MG/DL RISK RATIO LDL/HDL (test cod e = 2238) 3.50 RATIO COMPREHENSIVE METABOLIC [id number] 00:00:00* Test Item Value Reference Range Interpretation Comme nts GLUCOSE (test code = 2217) 99 MG/DL BUN (test code = 2208) 13 MG/DL CREATININE (test code = 2214) 1.18 MG/DL eGFR (2020 CKD-EPI) (test co de = 09381) 80 ML/MIN/1.73 CALC BUN/CREAT (test code = [...] (test code = 2219) 98 U/L HEMOGLOBIN [id number] 00:00:00* Test Item Value Reference Range Interpretation Comme nts HEMOGLOBIN A1c (test code = 49557) 5.9 % LIPID [id number] 00:00:00* Test Item Value Reference Range Interpretation Comme nts CHOLESTEROL (test code = 2210) 208 MG/DL TRIGLYCERIDES (test code = 2232) 88 MG/DL HDL CHOLESTEROL (test code = 2220) 42 MG/DL CALC LDL CHOL (test code = 2237) 147 MG/DL RISK RATIO LDL/HDL (test cod e = 2238) 3.50 RATIO COMPREHENSIVE METABOLIC [id number] 00:00:00* Test Item Value Reference Range Interpretation Comme nts GLUCOSE (test code = 2217) 99 MG/DL BUN (test code = 2208) 13 MG/DL CREATININE (test code = 2214) 1.18 MG/DL eGFR (2020 CKD-EPI) (test co de = 23532) 80 ML/MIN/1.73 CALC BUN/CREAT (test code = [...] ALT (test code = 2219) 98 U/L Quincy Campbell AustinHEMOGLOBIN [id number] 00:00:00* Test Item Value Reference Range Interpretation Comme nts HEMOGLOBIN A1c (test code = 02147) 5.9 % Quincy Campbell AustinLIPID [id number] 00:00:00* Test Item Value Reference Range Interpretation Comme nts CHOLESTEROL (test code = 2210) 208 MG/DL TRIGLYCERIDES (test code = 2232) 88 MG/DL HDL CHOLESTEROL (test code = 2220) 42 MG/DL CALC LDL CHOL (test code = 2237) 147 MG/DL RISK RATIO LDL/HDL (test cod e = 2238) 3.50 RATIO Quincy Campbell AustinLIPID [id number] 03:53:55* Test Item Value Reference Range Interpretation [...] SPECIMENS. FOR MOREINFORMATION, SEE CLIENT ANNOUNCEMENT AT [email or web address] RISK RATIO LDL/HDL (test code = 2238) 2.12 RATIO <3.55 COMPREHENSIVE METABOLIC [id number] 03:53:55* Test Item Value Reference Range Interpretation Comme nts GLUCOSE (test code = 2217) 107 MG/DL 70-99 H BUN (test code = 2207) 14 MG/DL 6-20 CREATININE (test code = 2214) 1.17 MG/DL 0.80-1.40 eGFR (2020 CKD-EPI) (test code = 57746) 81 ML/MIN/1.73 >60 CALC BUN/CREAT (test code = 2235) 12 RATIO 6-28 SODIUM (test code = 223) 142 MEQ/L 133-146 POTASSIUM (test code = 2228) 5.2 MEQ/L 3.5-5.4 CHLORIDE (test code = 2215) 100 MEQ/L 95-107 CARBON DIOXIDE (test code = 2206) 23 MEQ/L 19-31 CALCIUM (test code = 2209) 10.4 MG/DL 8.5-10.5 PROTEIN, TOTAL (test code = 2229) 8.4 G/DL 6.1-8.3 H ALBUMIN (test code = 2201) 4.6 G/DL 3.5-5.2 CALC GLOBULIN (test code = 2240) 3.8 G/DL 1.9-3.7 H CALC A/G RATIO (test code = 2234) 1.2 RATIO 1.0-2.6 BILIRUBIN, TOTAL (test code = 220) 0.2 MG/DL See_Comment [Automated me ssage] The system which generated this result transmitted reference range: <=1.2. The reference range was not used to interpret this result as normal/abnormal. ALKALINE PHOSPHATASE (test code = 2204) 98 U/L 40-117 AST (test code = 2218) 27 U/L 9-50 ALT (test code = 2219) 25 U/L 5-50 UNLESS OTHERWISE INDICATED, ALL TESTING PERFORMED [facility] [employer] [employer] [address] [place] [address] IMPORTER EXPORTER: FELISHA HONG M.D. CLIA NUMBER [id number] [facility] [place]. [id number] HEMOGLOBIN [id number] 03:14:26* Test Item Value Reference Range Interpretation Comme nts HEMOGLOBIN A1c (test code = 29187) 6.1 % 4.2-5.6 H HEMOGLOBIN [id number] 00:00:00* Test Item Value Reference Range Interpretation Comme nts HEMOGLOBIN A1c (test code = 51486) 6.1 % LIPID [id number] 00:00:00* Test Item Value Reference Range Interpretation Comme nts CHOLESTEROL (test code = 2210) 274 MG/DL TRIGLYCERIDES (test code = 2232) 57 MG/DL HDL CHOLESTEROL (test code = 2220) 83 MG/DL CALC LDL CHOL (test code = 2237) 176 MG/DL RISK RATIO LDL/HDL (test cod e = 2238) 2.12 RATIO COMPREHENSIVE METABOLIC [id number] 00:00:00* Test Item Value Reference Range Interpretation Comme nts GLUCOSE (test code = 2217) 107 MG/DL BUN (test code = 2208) 14 MG/DL CREATININE (test code = 2214) 1.17 MG/DL eGFR (2020 CKD-EPI) (test co de = 03670) 81 ML/MIN/1.73 CALC BUN/CREAT (test code = [...] (test code = 2219) 25 U/L HEMOGLOBIN [id number] 00:00:00* Test Item Value Reference Range Interpretation Comme nts HEMOGLOBIN A1c (test code = 79106) 6.1 % LIPID [id number] 00:00:00* Test Item Value Reference Range Interpretation Comme nts CHOLESTEROL (test code = 2210) 274 MG/DL TRIGLYCERIDES (test code = 2232) 57 MG/DL HDL CHOLESTEROL (test code = 2220) 83 MG/DL CALC LDL CHOL (test code = 2237) 176 MG/DL RISK RATIO LDL/HDL (test cod e = 2238) 2.12 RATIO COMPREHENSIVE METABOLIC [id number] 00:00:00* Test Item Value Reference Range Interpretation Comme nts GLUCOSE (test code = 2217) 107 MG/DL BUN (test code = 2208) 14 MG/DL CREATININE (test code = 2214) 1.17 MG/DL eGFR (2020 CKD-EPI) (test co de = 56186) 81 ML/MIN/1.73 CALC BUN/CREAT (test code = [...] (test code = 2219) 25 U/L HEMOGLOBIN [id number] 00:00:00* Test Item Value Reference Range Interpretation Comme nts HEMOGLOBIN A1c (test code = 11724) 6.1 % Quincy CastilloLIPID [id number] 00:00:00* Test Item Value Reference Range Interpretation Comme nts CHOLESTEROL (test code = 2210) 274 MG/DL TRIGLYCERIDES (test code = 2232) 57 MG/DL HDL CHOLESTEROL (test code = 2220) 83 MG/DL CALC LDL CHOL (test code = 2237) 176 MG/DL RISK RATIO LDL/HDL (test cod e = 2238) 2.12 RATIO Quincy CastilloCOMPREHENSIVE METABOLIC [id number] 00:00:00* Test Item Value Reference Range Interpretation Comme nts GLUCOSE (test code = 2217) 107 MG/DL BUN (test code = 2208) 14 MG/DL CREATININE (test code = 2214) 1.17 MG/DL eGFR (2020 CKD-EPI) (test co de = 24007) 81 ML/MIN/1.73 CALC BUN/CREAT (test code = [...] ALT (test code = 2219) 25 U/L Quincy CastilloCOMPREHENSIVE METABOLIC [id number] 00:00:00* Test Item Value Reference Range Interpretation Comme nts GLUCOSE (test code = 2217) 102 MG/DL BUN (test code = 2208) 13 MG/DL CREATININE (test code = 2214) 1.12 MG/DL eGFR AMER. (test cod e = 49920) 95 ML/MIN/1.73 eGFR NON- AMER. (test code = 89355) 82 ML/MIN/1.73 CALC BUN/CREAT (test code = [...] (test code = 2219) 105 U/L LIPID [id number] 00:00:00* Test Item Value Reference Range Interpretation Comme nts CHOLESTEROL (test code = 2210) 218 MG/DL TRIGLYCERIDES (test code = 2232) 76 MG/DL HDL CHOLESTEROL (test code = 2220) 66 MG/DL CALC LDL CHOL (test code = 2237) 135 MG/DL RISK RATIO LDL/HDL (test cod e = 2238) 2.05 RATIO COMPREHENSIVE METABOLIC [id number] 00:00:00* Test Item Value Reference Range Interpretation Comme nts GLUCOSE (test code = 2217) 102 MG/DL BUN (test code = 2208) 13 MG/DL CREATININE (test code = 2214) 1.12 MG/DL eGFR AMER. (test cod e = 12643) 95 ML/MIN/1.73 eGFR NON- AMER. (test code = 45715) 82 ML/MIN/1.73 CALC BUN/CREAT (test code = [...] (test code = 2219) 105 U/L LIPID [id number] 00:00:00* Test Item Value Reference Range Interpretation Comme nts CHOLESTEROL (test code = 2210) 218 MG/DL TRIGLYCERIDES (test code = 2232) 76 MG/DL HDL CHOLESTEROL (test code = 2220) 66 MG/DL CALC LDL CHOL (test code = 2237) 135 MG/DL RISK RATIO LDL/HDL (test cod e = 2238) 2.05 RATIO COMPREHENSIVE METABOLIC [id number] 00:00:00* Test Item Value Reference Range Interpretation Comme nts GLUCOSE (test code = 2217) 102 MG/DL BUN (test code = 2208) 13 MG/DL CREATININE (test code = 2214) 1.12 MG/DL eGFR AMER. (test cod e = 20536) 95 ML/MIN/1.73 eGFR NON- AMER. (test code = 21892) 82 ML/MIN/1.73 CALC BUN/CREAT (test code = [...] ALT (test code = 2219) 105 U/L Quincy F AustinLIPID [id number] 00:00:00* Test Item Value Reference Range Interpretation Comme nts CHOLESTEROL (test code = 2210) 218 MG/DL TRIGLYCERIDES (test code = 2232) 76 MG/DL HDL CHOLESTEROL (test code = 2220) 66 MG/DL CALC LDL CHOL (test code = 2237) 135 MG/DL RISK RATIO LDL/HDL (test cod e = 2238) 2.05 RATIO Quincy CastilloHEMOGLOBIN [id number] 00:00:00* Test Item Value Reference Range Interpretation Comme nts HEMOGLOBIN A1c (test code = 83956) 6.1 % HEMOGLOBIN [id number] 00:00:00* Test Item Value Reference Range Interpretation Comme nts HEMOGLOBIN A1c (test code = 80390) 6.1 % HEMOGLOBIN [id number] 00:00:00* Test Item Value Reference Range Interpretation Comme nts HEMOGLOBIN A1c (test code = 90608) 6.1 % Quincy CastilloCOMPREHENSIVE METABOLIC [id number] 00:00:00* Test Item Value Reference Range Interpretation Comme nts GLUCOSE (test code = 2217) 103 MG/DL BUN (test code = 2208) 13 MG/DL CREATININE (test code = 2214) 1.09 MG/DL eGFR AMER. (test cod e = 67431) 99 ML/MIN/1.73 eGFR NON- AMER. (test code = 79468) 85 ML/MIN/1.73 CALC BUN/CREAT (test code = [...] (test code = 2219) 44 U/L LIPID [id number] 00:00:00* Test Item Value Reference Range Interpretation Comme nts CHOLESTEROL (test code = 2210) 223 MG/DL TRIGLYCERIDES (test code = 2232) 75 MG/DL HDL CHOLESTEROL (test code = 2220) 74 MG/DL CALC LDL CHOL (test code = 2237) 132 MG/DL RISK RATIO LDL/HDL (test cod e = 2238) 1.78 RATIO COMPREHENSIVE METABOLIC [id number] 00:00:00* Test Item Value Reference Range Interpretation Comme nts GLUCOSE (test code = 2217) 103 MG/DL BUN (test code = 2208) 13 MG/DL CREATININE (test code = 2214) 1.09 MG/DL eGFR AMER. (test cod e = 86552) 99 ML/MIN/1.73 eGFR NON- AMER. (test code = 01992) 85 ML/MIN/1.73 CALC BUN/CREAT (test code = [...] (test code = 2219) 44 U/L LIPID [id number] 00:00:00* Test Item Value Reference Range Interpretation Comme nts CHOLESTEROL (test code = 2210) 223 MG/DL TRIGLYCERIDES (test code = 2232) 75 MG/DL HDL CHOLESTEROL (test code = 2220) 74 MG/DL CALC LDL CHOL (test code = 2237) 132 MG/DL RISK RATIO LDL/HDL (test cod e = 2238) 1.78 RATIO COMPREHENSIVE METABOLIC [id number] 00:00:00* Test Item Value Reference Range Interpretation Comme nts GLUCOSE (test code = 2217) 103 MG/DL BUN (test code = 2208) 13 MG/DL CREATININE (test code = 2214) 1.09 MG/DL eGFR AMER. (test cod e = 95386) 99 ML/MIN/1.73 eGFR NON- AMER. (test code = 12235) 85 ML/MIN/1.73 CALC BUN/CREAT (test code = [...] ALT (test code = 2219) 44 U/L Quincy CastilloLIPID [id number] 00:00:00* Test Item Value Reference Range Interpretation Comme nts CHOLESTEROL (test code = 2210) 223 MG/DL TRIGLYCERIDES (test code = 2232) 75 MG/DL HDL CHOLESTEROL (test code = 2220) 74 MG/DL CALC LDL CHOL (test code = 2237) 132 MG/DL RISK RATIO LDL/HDL (test cod e = 2238) 1.78 RATIO Quincy Castillo
[2024-06-08 11:40] LABS: Absolute Lymphocytes (CBC) 1.7 K/uL (0.7-4.9); Absolute Monocytes 0.4 K/uL (0.1-1.3); Absolute Neutrophil 4.4 K/uL (1.8-8.0); Basophils % 0.8 % (0-1.3); Eosinophils % 0.4 % (0-4.4); Hematocrit 44.1 % (39.6-49.0); Hemoglobin 14.4 g/dL (13.6-17.9); Lymphocytes % 25.5 % (15.3-44.8); MCH 29.6 pg (27.0-35.0); MCHC 32.7 g/dL (32.0-36.0); MCV 90.5 fL (80-100); MPV 8.1 fL (7.6-11.3); Monocytes % 6.3 % (3.3-12.3); Nucleated Red Blood Cells % 0.1 % (0-0); Platelets 302 thou/uL (152-406); RBC Red Blood Cell Count 4.87 M/uL (4.33-5.43)
[2024-06-08 11:54] LABS: Specific Gravity 1.006 (1.005-1.030); Urine Bilirubin NEGATIVE (Negative); Urine Blood Negative (Negative); Urine Clarity Clear (Clear); Urine Color Colorless (Yellow); Urine Glucose NEGATIVE (Negative); Urine Ketones NEGATIVE (Negative); Urine Microscopic Reflex YN NO UMIC; Urine Nitrite NEGATIVE (Negative); Urine Protein NEGATIVE (Negative); Urine Urobilinogen Normal (Normal); Urine pH 6.5 (5.0-7.0)
[2024-06-08 12:00] LABS: Albumin 3.9 g/dL (3.4-5.0); Anion Gap 5.1 mEq/L (5.0-15.0); Bilirubin Total 0.2 mg/dL (0.2-1.0); Globulin 3.8 g/dL (2.3-3.5); Potassium 4.1 mEq/L (3.5-5.1); Protein, Total 7.7 g/dL (6.4-8.2)
--- NOTE | 2024-06-08 13:21 | RAD REPORT ---
EXAMINATION: CT Abdomen Pelvis W Contrast CLINICAL INDICATION: Male, 44 years old. ABD PAIN TECHNIQUE: CT abdomen and pelvis was performed, after the administration of IV contrast, [facility]. Axial, sagittal and coronal reconstructions were obtained. One or more of the following dose reduction techniques were used: Automated exposure control, adjustment of the mA and k V according to patient size, and iterative reconstruction. Unless otherwise specified, incidental findings do not require dedicated imaging follow-up. COMPARISON: 04/06/2021 FINDINGS: LOWER CHEST: The visualized lung bases are clear. LIVER: Normal in size and contour. 3 foci of marked enhancement in the subcapsular upper left and rig ht lobes, and peripheral inferior right lobe, measuring between 11-18 mm, with surrounding geographic region of mild hyperenhancement. These appear stable, compared to the prior exam, allowing for differences in contrast timing, and the most suggestive of flash filling hemangiomas. No other suspicious focal lesion. BILIARY SYSTEM: No suspicious abnormalities. SPLEEN: Normal size. No focal lesion. PANCREAS: No mass, ductal dilation, or terence-pancreatic fluid. ADRENALS: Normal; no mass. KIDNEYS: Normal size and contour. No hydronephrosis. URINARY BLADDER: Unremarkable. GASTROINTESTINAL TRACT: No evidence of free air, significant intra-abdominal free fluid, bowel obstru ction or abscess. APPENDIX: Normal appendix. LYMPH NODES: No lymphadenopathy. MUSCULOSKELETAL: No acute or suspicious osseous abnormality. ADDITIONAL FINDINGS: None. IMPRESSION: No acute or concerning abnormalities seen in the abdomen or pelvis. Stable incidentally noted flash filling hepatic hemangiomata.
--- NOTE | 2024-06-08 13:43 | ER ---
Nurse's Notes [facility] Name: Akhil Hidalgo Age: 44 yrs Sex: Male : 1980 Arrival Date: 06/08/2024 Time: 09:56 Bed 18 Private MD: Diagnosis: Gastritis, unspecified Presentation: 06/08 10:36 Chief complaint: Patient states: epigastric pressure and burning x 3 weeks. Pt also ss reports dark stools. Pt states he was a heavy drinker and quit drinking completely before these symptoms began. Pepto Bismol and omeprazole does not seem to be helping. Coronavirus screen: Client denies travel out of the [place] in the last 14 days. Ebola Screen: Patient denies exposure to infectious person. Patient denies travel to an Ebola-affected area in the 21 days before illness onset. Initial Sepsis Screen: Does the patient meet any 2 criteria? No. Patient's initial sepsis screen is negative. Does the patient have a suspected source of infection? No. Patient's initial sepsis screen is negative. Risk Assessment: Do you want to hurt yourself or someone else? Patient reports no desire to harm self or others. Onset of symptoms was June 17, 2024. 10:36 Method Of Arrival: Ambulatory ss 10:36 Acuity: MARIANGEL 3 ss Historical: - Allergies: 10:39 No Known Allergies; ss - PMHx: 10:39 Hypercholesterolemia; Hypertension; Anxiety; ss 11:57 Alcoholism; Alcohol dependence; kc6 - Immunization history:: Adult Immunizations up to date. - Infectious Disease History:: Denies. - Social history:: Smoking status: Patient denies any tobacco usage or history of. Screenin:56 [facility] ED Fall Risk Assessment (Adult) History of falling in the last 3 months, kc6 including since admission No falls in past 3 months (0 pts) Confusion or Disorientation No (0 pts) Intoxicated or Sedated No (0 pts) Impaired Gait No (0 pts) Mobility Assist Device Used No (0 pt) Altered Elimination No (0 pt) Score/Fall Risk Level 0 - 2 = Low Risk Oriented to surroundings, Maintained a safe environment. Abuse screen: Denies threats or abuse. Denies injuries from another. Nutritional screening: No deficits noted. Tuberculosis screening: No symptoms or risk factors identified. Assessment: 11:55 General: Appears in no apparent distress. comfortable, well groomed, well developed, kc6 Behavior is calm, cooperative, appropriate for age. Pain: Complains of pain in epigastric area. Neuro: Level of Consciousness is awake, alert, obeys commands, Oriented to person, place, time, situation, Appropriate for age Reports headache. Cardiovascular: Capillary refill < 3 seconds. Respiratory: Airway is patent Trachea midline Respiratory effort is even, unlabored, Respiratory pattern is regular, symmetrical. GI: Abdomen is flat, non-distended, Bowel sounds present X 4 quads. Abd is soft X 4 quads Abdomen is tender to palpation in epigastric area Reports upper abdominal pain, constipation, bloody stool, epigastric pain, Patient currently denies diarrhea, nausea, vomiting. : No signs and/or symptoms were reported regarding the genitourinary system. EENT: No signs and/or symptoms were reported regarding the EENT system. Derm: No signs and/or symptoms reported regarding the dermatologic system. Skin is intact, is healthy with good turgor, Skin is pink, warm \T\ dry. Musculoskeletal: No signs and/or symptoms reported regarding the musculoskeletal system. Circulation, motion, and sensation intact. Capillary refill < 3 seconds, Range of motion: intact in all extremities. 13:19 Reassessment: Patient appears in no apparent distress at this time. No changes from kc6 previously documented assessment. Patient and/or family updated on plan of care and expected duration. Pain level reassessed. Patient is alert, oriented x 3, equal unlabored respirations, skin warm/dry/pink. Vital Signs: 10:36 BP 129 / 96; Pulse 72; Resp 16; Temp 98.2; Pulse Ox 100% on R/A; Weight 83.91 kg; ss Height 6 ft. 0 in. ; Pain 6/10; 11:56 BP 140 / 95; Pulse 59; Resp 16 S; Pulse Ox 100% on R/A; kc6 13:19 BP 122 / 82; Pulse 53; Resp 15 S; Pulse Ox 99% on R/A; kc6 10:36 Body Mass Index 25.09 (83.91 kg, 182.88 cm) ss 10:36 Pain Scale: Adult ss ED Course: 09:58 Patient arrived in ED. im 10:02 Audra Allen MD is Attending Physician. gb1 10:39 Triage completed. ss 10:39 Arm band placed on left wrist. ss 11:24 CBC with Diff Sent. bc6 11:24 CMP Sent. bc6 11:24 Lipase Sent. 6 11:24 Initial lab(s) drawn, by me, sent to lab. Inserted saline lock: 20 gauge in left 6 antecubital area, using aseptic technique. Blood collected. Flushed with 10 mL NS. 11:27 Urinalysis w/ reflexes Sent. [facility] 11:43 Bita Lind, RN is Primary Nurse. kc6 11:56 Patient has correct armband on for positive identification. Bed in low position. Call kc light in reach. Side rails up X 1. Pulse ox on. NIBP on. Door closed. Noise minimized. Lights dimmed. Pillow given. 11:56 Patient maintains SpO2 saturation greater than 95% on room air. kc6 12:15 CT Abd/Pelvis - IV Contrast Only In Process Unspecified. EDMS 14:08 No provider procedures requiring assistance completed. IV discontinued, intact, kc6 bleeding controlled, No redness/swelling at site. Pressure dressing applied. Administered Medications: No medications were administered Medication: 14:09 VIS not applicable for this client. kc6 Outcome: 13:42 Discharge ordered by . gb1 14:08 Discharged to home ambulatory, kc6 14:08 Condition: good 14:08 Discharge instructions given to patient, Instructed on discharge instructions, follow up and referral plans. medication usage, Demonstrated understanding of instructions, follow-up care, medications, Prescriptions given X 1, 14:09 Patient left the ED. kc6 Signatures: Dispatcher [employer] EDSC Georgie Kumar RN RN Bita Lind, [facility] Nichole Jarrett [facility] Ladan Whyte Gina, MD MD gb1 Corrections: (The following items were deleted from the chart) 10:40 10:39 Allergies: Lisinopril; ss ss 10:40 10:39 PMHx: diabetes mellitus; ss ss
--- NOTE | 2024-06-08 13:43 | EDPHYS ---
Physician Documentation [facility] Name: Akhil Hidalgo Age: 44 yrs Sex: Male : 1980 Arrival Date: 06/08/2024 Time: 09:56 Bed 18 Private MD: ED Physician Audra Allen HPI: 06/08 12:05 This 44 yrs old Black Male presents to ER via Ambulatory with complaints of Abdominal gb1 Pain. 12:05 44-year-old male with upper middle abdominal pain that started 3 to 4 days ago. Patient gb1 reports he is an alcoholic. Drinking 30 days ago. He has a history of hyperlipidemia, hypertension, anxiety, alcoholism with dependence in the recent past. Patient denies any nausea vomiting or fevers. Denies any diarrhea. He does state that his stool is hard and black.. Historical: - Allergies: 10:39 No Known Allergies; ss - PMHx: 10:39 Hypercholesterolemia; Hypertension; Anxiety; ss 11:57 Alcoholism; Alcohol dependence; kc6 - Immunization history:: Adult Immunizations up to date. - Infectious Disease History:: Denies. - Social history:: Smoking status: Patient denies any tobacco usage or history of. Exam: 12:05 Constitutional: This is a well developed, well nourished patient who is awake, alert, gb1 and in no acute distress. Head/Face: Normocephalic, atraumatic. Eyes: Pupils equal round and reactive to light, extra-ocular motions intact. Lids and lashes normal. Conjunctiva and sclera are non-icteric and not injected. Cornea within normal limits. Periorbital areas with no swelling, redness, or edema. ENT: Nares patent. No nasal discharge, no septal abnormalities noted. Tympanic membranes are normal and external auditory canals are clear. Oropharynx with no redness, swelling, or masses, exudates, or evidence of obstruction, uvula midline. Mucous membranes moist. Neck: Trachea midline, no thyromegaly or masses palpated, and no cervical lymphadenopathy. Supple, full range of motion without nuchal rigidity, or vertebral point tenderness. No Meningismus. Chest/axilla: Normal chest wall appearance and motion. Nontender with no deformity. No lesions are appreciated. Cardiovascular: Regular rate and rhythm with a normal S1 and S2. No gallops, murmurs, or rubs. Normal PMI, no JVD. No pulse deficits. Respiratory: Lungs have equal breath sounds bilaterally, clear to auscultation and percussion. No rales, rhonchi or wheezes noted. No increased work of breathing, no retractions or nasal flaring. Abdomen/GI: Soft, upper middle abdomen under the xiphoid-tender, with normal bowel sounds. No distension or tympany. No guarding or rebound. No evidence of tenderness throughout. Back: No spinal tenderness. No costovertebral tenderness. Full range of motion. Skin: Warm, dry with normal turgor. Normal color with no rashes, no lesions, and no evidence of cellulitis. MS/ Extremity: Pulses equal, no cyanosis. Neurovascular intact. Full, normal range of motion. Vital Signs: 10:36 BP 129 / 96; Pulse 72; Resp 16; Temp 98.2; Pulse Ox 100% on R/A; Weight 83.91 kg; ss Height 6 ft. 0 in. ; Pain 6/10; 11:56 BP 140 / 95; Pulse 59; Resp 16 S; Pulse Ox 100% on R/A; kc6 13:19 BP 122 / 82; Pulse 53; Resp 15 S; Pulse Ox 99% on R/A; kc6 10:36 Body Mass Index 25.09 (83.91 kg, 182.88 cm) ss 10:36 Pain Scale: Adult ss MDM: 10:41 Medical Screening Exam initiated gb1 13:42 ED course: 44 year old male with abdominal pain, no acute findings on CT A/P, consider gb1 gastritis, non hemorrhagic, no signs of acute pancreatitis or appy. D/c home with protonix and return precautions.. 13:44 Data reviewed: vital signs, nurses notes. gb06/08 11:05 Order name: CBC with Diff; Complete Time: 11:52 gb06/08 11:05 Order name: CMP; Complete Time: 12:02 gb06/08 11:05 Order name: Lipase; Complete Time: 12:02 gb1 12 11:05 Order name: Urinalysis w/ reflexes; Complete Time: 12:02 gb1 12 11:05 Order name: CT Abd/Pelvis - IV Contrast Only; Complete Time: 13:25 gb1 06/08 11:05 Order name: IV Saline Lock; Complete Time: 11:24 gb1 06/08 11:05 Order name: Labs collected and sent; Complete Time: 11:24 gb1 Administered Medications: No medications were administered Disposition Summary: 06/08/24 13:42 Discharge Ordered Notes: Location: Home gb1 Condition: Stable gb1 Diagnosis - Gastritis, unspecified gb1 Followup: gb1 - With: Private Physician - When: - Reason: Recheck today's complaints Discharge Instructions: - Discharge Summary Sheet gb1 - Gastritis, Adult, [id number] gb1 Forms: - Medication Reconciliation Form gb1 - Antibiotic Education gb1 - Prescription Opioid Use gb1 - Patient Portal Instructions gb1 - Leadership Thank You Letter gb1 Prescriptions: - Protonix 40 mg Oral Tablet - take 1 tablet ORAL route once daily; 30 tablet; Refills: 0, Product Selection gb1 Permitted Signatures: Dispatcher [employer] EDMS Georgie Kumar RN RN ss Campbell, Kaitlyn, RN RN kc6 Audra Allen MD MD gb1 Corrections: (The following items were deleted from the chart) 10:40 10:39 Allergies: Lisinopril; ss ss 10:40 10:39 PMHx: diabetes mellitus; ss ss 11:05 11:05 CBC+H.LAB.BRZ ordered. EDMS EDMS 11:05 11:05 COMPREHENSIVE METABOLIC PANEL+C.LAB.BRZ ordered. EDMS EDMS 11:05 11:05 LIPASE+C.LAB.BRZ ordered. EDMS EDMS 11:05 11:05 Urinalysis+U.LAB.BRZ ordered. EDMS EDMS
[2024-06-08 17:28] VITALS: TEMP 98.2
[2024-06-08 17:39] VITALS: BP 122/82; O2SAT 99
== END 2024-06-08 14:09 | disposition home or self-care (01) ==
LOC: ER 09:56
DX: K29.70 Gastritis, unspecified, without bleeding (principal)
CPT/HCPCS: 36415; 74177; 80053; 81003; 83690; 85025; 99284; Q9967

== ENCOUNTER 2025-04-12 08:46 | Emergency (ER) | payer SELFPAY ==
--- OUTSIDE RECORDS SUMMARY | 2025-04-12 08:53 | XMS REPORT | Continuity of Care Document ---
Author Name Unknown Address [address] [facility] [address] [place] [address] [facility] Address [address] [facility] [address] [place] [address] Care Team Providers Care Program Support Assistant Name Role Phone Saulo Ruby PACHECO Primary Care Physician Doctor Unassigned, [place] Attending Clinician Keyana Muse MD, [facility] Attending Clinician [phone] HIRO MUSE K.[facility]. Attending Clinician Unavaila ble Allergies, Adverse Reactions, Alerts Allergy Name Allergy Type Status Severity Reaction(s) Onset Date Inactive Date Treating Clinician Comments Source NO KNOWN ALLERGIE S Drug Class Active [facility] Social History Social Habit Start Date Stop Date Quantity Comments Source Sex Assigned At [facility] Exposure to SARS-CoV-2 (event) Not sure [facility] History of tobacco use Cigarette Smoker [facility] Tobacco use and exposure 2020-05-30 00:00:00 2020-05-30 00:00:00 Never used [facility] Smoking Status Start Date Stop Date Source Unknown [facility] Current every day smoker 2020-05-30 00:00:00 [facility] Medications Ordered Medication Name Filled Medication Name Start Date Stop Date Current Medication? Ordering Clinician Indication Dosage Frequency Signature (SIG) Comments Components Source prednisone 50 mg tablet 02-05 00:00: 00 Yes 1mg Quincyradha Castillo cyclobenzap rine 10 mg tablet 02-05 00:00: 00 Yes 1mg Quincyradha Castillo TAKE 1 TABLET DAILY. 02-28 00:00: 00 10-03 00:00 :00 No 10 Quincy Shannan Jonathan TAKE 1 TABLET DAILY. 8 00:00: [...] 2-08 00:00: 00 10-03 00:00 :00 No [id number] Quincy Castillo TAKE 2 TABLETS ON DAY 1 THEN TAKE 1 TABLET A DAY FOR 4 DAYS. 2-08 00:00: 00 10-03 00:00 :00 No 250 Quincy Castillo TAKE 1 TABLET DAILY. 2-08 00:00: 00 10-03 00:00 :00 No 20 Quincy Castillo 1 CAP EVERY 8 HOURS NEEDED FOR COUGH 2-08 00:00: 00 10-03 00:00 :00 No 200 uQincy Castillo TAKE 1 TABLET DAILY. 1-24 00:00: 00 10-03 00:00 :00 No 500 Quincy Castillo ROSUVASTATI N 5MG 1-23 00:00: 00 Yes Quincy Castillo TAKE 1 TABLET BY MOUTH EVERY DAY 1-22 00:00: 00 10-03 00:00 :00 No 5 Quincy Castillo TAKE 1 TABLET EVERY MORNING. 1-18 [...] 00 No FAMOTIDINE 20 MG TABLET 2021-07 2-16 00:00: 00 No DISSOLVE 1 TABLET UNDER [...] 2-16 00:00: 00 Yes Quincy Shannan Jonathan Dose Unknown 2021-07 2-16 00:00: 00 Yes Quincy Castillo TRAZODONE 50 MG TABLET 2021-07 2-16 00:00: 00 Yes Quincy Castillo Dose Unknown 2021-07 2-16 00:00: 00 Yes Quincy Castillo SHAKE LIQUID AND USE 1 SPRAY IN [...] 2021-07 2-16 00:00: 00 Yes Quincy Castillo DICYCLOMINE 20 MG TABLET 2021-07 2-16 [...] Yes Quincy Castillo ACETAMINOPH EN-COD #3 TABLET 0 08 00:00: 00 Yes Quincy Castillo ACETAMINOPH EN-COD [...] 0 - 00:00: 00 No &lt 0 12-19 00:00: 00 No TAKE 1 TABLET BY MOUTH FOUR TIMES DAILY 2021-0 21 00:00: 00 No TAKE 1 TABLET BY [...] 00 Yes Quincy Shannan Jonathan &lt 2021-0 18 00:00: 00 No &lt 2-0 18 00:00: 00 No &lt 2-0 618 00:00: 00 No SHAKE LIQUID AND USE 1 SPRAY IN EACH NOSTRIL TWICE DAILY 2021-0 18 00:00: 00 No TAKE 1 TABLET BY MOUTH EVERY NIGHT 2021-0 18 00:00: 00 No &lt 2-0 618 00:00: 00 No &lt 2-0 618 00:00: 00 No &lt 2-0 618 00:00: 00 No SHAKE LIQUID AND USE 1 SPRAY IN EACH NOSTRIL TWICE DAILY 2021-0 18 00:00: 00 No TAKE 1 TABLET BY MOUTH EVERY NIGHT 2021-0 18 00:00: 00 No &lt 2-0 6-14 00:00: 00 Yes Quincy Campbell Jonathan &lt 2021-0 614 00:00: 00 No &lt 2-0 614 00:00: 00 No TAKE 1 TABLET BY MOUTH TWICE DAILY FOR 10 DAYS 2021-0 6-06 00:00: 00 Yes Quincy Castillo metformin 500 mg tablet 2-0 3-17 00:00: 00 Yes 1mg Quincy Castillo metformin 500 mg tablet 2-0 3-17 00:00: 00 No 1mg metformin 500 mg tablet 2-0 3-17 00:00: 00 No 1mg amlodipine 10 mg tablet 2-0 3-16 00:00: 00 Yes 1mg Quincy Castillo Dose Unknown 2022-0 3-16 00:00: 00 Yes Quincy Castillo Dose Unknown 2022-0 3-16 00:00: 00 Yes Quincy Castillo Dose Unknown 2022-0 3-16 00:00: 00 Yes Quincy Castillo Dose Unknown 2022-0 3-16 00:00: 00 Yes Quincy Castillo Dose Unknown 2022-0 3-16 00:00: 00 Yes Qunicy Castillo Dose Unknown 2022-0 3-16 00:00: 00 No Dose Unknown 2022-0 3-16 00:00: 00 No amlodipine 10 mg tablet 2-0 3-16 00:00: 00 No 1mg Dose Unknown 2-0 3-16 00:00: 00 No Dose Unknown 2022-0 [...] 00:00: 00 Yes Quincy Castillo Dose Unknown 3- 00:00: 00 No Dose Unknown 0 3- 00:00: 00 No Zoloft 100 mg tablet 0 3- 00:00: 00 No 1mg trazodone 50 mg tablet 0 3- 00:00: 00 No 1mg ibuprofen 600 mg tablet 2 00:00: 00 Yes 1mg Quincy Castillo Dose Unknown 2 00:00: 00 Yes Quincy Castillo Dose Unknown 2 00:00: 00 Yes Quincy Castillo Flonase Allergy Relief 50 mcg/actuati on nasal spray,suspe nsion 0 2 00:00: 00 Yes 1mcg/ac tuation Quincy Castillo ibuprofen 600 mg tablet 2 00:00: 00 No 1mg Dose Unknown 2 00:00: 00 No Dose Unknown 0 2 00:00: 00 No Flonase Allergy Relief 50 mcg/actuati on nasal spray,suspe nsion 0 2 00:00: 00 No 1mcg/ac tuation Dose Unknown 2 00:00: 00 No acetaminoph en 500 mg [...] 1mg Quincy Castillo amlodipine 10 mg tablet 9- 00:00: 00 No 1mg amlodipine 10 mg tablet 9- 00:00: 00 No 1mg amlodipine 10 mg tablet 8- 00:00: 00 Yes 1mg Quincy Castillo amlodipine 10 mg tablet 8- 00:00: 00 No 1mg amlodipine 10 mg tablet 8- 00:00: 00 No 1mg Zoloft 100 mg tablet 7-20 00:00: 00 Yes 1mg Quincy Castillo buspirone 7.5 mg tablet 7-20 00:00: 00 Yes 1mg Quincy Castillo trazodone 50 mg tablet 7-20 00:00: 00 Yes 1mg Quincy Castillo Zoloft 100 mg tablet 0 7- 00:00: 00 No 1mg buspirone 7.5 mg tablet 0 7- 00:00: 00 No 1mg trazodone 50 mg tablet 0 7 00:00: 00 No 1mg Zoloft 100 mg tablet 0 7 00:00: 00 No 1mg buspirone 7.5 mg tablet 0 7 00:00: 00 No 1mg trazodone 50 mg tablet 0 7 00:00: 00 No 1mg Zoloft 100 mg tablet 0 5 00:00: 00 Yes 1mg Quincy Castillo trazodone 50 mg tablet 0 5- 00:00: 00 Yes 1mg Quincy Castillo Zoloft 100 mg tablet 0 5- 00:00: 00 No 1mg trazodone 50 mg tablet 0 5- 00:00: 00 No 1mg Zoloft 100 mg tablet 0 5- 00:00: [...] 12mg Quincy Castillo Zoloft 50 mg tablet 2020-0 3-25 00:00: [...] No 12mg escitalopra m 10 mg tablet 2 00:00: 00 No 1mg Paxil 10 mg [...] 10mg Take 10 mg by mouth daily. [facility] diclofenac 75 mg EC tablet 2019-07 15:30: 03 Yes 75mg Take 75 mg by mouth 2 (two) times daily with meals. [facility] amlodipine 10 mg tablet 2019-07 00:00: 00 Yes 1mg Quincy Castillo amlodipine 10 mg tablet 2019-07 00:00: 00 No 1mg amlodipine 10 mg tablet 2019-07 00:00: 00 No 1mg mupirocin 2 % topical ointment 2019-07 0 00:00: 00 Yes 1% Quincy Castillo Norvasc 10 mg tablet 2019-07 0- 00:00: 00 Yes 1mg Quincy Castillo cephalexin 500 mg capsule 2019-07 0- 00:00: 00 Yes 1mg Quincy Castillo mupirocin 2 % topical ointment 2019-07 0 00:00: 00 No 1% Norvasc 10 mg [...] mg tablet 11-02 00:00: 00 Yes mg Quincy Castillo prednisone 10 mg tablet 11-02 00:00: 00 No mg hydroxyzine HCl 25 mg tablet 05 00:00: 00 No 12mg triamcinolo ne acetonide 0.5 % topical ointment 11-02 00:00: 00 No 1% prednisone 10 mg tablet 05 00:00: 00 No mg hydroxyzine HCl 25 [...] 1mg/24 hr amlodipine 10 mg tablet 0 16 00:00: 00 Yes 1mg Quincy Castillo amlodipine [...] Name Observation Time Observation Value Comments S galindo Systolic blood pressure 2020-05-30 15:31:00 131 mm[Hg] [facility] Diastolic blood pressure 2020-05-30 15:31:00 92 mm[Hg] [facility] Heart rate 2020-05-30 15:31:00 79 /min [facility] Respiratory rate 2020-05-30 15:29:00 19 /min [facility] Body height 2020-05-30 15:29:00 182.9 cm [facility] Body weight 2020-05-30 15:29:00 89.495 kg [facility] BMI 2020-05-30 15:29:00 26.76 kg/m2 [facility] Oxygen saturation in Arterial blood by Pulse oximetry 2020-05-30 15:29:00 97 /min [facility] Height Measured 2024-02-06 17:13:00 71.65 inches [...] Weight Measured 2023-05-08 15:55:00 212.60 pounds Quincy Castillo Height Measured 2023-05-08 15:55:00 71.65 inches Quincy [...] - [facility] 2020-06-14 06:01:00 Doctor Unassigned, [place] [facility] CONSENT/REFUSAL FOR DIAGNOSIS AND TREATMENT 2020-05-30 15:04:59 Doctor Unassigned, [place] [facility] Plan of Care Planned Activity Planned Date Details Comments Source Goal Plan of Care Note [code = 39742-8] Goal Plan of Care Note [code = 23471-7] Goal Plan of Care Note [code = 34469-3] Goal Plan of Care Note [code = 06326-7] Goal Plan of Care Note [code = 21608-0] Goal Plan of Care Note [code = 92869-6] Goal Plan of Care Note [code = 93363-2] Goal Plan of Care Note [code = 48565-6] Goal Plan of Care Note [code = 12438-1] Goal Plan of Care Note [code = 09823-1] Goal Plan of Care Note [code = 12073-2] Goal Plan of Care Note [code = 41063-6] Goal Plan of Care Note [code = 41552-8] Goal Plan of Care Note [code = 84270-3] Goal Plan of Care Note [code = 83915-6] Goal Plan of Care Note [code = 90927-5] Goal Plan of Care Note [code = 18404-1] Goal Plan of Care Note [code = 11565-0] Goal Plan of Care Note [code = 45053-5] Goal Plan of Care Note [code = 11246-5] Goal Plan of Care Note [code = 82277-3] Goal Plan of Care Note [code = 17302-0] Goal Plan of Care Note [code = 58451-0] Goal Plan of Care Note [code = 56434-9] Goal Plan of Care Note [code = 89403-6] Goal Plan of Care Note [code = 53230-3] Goal Plan of Care Note [code = 62813-9] Goal Plan of Care Note [code = 34215-5] Goal Plan of Care Note [code = 88642-8] Goal Plan of Care Note [code = 44258-9] Goal Plan of Care Note [code = 02222-1] Goal Plan of Care Note [code = 46577-9] Goal Plan of Care Note [code = 74314-0] Goal Plan of Care Note [code = 62389-0] Goal Plan of Care Note [code = 51413-7] Goal Plan of Care Note [code = 66630-8] Goal Plan of Care Note [code = 89447-3] Goal Plan of Care Note [code = 78796-5] Goal Plan of Care Note [code = 31400-7] Goal Plan of Care Note [code = 54723-6] Goal Plan of Care Note [code = 53653-2] Goal Plan of Care Note [code = 41007-4] Goal Plan of Care Note [code = 55044-9] Goal Plan of Care Note [code = 60404-0] Goal Plan of Care Note [code = 17763-5] Goal Plan of Care Note [code = 96863-5] Goal Plan of Care Note [code = 07158-3] Encounters Start Date/Time End Date/Time Encounter Type Admission Type Attending [facility] Care Department Encounter ID Source 2024-02-06 17:04:51 2024-02-06 17:04:51 Outpatient [facility] [id number] Quincy Castillo 2024-02-06 00:00:00 2024-02-06 00:00:00 Outpatient Visit [facility] [id number] Quincy Castillo 2023-05-08 15:46:54 2023-05-08 15:46:54 Outpatient [facility] [id number] Quincy Castillo 2022-08-08 13:39:31 2022-08-08 13:39:31 Outpatient [facility] [id number] Quincy Castillo 2022-07-24 09:59:08 2022-07-24 09:59:08 Outpatient [facility] [id number] Quincy Castillo 2022-07-18 08:11:22 2022-07-18 08:11:22 Outpatient [facility] [id number] Quincy Castillo 2022-07-18 00:00:00 2022-07-18 00:00:00 Outpatient Visit [id number] 2022-03-24 00:00:00 2022-03-24 00:00:00 Outpatient Visit [id number] 2020-07-04 09:00:00 2020-07-04 09:00:00 Outpatient R [facility] [id number] [facility] 2020-06-14 00:00:00 2020-06-14 00:00:00 Orders Only Doctor Unassigned, [place] [facility] [id number] [facility] 2020-05-30 09:05:42 2020-05-30 10:23:35 Office Visit Hiro Muse [facility] [id number] [facility] 2020-05-30 09:00:00 2020-05-30 09:00:00 Outpatient R HIRO MUSE [facility] [id number] [facility] 2020-05-30 00:00:00 2020-05-30 00:00:00 Orders Only Doctor Unassigned, [place] [facility] [id number] [facility] Results Test Description Test Time Test Comments Results Result Co mments Source Quincy Campbell AustinLIPID [id number] 00:00:00* Test Item Value Reference Range Interpretation Comme nts CHOLESTEROL (test code = 2210) 225 MG/DL TRIGLYCERIDES (test code = 2232) 71 MG/DL HDL CHOLESTEROL (test code = 2220) 45 MG/DL CALC LDL CHOL (test code = 2237) 163 MG/DL RISK RATIO LDL/HDL (test cod e = 2238) 3.62 RATIO Quincy CastilloHEMOGLOBIN [id number] 00:00:00* Test Item Value Reference Range Interpretation Comme [facility] HEMOGLOBIN A1c (test code = 69695) 6.1 % Quincy CastilloHEPATIC FUNCTION [id number] 23:55:36* Test Item Value Reference Range Interpretation [...] 5-50 UNLESS OTHERWISE INDICATED, ALL TESTING PERFORMED [facility] [address] [place] [address] TRUCK WASHER: FELISHA HONG M.D. CLIA NUMBER [id number] [facility] [place]. [id number] LIVER (HEPATIC) FUNCTION [id number] 00:00:00* Test Item Value Reference Range Interpretation [...] (test code = 2219) 28 U/L Quincy CastilloLIVER (HEPATIC) FUNCTION [id number] 00:00:00* Test Item Value Reference Range Interpretation Comme nts PROTEIN, TOTAL (test code = 2229) 7.9 G/DL ALBUMIN (test code = 2201) 4.9 G/DL BILIRUBIN, TOTAL (test code = 2206) <0.2 MG/DL BILIRUBIN, DIRECT (test code = 2021) <0.2 MG/DL ALKALINE PHOSPHATASE (test c ode = 2203) 86 U/L AST (test code = 2218) 27 U/L ALT (test code = 2219) 28 U/L COMPREHENSIVE METABOLIC [id number] 23:58:14* Test Item Value Reference Range Interpretation Comme nts GLUCOSE (test code = 2216) 99 MG/DL 70-99 BUN (test code = 2207) 13 MG/DL 6-20 CREATININE (test code = 221) 1.18 MG/DL 0.80-1.40 eGFR (2020 CKD-EPI) (test code = 48374) 80 ML/MIN/1.73 >60 CALC BUN/CREAT (test code = 2235) 11 RATIO 6-28 SODIUM (test code = 223) 141 MEQ/L 133-146 POTASSIUM (test code = [...] = 2219) 98 U/L 5-50 H LIPID [id number] 23:58:14* Test Item Value Reference Range Interpretation [...] SPECIMENS. FOR MOREINFORMATION, SEE CLIENT ANNOUNCEMENT AT [email or web address] RISK RATIO LDL/HDL (test code = 2238) 3.50 RATIO <3.55 UNLESS OTHERW ISE INDICATED, ALL TESTING PERFORMED [facility] [employer] [address] [place] [address] TRUCK WASHER: FELISHA HONG M.D. CLIA NUMBER [id number] [facility] [place]. [id number] HEMOGLOBIN [id number] 04:14:02* Test Item Value Reference Range Interpretation Comme nts HEMOGLOBIN A1c (test code = 59235) 5.9 % 4.2-5.6 H COMPREHENSIVE METABOLIC [id number] 00:00:00* Test Item Value Reference Range Interpretation Comme nts GLUCOSE (test code = 2217) 99 MG/DL BUN (test code = 2208) 13 MG/DL CREATININE (test code = 2214) 1.18 MG/DL eGFR (2020 CKD-EPI) (test co de = 91132) 80 ML/MIN/1.73 CALC BUN/CREAT (test code = [...] (test code = 2219) 98 U/L Quincy CastilloCOMPREHENSIVE METABOLIC [id number] 00:00:00* Test Item Value Reference Range Interpretation Comme nts GLUCOSE (test code = 2217) 99 MG/DL BUN (test code = 2208) 13 MG/DL CREATININE (test code = 2214) 1.18 MG/DL eGFR (2020 CKD-EPI) (test co de = 08780) 80 ML/MIN/1.73 CALC BUN/CREAT (test code = [...] (test code = 2219) 98 U/L HEMOGLOBIN [id number] 00:00:00* Test Item Value Reference Range Interpretation Comme nts HEMOGLOBIN A1c (test code = 63053) 5.9 % LIPID [id number] 00:00:00* Test Item Value Reference Range Interpretation Comme nts CHOLESTEROL (test code = 2210) 208 MG/DL TRIGLYCERIDES (test code = 2232) 88 MG/DL HDL CHOLESTEROL (test code = 2220) 42 MG/DL CALC LDL CHOL (test code = 2237) 147 MG/DL RISK RATIO LDL/HDL (test cod e = 2238) 3.50 RATIO COMPREHENSIVE METABOLIC [id number] 00:00:00* Test Item Value Reference Range Interpretation Comme nts GLUCOSE (test code = 2217) 99 MG/DL BUN (test code = 2208) 13 MG/DL CREATININE (test code = 2214) 1.18 MG/DL eGFR (2020 CKD-EPI) (test co de = 08524) 80 ML/MIN/1.73 CALC BUN/CREAT (test code = [...] (test code = 2219) 98 U/L HEMOGLOBIN [id number] 00:00:00* Test Item Value Reference Range Interpretation Comme nts HEMOGLOBIN A1c (test code = 27578) 5.9 % LIPID [id number] 00:00:00* Test Item Value Reference Range Interpretation Comme nts CHOLESTEROL (test code = 2210) 208 MG/DL TRIGLYCERIDES (test code = 2232) 88 MG/DL HDL CHOLESTEROL (test code = 2220) 42 MG/DL CALC LDL CHOL (test code = 2237) 147 MG/DL RISK RATIO LDL/HDL (test cod e = 2238) 3.50 RATIO HEMOGLOBIN [id number] 00:00:00* Test Item Value Reference Range Interpretation Comme nts HEMOGLOBIN A1c (test code = 59275) 5.9 % Quincy F AustinLIPID [id number] 00:00:00* Test Item Value Reference Range Interpretation Comme nts CHOLESTEROL (test code = 2210) 208 MG/DL TRIGLYCERIDES (test code = 2232) 88 MG/DL HDL CHOLESTEROL (test code = 2220) 42 MG/DL CALC LDL CHOL (test code = 2237) 147 MG/DL RISK RATIO LDL/HDL (test cod e = 2238) 3.50 RATIO Quincy F AustinLIPID [id number] 03:53:55* Test Item Value Reference Range Interpretation [...] SPECIMENS. FOR MOREINFORMATION, SEE CLIENT ANNOUNCEMENT AT [email or web address] RISK RATIO LDL/HDL (test code = 2238) 2.12 RATIO <3.55 COMPREHENSIVE METABOLIC [id number] 03:53:55* Test Item Value Reference Range Interpretation Comme nts GLUCOSE (test code = 2217) 107 MG/DL 70-99 H BUN (test code = 2207) 14 MG/DL 6-20 CREATININE (test code = 2214) 1.17 MG/DL 0.80-1.40 eGFR (2020 CKD-EPI) (test code = 92768) 81 ML/MIN/1.73 >60 CALC BUN/CREAT (test code [...] 5-50 UNLESS OTHERWISE INDICATED, ALL TESTING PERFORMED [facility] [employer] [address] [place] [address] TRUCK WASHER: FELISHA HONG M.D. CLIA NUMBER [id number] [facility] [place]. [id number] HEMOGLOBIN [id number] 03:14:26* Test Item Value Reference Range Interpretation Comme [facility] HEMOGLOBIN A1c (test code = 60045) 6.1 % 4.2-5.6 H HEMOGLOBIN [id number] 00:00:00* Test Item Value Reference Range Interpretation Comme [facility] HEMOGLOBIN A1c (test code = 11395) 6.1 % Quincy F AustinHEMOGLOBIN [id number] 00:00:00* Test Item Value Reference Range Interpretation Comme [facility] HEMOGLOBIN A1c (test code = 41560) 6.1 % LIPID [id number] 00:00:00* Test Item Value Reference Range Interpretation Comme nts CHOLESTEROL (test code = 2210) 274 MG/DL TRIGLYCERIDES (test code = 2232) 57 MG/DL HDL CHOLESTEROL (test code = 2220) 83 MG/DL CALC LDL CHOL (test code = 2237) 176 MG/DL RISK RATIO LDL/HDL (test cod e = 2238) 2.12 RATIO COMPREHENSIVE METABOLIC [id number] 00:00:00* Test Item Value Reference Range Interpretation Comme nts GLUCOSE (test code = 2217) 107 MG/DL BUN (test code = 2208) 14 MG/DL CREATININE (test code = 2214) 1.17 MG/DL eGFR (2020 CKD-EPI) (test co de = 81148) 81 ML/MIN/1.73 CALC BUN/CREAT (test code = [...] (test code = 2219) 25 U/L HEMOGLOBIN [id number] 00:00:00* Test Item Value Reference Range Interpretation Comme nts HEMOGLOBIN A1c (test code = 00037) 6.1 % LIPID [id number] 00:00:00* Test Item Value Reference Range Interpretation Comme nts CHOLESTEROL (test code = 2210) 274 MG/DL TRIGLYCERIDES (test code = 2232) 57 MG/DL HDL CHOLESTEROL (test code = 2220) 83 MG/DL CALC LDL CHOL (test code = 2237) 176 MG/DL RISK RATIO LDL/HDL (test cod e = 2238) 2.12 RATIO COMPREHENSIVE METABOLIC [id number] 00:00:00* Test Item Value Reference Range Interpretation Comme nts GLUCOSE (test code = 2217) 107 MG/DL BUN (test code = 2208) 14 MG/DL CREATININE (test code = 2214) 1.17 MG/DL eGFR (2020 CKD-EPI) (test co de = 34987) 81 ML/MIN/1.73 CALC BUN/CREAT (test code = [...] ALT (test code = 2219) 25 U/L LIPID [id number] 00:00:00* Test Item Value Reference Range Interpretation Comme nts CHOLESTEROL (test code = 2210) 274 MG/DL TRIGLYCERIDES (test code = 2232) 57 MG/DL HDL CHOLESTEROL (test code = 2220) 83 MG/DL CALC LDL CHOL (test code = 2237) 176 MG/DL RISK RATIO LDL/HDL (test cod e = 2238) 2.12 RATIO Quincy Campbell AustinCOMPREHENSIVE METABOLIC [id number] 00:00:00* Test Item Value Reference Range Interpretation Comme nts GLUCOSE (test code = 2217) 107 MG/DL BUN (test code = 2208) 14 MG/DL CREATININE (test code = 2214) 1.17 MG/DL eGFR (2020 CKD-EPI) (test co de = 59563) 81 ML/MIN/1.73 CALC BUN/CREAT (test code = [...] (test code = 2219) 25 U/L Quincy Campbell AustinCOMPREHENSIVE METABOLIC [id number] 00:00:00* Test Item Value Reference Range Interpretation Comme nts GLUCOSE (test code = 2217) 102 MG/DL BUN (test code = 2208) 13 MG/DL CREATININE (test code = 2214) 1.12 MG/DL eGFR AMER. (test cod e = 10669) 95 ML/MIN/1.73 eGFR NON- AMER. (test code = 27703) 82 ML/MIN/1.73 CALC BUN/CREAT (test code = [...] (test code = 2219) 105 U/L Quincy CastilloCOMPREHENSIVE METABOLIC [id number] 00:00:00* Test Item Value Reference Range Interpretation Comme nts GLUCOSE (test code = 2217) 102 MG/DL BUN (test code = 2208) 13 MG/DL CREATININE (test code = 2214) 1.12 MG/DL eGFR AMER. (test cod e = 80144) 95 ML/MIN/1.73 eGFR NON- AMER. (test code = 87065) 82 ML/MIN/1.73 CALC BUN/CREAT (test code = [...] (test code = 2219) 105 U/L LIPID [id number] 00:00:00* Test Item Value Reference Range Interpretation Comme nts CHOLESTEROL (test code = 2210) 218 MG/DL TRIGLYCERIDES (test code = 2232) 76 MG/DL HDL CHOLESTEROL (test code = 2220) 66 MG/DL CALC LDL CHOL (test code = 2237) 135 MG/DL RISK RATIO LDL/HDL (test cod e = 2238) 2.05 RATIO COMPREHENSIVE METABOLIC [id number] 00:00:00* Test Item Value Reference Range Interpretation Comme nts GLUCOSE (test code = 2217) 102 MG/DL BUN (test code = 2208) 13 MG/DL CREATININE (test code = 2214) 1.12 MG/DL eGFR AMER. (test cod e = 86218) 95 ML/MIN/1.73 eGFR NON- AMER. (test code = 95812) 82 ML/MIN/1.73 CALC BUN/CREAT (test code = [...] (test code = 2219) 105 U/L LIPID [id number] 00:00:00* Test Item Value Reference Range Interpretation Comme nts CHOLESTEROL (test code = 2210) 218 MG/DL TRIGLYCERIDES (test code = 2232) 76 MG/DL HDL CHOLESTEROL (test code = 2220) 66 MG/DL CALC LDL CHOL (test code = 2237) 135 MG/DL RISK RATIO LDL/HDL (test cod e = 2238) 2.05 RATIO LIPID [id number] 00:00:00* Test Item Value Reference Range Interpretation Comme nts CHOLESTEROL (test code = 2210) 218 MG/DL TRIGLYCERIDES (test code = 2232) 76 MG/DL HDL CHOLESTEROL (test code = 2220) 66 MG/DL CALC LDL CHOL (test code = 2237) 135 MG/DL RISK RATIO LDL/HDL (test cod e = 2238) 2.05 RATIO Quincy CastilloHEMOGLOBIN [id number] 00:00:00* Test Item Value Reference Range Interpretation Comme nts HEMOGLOBIN A1c (test code = 67721) 6.1 % HEMOGLOBIN [id number] 00:00:00* Test Item Value Reference Range Interpretation Comme nts HEMOGLOBIN A1c (test code = 14059) 6.1 % HEMOGLOBIN [id number] 00:00:00* Test Item Value Reference Range Interpretation Comme nts HEMOGLOBIN A1c (test code = 46891) 6.1 % Quincy CastilloCOMPREHENSIVE METABOLIC [id number] 00:00:00* Test Item Value Reference Range Interpretation Comme nts GLUCOSE (test code = 2217) 103 MG/DL BUN (test code = 8) 13 MG/DL CREATININE (test code = 2214) 1.09 MG/DL eGFR AMER. (test cod e = 18068) 99 ML/MIN/1.73 eGFR NON- AMER. (test code = 95296) 85 ML/MIN/1.73 CALC BUN/CREAT (test code = [...] (test code = 2219) 44 U/L Quincy CastilloCOMPREHENSIVE METABOLIC [id number] 00:00:00* Test Item Value Reference Range Interpretation Comme nts GLUCOSE (test code = 2217) 103 MG/DL BUN (test code = 2208) 13 MG/DL CREATININE (test code = 2214) 1.09 MG/DL eGFR AMER. (test cod e = 14156) 99 ML/MIN/1.73 eGFR NON- AMER. (test code = 31257) 85 ML/MIN/1.73 CALC BUN/CREAT (test code = [...] (test code = 2219) 44 U/L LIPID [id number] 00:00:00* Test Item Value Reference Range Interpretation Comme nts CHOLESTEROL (test code = 2210) 223 MG/DL TRIGLYCERIDES (test code = 2232) 75 MG/DL HDL CHOLESTEROL (test code = 2220) 74 MG/DL CALC LDL CHOL (test code = 2237) 132 MG/DL RISK RATIO LDL/HDL (test cod e = 2238) 1.78 RATIO COMPREHENSIVE METABOLIC [id number] 00:00:00* Test Item Value Reference Range Interpretation Comme nts GLUCOSE (test code = 2217) 103 MG/DL BUN (test code = 2208) 13 MG/DL CREATININE (test code = 2214) 1.09 MG/DL eGFR AMER. (test cod e = 19987) 99 ML/MIN/1.73 eGFR NON- AMER. (test code = 67679) 85 ML/MIN/1.73 CALC BUN/CREAT (test code = [...] (test code = 2219) 44 U/L LIPID [id number] 00:00:00* Test Item Value Reference Range Interpretation Comme nts CHOLESTEROL (test code = 2210) 223 MG/DL TRIGLYCERIDES (test code = 2232) 75 MG/DL HDL CHOLESTEROL (test code = 2220) 74 MG/DL CALC LDL CHOL (test code = 2237) 132 MG/DL RISK RATIO LDL/HDL (test cod e = 2238) 1.78 RATIO LIPID [id number] 00:00:00* Test Item Value Reference Range Interpretation Comme nts CHOLESTEROL (test code = 2210) 223 MG/DL TRIGLYCERIDES (test code = 2232) 75 MG/DL HDL CHOLESTEROL (test code = 2220) 74 MG/DL CALC LDL CHOL (test code = 2237) 132 MG/DL RISK RATIO LDL/HDL (test cod e = 2238) 1.78 RATIO [facility] Notes Date/Time Note Provider Source [facility]
[2025-04-12 09:25] LABS: Absolute Lymphocytes (CBC) 0.6 K/uL (0.7-4.9); Hematocrit 42.5 % (39.6-49.0); Hemoglobin 14.7 g/dL (13.6-17.9); MCH 30.3 pg (27.0-35.0); MCHC 34.7 g/dL (32.0-36.0); MCV 87.1 fL (80-100); MPV 7.7 fL (7.6-11.3); Nucleated RBC Absolute Count 0.0 (0-0); Nucleated Red Blood Cells % 0.2 % (0-0); RBC Red Blood Cell Count 4.87 M/uL (4.33-5.43); White Blood Count 10.90 thou/uL (4.3-10.9)
[2025-04-12] MEDS ORDERED: PANTOPRAZOLE 40 MG INJ ONE (09:36)
[2025-04-12] MEDS ORDERED: ONDANSETRON 4 MG/2 ML VIAL ONE (09:36)
[2025-04-12] MEDS ORDERED: NA CHLORIDE 0.9% 250 ML ONE (09:37)
[2025-04-12] MEDS ORDERED: NA CHLORIDE 0.9% 1,000 ML ONE (09:37)
[2025-04-12 09:38] LABS: ALT/SGPT 38.0 U/L (16-61); AST/SGOT 20.0 U/L (15-37); Albumin 3.6 g/dL (3.4-5.0); Albumin/Globulin Ratio 1.0 (1.1-1.8); Alkaline Phosphatase 58.0 U/L (45-117); Anion Gap 9.8 mEq/L (5.0-15.0); BUN Blood Urea Nitrogen 14.0 mg/dL (7-18); Globulin 3.7 g/dL (2.3-3.5); Glucose Level 93.0 mg/dL (74-106); Lipase 14.0 U/L (13-75); Potassium 3.8 mEq/L (3.5-5.1)
--- NOTE | 2025-04-12 10:40 | RAD REPORT ---
EXAM: CTA Abdomen Pelvis Angio, HISTORY: [facility] MAIN hematemesis; GI bleed protocol COMPARISON: None TECHNIQUE: Multiple contiguous axial images were obtained a CTA of the abdomen and pelvis, performed before and after IV contrast administration. Sagittal and coronal 3-D MIP reformats were performed. One or more of the following dose reduction techniques were used: Automated exposure control, adjustm ent of the mA and kV according to patient size, and iterative reconstruction. Unless otherwise specified, incidental findings do not require dedicated imaging follow-up. FINDINGS: LOWER LUNGS: No focal infiltrates or masses. PLEURAL SPACE: No pleural effusion or pneumothorax. LIVER: 1.3 cm peripheral left lobe flash filling hemangioma. KIDNEYS: Unremarkable. SPLEEN: Unremarkable. PANCREAS: Unremarkable. BOWEL: Nonobstructive bowel gas pattern. No mass, evidence of contrast extravasation. RETROPERITONEUM: No lymphadenopathy BONES: Degenerative changes in the spine. ABDOMINAL AORTA: Normal caliber without evidence of dissection or aneurysmal dilatation. CELIAC TRUNK: Patent SMA: Patent RACHEL: Patent RENAL ARTERIES: Bilateral single renal arteries without significant atherosclerotic disease IMPRESSION: No acute findings or evidence of a source for GI bleeding.
--- NOTE | 2025-04-12 10:40 | RAD REPORT ---
EXAM: CTA Abdomen Pelvis Angio, HISTORY: [facility] MAIN hematemesis; GI bleed protocol COMPARISON: None TECHNIQUE: Multiple contiguous axial images were obtained a CTA of the abdomen and pelvis, performed before and after IV contrast administration. Sagittal and coronal 3-D MIP reformats were performed. One or more of the following dose reduction techniques were used: Automated exposure control, adjustm ent of the mA and kV according to patient size, and iterative reconstruction. Unless otherwise specified, incidental findings do not require dedicated imaging follow-up. FINDINGS: LOWER LUNGS: No focal infiltrates or masses. PLEURAL SPACE: No pleural effusion or pneumothorax. LIVER: 1.3 cm peripheral left lobe flash filling hemangioma. KIDNEYS: Unremarkable. SPLEEN: Unremarkable. PANCREAS: Unremarkable. BOWEL: Nonobstructive bowel gas pattern. No mass, evidence of contrast extravasation. RETROPERITONEUM: No lymphadenopathy BONES: Degenerative changes in the spine. ABDOMINAL AORTA: Normal caliber without evidence of dissection or aneurysmal dilatation. CELIAC TRUNK: Patent SMA: Patent RACHEL: Patent RENAL ARTERIES: Bilateral single renal arteries without significant atherosclerotic disease IMPRESSION: No acute findings or evidence of a source for GI bleeding.
--- NOTE | 2025-04-12 10:41 | RAD REPORT ---
EXAM: CTA Abdomen Pelvis Angio, HISTORY: [facility] MAIN hematemesis; GI bleed protocol COMPARISON: None TECHNIQUE: Multiple contiguous axial images were obtained a CTA of the abdomen and pelvis, performed before and after IV contrast administration. Sagittal and coronal 3-D MIP reformats were performed. One or more of the following dose reduction techniques were used: Automated exposure control, adjustm ent of the mA and kV according to patient size, and iterative reconstruction. Unless otherwise specified, incidental findings do not require dedicated imaging follow-up. FINDINGS: LOWER LUNGS: No focal infiltrates or masses. PLEURAL SPACE: No pleural effusion or pneumothorax. LIVER: 1.3 cm peripheral left lobe flash filling hemangioma. KIDNEYS: Unremarkable. SPLEEN: Unremarkable. PANCREAS: Unremarkable. BOWEL: Nonobstructive bowel gas pattern. No mass, evidence of contrast extravasation. RETROPERITONEUM: No lymphadenopathy BONES: Degenerative changes in the spine. ABDOMINAL AORTA: Normal caliber without evidence of dissection or aneurysmal dilatation. CELIAC TRUNK: Patent SMA: Patent RACHEL: Patent RENAL ARTERIES: Bilateral single renal arteries without significant atherosclerotic disease IMPRESSION: No acute findings or evidence of a source for GI bleeding.
--- NOTE | 2025-04-12 10:56 | ER ---
Nurse's Notes [facility] Name: Akhil Hidalgo Age: 44 yrs Sex: Male : 1980 Arrival Date: 04/12/2025 Time: 08:46 Bed 8 Private MD: Diagnosis: Hematemesis Presentation: 04/12 09:03 Chief complaint: Vomiting dark red blood and headache wince last night. Coronavirus hb screen: At this time, the client does not indicate any symptoms associated with coronavirus-19. Ebola Screen: No symptoms or risks identified at this time. Initial Sepsis Screen: Does the patient meet any 2 criteria? No. Patient's initial sepsis screen is negative. Does the patient have a suspected source of infection? No. Patient's initial sepsis screen is negative. Risk Assessment: Do you want to hurt yourself or someone else? Patient reports no desire to harm self or others. Onset of symptoms was April 12, 2025. 09:03 Method Of Arrival: Ambulatory hb 09:03 Acuity: MARIANGEL 3 hb Historical: - Allergies: 09:53 No Known Allergies; db - PMHx: 09:53 Alcohol dependence; Alcoholism; Anxiety; Hypercholesterolemia; Hypertension; db - Immunization history:: Adult Immunizations unknown. - Infectious Disease History:: Denies. - Family history:: not pertinent. - Social history:: Smoking status: Patient denies any tobacco usage or history of. - Hospitalizations: : No recent hospitalization is reported. Screenin:[address] [facility] ED Fall Risk Assessment (Adult) History of falling in the last 3 months, db including since admission No falls in past 3 months (0 pts) Confusion or Disorientation No (0 pts) Intoxicated or Sedated No (0 pts) Impaired Gait No (0 pts) Mobility Assist Device Used No (0 pt) Altered Elimination No (0 pt) Score/Fall Risk Level 0 - 2 = Low Risk Oriented to surroundings, Maintained a safe environment. Abuse screen: Denies threats or abuse. Denies injuries from another. Nutritional screening: No deficits noted. Tuberculosis screening: No symptoms or risk factors identified. Assessment: 09:10 General: Appears in no apparent distress. Behavior is calm, cooperative. Pain: ar8 Complains of pain in abdomen. 09:10 Neuro: Level of Consciousness is awake, alert, obeys commands, Oriented to person, ar8 place, time, situation. Cardiovascular: Patient's skin is warm and dry. Respiratory: Airway is patent Respiratory effort is even, unlabored, Respiratory pattern is regular, symmetrical. GI: Abdomen is flat, non-distended, Abd is soft and non tender X 4 quads. Reports vomiting, vomiting blood. : No signs and/or symptoms were reported regarding the genitourinary system. EENT: No signs and/or symptoms were reported regarding the EENT system. Derm: No signs and/or symptoms reported regarding the dermatologic system. Musculoskeletal: No signs and/or symptoms reported regarding the musculoskeletal system. Vital Signs: 09:03 BP 143 / 95; Pulse 108; Resp 18; Temp 98.9; Pulse Ox 100% ; hb 09:30 BP 126 / 78; Pulse 83; Resp 18; Pulse Ox 100% on R/A; db 10:00 BP 116 / 72; Pulse 80; Resp 16 S; Pulse Ox 99% ; Pain 0/10; ar8 11:00 BP 126 / 90; Pulse 75; Resp 18; Pulse Ox 100% on R/A; Pain 0/10; ar8 12:00 BP 127 / 82; Pulse 83; Resp 17; Pulse Ox 100% ; ar8 10:00 Pain Scale: Adult ar8 11:00 Pain Scale: Adult ar8 ED Course: 08:48 Patient arrived in ED. cj3 08:51 Chester Hannah MD is Attending Physician. rn 09:05 Triage completed. hb 09:[address] In Process Unspecified. EDMS 09:25 Pelvis Angio In Process Unspecified. EDMS 09:25 Abdomen In Process Unspecified. EDMS 09:26 Erica Moreno, RN is Primary Nurse. db 09:53 Arm band placed on. db 09:56 Patient has correct armband on for positive identification. Bed in low position. Call db light in reach. Side rails up X 1. Client placed on continuous cardiac and pulse oximetry monitoring. NIBP monitoring applied. ekg monitor tech on. Pulse ox on. NIBP on. Warm blanket given. Pillow given. 09:56 Inserted saline lock: 20 gauge in right antecubital area, using aseptic technique. db Blood collected. Flushed with 10 mL NS. 10:56 Domo Goff MD is Hospitalizing Provider. rn 12:18 Dheeraj Garza MD is Referral Physician. rn 12:47 No provider procedures requiring assistance completed. IV discontinued, intact, ar8 bleeding controlled, No redness/swelling at site. Pressure dressing applied. Administered Medications: 09:45 Drug: Ondansetron IVP 4 mg IVP once; over 2 minutes Route: IVP; Site: right antecubital;db 10:30 Follow up: Response: No adverse reaction; Nausea is decreased ar8 09:45 Drug: NS 0.9% IV 1000 ml IV at 1 bolus Per protocol; to be given as a bolus over 60 db minutes Route: IV; Rate: 1 bolus; Site: right antecubital; 11:00 Follow up: Response: No adverse reaction; IV Status: Completed infusion; IV Intake: ar8 1000ml 09:45 Drug: Pantoprazole IVP 40 mg IVP once Route: IVP; Site: right antecubital; db 10:30 Follow up: Response: No adverse reaction ar8 09:45 Drug: Pantoprazole IV 8 mg/hr IV at 25 ml/hr continuous; (Standard dilution is 80 mg in db 250 mL NS) Route: IV; Rate: 25 ml/hr; Site: right antecubital; 12:47 Follow up: Response: No adverse reaction; IV Status: Order to discontinue infusion ar8 Intake: 11:00 IV: 1000ml; Total: 1000ml. ar8 Outcome: 10:56 Decision to Hospitalize by Provider. rn 12:19 Discharge ordered by . rn 12:47 Discharged to home ambulatory, ar8 12:47 Condition: stable 12:47 Discharge instructions given to patient, Instructed on discharge instructions, follow up and referral plans. medication usage, Demonstrated understanding of instructions, follow-up care, medications, Prescriptions given X 2, 12:50 Patient left the ED. ar8 Signatures: Dispatcher [employer] EDMS Chester Hannah MD MD rn Baxter, Heather, RN RN hb Benton, Danielle, RN RN db Johnson, Celeste [facility] Geoff Meyer RN RN ar8
--- NOTE | 2025-04-12 10:56 | EDPHYS ---
Physician Documentation [facility] Name: Akhil Hidalgo Age: 44 yrs Sex: Male : 1980 Arrival Date: 04/12/2025 Time: 08:46 Bed 8 Private MD: ED Physician Chester Hannah HPI: 04/12 09:14 This 44 yrs old Black Male presents to ER via Ambulatory with complaints of rn Nausea/Vomiting/Diarrhea, Abdominal Pain - UPPER, Headache. 09:14 Patient reports epigastric abdominal pain with vomiting blood that began yesterday. Has rn thrown up 6 times and all 6 episodes have had combination of dark blood and some red blood. Has not paid attention to the color of his stool. No fever or chills. No trauma. Multiple family members sick at home, he assumes from stomach bug. Historical: - Allergies: 09:53 No Known Allergies; db - PMHx: 09:53 Alcohol dependence; Alcoholism; Anxiety; Hypercholesterolemia; Hypertension; db - Immunization history:: Adult Immunizations unknown. - Infectious Disease History:: Denies. - Family history:: not pertinent. - Social history:: Smoking status: Patient denies any tobacco usage or history of. - Hospitalizations: : No recent hospitalization is reported. ROS: 09:14 Constitutional: Negative for fever, chills, and weight loss, Cardiovascular: Negative rn for chest pain, palpitations, and edema, Respiratory: Negative for shortness of breath, cough, wheezing, and pleuritic chest pain, Abdomen/GI: Positive for epigastric abdominal pain with nausea and vomiting and hematemesis Exam: 09:14 Constitutional: This is a well developed, well nourished patient who is awake, alert, rn and in no acute distress. Cardiovascular: Tachycardic, regular. No pulse deficits. Respiratory: No increased work of breathing, no retractions or nasal flaring. Abdomen/GI: Soft, non-tender MS/ Extremity: Pulses equal, no cyanosis. Neuro: Awake and alert, GCS 15 Vital Signs: 09:03 BP 143 / 95; Pulse 108; Resp 18; Temp 98.9; Pulse Ox 100% ; hb 09:30 BP 126 / 78; Pulse 83; Resp 18; Pulse Ox 100% on R/A; db 10:00 BP 116 / 72; Pulse 80; Resp 16 S; Pulse Ox 99% ; Pain 0/10; ar8 11:00 BP 126 / 90; Pulse 75; Resp 18; Pulse Ox 100% on R/A; Pain 0/10; ar8 12:00 BP 127 / 82; Pulse 83; Resp 17; Pulse Ox 100% ; ar8 10:00 Pain Scale: Adult ar8 11:00 Pain Scale: Adult ar8 MDM: 08:51 Medical Screening Exam initiated rn 09:55 Management of patient was discussed with the following: Deputy Clerk Of Court: Discussed case with rn Dr. Garza, will consult on patient once admitted.. 10:55 Differential diagnosis: Nonspecific abd pain, gastritis, Gastric ulcers, Dorothy-Tillman rn tear. Data reviewed: vital signs, nurses notes, lab test result(s), radiologic studies, CT scan, and as a result, I will admit patient. Consideration of Admission/Observation Patient was admitted/placed on observation. Escalation of care including admission/observation considered. Independent interpretation of the following test(s) in the Emergency Department CT Scan: My interpretation is CT abdomen pelvis negative for acute hemorrhage per my interpretation. secured entrance monitor: rate is 83 beats/min, Rhythm is normal sinus rhythm, regular, with no ectopy, Interpretation: normal rate, normal rhythm. Care significantly affected by the following chronic conditions: Alcoholism. Counseling: I had a detailed discussion with the patient and/or guardian regarding the historical points, exam findings, and any diagnostic results supporting the discharge/admit diagnosis, lab results, radiology results, the need for further work-up and treatment in the hospital. Response to treatment: the patient's symptoms have mildly improved after treatment, and as a result, I will admit patient. 12:17 Refusal of service: The patient/guardian displays adequate decision making capability rn and despite a detailed discussion of alternatives, benefits, risks, and consequences refuses: Admission to the hospital for further work-up and treatment. ED course: After originally agreeing to admission now patient states wants to go home. States would not be hard to be admitted and take care of his family. Understands risks and benefits of both, understands that he could go home and continue to bleed. Patient states if does so we will call 911.. 04/12 09:02 Order name: CBC with Diff; Complete Time: 12:13 rn 04/12 09:02 Order name: CMP; Complete Time: 09:45 rn 04/12 09:02 Order name: Lipase; Complete Time: 09:45 rn 04/12 09:02 Order name: Type And Screen; Complete Time: 10:44 rn 04/12 09:31 Order name: CBC Smear Scan; Complete Time: 12:13 EDMS 04/12 09:02 Order name: Abdomen Angio CT; Complete Time: 10:44 rn 04/12 09:06 Order name: Pelvis Angio; Complete Time: 10:44 EDMS 04/12 09:06 Order name: Abdomen ; Complete Time: 10:44 EDMS 04/12 09:02 Order name: IV Saline Lock; Complete Time: 09:26 rn 04/12 09:02 Order name: Labs collected and sent; Complete Time: 09:26 rn Administered Medications: 09:45 Drug: Ondansetron IVP 4 mg IVP once; over 2 minutes Route: IVP; Site: right antecubital;db 10:30 Follow up: Response: No adverse reaction; Nausea is decreased ar8 09:45 Drug: NS 0.9% IV 1000 ml IV at 1 bolus Per protocol; to be given as a bolus over 60 db minutes Route: IV; Rate: 1 bolus; Site: right antecubital; 11:00 Follow up: Response: No adverse reaction; IV Status: Completed infusion; IV Intake: ar8 1000ml 09:45 Drug: Pantoprazole IVP 40 mg IVP once Route: IVP; Site: right antecubital; db 10:30 Follow up: Response: No adverse reaction ar8 09:45 Drug: Pantoprazole IV 8 mg/hr IV at 25 ml/hr continuous; (Standard dilution is 80 mg in db 250 mL NS) Route: IV; Rate: 25 ml/hr; Site: right antecubital; 12:47 Follow up: Response: No adverse reaction; IV Status: Order to discontinue infusion ar8 Disposition Summary: 04/12/25 12:19 Discharge Ordered Notes: Location: Home(04/12/25 12:19) rn Problem: new(04/12/25 12:19) rn Symptoms: have improved(04/12/25 12:19) rn Condition: Stable(04/12/25 12:19) rn Diagnosis - Hematemesis(04/12/25 12:19) rn Followup: rn - With: Dheeraj Garza MD - When: Today - Reason: Recheck today's complaints, Re-evaluation by your physician Discharge Instructions: - Discharge Summary Sheet rn - Gastrointestinal Bleeding rn - Hematemesis rn Forms: - Medication Reconciliation Form rn - Antibiotic grad intern - Prescription Opioid Use rn - Patient Portal Instructions rn - Leadership Thank You Letter rn - Work release form ar8 Prescriptions: - ondansetron 4 mg Oral Tablet,disintegrating - take 1 tablet ORAL route every 8 hours As needed as needed for nausea and rn vomiting; 10 tablet; Refills: 0, Product Selection Permitted - Protonix 40 mg Oral Tablet - take 1 tablet ORAL route once daily; 30 tablet; Refills: 0, Product Selection rn Permitted Critical care time excluding procedures: 12:17 Critical care time: Bedside Care: 25 minutes, Consultation: 10 minutes. Total time: 35 rn minutes Signatures: Dispatcher [employer] EDChester Chaudhry MD MD rn Benton, Danielle RN Geoff Castillo RN ar8 Corrections: (The following items were deleted from the chart) 09:02 09:02 CBC+H.LAB.BRZ ordered. EDMS EDMS 09:02 09:02 COMPREHENSIVE METABOLIC PANEL+C.LAB.BRZ ordered. EDMS EDMS 09:02 09:02 LIPASE+C.LAB.BRZ ordered. EDMS EDMS 09:02 09:02 TYPE AND SCREEN+BB.LAB.BRZ ordered. EDMS EDMS 09:03 09:03 Abdomen Angio+CT.RAD.BRZ ordered. EDMS EDMS 12:18 10:56 Observation rn rn : 10:56 Domo Goff rn rn : 10:56 Telemetry/MedSurg (observation) rn rn : 10:56 Stable rn rn : 10:56 new rn rn : 10:56 have improved rn rn 12: 10:56 Standard rn rn : 10:56 rn rn :18 10:56 Hematemesis rn rn
[2025-04-12 12:07] LABS: Blood Morphology Comment NOT SEEN (NOT SEEN); White Blood Cell Scan OK (OK)
--- NOTE | 2025-04-12 12:51 | P.CNS ---
Date of Consult: 04/12/25 Reason for Consult: Hematemesis Requesting Physician: Chester Hannah Chief Complaint: Hematemesis History of Present Illness: 44-year-old black male presents to the ED via personal vehicle with complaints of NVD, abdominal pain, headache and concern for hematemesis. Patient denies previous medical history. He endorses a history of drinking " a few beers every couple of weeks", vaping and denies any daily medication use, drug use. Reports his children started with a stomach bug on Saturday 3 days prior with NVD. He reports having 6 episodes of emesis this a.m. approximately 1 cup each that he describes as "dark-colored". He was unable to recollect the color of his stools. He also reports a history of eating spicy foods including last night and having spicy hot wings from October stop with Siracha sauce. Chart review shows prior medical history of hyperlipidemia: -Continue home atorvastatin 80 mg once daily., Alcoholism, hypertension, anxiety. ER course: Patient underwent laboratory monitoring, CT imaging. Imaging showed no acute findings or source for GI bleed. CBC, BMP, LFTs completed and unremarkable at time of admission. ED contacted Dr. Lopez for gastroenterology consult who recommended admission. Differentials considered abdominal pain, gastritis, gastric ulcers, Dorothy-Tillman tears. Patient was monitored with telemetry maintaining normal sinus rhythm rate 83 bpm at time of evaluation. He was given pantoprazole IV 8 mg/h and 25 mL/h, pantoprazole IV push 40 mg x 1, normal saline bolus 1 L given over 60 minutes and ondansetron IV push 4 mg x 1 with good improvement of symptoms. Allergies NKDA Allergy (Uncoded 07/12/15 13:28) Unknown Home medications list reviewed: Yes Home Medications: NK [No Home Meds] 04/12/25 - Past Medical/Surgical History Diabetic: No Past Medical History: Patient denies medical history Past Surgical History: Patient denies surgical history (Vapes daily) - Social History Smoking Status: Unknown if ever smoked Counseled patient to stop smoking for: more than 10 minutes Smoking therapy provided: Yes Patient receptive to therapy: No Alcohol use: Yes CD- Drugs: No Caffeine use: Yes Place of Residence: Home Review of Systems 10-point ROS is otherwise unremarkable Physical Examination General: Alert, Oriented x3, Cooperative, Obese HEENT: Atraumatic, Normocephalic, PERRLA, Mucous membr. moist/pink Neck: Supple, JVD not distended, No Thyromegaly Respiratory: Clear to auscultation bilaterally, Normal air movement Cardiovascular: No edema, Normal pulses, Regular rate/rhythm, Normal S1 S2 Capillary refill: Brisk Gastrointestinal: Normal bowel sounds, Soft and benign, Non-distended Musculoskeletal: No clubbing, No swelling, No contractures, No erythema, No tenderness Integumentary: No rashes, No breakdown, No significant lesion, No tenderness/swelling, No erythema Neurological: Normal speech, Normal strength at 5/5 x4 extr, Normal tone, Sensation intact, Cranial nerves 3-12 intact, Normal affect Laboratory Data (last 24 hrs) 04/12/25 04/12/25 09:11 09:11 WBC 10.90 Hgb 14.7 Hct 42.5 Plt Count 309 Sodium 135 L Potassium 3.8 BUN 14 Creatinine 1.15 Glucose 93 Total Bilirubin 0.8 AST 20 ALT 38 Alkaline Phosphatase 58 Lipase 14 Conclusions/Impression: After discussion regarding risks and benefits patient being of sound mind decided that he does not want to stay for admission. The patient is clinically not intoxicated, free from distracting pain, appears to have intact insight, judgment and reason and in my medical opinion has the capacity to make decisions. The patient is also not under any duress to leave the hospital. In this scenario, it would be battery to subject a patient to treatment against his/her will. I have voiced my concerns for the patient's health given that a full evaluation and/or treatment have not occurred. I have discussed the need for continued evaluation and treatment to determine if their symptoms are caused by a condition that present risk of or morbidity. Risks including but not limited to , permanent disability, prolonged hospitalization, prolonged illness, were discussed. I discussed the specific benefits of additional treatment, as well as tried offering alternative options in hopes that the patient might be amenable to partial evaluation and treatment which would be medically beneficial to the patient. However, the patient declined my options and insisted on leaving. I recommended follow-up with Dr. Peng in his office on an outpatient basis. Patient was agreeable. Per ED notes, follow-up information was provided to patient and discharge packet. Critical Care: No Time Spent Managing Pts care (In Minutes): 48
[2025-04-12 14:45] VITALS: TEMP 98.9
[2025-04-12 14:50] VITALS: O2SAT 100
[2025-04-12 14:52] VITALS: BP 127/82
== END 2025-04-12 12:50 | disposition home or self-care (01) ==
LOC: ER 08:46
DX: K92.0 Hematemesis (principal); R10.9 Unspecified abdominal pain; R19.7 Diarrhea, unspecified; R51.9 Headache, unspecified
CPT/HCPCS: 36415; 72191; 74175; 74176; 80053; 83690; 85025; 86850; 86900; 86901; 96365; 96366; 96375; 99285; J2405; J2470; J7030; J7050; Q9967